=== PATIENT | male | born 1980 | race Caucasian/White ===

== ENCOUNTER 2020-08-18 08:57 | Emergency (ER) | payer OTHER, SELFPAY ==
[2020-08-18 09:06] VITALS: BP 134/82; PULSE 110; RESP 18; TEMP 37.9; O2SAT 96; BMI 39.1
--- NOTE | 2020-08-18 09:53 | ECG_ITS ---
Test Reason : SOB Blood Pressure : / mmHG Vent. Rate : 097 BPM Atrial Rate : 097 BPM P-R Int : 132 ms QRS Dur : 086 ms QT Int : 340 ms P-R-T Axes : 061 074 035 degrees QTc Int : 431 ms Normal sinus rhythm Nonspecific T wave abnormality Inferior leads Abnormal ECG When compared with ECG of 21-MAY-2020 07:47, T wave inversion more evident in Inferior leads Referred By: Daina Wall Electronically Signed By:MARKIE JAMES MD
--- NOTE | 2020-08-18 09:53 | XR_ITS ---
EXAMINATION: XR CHEST CLINICAL INFORMATION: Chest pain COMPARISON: Previous exam May 2020 TECHNIQUE: Frontal view of the chest was obtained. FINDINGS: The cardiac and mediastinal contours are stable. The lungs are clear. There is no pleural effusion or pneumothorax. There are degenerative changes of the spine. XR/XR chest 1V IMPRESSION: No evidence for acute disease in the chest.
--- NOTE | 2020-08-18 09:56 | PC.NURSE ---
PT C/O CHEST PAIN ON INSPIRATION. ASSESSED BY SANDRA STODDARD. PT BEING MOVED TO MAIN ED FOR FURTHER WORK UP. NO DIAPHORESIS, NO CYANOSIS, RESP UNLABORED.
--- NOTE | 2020-08-18 10:30 | ED_ITS ---
HPI - General Adult General Chief complaint: General Medical Stated complaint: CHILLS HEADACHE NAUSEA DIARRHEA Time Seen by Provider: 08/18/20 09:08 Source: patient Mode of arrival: ambulatory History of Present Illness HPI narrative: 40-year-old male with no significant past medical history presenting to the ED c/o chills, body aches/myalgias, nausea, sore throat, headache, and chest discomfort since last night. Also reports associated nonbloody vomiting and diarrhea. Denies cough, SOB, recent travel, sick contacts, suspicious food intake Onset (ago): hour(s) Related Data Allergies Allergy/AdvReac Type Severity Reaction Status Date / Time No Known Allergies Allergy Verified 08/18/20 09:09 Review of Systems Review of Systems: Constitutional: No Weight loss,+ Fever, + Chills ENT/Mouth: No Ear Pain, + Nasal Congestion, No Sinus Pain, No Hoarseness, + sore throat, No Rhinorrhea, No Swallowing Difficulty Cardiovascular: + Chest Pain, No SOB Respiratory: No Cough, No Sputum, No Wheezing Gastrointestinal:+ Nausea, + Vomiting, + Diarrhea, No Constipation, + Abdominal cramping Genitourinary: No Dysuria, No Flank Pain Musculoskeletal: No joint pain, +Myalgias, No Joint Swelling Skin: No Skin Lesions, No rash Yes all other systems are reviewed and are negative PMFSH Past Medical History Attestation statement: The following information was validated with the patient. Medical History (Updated 08/18/20 @ 13:30 by SANDRA Dolan) No known health problems Social History Social History Alcohol intake: never Smoking Status: Never smoker Use of substances other than those prescribed or required for medical reasons: No Advance Directives: No Advance Directives Information Provided: Yes Physical Exam Vital Signs: Vital Signs: Last Vital Signs Temp 99.4 F 08/18/20 12:16 Pulse 90 08/18/20 12:16 Resp 20 08/18/20 12:16 BP 130/68 08/18/20 11:09 Pulse Ox 95 08/18/20 10:32 Body Mass Index 39.1 Const: General: cooperative and healthy appearing O rientation/consciousness: patient oriented x3 Limitations: no limitations HENMT: Other: Mild posterior oropharyngeal erythema/swelling, no exudates. No evidence of SENIOR CLERK/edema Head: Yes normal to inspection Ears: hearing grossly normal bilaterally General nose exam: Normal external nose present Face and sinus: Yes normal facial exam Mouth: Normal oral and palatal mucosa present, no drooling and no muffled voice Throat: Yes uvula midline Eyes: General: appearance normal, both eyes and all related structures EOM: EOMs intact bilaterally Neck: Neck: Yes normal visual inspection, Yes no lymphadenopathy and Yes no meningeal signs Resp: Effort & Inspection: normal respiratory effort Auscultation: clear to auscultation bilaterally, no crackles, no rales and no rhonchi Cardio: Rate: regular rate Heart sounds: S1 normal heart sound present and S2 normal heart sound present GI: Inspection: Yes normal to inspection Palpation (GI): Soft to palpation, nontender, no guarding and not rigid Skin: Rashes: no rashes Wounds: no wounds Neuro: General: patient oriented x3 and no meningeal signs Gait exam (Neuro): Normal gait present Extrem: General: Yes normal to inspection Course Course Course Narrative: -CXR unremarkable -vital signs improved after symptomatic therapies -on re-evaluation patient reports symptomatic improvement, would like to be discharged, Chem 7 hemolyzed & UA pending -1327--potassium and magnesium slightly low > p.o. repletion ordered, labs otherwise unremarkable, troponin/BNP negative -UA negative Labs/imaging results discussed with patient including worrisome signs and symptoms and strict return precautions. Patient verbalized understanding and feels safe for discharge home to follow-up with PCP Medical Decision Making MDM Narrative Medical decision making narrative: 40-year-old male with no significant past medical history presenting to the ED c/o chills, body aches/myalgias, nausea, sore throat, headache, and chest discomfort since last night. On exam low-grade temp, tachycardic likely from fever, lungs CTA, nontoxic appearing, abdomen soft/nontender. Concern for viral syndrome/COVID-19 vs gastroenteritis/food poisoning. Lower concern for ACS/PE Low concern for severe sepsis Plan: EKG, labs, CXR, COVID-19, IVF, reassess Lab Data Result diagrams: 08/18/20 10:49 08/18/20 12:18 Labs: Lab Results 08/18/20 08/18/20 08/18/20 Range/Units 10:49 10:49 10:49 WBC 9.7 (4.8-10.8) X10*3/uL RBC 4.36 L (4.60-5.80) X10*6/uL Hgb 12.9 L (14.0-18.0) g/dl Hct 37.0 L (42-52) % MCV 84.9 (80-98) fL MCH 29.6 (27.0-33.0) pg MCHC 34.9 (31.0-36.0) g/dl RDW 12.5 (11.0-16.0) % Plt Count 329 (160-400) X10*3/uL MPV 9.4 (9.4-12.4) fL Immature Gran % (Auto) 0.1 (0.0-0.4) % Neut % (Auto) 58.0 (45-73) % Lymph % (Auto) 32.8 (20-40) % [place] % (Auto) 7.8 (2-11) % Eos % (Auto) 0.7 (0-4) % Baso % (Auto) 0.6 (0-2) % Lymph # (Auto) 3.2 (1.2-4.9) X10*3/uL [place] # (Auto) 0.8 (0.1-1.2) X10*3/uL Eos # (Auto) 0.1 (0.0-0.4) X10*3/uL Baso # (Auto) 0.1 (0.0-0.2) X10*3/uL Abs Immat Gran (auto) 0.01 (0.00-0.03) X10*3/uL Absolute Neuts (auto) 5.6 (2.0-8.3) X10*3/uL Absolute Nucleated RBC 0.000 (0.0-0.012) X10*3/uL Nucleated RBC % (auto) 0.0 (0.0-0.2) /100WBC Hold Blue Top SEE NOTE Sodium Cancelled Potassium Cancelled Chloride Cancelled Carbon Dioxide Cancelled Anion Gap Cancelled BUN Cancelled Creatinine Cancelled Estim Creat Clear Calc Cancelled Estimated GFR Cancelled Random Glucose Cancelled Calcium Cancelled Magnesium Cancelled Total Bilirubin Cancelled Direct Bilirubin Cancelled AST Cancelled ALT Cancelled Alkaline Phosphatase Cancelled Troponin I High Sens (<3.5-35.0) ng/L B-Natriuretic Peptide (<100) pg/mL Total Protein Cancelled Albumin Cancelled Lipase Cancelled Urine Color Urine Appearance Urine pH (5.0-8.0) Ur Specific [place] (1.005-1.025) Urine Protein (NEG-TRACE) MG/DL Urine Glucose (UA) (NEG) MG/DL Urine Ketones (NEG) MG/DL Urine Blood (NEG) Urine Nitrite (NEG) Ur Leukocyte Esterase (NEG) 08/18/20 08/18/20 08/18/20 Range/Units 10:49 12:18 13:18 WBC (4.8-10.8) X10*3/uL RBC (4.60-5.80) X10*6/uL Hgb (14.0-18.0) g/dl Hct (42-52) % MCV (80-98) fL MCH (27.0-33.0) pg MCHC (31.0-36.0) g/dl RDW (11.0-16.0) % Plt Count (160-400) X10*3/uL MPV (9.4-12.4) fL Immature Gran % (Auto) (0.0-0.4) % Neut % (Auto) (45-73) % Lymph % (Auto) (20-40) % [place] % (Auto) (2-11) % Eos % (Auto) (0-4) % Baso % (Auto) (0-2) % Lymph # (Auto) (1.2-4.9) X10*3/uL [place] # (Auto) (0.1-1.2) X10*3/uL Eos # (Auto) (0.0-0.4) X10*3/uL Baso # (Auto) (0.0-0.2) X10*3/uL Abs Immat Gran (auto) (0.00-0.03) X10*3/uL Absolute Neuts (auto) (2.0-8.3) X10*3/uL Absolute Nucleated RBC (0.0-0.012) X10*3/uL Nucleated RBC % (auto) (0.0-0.2) /100WBC Hold Blue Top Sodium 141 Potassium 3.2 L Chloride 108 Carbon Dioxide 23 Anion Gap 13 BUN 20 H Creatinine 0.77 Estim Creat Clear Calc 153.3 Estimated GFR > 60 Random Glucose 119 H Calcium 7.6 L Magnesium 1.5 L Total Bilirubin 0.3 Direct Bilirubin < 0.2 AST 21 ALT 31 Alkaline Phosphatase 86 Troponin I High Sens < 3.5 (<3.5-35.0) ng/L B-Natriuretic Peptide < 10 (<100) pg/mL Total Protein 7.1 Albumin 3.9 Lipase 25 Urine Color YELLOW Urine Appearance HAZY Urine pH 7.0 (5.0-8.0) Ur Specific [place] 1.020 (1.005-1.025) Urine Protein NEG (NEG-TRACE) MG/DL Urine Glucose (UA) NEG (NEG) MG/DL Urine Ketones 5 (NEG) MG/DL Urine Blood TRACE (NEG) Urine Nitrite NEG (NEG) Ur Leukocyte Esterase NEG (NEG) Discharge Plan Discharge Clinical Impression: Viral syndrome Patient Disposition: Home, Self-Care Instructions: Viral Syndrome (ED) Additional Instructions: Your labs showed slightly low potassium and magnesium, your given repletion in the ED Your x-ray was unremarkable Your lab work was otherwise unremarkable It is crucial that he stay hydrated at home Your tested for COVID-19 today in the ED, the results should be back in 1-3 days, in the meantime you to self isolate If your symptoms persist or worsen, your unable to eat or drink, fever unresolved medications return to the ED Based on your symptoms and history we have sent a COVID-19. Although your RESULT IS PENDING at this time. RESULTS should return within 72 hours. At this time you will be contacted with either NEGATIVE OR POSITIVE results. -Please wait until we contact you for your results. At this time you will be okay for discharge. Please plan for self quarantine for up to 14 days. Do not expose yourself to others. You may not go to work. If testing does come back negative you may return to activities as long as you are no longer having any symptoms for at least 3 days. Please continue to follow cold instructions and wash your hands frequently. You may take Tylenol as directed on the bottle for pain or fever. Patient seen in the emergency department on 04/07/2020 and should be excused from work until negative test results AND until 72 hours without any symptoms AND at least 10 days have passed since symptoms first appeared or since last exposure to COVID-19 positive patient CDC Guidelines for home isolation: - Stay away from others - WEAR A MASK if you are sick AND STAY HOME - Cover your mouth and nose with a tissue when you cough or sneeze. Dispose of tissues in a lined trash can and wash your hands immediately with soap and water for at least 20 seconds. If soap and water are not available, clean hands with alcohol-based hand field staff that contains at least 60% alcohol. - Clean your hands often with soap and water for at least 20 seconds - Avoid touching your eyes, nose and mouth with unwashed hands - Do not share dishes, drinking glasses, cups, eating utensils, towels, or b edding with other people in your home. After using these items, wash them thoroughly with soap and water or put in the firewall security engineer. - Clean high-touch surfaces in your isolation area ( sick room and bathroom) every day; let a caregiver clean and disinfect high-touch surfaces in other areas of the home. Clean the area or item with soap and water or another detergent if it is dirty. Then, use a household disinfectant. - Limit contact with pets and animals: If you must care for a pet, wash your h ands before and after interacting with them) Referrals: Dheeraj Torres MD [Primary Care Provider] - 3 days Stand Alone Forms: Work/School Release
[2020-08-18 10:32] VITALS: BP 133/74; PULSE 104; TEMP 37.2; O2SAT 95
[2020-08-18] MEDS: 0.9 % Sodium Chloride 1,000 ML 999 ML IVCONT (10:50)
[2020-08-18] MEDS: Acetaminophen 325 MG TABLET 650 MG PO (10:51)
[2020-08-18 10:56] LABS: MANUAL DIFF FLAG NO
[2020-08-18 11:01] LABS: Basophils Absolute Auto 0.1 X10*3/uL (0.0-0.2); Basophils Percent Auto 0.6 % (0-2); Eosinophils Absolute Auto 0.1 X10*3/uL (0.0-0.4); Eosinophils Percent Auto 0.7 % (0-4); Hemoglobin 12.9 g/dl (14.0-18.0); Imm Gran Abs Auto 0.01 X10*3/uL (0.00-0.03); Imm Gran Pct Auto 0.1 % (0.0-0.4); Lymphocytes Absolute Auto 3.2 X10*3/uL (1.2-4.9); Lymphocytes Percent Auto 32.8 % (20-40); Mean Corpuscular HGB Conc 34.9 g/dl (31.0-36.0); Mean Corpuscular Hemoglobin 29.6 pg (27.0-33.0); Mean Corpuscular Volume 84.9 fL (80-98); Mean Platelet Volume 9.4 fL (9.4-12.4); Monocytes Absolute Auto 0.8 X10*3/uL (0.1-1.2); Monocytes Percent Auto 7.8 % (2-11); Neutrophils Absolute Auto 5.6 X10*3/uL (2.0-8.3); Platelet Count 329 X10*3/uL (160-400); Red Blood Count 4.36 X10*6/uL (4.60-5.80); Red Cell Distribution Width 12.5 % (11.0-16.0); White Blood Count 9.7 X10*3/uL (4.8-10.8)
[2020-08-18 11:06] VITALS: BP 130/68; PULSE 97
[2020-08-18 11:08] VITALS: BP 132/66; PULSE 96
[2020-08-18 11:09] VITALS: BP 130/68; PULSE 95
[2020-08-18] MEDS: hydrOXYzine HCL 50 MG TABLET PO (11:18)
[2020-08-18 11:38] LABS: B Type Natriuretic Peptide < 10 pg/mL (<100); Troponin-I High Sensitivity < 3.5 ng/L (<3.5-35.0)
[2020-08-18 12:16] VITALS: PULSE 90; RESP 20; TEMP 37.4
--- NOTE | 2020-08-18 12:37 | PC.NURSE ---
laying on stretcher, call vann in place. watching tv
[2020-08-18 13:06] LABS: Alanine Aminotransferase 31 U/L (0-40); Albumin Level 3.9 g/dL (3.5-5.0); Alkaline Phosphatase 86 U/L (39-117); Aspartate Amino Transferase 21 U/L (5-37); Bilirubin Direct < 0.2 mg/dL (0.0-0.5); Bilirubin Total 0.3 mg/dL (0.0-1.0); Total Protein 7.1 g/dL (6.5-8.0)
[2020-08-18 13:17] LABS: Anion Gap 13 (12-20); Blood Urea Nitrogen 20 mg/dL (9-16); Calcium 7.6 mg/dL (8.4-10.2); Carbon Dioxide 23 mmol/L (22-29); Chloride 108 mmol/L (96-108); Creatinine Clr Calc Pharmacy 153.3; Estimated Glomerular Filt Rate > 60; Glucose Random 119 mg/dL (60-115); Lipase 25 U/L (8-78); Magnesium 1.5 mg/dL (1.6-2.6); Potassium 3.2 mmol/l (3.3-5.1); Sodium 141 mmol/L (135-145)
[2020-08-18 13:27] LABS: Glucose Urine UA NEG (NEG); Leukocyte Esterase Urine NEG (NEG); Nitrite Urine NEG (NEG); Urine Blood TRACE (NEG); Urine Ketones 5 MG/DL (NEG); Urine Protein NEG (NEG-TRACE)
[2020-08-18 13:30] LABS: Appearance Urine HAZY; Color Urine YELLOW
[2020-08-18 13:42] LABS: WBC Urine 0-2 /HPF (0-4)
== END 2020-08-18 14:02 | disposition home or self-care (01) ==
PROVIDERS: Physician Assistant; Emergency Provider Emergency Medicine; PCP Internal Medicine
DX: B34.9 Viral infection, unspecified (principal); M79.10 Myalgia, unspecified site; R05 Cough; Z20.828 Contact with and (suspected) exposure to other viral communicable diseases
CPT/HCPCS: 36415; 71045; 80048; 80076; 81001; 83690; 83735; 83880; 84484; 85025; 93005; 96360; 99284; U0003

== ENCOUNTER → 2020-09-18 13:03 | Outpatient (BNVA) | payer OTHER, SELFPAY | PROVIDERS: PCP Internal Medicine; Referring Provider Internal Medicine; Visit Provider Surgery | DX: Z01.818 Encounter for other preprocedural examination (principal); E66.01 Morbid (severe) obesity due to excess calories; Z68.41 Body mass index [BMI] 40.0-44.9, adult; R06.02 Shortness of breath | CPT/HCPCS: 99202 ==

== ENCOUNTER 2020-09-21 08:57 | Outpatient (REF) | payer OTHER, SELFPAY ==
[2020-09-22 15:28] LABS: H Pylori Breath Test DETECTED (NOT DETECTED)
== END 2020-09-21 08:58 | disposition home or self-care (01) ==
LOC: HO.LNP 08:57
PROVIDERS: PCP Internal Medicine; Visit Provider Surgery
DX: Z01.818 Encounter for other preprocedural examination (principal)
CPT/HCPCS: 83013; 99211

== ENCOUNTER 2020-10-11 08:12 | Outpatient (REF) | payer OTHER, SELFPAY ==
[2020-10-14 12:13] LABS: H Pylori Breath Test NOT DETECTED (NOT DETECTED)
== END 2020-10-11 08:13 | disposition home or self-care (01) ==
LOC: HO.LNP 08:12
PROVIDERS: PCP Internal Medicine; Visit Provider Surgery
DX: Z01.818 Encounter for other preprocedural examination (principal)
CPT/HCPCS: 83013; 99211

== ENCOUNTER → 2020-10-19 09:16 | Outpatient (REF) | payer OTHER, SELFPAY ==
--- NOTE | 2020-10-19 10:14 | ECG_ITS ---
Test Reason : SOB Blood Pressure : / mmHG Vent. Rate : 073 BPM Atrial Rate : 073 BPM P-R Int : 156 ms QRS Dur : 088 ms QT Int : 386 ms P-R-T Axes : 051 072 045 degrees QTc Int : 425 ms Normal sinus rhythm Normal ECG When compared with ECG of 18-AUG-2020 11:03, No significant change was found Referred By: Taina Miller Electronically Signed By:Jose Carter
== END ==
LOC: HO.CARD 09:16
PROVIDERS: PCP Internal Medicine; Visit Provider Surgery
DX: R06.02 Shortness of breath (principal); E66.01 Morbid (severe) obesity due to excess calories; Z68.41 Body mass index [BMI] 40.0-44.9, adult
CPT/HCPCS: 93005; 99212

== ENCOUNTER 2020-10-23 07:27 | Outpatient (REF) | payer OTHER, SELFPAY ==
--- NOTE | 2020-10-23 07:52 | XR_ITS ---
EXAMINATION: XR CHEST CLINICAL INFORMATION: Shortness of breath COMPARISON: Previous chest x-ray August 2020 TECHNIQUE: 2 views of the chest were obtained. FINDINGS: Cardiac and mediastinal contours are normal. The lungs are clear. There is no pleural effusion or pneumothorax. There are degenerative changes of the spine. XR/XR chest 2V IMPRESSION: No evidence for acute disease in the chest.
[2020-10-23 08:35] LABS: MANUAL DIFF FLAG NO
[2020-10-23 08:38] LABS: Basophils Absolute Auto 0.1 X10*3/uL (0.0-0.2); Basophils Percent Auto 0.6 % (0-2); Eosinophils Absolute Auto 0.2 X10*3/uL (0.0-0.4); Eosinophils Percent Auto 2.4 % (0-4); Hemoglobin 12.7 g/dl (14.0-18.0); Imm Gran Abs Auto 0.03 X10*3/uL (0.00-0.03); Imm Gran Pct Auto 0.4 % (0.0-0.4); Lymphocytes Absolute Auto 2.3 X10*3/uL (1.2-4.9); Lymphocytes Percent Auto 29.3 % (20-40); Mean Corpuscular HGB Conc 33.4 g/dl (31.0-36.0); Mean Corpuscular Hemoglobin 29.1 pg (27.0-33.0); Mean Corpuscular Volume 87.2 fL (80-98); Mean Platelet Volume 10.1 fL (9.4-12.4); Monocytes Absolute Auto 0.4 X10*3/uL (0.1-1.2); Monocytes Percent Auto 5.6 % (2-11); Neutrophils Absolute Auto 4.8 X10*3/uL (2.0-8.3); Neutrophils Percent Auto 61.7 % (45-73); Platelet Count 271 X10*3/uL (160-400); Red Blood Count 4.36 X10*6/uL (4.60-5.80); Red Cell Distribution Width 12.2 % (11.0-16.0); White Blood Count 7.8 X10*3/uL (4.8-10.8)
[2020-10-23 09:05] LABS: Alanine Aminotransferase 25 U/L (0-40); Albumin Level 4.3 g/dL (3.5-5.0); Alkaline Phosphatase 87 U/L (39-117); Anion Gap 10 (12-20); Aspartate Amino Transferase 16 U/L (5-37); Bilirubin Total 0.4 mg/dL (0.0-1.0); Blood Urea Nitrogen 14 mg/dL (9-16); Calcium 8.6 mg/dL (8.4-10.2); Carbon Dioxide 25 mmol/L (22-29); Chloride 108 mmol/L (96-108); Cholesterol 181 mg/dL; Estimated Glomerular Filt Rate > 60; Glucose Fasting 95 mg/dL (60-99); HDL Cholesterol 42 mg/dL; Iron 75 mcg/dL (45-160); LDL Cholesterol Calculated 107 mg/dl; Percent Iron Saturation 24 % (15-50); Potassium 4.2 mmol/l (3.3-5.1); Sodium 139 mmol/L (135-145); Total Iron Binding Capacity 310 mcg/dL (228-428); Total Protein 7.4 g/dL (6.5-8.0); Triglycerides 163 mg/dL; Unsaturated Iron Binding 235 ug/dL
[2020-10-23 09:17] LABS: Vitamin B12 374 pg/mL (200-900)
[2020-10-23 09:28] LABS: Thyroid Stimulating Hormone 0.46 uIU/mL (0.32-4.0)
[2020-10-24 17:01] LABS: Calcium (PTHI) 8.9 mg/dL (8.6-10.3); PTHI 58 pg/mL (14-64)
[2020-10-25 21:42] LABS: Zinc 71 mcg/dL (60-130)
[2020-10-27 07:47] LABS: Vitamin B1 8 nmol/L (8-30)
[2020-10-27 22:23] LABS: Vitamin A 51 mcg/dL (38-98)
== END 2020-10-23 07:28 | disposition home or self-care (01) ==
LOC: HO.LAB 07:27
PROVIDERS: PCP Internal Medicine; Visit Provider Surgery
DX: Z01.818 Encounter for other preprocedural examination (principal); R06.02 Shortness of breath
CPT/HCPCS: 36415; 71046; 80053; 80061; 82306; 82607; 83540; 83970; 84425; 84443; 84590; 84630; 85025

== ENCOUNTER → 2020-10-31 08:12 | Outpatient (BNVA) | payer OTHER, SELFPAY | PROVIDERS: PCP Internal Medicine; Visit Provider Dietitian, Registered ==

== ENCOUNTER → 2020-11-14 09:05 | Outpatient (BNVA) | payer OTHER, SELFPAY | PROVIDERS: PCP Internal Medicine; Visit Provider Surgery | DX: E66.01 Morbid (severe) obesity due to excess calories (principal); Z68.41 Body mass index [BMI] 40.0-44.9, adult | CPT/HCPCS: 99212 ==

== ENCOUNTER → 2020-12-07 11:02 | Outpatient (BNVA) | payer OTHER, SELFPAY | PROVIDERS: PCP Internal Medicine; Visit Provider Surgery | DX: E66.9 Obesity, unspecified (principal); Z68.39 Body mass index [BMI] 39.0-39.9, adult | CPT/HCPCS: 99212 ==

== ENCOUNTER → 2020-12-08 08:12 | Outpatient (BNVA) | payer OTHER, SELFPAY | PROVIDERS: PCP Internal Medicine; Visit Provider Dietitian, Registered ==

== ENCOUNTER → 2020-12-21 09:58 | Outpatient (BNVA) | payer OTHER, SELFPAY | PROVIDERS: PCP Internal Medicine; Visit Provider Surgery | DX: E66.9 Obesity, unspecified (principal); Z68.38 Body mass index [BMI] 38.0-38.9, adult | CPT/HCPCS: 99212 ==

== ENCOUNTER → 2020-12-28 14:23 | Outpatient (CLI) | payer OTHER, SELFPAY | PROVIDERS: PCP Internal Medicine; Visit Provider Physician Assistant | DX: Z13.89 Encounter for screening for other disorder (principal) ==

== ENCOUNTER → 2020-12-29 13:20 | Outpatient (BNVA) | payer OTHER, SELFPAY | PROVIDERS: PCP Internal Medicine; Visit Provider Surgery | DX: Z01.818 Encounter for other preprocedural examination (principal); E66.9 Obesity, unspecified; Z68.38 Body mass index [BMI] 38.0-38.9, adult; R06.02 Shortness of breath | CPT/HCPCS: 99212 ==

== ENCOUNTER 2021-01-03 05:33 | Inpatient (IN) | payer OTHER, SELFPAY ==
[2020-12-29 16:32] LABS: MANUAL DIFF FLAG NO
[2020-12-29 17:52] LABS: Basophils Absolute Auto 0.1 X10*3/uL (0.0-0.2); Eosinophils Absolute Auto 0.2 X10*3/uL (0.0-0.4); Eosinophils Percent Auto 2.2 % (0-4); Hematocrit 39.7 % (42-52); Hemoglobin 13.6 g/dl (14.0-18.0); Imm Gran Abs Auto 0.01 X10*3/uL (0.00-0.03); Imm Gran Pct Auto 0.1 % (0.0-0.4); Lymphocytes Absolute Auto 3.4 X10*3/uL (1.2-4.9); Lymphocytes Percent Auto 43.6 % (20-40); Mean Corpuscular HGB Conc 34.3 g/dl (31.0-36.0); Mean Corpuscular Hemoglobin 29.1 pg (27.0-33.0); Mean Platelet Volume 10.6 fL (9.4-12.4); Monocytes Absolute Auto 0.4 X10*3/uL (0.1-1.2); Monocytes Percent Auto 5.7 % (2-11); Neutrophils Absolute Auto 3.6 X10*3/uL (2.0-8.3); Neutrophils Percent Auto 47.4 % (45-73); Platelet Count 315 X10*3/uL (160-400); Red Blood Count 4.67 X10*6/uL (4.60-5.80); Red Cell Distribution Width 11.9 % (11.0-16.0); White Blood Count 7.7 X10*3/uL (4.8-10.8)
[2020-12-29 18:03] LABS: Glucose Urine UA NEG (NEG); INTERNATIONAL NORM RATIO 1.1 (0.9-1.1); Leukocyte Esterase Urine NEG (NEG); Nitrite Urine NEG (NEG); PH 5.5 (5.0-8.0); Prothrombin Time 12.6 SEC (10.8-13.0); Specific Gravity - Urine 1.025 (1.005-1.025); Urine Blood TRACE (NEG); Urine Ketones NEG (NEG); Urine Protein NEG (NEG-TRACE)
[2020-12-29 18:06] LABS: Partial Thromboplastin Time 39.2 SEC (24.1-38.0)
[2020-12-29 18:07] LABS: Appearance Urine CLEAR; Color Urine YELLOW
[2020-12-29 18:15] LABS: Bacteria Urine TRACE /LPF; RBC Urine 0 /HPF (0); WBC Urine 0 /HPF (0-4)
[2020-12-29 18:20] LABS: Albumin Level 4.8 g/dL (3.5-5.0); Anion Gap 14 (12-20); Blood Urea Nitrogen 22 mg/dL (9-16); Calcium 9.7 mg/dL (8.4-10.2); Carbon Dioxide 24 mmol/L (22-29); Chloride 103 mmol/L (96-108); Estimated Glomerular Filt Rate > 60; Glucose Random 81 mg/dL (60-115); Potassium 3.8 mmol/L (3.3-5.1); Sodium 137 mmol/L (135-145)
[2021-01-01 09:05] VITALS: BMI 38.2
--- NOTE | 2021-01-01 11:16 | ECG_ITS ---
Test Reason : SOB Blood Pressure : / mmHG Vent. Rate : 068 BPM Atrial Rate : 068 BPM P-R Int : 156 ms QRS Dur : 088 ms QT Int : 376 ms P-R-T Axes : 026 071 051 degrees QTc Int : 399 ms Normal sinus rhythm Normal ECG When compared with ECG of 19-OCT-2020 10:22, No significant change was found Referred By: Taina Miller Electronically Signed By:ROSA BELL
--- NOTE | 2021-01-02 10:31 | P.CONAN_ITS ---
Documented by User: Delores Kenia 01/02/21 10:34 HPI - Anesthesia Eval Consult details Narrative: 40yo M for Gastrectomy Sleeve PMFSH Active Problems Active Problems: All Active Problems (Updated 01/01/21 @ 09:06 by Missy Shetty) Morbid obesity due to excess calories (Acute) BMI 40.0-44.9, adult (Acute) Preoperative examination (Acute) Shortness of breath (Acute) Helicobacter pylori (H. pylori) infection (Acute) Body mass index (BMI) of 40.1 to 44.9 in adult (Acute) Vitamin D deficiency (Acute) BMI 39.0-39.9,adult (Acute) Obesity (Acute) BMI 38.0-38.9,adult (Acute) Past Medical History Medical History COVID-19 vaccine administered Depression Hypertriglyceridemia Obesity Obstructive sleep apnea treated with continuous positive airway pressure (CPAP) Family History Family History Mother Diabetes Father Prostate cancer Brother Diabetes Sister Asthma Sister Asthma Son No problems noted. Daughter Autism Surgical History Surgical History No pertinent past surgical history Social History Social History Are you a primary healthcare science specialist to a significant other at home: No Do you presently have visiting nurse or other home services: No Smoking Status: Former smoker Tobacco Type: Cigarette Smoking Quit Date: 2015 Use of substances other than those prescribed or required for medical reasons: No Substance Use Type: Former Substance User and Marijuana Substance Use Type Other:: marijuana use in past Have you been hit, kicked, punched, or otherwise hurt by someone within the past year? If so, by whom?: No Advance Directives Information Provided: No Recently lost weight without trying: No Meds Allergies Allergy/AdvReac Type Severity Reaction Status Date / Time No Known Allergies Allergy Verified 12/29/20 13:34 Home Medications Medication Instructions Recorded Confirmed Last Taken Type omega-3 fatty acids 1,000 mg 1,000 mg PO BID cap 09/18/20 01/01/21 Unknown History capsule CPAP #1 ea 12/07/20 12/29/20 Unknown History cyanocobalamin (vitamin B-12) 500 mcg PO DAILY 01/01/21 01/01/21 Unknown History [Vitamin B-12] Exam Exam Date and Time: January 02, 2021 1031 Height,Weight and Vital Signs: Height 5 ft 6.5 in Weight 109.134 kg Pertinent Lab Results Pertinent Lab Results: Laboratory Tests 12/29/20 12/29/20 12/29/20 16:31 16:31 16:31 WBC 7.7 RBC 4.67 Hgb 13.6 L Hct 39.7 L MCV 85.0 MCH 29.1 MCHC 34.3 RDW 11.9 Plt Count 315 MPV 10.6 Immature Gran % (Auto) 0.1 Neut % (Auto) 47.4 Lymph % (Auto) 43.[address] [place] % (Auto) 5.7 Eos % (Auto) 2.2 Baso % (Auto) 1.0 Lymph # (Auto) 3.4 [place] # (Auto) 0.4 Eos # (Auto) 0.2 Baso # (Auto) 0.1 Abs Immat Gran (auto) 0.01 Absolute Neuts (auto) 3.6 Absolute Nucleated RBC 0.000 Nucleated RBC % (auto) 0.0 PT 12.6 INR 1.1 APTT 39.2 H Sodium Potassium Chloride Carbon Dioxide Anion Gap BUN Creatinine Estim Creat Clear Calc Estimated GFR Random Glucose Calcium Albumin Urine Color YELLOW Urine Appearance CLEAR Urine pH 5.5 Ur Specific [place] 1.025 Urine Protein NEG Urine Glucose (UA) NEG Urine Ketones NEG Urine Blood TRACE Urine Nitrite NEG Ur Leukocyte Esterase NEG Urine RBC 0 Urine WBC 0 Ur Squamous Epith Cells NONE Urine Bacteria TRACE Blood Type Antibody Screen 12/29/20 12/29/20 16:31 16:31 WBC RBC Hgb Hct MCV MCH MCHC RDW Plt Count MPV Immature Gran % (Auto) Neut % (Auto) Lymph % (Auto) [place] % (Auto) Eos % (Auto) Baso % (Auto) Lymph # (Auto) [place] # (Auto) Eos # (Auto) Baso # (Auto) Abs Immat Gran (auto) Absolute Neuts (auto) Absolute Nucleated RBC Nucleated RBC % (auto) PT INR APTT Sodium 137 Potassium 3.8 Chloride 103 Carbon Dioxide 24 Anion Gap 14 BUN 22 H D Creatinine 0.78 Estim Creat Clear Calc TNP Estimated GFR > 60 Random Glucose 81 Calcium 9.7 D Albumin 4.8 Urine Color Urine Appearance Urine pH Ur Specific [place] Urine Protein Urine Glucose (UA) Urine Ketones Urine Blood Urine Nitrite Ur Leukocyte Esterase Urine RBC Urine WBC Ur Squamous Epith Cells Urine Bacteria Blood Type O Positive Antibody Screen NEGATIVE Narrative Narrative: EKG 12/2020 Normal sinus rhythm Normal ECG When compared with ECG of 19-OCT-2020 10:22, No significant change was found Assessment and Plan Assessment Anesthesia Assessment: Chart Reviewed Documented by User: Janis Nielsen 01/03/21 09:44 [facility] Past Medical History Medical History COVID-19 vaccine administered Depression Hypertriglyceridemia Obesity Obstructive sleep apnea treated with continuous positive airway pressure (CPAP) Family History Family History Mother Diabetes Father Prostate cancer Brother Diabetes Sister Asthma Sister Asthma Son No problems noted. Daughter Autism Family history of problems with anesthesia: No Surgical History Surgical History No pertinent past surgical history History of Problems with Anesthesia: No Social History Social History Are you a primary healthcare science specialist to a significant other at home: No Do you presently have visiting nurse or other home services: No Smoking Status: Former smoker Tobacco Type: Cigarette Smoking Quit Date: 2015 Use of substances other than those prescribed or required for medical reasons: No Substance Use Type: Former Substance User and Marijuana Substance Use Type Other:: marijuana use in past Have you been hit, kicked, punched, or otherwise hurt by someone within the past year? If so, by whom?: No Advance Directives Information Provided: No Recently lost weight without trying: No Meds Allergies Allergy/AdvReac Type Severity Reaction Status Date / Time No Known Allergies Allergy Verified 12/29/20 13:34 Home Medications Medication Instructions Recorded Confirmed Last Taken Type omega-3 fatty acids 1,000 mg 1,000 mg PO BID cap 09/18/20 01/01/21 Unknown History capsule CPAP #1 ea 12/07/20 12/29/20 Unknown History cyanocobalamin (vitamin B-12) 500 mcg PO DAILY 01/01/21 01/01/21 Unknown History [Vitamin B-12] Exam Height,Weight and Vital Signs: Vital Signs Temp Pulse Resp BP Pulse Ox 01/03/21 09:05 98.4 F 68 16 115/68 97 Pertinent Lab Results Pertinent Lab Results: Lab Results 12/29/20 12/29/20 12/29/20 Range/Units 16:31 16:31 16:31 WBC 7.7 (4.8-10.8) X10*3/uL RBC 4.67 (4.60-5.80) X10*6/uL Hgb 13.6 L (14.0-18.0) g/dl Hct 39.7 L (42-52) % MCV 85.0 (80-98) fL MCH 29.1 (27.0-33.0) pg MCHC 34.3 (31.0-36.0) g/dl RDW 11.9 (11.0-16.0) % Plt Count 315 (160-400) X10*3/uL MPV 10.6 (9.4-12.4) fL Immature Gran % (Auto) 0.1 (0.0-0.4) % Neut % (Auto) 47.4 (45-73) % Lymph % (Auto) 43.6 H (20-40) % [place] % (Auto) 5.7 (2-11) % Eos % (Auto) 2.2 (0-4) % Baso % (Auto) 1.0 (0-2) % Lymph # (Auto) 3.4 (1.2-4.9) X10*3/uL [place] # (Auto) 0.4 (0.1-1.2) X10*3/uL Eos # (Auto) 0.2 (0.0-0.4) X10*3/uL Baso # (Auto) 0.1 (0.0-0.2) X10*3/uL Abs Immat Gran (auto) 0.01 (0.00-0.03) X10*3/uL Absolute Neuts (auto) 3.6 (2.0-8.3) X10*3/uL Absolute Nucleated RBC 0.000 (0.0-0.012) X10*3/uL Nucleated RBC % (auto) 0.0 (0.0-0.2) /100WBC PT 12.6 (10.8-13.0) SEC INR 1.1 (0.9-1.1) APTT 39.2 H (24.1-38.0) SEC Sodium (135-145) mmol/L Potassium (3.3-5.1) mmol/L Chloride (96-108) mmol/L Carbon Dioxide (22-29) mmol/L Anion Gap (12-20) BUN (9-16) mg/dL Creatinine (0.5-1.4) mg/dL Estim Creat Clear Calc Estimated GFR Random Glucose (60-115) mg/dL Calcium (8.4-10.2) mg/dL Albumin (3.5-5.0) g/dL Urine Color YELLOW Urine Appearance CLEAR Urine pH 5.5 (5.0-8.0) Ur Specific [place] 1.025 (1.005-1.025) Urine Protein NEG (NEG-TRACE) MG/DL Urine Glucose (UA) NEG (NEG) MG/DL Urine Ketones NEG (NEG) MG/DL Urine Blood TRACE (NEG) Urine Nitrite NEG (NEG) Ur Leukocyte Esterase NEG (NEG) Urine RBC 0 (0) /HPF Urine WBC 0 (0-4) /HPF Ur Squamous Epith Cells NONE /LPF Urine Bacteria TRACE /LPF COVID-19 ([facility]) (Negative) COVID-19 Clin [facility] Blood Type Antibody Screen 12/29/20 12/29/20 01/03/21 Range/Units 16:31 16:31 09:05 WBC (4.8-10.8) X10*3/uL RBC (4.60-5.80) X10*6/uL Hgb (14.0-18.0) g/dl Hct (42-52) % MCV (80-98) fL MCH (27.0-33.0) pg MCHC (31.0-36.0) g/dl RDW (11.0-16.0) % Plt Count (160-400) X10*3/uL MPV (9.4-12.4) fL Immature Gran % (Auto) (0.0-0.4) % Neut % (Auto) (45-73) % Lymph % (Auto) (20-40) % [place] % (Auto) (2-11) % Eos % (Auto) (0-4) % Baso % (Auto) (0-2) % Lymph # (Auto) (1.2-4.9) X10*3/uL [place] # (Auto) (0.1-1.2) X10*3/uL Eos # (Auto) (0.0-0.4) X10*3/uL Baso # (Auto) (0.0-0.2) X10*3/uL Abs Immat Gran (auto) (0.00-0.03) X10*3/uL Absolute Neuts (auto) (2.0-8.3) X10*3/uL Absolute Nucleated RBC (0.0-0.012) X10*3/uL Nucleated RBC % (auto) (0.0-0.2) /100WBC PT (10.8-13.0) SEC INR (0.9-1.1) APTT (24.1-38.0) SEC Sodium 137 (135-145) mmol/L Potassium 3.8 (3.3-5.1) mmol/L Chloride 103 (96-108) mmol/L Carbon Dioxide 24 (22-29) mmol/L Anion Gap 14 (12-20) BUN 22 H D (9-16) mg/dL Creatinine 0.78 (0.5-1.4) mg/dL Estim Creat Clear Calc TNP Estimated GFR > 60 Random Glucose 81 (60-115) mg/dL Calcium 9.7 D (8.4-10.2) mg/dL Albumin 4.8 (3.5-5.0) g/dL Urine Color Urine Appearance Urine pH (5.0-8.0) Ur Specific [place] (1.005-1.025) Urine Protein (NEG-TRACE) MG/DL Urine Glucose (UA) (NEG) MG/DL Urine Ketones (NEG) MG/DL Urine Blood (NEG) Urine Nitrite (NEG) Ur Leukocyte Esterase (NEG) Urine RBC (0) /HPF Urine WBC (0-4) /HPF Ur Squamous Epith Cells /LPF Urine Bacteria /LPF COVID-19 (BARRY) Negative (Negative) COVID-19 Clin Com See Note Blood Type O Positive Antibody Screen NEGATIVE Airway Mallampati Class: III TM Dist: >3cm Neck ROM: Full Heart: RRR Lungs: CTAB Assessment and Plan Assessment Anesthesia Assessment: Anesthesia Plan Discussed and Chart Reviewed Final Anesthetic Review NPO: Yes ASA Class: III Final Preanesthetic Review: No Changes in Pt Med Stat, Meds/Allgs Chart Reviewed, Consent Obtained/Reviewed and Anes Risks/Benef Reviewed Patient Risk: Intermediate Procedure Risk: Intermediate Assessment/Block/Sedation in SS: Assess/Block/Sedation-SS Anesthetic Plan Anesthetic Plan: GA Disposition: Inp. Admit - Standard Bed
--- NOTE | 2021-01-02 13:30 | MHC.SHP ---
Pre-Procedural Eval Section B Chief Complaint: obesity, ekg Allergies: Allergies Allergy/AdvReac Type Severity Reaction Status Date / Time No Known Allergies Allergy Verified 12/29/20 13:34 Plan I have reviewed the history and physical and performed a pertinent physical examination on my patient. No changes have occurred unless specified.
[2021-01-03] VITALS (18 sets, daily range): BP systolic 115–181; BP diastolic 60–115; PULSE 68–100; RESP 16–22; TEMP 36.3–37.3; O2SAT 97–100
[2021-01-03] MEDS: Lactated Ringers 1,000 ML 100 ML IVCONT (09:27)
[2021-01-03 09:29] LABS: COVID-19 Test Negative (Negative)
--- NOTE | 2021-01-03 13:09 | P.BOP_ITS ---
Brief Operative Note Date of Service: 01/03/21 Pre-op diagnosis: Obesity, BMI 38.2, sleep apnea, hypertriglyceridemia Post-op diagnosis: other (Same and hiatal hernia) Procedure: Laparoscopic sleeve gastrectomy, hiatal hernia repair, Yasmany block, intraoperative endoscopy Implants: covidien haylee Surgeon: Taina Miller MD Anesthesia: GETA Laborer Concrete Plant: Heaven Marquez Estimated blood loss (mL): 5 Pathology: other (Partial gastrectomy) Condition: stable Disposition: PACU
--- NOTE | 2021-01-03 13:10 | P.OP_ITS ---
Operative Note Operative Note Date of Service: 01/03/21 Narrative: Patient was brought into the operating room and placed on the operating room table in the supine position. General anesthesia was induced. Normal DVT prophylaxis was instituted and the patient received 2 grams of cefotetan preoperatively. The abdomen was then prepped and draped in the normal sterile fashion. A safety time-out was performed. A mixture of 1% lidocaine with epinephrine and ??% Marcaine plain was used to a nesthetize the planned incision site in the left upper quadrant. A #11 scalpel was used to make a 5 mm left upper quadrant transverse incision through which a veress needle was placed. Three pops were heard going through the fascia. A saline drop test was used to confirm that the veress needle was intraabdominal. An optiview technique was then used to place a 5mm port in the left upper quadrant. A 5 mm 30 degree laproscope was then placed through this port and the abdominal cavity was surveyed and was normal. The patient was placed in reverse Trendelenburg positioning. A isai liver retractor was then placed in the subxyphoid position and it was used to hold up the left lobe of the liver to the abdominal wall. This was secured to the bed using the liver retractor broderick. A SUE block was then performed for pain control on the right side of the abdomen. A 5 mm port was placed in the right upper quadrant near the falciform ligament. A 12 mm port was then placed in the mid epigastrium. One additional 5 mm port was placed in the left upper quadrant just to the left of the placement of the first port. I then performed a SUE block on the left side of the abdomen. I then removed the epigastric fat pad; there was a small anterior hiatal hernia noted. I reapproximated the left and right crura with a total of 1 stitch of 2-0 ethibond and a laparoscopic knot pusher. There was no residual hiatal hernia. I then opened up the angle of His. We then gained entry into the lesser sac about 4-5 cm from the pylorus. I had anesthesia place a 34 Korean orogastric tube into the distal antrum to use as a sizing tool for gastric pouch size. I divided the short gastric vessels up to the angle of His. We then started the creation of the gastric pouch by firing a 60 mm purple load endostapler up the stomach about 4-5 cm from the pylorus. We completed the creation of the gastric pouch using a total of 5 firings of a 60 mm and 1 firing of a 45 mm purple load stapler. We had anesthesia remove the orogastric tube, then we clamped across the distal antrum using a fired 60 mm endostapler. We flattened the patient and then instilled normal saline surrounding the newly created staple line. I then performed an on-table endoscopy. I passed the gastroscopy into the posterior oropharynx and down the esophagus evaluating the esophageal mucosa which was normal. There was no evidence of hiatal hernia. I passed the gastroscope into the gastric pouch and insufflated the gastric pouch. There was healthy pink mucosa and no evidence of active bleeding. There was no evidence of leak on laparoscop y. I desufflated the gastric pouch and removed the endoscope. I removed the endostapler from the abdomen and suctioned the fluid from the left upper quadrant. I then removed the partial gastrectomy specimen through the epigastric 12 mm port site. I reapproximated the 12 mm port using a 0 maxon suture with a laparoscopic suture passer. I instilled local anesthetic into the fascial closure site and tied the suture down at a pressure of 8-10 mm of Hg. There was no residual fascial defect. We removed the liver retractor and the left upper quadrant 5 mm ports under direct visualization. There was no evidence of any active bleeding. I desufflated the abdomen through the last remaining port and removed the laparoscope and 5 mm port. We reapproximated all incisions with a 4-0 monocryl subcuticular stitch. We cleaned and dried the abdominal skin and applied dermabond skin glue. All count were correct at the end of the case. The patient was awake and in stable condition prior to extubation and transfer to the recovery room.
[2021-01-03] MEDS: HYDROmorphone HCl 0.5 MG/0.5 ML SYRINGE 0.25 MG IVPUSH ×6 (13:20→23:03)
[2021-01-03] MEDS: fentaNYL citrate/PF 100 MCG/2 ML VIAL 25 MCG IVPUSH ×4 (13:50→14:17)
[2021-01-03] MEDS: ondansetron HCL 4 MG/2 ML VIAL IVPUSH (16:21)
[2021-01-03] MEDS: Lactated Ringers 1,000 ML 125 ML IVCONT (16:25)
[2021-01-03] MEDS: Famotidine/PF 20 MG/2 ML VIAL IVPUSH (21:10)
[2021-01-03] MEDS: 0.9 % Sodium Chloride Flush 3 ML SYRINGE IVFLUSH (21:10)
[2021-01-03] MEDS: Melatonin 3 MG TABLET 10 MG PO (22:52)
[2021-01-03] MEDS: cefoTEtan disodium 2 GM in 0.9 % Sodium Chloride 50 ML IV (22:53)
[2021-01-03] MEDS: Metoclopramide HCl 10 MG/2 ML VIAL IVPUSH (23:08)
[2021-01-04] MEDS: ondansetron HCL 4 MG/2 ML VIAL IVPUSH ×2 (00:06→07:31)
[2021-01-04] MEDS: Lactated Ringers 1,000 ML 125 ML IVCONT (00:06)
[2021-01-04 03:24] VITALS: RESP 18
[2021-01-04] MEDS: HYDROmorphone HCl 0.5 MG/0.5 ML SYRINGE 0.25 MG IVPUSH (03:24)
[2021-01-04 03:52] VITALS: BP 133/73; PULSE 76; RESP 20; TEMP 36.2; O2SAT 99
[2021-01-04 04:28] LABS: MANUAL DIFF FLAG NO
[2021-01-04 04:31] LABS: Basophils Percent Auto 0.2 % (0-2); Hematocrit 37.5 % (42-52); Hemoglobin 12.6 g/dl (14.0-18.0); Imm Gran Abs Auto 0.02 X10*3/uL (0.00-0.03); Imm Gran Pct Auto 0.2 % (0.0-0.4); Lymphocytes Absolute Auto 1.3 X10*3/uL (1.2-4.9); Lymphocytes Percent Auto 13.5 % (20-40); Mean Corpuscular HGB Conc 33.6 g/dl (31.0-36.0); Mean Corpuscular Hemoglobin 29.1 pg (27.0-33.0); Mean Corpuscular Volume 86.6 fL (80-98); Mean Platelet Volume 9.9 fL (9.4-12.4); Monocytes Absolute Auto 0.8 X10*3/uL (0.1-1.2); Monocytes Percent Auto 7.9 % (2-11); Neutrophils Absolute Auto 7.6 X10*3/uL (2.0-8.3); Neutrophils Percent Auto 78.2 % (45-73); Platelet Count 270 X10*3/uL (160-400); Red Blood Count 4.33 X10*6/uL (4.60-5.80); Red Cell Distribution Width 11.9 % (11.0-16.0); White Blood Count 9.7 X10*3/uL (4.8-10.8)
[2021-01-04 05:20] LABS: Anion Gap 15 (12-20); Blood Urea Nitrogen 11 mg/dL (9-16); Calcium 8.8 mg/dL (8.4-10.2); Carbon Dioxide 22 mmol/L (22-29); Chloride 103 mmol/L (96-108); Creatinine Clr Calc Pharmacy 153.7; Estimated Glomerular Filt Rate > 60; Glucose Random 103 mg/dL (60-115); Potassium 4.1 mmol/L (3.3-5.1); Sodium 136 mmol/L (135-145)
[2021-01-04] MEDS: Famotidine/PF 20 MG/2 ML VIAL IVPUSH (07:31)
--- NOTE | 2021-01-04 07:40 | PM.PNGS ---
Subjective Subjective Date of Service: 01/04/21 <Heaven Marquez PA-C - Last Filed: 01/04/21 07:47> 01/04/21 <Taina Miller MD - Last Filed: 01/04/21 09:06> Interval history: 40 yo man who is POD #1 s/p laparoscopic sleeve gastrectomy and repair of hiatal hernia. He had a lot of pain yesterday and was very sleepy and nauseated from narcotics, he did not drink very much nor did he record intake on fluid sheets. States he was given ICS this am and has not tried it yet. Ambulating, voiding well. Toelrating minimal amounts of phase 2 diet, no further nausea this am and significantly decreased pain. He now feels ready to advance his diet. <Heaven Marquez PA-C - Last Filed: 01/04/21 07:47> Pod #1 s/p lap sleeve gastrectomy and hiatal hernia repair. Doing well. Tolerating stage 3 diet, ambulating in hallway. Pain well controlled. Denies nausea or vomiting. Vitals and labs reviewed and are within limit for post op day 1. On exam, patient is well appearing, abdomen is soft, nd, mild appropriate incisional tenderness. Incisions c/d/I with dermabond in place. Plan: d/c home today. <Taina Miller MD - Last Filed: 01/04/21 09:06> Physical Exam Vital Signs: Vital Signs: Last Vital Signs Temp 97.2 F 01/04/21 03:52 Pulse 76 01/04/21 03:52 Resp 20 01/04/21 03:52 BP 133/73 01/04/21 03:52 Pulse Ox 99 01/04/21 03:52 Body Mass Index 38.2 <Heaven Marquez PA-C - Last Filed: 01/04/21 07:47> Const: General: cooperative, healthy appearing, comfortable and no acute distress <Heaven Marquez PA-C - Last Filed: 01/04/21 07:47> Orientation/consciousness: patient oriented x3 <Heaven Marquez PA-C - Last Filed: 01/04/21 07:47> GI: Inspection: Yes normal to inspection, No abdominal wall ecchymosis, No Abdominal wall edema, No distended and Yes incision (all clean, dry and intact with surgical glue) <Heaven Marquez PA-C - Last Filed: 01/04/21 07:47> Palpation (GI): Soft to palpation, not firm, nontender, no guarding, not rigid, no hernias and no masses <Heaven Marquez PA-C - Last Filed: 01/04/21 07:47> Neuro: General: patient oriented x3 <Heaven Marquez PA-C - Last Filed: 01/04/21 07:47> Extrem: General: Yes no pedal edema and Yes no calf tenderness <ODILIA Ambrose Last Filed: 01/04/21 07:47> Progress Note: A&P Assessment and plan (1) History of repair of hiatal hernia: Status: Acute <ODILIA Ambrose Last Filed: 01/04/21 07:47> (2) S/P laparoscopic sleeve gastrectomy: Problem details: POD # 1 s/p LSG and hiatal hernia repair. Pt is doing very well this am, all labs within normal limits. Will be advanced to bariatric phase 3 diet this am and encouraged to record intake so that he can keep track and avoid dehydration or over drinking. Dr Miller to re evaluate patient later this am and prepare for his discharge today. <Heaven Marquez PA-C - Last Filed: 01/04/21 07:47> Status: Acute <ODILIA Ambrose Last Filed: 01/04/21 07:47> (3) Morbid obesity due to excess calories: Status: Acute <ODILIA Ambrose Last Filed: 01/04/21 07:47> Fall Risk Details Current Medications: Current Medications Generic Name Dose Route Start Last Admin Trade Name Freq PRN Reason Stop Dose Admin Famotidine 20 mg 01/03/21 21:00 01/04/21 07:31 Famotidine/Pf 20 Mg/2 Ml Vial IVPUSH 20 mg BID CASSANDRA Administration Hydromorphone HCl 0.25 mg 01/03/21 16:00 01/04/21 03:24 Hydromorphone Hcl 0.5 Mg/0.5 Ml Syringe IVPUSH 0.25 mg Q4H PRN Administration Pain, Moderate (Pain Scale 4-6 Lactated Ringer's 1,000 mls @ 125 mls/hr 01/03/21 16:00 01/04/21 07:36 Lr IVCONT Not Given .Q8H CASSANDRA Acetaminophen 1,000 mg in 100 mls @ 16.7 mls/hr 01/03/21 18:00 01/04/21 05:06 Ofirmev IV 16.7 mls/hr .Q6H CASSANDRA Administration Metoclopramide HCl 10 mg 01/03/21 16:00 01/03/21 23:08 Metoclopramide Hcl 10 Mg/2 Ml Vial IVPUSH 10 mg Q6H PRN Administration Nausea Ondansetron HCl 4 mg 01/03/21 16:00 01/04/21 07:31 Ondansetron Hcl 4 Mg/2 Ml Vial IVPUSH 4 mg Q8H CASSANDRA Administration Sodium Chloride 3 ml 01/03/21 16:00 01/04/21 07:27 0.9 % Sodium Chloride Flush 3 Ml Syringe IVFLUSH Not Given QSHIFT CASSANDRA <Heaven Marquez PA-C - Last Filed: 01/04/21 07:47> Time Spent With Patient Time: Total time spent is greater than 50% in coordination of care (as documented) at patient's floor/unit and/or counseling patient: <Heaven Marquez PA-C - Last Filed: 01/04/21 07:47> Time with patient: less than 15 minutes <Taina Miller MD - Last Filed: 01/04/21 09:06>
[2021-01-04 08:00] VITALS: BP 153/80; PULSE 77; RESP 18; TEMP 37.2; O2SAT 98
--- NOTE | 2021-01-04 09:43 | MHC.CM.PN ---
NURSE informatics manager note electronic medical record reviewed along with discharge instructions. 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 he has sleep apnea and has a cpap machine frm [facility]. discharge plan s/p bariatric surgery home no services confirmed pcp dr fara romero [facility] surgery patient to follow up per discharge instructions transp-family
--- NOTE | 2021-01-04 14:10 | HO.POSTANES ---
Post Anesthesia Evaluation Post Anesthesia Evaluation Vital Signs: Vital Signs Temp Pulse Resp BP Pulse Ox 01/04/21 08:00 98.9 F 77 18 153/80 H 98 01/04/21 03:52 97.2 F 76 20 133/73 99 01/04/21 03:24 18 Anesthesia: General Endotracheal-GETA Mental Status: Awake Pain Control: Satisfactory Nausea/Vomiting: None Hydration: Adequate Anesthesia-Related Issues: No Anes. Related Issues
--- NOTE | 2021-01-08 09:51 | P.DS_ITS ---
DS: Providers Provider Date of Service: 01/08/21 Date of admission: 01/03/21 05:33 Primary care physician: Dheeraj Torres MD DS: Diagnosis Discharge Diagnosis (1) History of repair of hiatal hernia: Status: Inactive (2) S/P laparoscopic sleeve gastrectomy: Status: Inactive (3) Morbid obesity due to excess calories: DS: Medications Discharge Medications Home Medications: Home Medications Medication Instructions Recorded Confirmed omega-3 fatty acids 1,000 mg 1,000 mg PO BID cap 09/18/20 01/01/21 capsule CPAP #1 ea 12/07/20 12/29/20 cyanocobalamin (vitamin B-12) 500 mcg PO DAILY 01/01/21 01/01/21 [Vitamin B-12] Previous Rx's Medication Instructions Recorded cholecalciferol (vitamin D3) 1,250 1,250 mcg PO QWEEK #4 cap 10/23/20 mcg (50,000 unit) capsule acetaminophen 500 mg tablet 1,000 mg PO Q6H PRN #30 tab 12/29/20 docusate sodium 100 mg capsule 100 mg PO BID #30 cap 12/29/20 famotidine 20 mg tablet 20 mg PO DAILY #30 tab 12/29/20 ondansetron HCl 4 mg tablet 4 mg PO Q6H PRN #30 tab 12/29/20 simethicone 80 mg chewable tablet 80 mg PO TID-QID PRN #30 tab 12/29/20 DS: Summary Time Spent with Patient Time attestation: Total time spent providing and/or coordinating discharge services: 15 minutes DATE OF SERVICE: january 03, 2021 ADMITTING DIAGNOSES: morbid obesity, hiatal hernia DISCHARGE DIAGNOSES: same, s/p laparoscopic sleeve gastrectomy and hiatal hernia repair PROCEDURE PERFORMED: laparoscopic sleeve gastrectomy and hiatal hernia repair DISCHARGE MEDICATIONS: 1. Simethicone 80mg q4h prn gas 2. Ondansetron 4mg po tid prn nausea 3. Famotidine 20mg po bid 4. Docusate sodium 100mg po bid DISCHARGE INSTRUCTIONS: The patient should continue on the stage III bariatric diet, which includes 3 protein shakes of at least 20- 30g of protein on a daily basis. The patient was encouraged to avoid drinking liquids with her protein shakes. She should wait 30-45 minutes in between her meals and drinking water. She should drink at least 40-60 ounces of water on a daily basis. She should ambulate while at home to avoid any blood clots in her lower extremities. She should call with any questions or concerns such as increase in abdominal pain, persistent nausea, vomiting, redness and drainage from her incisions, fever, chills, shortness of breast, or chest pain beyond what is normal for her. The patient should avoid all heavy lifting greater than 5 pounds for the next 4 weeks. The patient is already scheduled to follow up with me in 2 weeks' time, but should call the office with any questions prior to that follow up appointment. The patient should not advance her diet until she is seen in the office for the 2 week appointment. HOSPITAL COURSE: The patient was admitted after undergoing laparoscopic sleeve gastrectomy. She was started on stage II diet and was tolerating well without nausea or vomiting. Her pain was controlled on IV Dilaudid. All labs were within normal limits. On post-operative day #2 she was feeling better, nausea and epigastric pain improved and she was tolerating stage III bariatric diet well. She was discharged home. DISCHARGE DISPOSITION: Home. Discharge coordination time: Less than 30 minutes Physical Exam Vital Signs: Vital Signs: Last Vital Signs Temp 98.9 F 01/04/21 08:00 Pulse 77 01/04/21 08:00 Resp 18 01/04/21 08:00 BP 153/80 H 01/04/21 08:00 Pulse Ox 98 01/04/21 08:00 Body Mass Index 38.2 DS: Data Data Completed and Pending Completed studies during hospitalization [Text1]: Pending at discharge 01/03/21 12:44 Surgical [PTH] Routine Procedures Excision of Stomach, Percutaneous Endoscopic Approach, Vertical (01/03/21) Repair Diaphragm, Percutaneous Endoscopic Approach (01/03/21) Discharge Plan Discharge Anticipated Discharge Date/Time: 01/04/21 10:08 Patient Disposition: Home, Self-Care Referrals: Dheeraj Torres MD [Primary Care Provider] - 1 Week (Please call and schedule a follow up appointment with the nurse.) Discharge Medications: Continued cholecalciferol (vitamin D3) 1,250 mcg (50,000 unit) capsule 1,250 mcg PO QWEEK Qty: 4 RF: 1 cyanocobalamin (vitamin B-12) [Vitamin B-12] 500 mcg Tablet 500 mcg PO DAILY RF: 0 (DME) CPAP Machine/Device Device See Rx Instructions .ROUTE .MEDSUPPLY Qty: 1 RF: 0 acetaminophen [Tylenol Extra Strength] 500 mg tablet 1,000 mg PO Q6H PRN (Reason: pain) Qty: 30 RF: 1 famotidine [Pepcid AC] 20 mg tablet 20 mg PO DAILY Qty: 30 RF: 1 simethicone [Gas Relief (simethicone)] 80 mg tablet,chewable 80 mg PO TID-QID PRN (Reason: abdominal distention) Qty: 30 RF: 1 ondansetron HCl [Zofran] 4 mg tablet 4 mg PO Q6H PRN (Reason: nausea and vomiting) Qty: 30 RF: 1 docusate sodium [Colace] 100 mg capsule 100 mg PO BID Qty: 30 RF: 1 omega-3 fatty acids [Fish Oil Concentrate] 1,000 mg capsule 1,000 mg PO BID RF: 0 Discharge Orders: Discharge Order (Routine); Ordered 01/04/21 Ordered By: Taina Miller Diet: other Activity on Discharge: No heavy lifting Stand Alone Forms: Patient Portal Discharge page Activity Restrictions/Additional Instructions: No tub baths, sex or returning to work until discussed at first post op appointment. No exercise, alcohol, tobacco or illegal drug use. Continue to use incentive spirometer hourly while awake. Walk in home for 5- 10 minutes every 2 hours during the first week. Continue phase 3 diet until first post op appointment. Follow all instructions in the bariatric handbook and call with any questions.Discharge Instructions 1. Please call your doctor or come back to the emergency room should any new symptoms arise. 2. You will receive a courtesy call from [facility] 24-48 hours after discharge. 3. Activity: abstain from alcohol, practice limited stair climbing, no bending, no driving, no exercise, no illicit substances, no lifting, no sex, no tub bath, no work. 4. Diet: continue stage 3 protein shakes until your [address] Miller. 5. Dressing Change/Wound Care: Your incision is covered by surgical glue. If the area is tender, you may apply an ice pack for short intervals (no more than 20 minutes on, followed by at least 20 minutes off). Do not apply heat. Do not use creams, lotions, or topical antibiotics unless instructed to do so by your surgeon. These can cause infection or allergic reaction. 6. Call your doctor if: - Your temperature exceeds 101.5 F - You experience excessive pain or swelling - You have an unexpected reaction to medication - You have excessive bleeding - You experience continued vomiting/nausea - Your incision begins to separate - Your incision shows signs of infection such as increased redness, swelling, excessive pain, heat, or drainage (light blood or clear fluid is normal) 7. General instructions: No lifting greater than 5 lbs for the next 4 weeks[address] within 24 hours of taking narcotic pain medications. If you do not move your bowels in the next 2 days, please take milk of magnesia over the counter. Please follow the post op diet and do not advance your diet until you are seen in the office in about 2 weeks. Please walk around your home every hour or two to prevent blood clots from forming in your legs. You do not need to wake from sleeping to walk. Please sleep in a bed or couch to prevent kinking at the hips and knees. Please take your incentive spirometer (your lung security officer supervisor) home with you and use it for the next few days to prevent pneumonias. You may shower, no hot tubs, baths or swimming pools. Please call the office with any questions or concerns such as increasing abdominal pain, fever, chills, shortness of breath, chest pain, leg pain or swelling, or redness or drainage from your incisions. Please stay on stage 3 diet which includes sugar free clear liquids such as ice pops and jello and broth and crystal light. Avoid all carbonation. Please drink 3 protein shakes with at least 25-30 grams of protein daily or 3 of the Celebrate 4:1 shakes which can be purchased in our office. The Celebrate shakes have all of the bariatric vitamins you need if you consume these shakes. If you are drinking other protein shakes, you will need to purchase the Celebrate multivitamins and calcium that we provide in the office (they will provide all the vitamins you need). Please make sure you are consuming at least 40-60 ounces of water in addition to your 3 protein shakes daily. Do not hesitate to contact the office with any questions at . Care Plan Goals: weight loss Health Concerns: morbid obesity Plan of Treatment: see discharge instructions Discharge Date/Time: 01/04/21 10:08
== END 2021-01-04 10:08 | disposition home or self-care (01) | DRG 403 ==
LOC: HO.SSSA 13:11 → HO.S3 13:18
PROVIDERS: Physician Assistant; Admitting Provider Surgery; PCP Internal Medicine; Visit Provider Surgery
PROC: 0DB64Z3 Excision of Stomach, Percutaneous Endoscopic Approach, Vertical (ICD-10-PCS; CPT 43845; principal; 2021-01-03 11:00)
DX: E66.01 Morbid (severe) obesity due to excess calories (principal); E78.1 Pure hyperglyceridemia; K44.9 Diaphragmatic hernia without obstruction or gangrene; G47.30 Sleep apnea, unspecified; Z20.822 Contact with and (suspected) exposure to COVID-19; Z68.38 Body mass index [BMI] 38.0-38.9, adult; Z79.899 Other long term (current) drug therapy
CPT/HCPCS: 36415; 80048; 81001; 81003; 82040; 85025; 85610; 85730; 86850; 86900; 87635; 88307; 88342; 93005; C1776; J0131; J1100; J1170; J2250; J2405; J2765; J3010

== ENCOUNTER → 2021-01-18 10:34 | Outpatient (BNVA) | payer OTHER, SELFPAY | PROVIDERS: PCP Internal Medicine; Visit Provider Surgery | DX: E66.9 Obesity, unspecified (principal); Z68.35 Body mass index [BMI] 35.0-35.9, adult; Z98.84 Bariatric surgery status; Z98.890 Other specified postprocedural states; Z87.19 Personal history of other diseases of the digestive system | CPT/HCPCS: 99212 ==

== ENCOUNTER → 2021-02-15 09:01 | Outpatient (BNVA) | payer OTHER, SELFPAY | PROVIDERS: PCP Internal Medicine; Referring Provider Internal Medicine; Visit Provider Physician Assistant | DX: E66.01 Morbid (severe) obesity due to excess calories (principal); E78.1 Pure hyperglyceridemia; G47.33 Obstructive sleep apnea (adult) (pediatric); K91.2 Postsurgical malabsorption, not elsewhere classified; Z68.33 Body mass index [BMI] 33.0-33.9, adult; Z87.891 Personal history of nicotine dependence; Z87.19 Personal history of other diseases of the digestive system; Z99.89 Dependence on other enabling machines and devices; Z98.84 Bariatric surgery status | CPT/HCPCS: 99212 ==

== ENCOUNTER → 2021-03-08 08:34 | Outpatient (BNVA) | payer OTHER, SELFPAY | PROVIDERS: PCP Internal Medicine; Visit Provider Dietitian, Registered | DX: E66.9 Obesity, unspecified (principal); Z68.31 Body mass index [BMI] 31.0-31.9, adult | CPT/HCPCS: 97803 ==

== ENCOUNTER → 2021-07-09 08:13 | Outpatient (BNVA) | payer OTHER, SELFPAY | PROVIDERS: PCP Internal Medicine; Visit Provider Dietitian, Registered ==

== ENCOUNTER → 2021-09-24 10:00 | Outpatient (BNVA) | payer OTHER, SELFPAY | PROVIDERS: PCP Internal Medicine; Referring Provider Internal Medicine; Visit Provider Physician Assistant Surgical ==

== ENCOUNTER → 2021-09-25 11:28 | Outpatient (BNVA) | payer OTHER, SELFPAY | PROVIDERS: PCP Internal Medicine; Visit Provider Dietitian, Registered | DX: E66.3 Overweight (principal); Z68.27 Body mass index [BMI] 27.0-27.9, adult | CPT/HCPCS: 97803 ==

== ENCOUNTER → 2021-09-26 11:27 | Outpatient (BNVA) | payer OTHER, SELFPAY | PROVIDERS: PCP Internal Medicine; Referring Provider Internal Medicine; Visit Provider Physician Assistant Surgical ==

== ENCOUNTER 2021-09-27 15:57 | Outpatient (REF) | payer OTHER, SELFPAY ==
[2021-09-28 15:35] LABS: H Pylori Breath Test Positive (Negative)
== END 2021-09-27 15:58 | disposition home or self-care (01) ==
LOC: HO.LNP 15:57
PROVIDERS: Visit Provider Physician Assistant Surgical
DX: Z11.0 Encounter for screening for intestinal infectious diseases (principal)
CPT/HCPCS: 83013

== ENCOUNTER 2022-01-04 12:08 | Outpatient (REF) | payer OTHER, SELFPAY ==
[2022-01-04 12:59] LABS: MANUAL DIFF FLAG NO
[2022-01-04 13:20] LABS: Basophils Absolute Auto 0.1 X10*3/uL (0.0-0.2); Eosinophils Absolute Auto 0.1 X10*3/uL (0.0-0.4); Hematocrit 37.2 % (42.0-52.0); Hemoglobin 12.3 g/dl (14.0-18.0); Imm Gran Abs Auto 0.02 X10*3/uL (0.00-0.03); Imm Gran Pct Auto 0.4 % (0.0-0.4); Lymphocytes Percent Auto 37.8 % (20-40); Mean Corpuscular HGB Conc 33.1 g/dl (31.0-36.0); Mean Corpuscular Hemoglobin 29.1 pg (27.0-33.0); Mean Corpuscular Volume 88.2 fL (80.0-98.0); Mean Platelet Volume 10.2 fL (9.4-12.4); Monocytes Absolute Auto 0.3 X10*3/uL (0.1-1.2); Neutrophils Absolute Auto 2.8 x10*3/uL (2.0-8.3); Neutrophils Percent Auto 54.8 % (45-73); Platelet Count 253 X10*3/uL (160-400); Red Blood Count 4.22 X10*6/uL (4.60-5.80); Red Cell Distribution Width 12.1 % (11.0-16.0); White Blood Count 5.2 X10*3/uL (4.8-10.8)
[2022-01-04 13:44] LABS: Anion Gap 13 (12-20); Blood Urea Nitrogen 18 mg/dL (9-16); C Reactive Protein 0.03 mg/dL (< or = 0.50); Calcium 9.8 mg/dL (8.4-10.2); Carbon Dioxide 27 mmol/L (22-29); Chloride 105 mmol/L (96-108); Cholesterol 148 mg/dL; Estimated Glomerular Filt Rate > 60; Glucose Random 92 mg/dL (60-115); HDL Cholesterol 53 mg/dL; Iron 62 mcg/dL (45-160); LDL Cholesterol Calculated 86 mg/dl; Percent Iron Saturation 25 % (15-50); Potassium 4.5 mmol/L (3.3-5.1); Sodium 140 mmol/L (135-145); Total Iron Binding Capacity 251 mcg/dL (228-428); Triglycerides 49 mg/dL; Unsaturated Iron Binding 189 ug/dL
[2022-01-04 13:59] LABS: TSH reflex Free T4 0.51 uIU/mL (0.32-4.0); Vitamin D 25-OH Total 34.5 ng/mL (>30)
[2022-01-04 14:13] LABS: Ferritin 254 ng/mL (20-250)
[2022-01-04 14:16] LABS: Estimated Average Glucose 94 mg/dL; Hemoglobin A1c % 4.9 %
[2022-01-04 14:23] LABS: Folate 12.7 ng/mL (> or = 4.0); Vitamin B12 596 pg/mL (200-900)
[2022-01-06 11:40] LABS: H Pylori Breath Test Negative (Negative)
[2022-01-08 16:46] LABS: Zinc 61 mcg/dL (60-130)
[2022-01-11 10:06] LABS: Vitamin B1 11 nmol/L (8-30)
[2022-01-11 10:36] LABS: Vitamin A 48 mcg/dL (38-98)
== END 2022-01-04 12:09 | disposition home or self-care (01) ==
LOC: HO.LAB 12:08
PROVIDERS: PCP Internal Medicine; Visit Provider Physician Assistant Surgical
DX: Z01.818 Encounter for other preprocedural examination (principal); E66.3 Overweight; Z68.27 Body mass index [BMI] 27.0-27.9, adult; K21.9 Gastro-esophageal reflux disease without esophagitis; Z90.3 Acquired absence of stomach [part of]
CPT/HCPCS: 36415; 80048; 80061; 82306; 82607; 82728; 82746; 83013; 83036; 83540; 84425; 84443; 84590; 84630; 85025; 86140

== ENCOUNTER 2024-07-10 05:39 | Inpatient (IN) | payer OTHER, SELFPAY ==
--- NOTE | 2024-07-10 | ECG_ITS ---
Test Reason : CHECK QTC Blood Pressure : / mmHG Vent. Rate : 085 BPM Atrial Rate : 085 BPM P-R Int : 144 ms QRS Dur : 094 ms QT Int : 378 ms P-R-T Axes : 056 064 063 degrees QTc Int : 449 ms Normal sinus rhythm Normal ECG When compared with ECG of 01-JAN-2021 11:19, QT has lengthened Referred By: Tavo Rubin Electronically Signed By:JACQUELYN ALMONTE
--- NOTE | ~2024-07-10 | XR_ITS ---
EXAMINATION: XR CHEST CLINICAL INFORMATION: Shortness of breath, wheezing. COMPARISON: 10/23/2020 TECHNIQUE: 2 frontal views of the chest was obtained. FINDINGS: The lung volumes are low. There is no gross pneumothorax. Carotid mediastinal silhouette is difficult to evaluate due to low lung volumes. No gross focal consolidation or pleural effusion appreciated. Degenerative changes in the thoracic spine with dextroscoliosis. XR/XR chest 1V IMPRESSION: Low lung volumes. No gross focal consolidation to suggest pneumonia. This study was presented today July 12, 2024 for interpretation. Stat results provided at this time as requested by referring provider. Electronically signed by: Becky Alvarado MD 07/12/2024 12:59 PM EDT RP
[2024-07-10 05:46] VITALS: BP 135/84; PULSE 117; RESP 19; TEMP 36.9; O2SAT 94; BMI 30.8
[2024-07-10 06:19] LABS: MANUAL DIFF FLAG NO
[2024-07-10 06:22] LABS: Basophils Absolute Auto 0.1 X10*3/uL (0.0-0.2); Basophils Percent Auto 1.1 % (0-2); Eosinophils Absolute Auto 0.1 X10*3/uL (0.0-0.4); Eosinophils Percent Auto 1.2 % (0-4); Hematocrit 46.2 % (42.0-52.0); Hemoglobin 16.1 g/dl (14.0-18.0); Imm Gran Abs Auto 0.02 X10*3/uL (0.00-0.03); Imm Gran Pct Auto 0.3 % (0.0-0.4); Lymphocytes Absolute Auto 2.7 X10*3/uL (1.2-4.9); Lymphocytes Percent Auto 36.3 % (20-40); Mean Corpuscular HGB Conc 34.8 g/dl (31.0-36.0); Mean Corpuscular Hemoglobin 31.3 pg (27.0-33.0); Mean Corpuscular Volume 89.9 fL (80.0-98.0); Monocytes Absolute Auto 0.5 X10*3/uL (0.1-1.2); Monocytes Percent Auto 7.2 % (2-11); Neutrophils Percent Auto 53.9 % (45-73); Platelet Count 288 X10*3/uL (160-400); Red Blood Count 5.14 X10*6/uL (4.60-5.80); Red Cell Distribution Width 13.2 % (11.0-16.0); White Blood Count 7.3 X10*3/uL (4.8-10.8)
[2024-07-10 06:41] LABS: Amphetamine Screen Urine Not Detected (Not Detect); Barbiturates, Urine Not Detected (Not Detect); Benzodiazepines Screen Urine Not Detected (Not Detect); Buprenorphine Scr Not Detected (Not Detect); Cannabinoid Screen Urine Not Detected (Not Detect); Cocaine Screen Urine POSITIVE (Not Detect); Fentanyl, urine Not Detected (Not Detect); Methadone Screen, Urine Not Detected (Not Detect); Opiate Screen Urine Not Detected (Not Detect); Oxycodone Screen Urine Not Detected (Not Detect); Phencyclidine Screen Urine Not Detected (Not Detect)
[2024-07-10 06:47] LABS: Alanine Aminotransferase 40 U/L (0-40); Albumin Level 4.3 g/dL (3.5-5.0); Alkaline Phosphatase 119 U/L (39-117); Anion Gap 16 (12-20); Aspartate Amino Transferase 31 U/L (5-37); Bilirubin Total 0.4 mg/dL (0.0-1.0); Blood Urea Nitrogen 8 mg/dL (9-16); Calcium 9.3 mg/dL (8.4-10.2); Carbon Dioxide 22 mmol/L (22-29); Chloride 108 mmol/L (96-108); Creatinine Clr Calc Pharmacy 123.9; Estimated Glomerular Filt Rate > 60; Glucose Random 127 mg/dL (60-115); Potassium 3.7 mmol/L (3.3-5.1); Sodium 142 mmol/L (135-145); Total Protein 8.2 g/dL (6.5-8.0)
[2024-07-10 06:48] LABS: Ethanol 227 mg/dL
--- NOTE | 2024-07-10 07:00 | ED.PSYCH ---
HPI - Psych General Chief Complaint: Psychiatric Symptoms Stated Complaint: SI Time Seen by Provider: 07/10/24 06:32 Source: patient Mode of arrival: ambulatory Limitations: no limitations History of Present Illness HPI Narrative: Patient is a 44-year-old male who presents emergency department for evaluation. Patient reports a past medical history of anxiety, depression, and bipolar disorder. He reports over the past few weeks he has been having increasing depression and suicidal ideations with a plan to take a bunch of medication while in the shower. He reports he has not had any recent life changes or medication changes. He does admit to intranasal cocaine usage ?a lot lately?, and daily alcohol consumption usually at least a bottle of Tequila daily, denying any history of alcohol withdrawal; DT/seizures. He states ?I feel like I am slowly killing myself with alcohol and drugs?. He has experienced suicidal ideations in the past but has not previously acted on them by his account. He is also interested in receiving assistance with detox. Related Data Home Medications ?Medication ?Instructions ?Recorded ?Confirmed clonazepam 1 mg tablet 1 mg PO BID PRN Anxiety 07/10/24 07/10/24 duloxetine 60 mg capsule,delayed 60 mg PO DAILY 07/10/24 07/10/24 release lamotrigine 200 mg tablet 200 mg PO BID 07/10/24 07/10/24 olanzapine 20 mg tablet 20 mg PO BEDTIME 07/10/24 07/10/24 Allergies Allergy/AdvReac Type Severity Reaction Status Date / Time Seasonal Allergies Allergy Mild sinus Verified 07/10/24 05:47 Review of Systems Review of Systems: Yes all other systems are reviewed and are negative PMFSH Past Medical History Attestation statement: The following information was validated with the patient. Source: old records reviewed Medical History Intestinal malabsorption following gastrectomy BMI 33.0-33.9,adult Obesity (BMI 30-39.9) COVID-19 vaccine administered BMI 38.0-38.9,adult Obesity BMI 39.0-39.9,adult Vitamin D deficiency Body mass index (BMI) of 40.1 to 44.9 in adult Helicobacter pylori (H. pylori) infection Hypertriglyceridemia Obstructive sleep apnea treated with continuous positive airway pressure (CPAP) Shortness of breath Preoperative examination Morbid obesity due to excess calories Depression Surgical History History of repair of hiatal hernia S/P laparoscopic sleeve gastrectomy Family History Family History Mother Diabetes Father Prostate cancer Brother Diabetes Sister Asthma Sister Asthma Son No problems noted. Daughter Autism Social History Social History Household Members: Family Household Members Other:: MOTHER Housing: House Are you a primary healthcare representative to a significant other at home: No Do you presently have visiting nurse or other home services: No Alcohol intake: former Comment: pt sleeping Patient Tobacco Use Status: Never used Tobacco Use of substances other than those prescribed or required for medical reasons: Yes Substance Use Type: Crack/Cocaine Substance Use Frequency: Chronic Longstanding Last Used Substance: Just Prior to Admission Currently Displaying Signs/Symptoms of Drug Intoxication Withdrawal: No Any prior treatment program specific to substance use: Yes Have you been hit, kicked, punched, or otherwise hurt by someone within the past year? If so, by whom?: No Do you feel safe in your current relationship?: No Current Relationship Is there a partner from a previous relationship who is making you feel unsafe now?: No Are you made to feel afraid or neglected: No Advance Directives: No Advance Directives Information Provided: Yes Do you have thoughts of harming others: None Do you have a plan to hurt others: No Plan Recently lost weight without trying: Unsure Eating poorly because of decreased appetite: Yes Nutrition Risks: No Nutritional Risk Poor oral hygiene: No service: No Current occupational status: employed Physical Exam Vital Signs: Vital Signs: Last Vital Signs Temp 98.7 F 07/11/24 08:46 Pulse 84 07/11/24 08:46 Resp 20 07/11/24 08:46 BP 156/97 H 07/11/24 08:46 Pulse Ox 92 07/11/24 08:46 O2 Del Method Room Air 07/11/24 08:46 BMI result Body Mass Index 30.8 Course Reevaluation(s) Reevaluation #1: Concern for alcohol withdrawal, CIWA 13, lorazepam ordered, was evaluated by care team deemed inpatient bed search Reevaluation #2: discontinue physician observation status now,patient is admitted to [facility] voluntarily. Time: 18:22 Medications Administered Generic Name Dose Route Start Last Admin Trade Name Freq PRN Reason Stop Dose Admin Acetaminophen 650 mg 07/10/24 17:04 07/10/24 20:35 Acetaminophen 325 Mg Tablet PO 650 mg Q6H PRN Administration Headache/Pain Mild Scale (1-3) Clonazepam 1 mg 07/10/24 07:52 07/10/24 18:55 Clonazepam 1 Mg Tablet PO 1 mg BID PRN Administration Anxiety Duloxetine HCl 60 mg 07/10/24 09:00 07/11/24 08:49 Duloxetine Hcl 60 Mg Capsule. PO 60 mg DAILY CASSANDRA Administration Lorazepam 2 mg 07/10/24 11:56 07/10/24 12:04 Lorazepam 1 Mg Tablet PO 2 mg ONCE PRN Administration Alcohol withdrawal, agitation, anxiety Lorazepam 1 mg 07/10/24 21:15 07/11/24 08:49 Lorazepam 1 Mg Tablet PO 07/14/24 21:14 1 mg Q4H CASSANDRA Administration Taper Nicotine 21 mg 07/11/24 09:00 07/11/24 08:50 Nicotine 21 Mg Patch.Td24 TRANSDERMA 21 mg DAILY CASSANDRA Administration Olanzapine 20 mg 07/10/24 21:00 07/10/24 20:25 Olanzapine 10 Mg Tablet PO 20 mg BEDTIME CASSANDRA Administration Discontinued Medications Generic Name Dose Route Start Last Admin Trade Name Freq PRN Reason Stop Dose Admin Acetaminophen 975 mg 07/10/24 11:56 07/10/24 12:04 Acetaminophen 325 Mg Tablet PO 07/10/24 11:57 975 mg ONCE STA Administration Lamotrigine 200 mg 07/10/24 09:00 07/11/24 08:49 Lamotrigine 100 Mg Tablet PO 200 mg BID CASSANDRA Administration Medical Decision Making Medical Decision Making [facility] Narrative: Patient is a 44-year-old male with reported past medical history of depression, anxiety, bipolar disorder, JESUS, obesity, H pylori presenting emergency department for evaluation of suicidal ideations with a plan as per HPI. At this time he offers no physical complaints and his physical examination has benign. On arrival he was noted to be tachycardic 117, my assessment is auscultated at 90. Plan to obtain serum labs for medical clearance to care team for further evaluation safe disposition planning. Differential Diagnosis Differential Diagnoses: The differential diagnosis associated with the presentation includes (See narrative above and below for further detail) Admission/Observation Consideration of admission/observation: Escalation of care including admission/observation considered Patient is being observed in the Emergency Department for depression and anxiety. Observation time was started at 07:12 on 07/10/2024.?The patient is currently stable and non-toxic appearing. Observation is being initiated in the Emergency Department to allow time to help differentiate if the patient's depression and anxiety is due to Substance Induced Mood Disorder and Anxiety versus Major Depressive Disorder, Bipolar Page, Bipolar Depression, and Schizophrenia. The patient will receive frequent psychiatric assessments from the provider as well as from nursing staff. The patient will also be monitored for the need of PRN agitation medications such as Haldol, Ativan, and Benadryl. Consult Healthcare Provider Management of the patient was discussed with: Behavioral Health Provider Lab Data MDM Lab Attestation statement: I reviewed the patient's lab results. CBC is without leukocytosis anemia or thrombocytopenia. No electrolyte derangement. No PABLO. LFTs overall unremarkable, mildly elevated alk-phos 119. Toxicology is positive for cocaine. Alcohol level 227. 07/10/24 06:14 07/11/24 07:25 Labs: Lab Results 07/10/24 07/10/24 Range/Units 06:13 06:14 WBC 7.3 (4.8-10.8) X10*3/uL RBC 5.14 D (4.60-5.80) X10*6/uL Hgb 16.1 D (14.0-18.0) g/dl Hct 46.2 D (42.0-52.0) % MCV 89.9 (80.0-98.0) fL MCH 31.3 (27.0-33.0) pg MCHC 34.8 (31.0-36.0) g/dl RDW 13.2 (11.0-16.0) % Plt Count 288 (160-400) X10*3/uL MPV 9.0 L (9.4-12.4) fL Immature Gran % (Auto) 0.3 (0.0-0.4) % Neut % (Auto) 53.9 (45-73) % Lymph % (Auto) 36.3 (20-40) % [place] % (Auto) 7.2 (2-11) % Eos % (Auto) 1.2 (0-4) % Baso % (Auto) 1.1 (0-2) % Lymph # (Auto) 2.7 (1.2-4.9) X10*3/uL [place] # (Auto) 0.5 (0.1-1.2) X10*3/uL Eos # (Auto) 0.1 (0.0-0.4) X10*3/uL Baso # (Auto) 0.1 (0.0-0.2) X10*3/uL Abs Immat Gran (auto) 0.02 (0.00-0.03) X10*3/uL Absolute Neuts (auto) 4.0 (2.0-8.3) x10*3/uL Absolute Nucleated RBC 0.000 (0.0-0.012) X10*3/uL Nucleated RBC % (auto) 0.0 (0.0-0.2) /100WBC Sodium 142 (135-145) mmol/L Potassium 3.7 (3.3-5.1) mmol/L Chloride 108 (96-108) mmol/L Carbon Dioxide 22 (22-29) mmol/L Anion Gap 16 (12-20) BUN 8 L (9-16) mg/dL Creatinine 0.95 (0.5-1.4) mg/dL Estim Creat Clear Calc 123.9 Estimated GFR > 60 Random Glucose 127 H (60-115) mg/dL Calcium 9.3 (8.4-10.2) mg/dL Total Bilirubin 0.4 (0.0-1.0) mg/dL AST 31 (5-37) U/L ALT 40 (0-40) U/L Alkaline Phosphatase 119 H (39-117) U/L Total Protein 8.2 H (6.5-8.0) g/dL Albumin 4.3 (3.5-5.0) g/dL Urine Opiates Screen Not Detected (Not Detect) Ur Buprenorphine Scrn Not Detected (Not Detect) ng/mL Ur Oxycodone Screen Not Detected (Not Detect) ng/mL Urine Methadone Screen Not Detected (Not Detect) ng/mL Urine Fentanyl Screen Not Detected (Not Detect) Ur Barbiturates Screen Not Detected (Not Detect) Ur Phencyclidine Scrn Not Detected (Not Detect) Ur Amphetamines Screen Not Detected (Not Detect) U Benzodiazepines Scrn Not Detected (Not Detect) Urine Cocaine Screen POSITIVE H (Not Detect) U Marijuana (THC) Screen Not Detected (Not Detect) Ethyl Alcohol 227 mg/dL External Record Review External record reviewed: Outpatient record Social Determinants Patient?s care significantly limited by Social Determinants of Health including: Alcoholism and drug addiction in family Discharge Plan Discharge Clinical Impression: Suicidal ideation, Polysubstance use disorder Patient Disposition: Still a Patient Interventions: Admission Worksheet (ED) Last Done: 07/10/24 18:25 Discharge Date/Time: 07/10/24 18:26
--- NOTE | 2024-07-10 07:05 | PC.NURSE ---
Assumed care of patient at 0645. At this time the patient is lying quietly in their bed. No signs of distress observed. Breathing is even and unlabored.
--- NOTE | 2024-07-10 07:54 | PHA.MEDREC ---
Pharmacy Consult ? Medication Reconciliation Pharmacy has completed the medication reconciliation. Reviewed med rec done by nursing; matches claim history
[2024-07-10] MEDS: lamoTRIgine 100 MG TABLET 200 MG PO ×2 (08:36→20:26)
[2024-07-10] MEDS: DULoxetine HCl 60 MG CAPSULE.DR PO (08:36)
--- NOTE | 2024-07-10 10:42 | MHC.CARE ---
Patient evaluated by the CARE Team, disposition inpatient psychiatric treatment. ED provider, Dr. Khan updated with plan.
[2024-07-10] MEDS: LORazepam 1 MG TABLET 2 MG PO (12:04)
[2024-07-10] MEDS: Acetaminophen 325 MG TABLET 975 MG PO (12:04)
[2024-07-10 18:34] VITALS: BP 140/91; PULSE 101; RESP 16; TEMP 36.7; O2SAT 96
[2024-07-10 18:36] VITALS: BMI 41.7
[2024-07-10] MEDS: clonazePAM 1 MG TABLET PO (18:55)
--- NOTE | 2024-07-10 18:56 | PC.ADMIT ---
Pt is a 44 year old male admitted to M5 from the [facility] at 1806 with diagnosis of SI with a plan. He is here on a CV, skin/safety check done and unremarkable. He carries a dx of Bipolar disorder, anxiety, and alcohol use disorder. He admits to drinking 1 bottle of tequila and some beer daily, smokes 3-4 cigarettes per day and uses cocaine 3 times a week. His affect is anxious, mood described as depressed and down . He currently rates depression 10/10 and anxiety 7/10. He has no previous SA but has had vague SI for quite some time. He currently denies SI/HI/AVH. Barney was cooperative with admission process and oriented to the unit. Addictions medicine consult placed as he is interested in recovery program. He was medicated with Klonipin 1 mg for anxiety 7/10 and scored 6 on CIWA. In addition to above he has morbid obesity, JESUS, and high triglycerides, RT consult placed for overnight CPAP and placed on q15 min safety checks.
[2024-07-10] MEDS: OLANZapine 10 MG TABLET 20 MG PO (20:25)
[2024-07-10] MEDS: LORazepam 1 MG TABLET PO (20:26)
[2024-07-10] MEDS: Acetaminophen 325 MG TABLET 650 MG PO (20:35)
[2024-07-11 00:20] VITALS: BP 131/85; PULSE 88; RESP 16; TEMP 36.6; O2SAT 97
[2024-07-11] MEDS: LORazepam 1 MG TABLET PO ×5 (02:35→21:22)
[2024-07-11 07:38] LABS: Estimated Average Glucose 91 mg/dL; Hemoglobin A1C 110.4133 umol/L; Hemoglobin A1c % 4.8 % (<6.0); Total Hemoglobin (HGBA1C) 3753.0445 umol/L
[2024-07-11 07:52] LABS: Alanine Aminotransferase 35 U/L (0-40); Albumin Level 3.9 g/dL (3.5-5.0); Alkaline Phosphatase 99 U/L (39-117); Anion Gap 13 (12-20); Aspartate Amino Transferase 23 U/L (5-37); Bilirubin Total 0.8 mg/dL (0.0-1.0); Blood Urea Nitrogen 12 mg/dL (9-16); Calcium 9.5 mg/dL (8.4-10.2); Carbon Dioxide 25 mmol/L (22-29); Chloride 107 mmol/L (96-108); Cholesterol 186 mg/dL (<200); Creatinine Clr Calc Pharmacy 135.2; Estimated Glomerular Filt Rate > 60; Glucose Fasting 101 mg/dL (60-99); HDL Cholesterol 35 mg/dL (>40); LDL Cholesterol Calculated 113 mg/dL (<100); Potassium 3.9 mmol/L (3.3-5.1); Sodium 141 mmol/L (135-145); Total Protein 7.3 g/dL (6.5-8.0); Triglycerides 190 mg/dL (<150)
[2024-07-11 08:46] VITALS: BP 156/97; PULSE 84; RESP 20; TEMP 37.1; O2SAT 92
[2024-07-11] MEDS: lamoTRIgine 100 MG TABLET 200 MG PO (08:49)
[2024-07-11] MEDS: DULoxetine HCl 60 MG CAPSULE.DR PO (08:49)
[2024-07-11] MEDS: Nicotine 21 MG PATCH.TD24 TRANSDERMA (08:50)
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
[2024-07-11 12:12] VITALS: BP 150/76; PULSE 96; RESP 21; O2SAT 96
[2024-07-11 16:18] VITALS: BP 131/73; PULSE 101; RESP 20; O2SAT 97
[2024-07-11] MEDS: Flu Vacc TS2024-25(6mos up)/PF 0.5 ML SYRINGE IM (17:45)
[2024-07-11 19:55] VITALS: BP 141/89; PULSE 104; RESP 18; TEMP 37.1; O2SAT 97
[2024-07-11] MEDS: hydrOXYzine HCL 25 MG TABLET PO (21:21)
[2024-07-11] MEDS: lamoTRIgine 25 MG TABLET PO (21:22)
[2024-07-11] MEDS: traZODone HCL 50 MG TABLET PO (21:22)
[2024-07-11] MEDS: OLANZapine 10 MG TABLET 20 MG PO (21:22)
[2024-07-12 08:00] VITALS: BP 129/82; PULSE 92; RESP 20; TEMP 36.4; O2SAT 92
[2024-07-12] MEDS: Nicotine 21 MG PATCH.TD24 TRANSDERMA (08:36)
[2024-07-12] MEDS: DULoxetine HCl 60 MG CAPSULE.DR PO (08:37)
[2024-07-12] MEDS: lamoTRIgine 25 MG TABLET PO ×2 (08:37→21:25)
[2024-07-12] MEDS: Acetaminophen 325 MG TABLET 650 MG PO (08:42)
[2024-07-12] MEDS: LORazepam 1 MG TABLET PO (08:43)
--- NOTE | 2024-07-12 09:36 | HO.PSYCHPN ---
Subjective Subjective Date of Service: 07/12/24 Reason For Visit: Suicidal ideation Subjective Notes: Conditional Voluntary Interim History: Pt presents as somnolent. He is wheezing when awake, and severe apneic episodes when sleeping. Unclear what may be causing somnolence as he is not on significant amount of medications causing sedation. He is on ativan for alcohol withdrawal. BP stable. will check ammonia, hold olanzapine at bedtime for now. ATIVAN PRN based on CIWA. Hospitalist consult ordered for wheezing, may need chest xr Review of Systems Review of Systems Yes all other systems are reviewed and are negative Mental Status Exam Mental Status Exam Narrative: General appearance: Obese. Disheveled. Drowsy. Difficult to awaken Fair hygiene unshaved.? Eye contact: decreased. Musculoskeletal: Normal muscle strength/tone, Normal gait and station, No abnormal involuntary movements like tremors, EPS or dyskinesia. Manner/behavior: Sedated Speech:? minimal. low tone. Slurred. Mood: depressed Affect: blunted? Thought process/associations: Linear with no flight of ideas or loose associations.?? Thought content:?No delusions or paranoia.?? Hallucinations: No auditory, visual or other hallucinations Suicidality/self-destructive behavior: SI? ? Homicidally/violence: none.? Reliability: fair.? ? Judgment: fair.? ? Insight: fair Cognition: Sedated. Difficult to assess. Attention, concentration poor? Impulse control and emotional regulation: fair Intelligence estimate: average.? Diagnostics Vital Signs (24Hr): Vital Signs - 24 hr 07/11/24 12:12 07/11/24 16:18 07/11/24 19:55 Temperature 98.8 F Pulse Rate 96 101 H 104 H Respiratory Rate 21 H 20 18 Blood Pressure 150/76 H 131/73 141/89 H Pulse Oximetry 96 97 97 Oxygen Delivery Method Room Air Room Air Room Air 07/12/24 08:00 Temperature 97.6 F Pulse Rate 92 Respiratory Rate 20 Blood Pressure 129/82 Pulse Oximetry 92 Oxygen Delivery Method Room Air BMI result Body Mass Index 41.7 Labs 07/10/24 06:14 07/11/24 07:25 Labs: Laboratory Results - last 48 hr 07/11/24 07:25 Sodium 141 Potassium 3.9 Chloride 107 Carbon Dioxide 25 Anion Gap 13 BUN 12 Creatinine 0.84 Estim Creat Clear Calc 135.2 Estimated GFR > 60 Fasting Glucose 101 H Estimat Average Glucose 91 Hemoglobin A1c % 4.8 Calcium 9.5 Total Bilirubin 0.8 AST 23 ALT 35 Alkaline Phosphatase 99 Total Protein 7.3 Albumin 3.9 Triglycerides 190 H Cholesterol 186 LDL Cholesterol, Calc 113 H HDL Cholesterol 35 L Medications Medications Current Medications Acetaminophen (Acetaminophen 325 Mg Tablet) 650 mg PO Q6H PRN PRN Reason: Headache/Pain Mild Scale (1-3) Last Admin: 07/12/24 08:42 Dose: 650 mg Al Hydroxide/Mg Hydroxide (Magnesium Hydrox/Alum Hydrox 30 Ml Oral.Susp) 30 ml PO Q6H PRN PRN Reason: Heartburn/Nausea Clonazepam (Clonazepam 1 Mg Tablet) 1 mg PO BID PRN PRN Reason: Anxiety Last Admin: 07/10/24 18:55 Dose: 1 mg Duloxetine HCl (Duloxetine Hcl 60 Mg Capsule.Dr) 60 mg PO DAILY [facility] Last Admin: 07/12/24 08:37 Dose: 60 mg Hydroxyzine HCl (Hydroxyzine Hcl 25 Mg Tablet) 25 mg PO Q6H PRN PRN Reason: Anxiety Last Admin: 07/11/24 21:21 Dose: 25 mg Lamotrigine (Lamotrigine 25 Mg Tablet) 25 mg PO BID [facility] Last Admin: 07/12/24 08:37 Dose: 25 mg Lorazepam (Lorazepam 1 Mg Tablet) 2 mg PO ONCE PRN PRN Reason: Alcohol withdrawal, agitation, anxiety Last Admin: 07/10/24 12:04 Dose: 2 mg Lorazepam (Lorazepam 1 Mg Tablet) 1 mg PO Q6H [facility]ANDRA; Taper Stop: 07/14/24 21:14 Last Admin: 07/12/24 08:43 Dose: 1 mg Lorazepam (Lorazepam 1 Mg Tablet) 1 mg PO Q4H PRN PRN Reason: Alcohol Withdrawal Last Admin: 07/11/24 21:22 Dose: 1 mg Magnesium Hydroxide (Milk Of Magnesia 30 Ml Oral.Susp) 30 ml PO DAILY PRN PRN Reason: Constipation Nicotine (Nicotine 21 Mg Patch.Td24) 21 mg TRANSDERMA DAILY [facility] Last Admin: 07/12/24 08:36 Dose: 21 mg Nicotine Polacrilex (Nicotine Polacrilex 2 Mg Gum) 2 mg BUCCAL Q2H PRN PRN Reason: Nicotine Cravings Olanzapine (Olanzapine 10 Mg Tablet) 20 mg PO BEDTIME [facility] Last Admin: 07/11/24 21:22 Dose: 20 mg Trazodone HCl (Trazodone Hcl 50 Mg Tablet) 50 mg PO BEDTIME MRX1 PRN PRN Reason: Insomnia Last Admin: 07/11/24 21:22 Dose: 50 mg Allergies Allergies Allergy/AdvReac Type Severity Reaction Status Date / Time Seasonal Allergies Allergy Mild sinus Verified 07/10/24 05:47 Assessment & Plan Assessment & Plan (1) Depression: Status: Acute Code(s): F32.9 - Major depressive disorder, single episode, unspecified (2) Polysubstance use disorder: Status: Acute Code(s): F19.90 - Other psychoactive substance use, unspecified, uncomplicated (3) Suicidal ideation: Status: Acute Code(s): R45.851 - Suicidal ideations (4) Obstructive sleep apnea treated with continuous positive airway pressure (CPAP): Status: Acute Code(s): G47.33 - Obstructive sleep apnea (adult) (pediatric); Z99.89 - Dependence on other enabling machines and devices Plan 44 yo male with history of depression, alcohol and cocaine use disorder and ?bipolar disorder presents with increased depression and SI in the setting of ongoing substance use and not taking medications. He has JESUS and appears sedated while on CIWA. PLAN 07/12 ativan prn ciwa score, hold olanzapine for excessive sedation of unclear nature. ordered ammonia levels, although LFTs wnl. hospitalist consult re: wheezing Reason for continued inpatient stay Substantial Risk for: inability to function Time Spent With Patient Time: Total time managing care of this patient today ____ minutes.
[2024-07-12] MEDS: Albuterol Sulfate 90 MCG 8 GM INHALER 1 PUFF INHALE (10:47)
--- NOTE | 2024-07-12 11:53 | PM.EVENT ---
Event Note Date of Service: 07/12/24 Event Note: Patient is a 44-year-old male with a PMH significant for JESUS, hx of sleeve gastrectomy, hx of hiatal hernia repair, anxiety and depression who was admitted to [facility] for increased depression with SI. Hospitalist consult for shortness a breath and wheezing. Staff on the unit have noticed that patient has been seemingly overly somnolent. Patient is on Ativan protocol for alcohol withdrawal, but is receiving only 1 mg q6h. Staff report patient has been sleeping most of the day, and appears drowsy when awake. Patient carries a diagnosis of JESUS but has not been using CPAP for the past year as his machine has been broken. Has been noted to have moments of apnea during daytime naps. Has been on CPAP at night. Patient is a rather poor historian but complains of nasal congestion, sore throat, shortness of breath, difficulty breathing, and productive cough for an unknown period of time, the patient states that has been over a year. When asked to clarify if symptoms have been worsening, states they have past few months. Reports was previously was prescribed a 1 time rescue inhaler from PCP a few years ago, but does not carry a known diagnosis of either asthma or COPD. Jass has had similar symptoms in the past, though not this severe. Patient an active smoker of a reported 4 cigarettes daily. Denies chest pain/pressure, palpitations. No fever or chills. SOB/wheezing Unclear onset, duration Patient reports cough, but none witnessed by staff while on the unit Also reports rhinorrhea and sore throat x1 month Afebrile, not hypoxic, no leukocytosis on 07/10/2024 Will get CXR Will check flu/RSV/COVID Will check VBG Duonebs scheduled q4hr x1 day Albuterol inhaler prn for wheezing Afrin b.i.d. p.r.n. x3 days for nasal congestion JESUS CPAP at nighttime If possible, CPAP during significant daytime napping Will continue to follow for now pending results. Please reach out if any acute issue arises. Time Spent With Patient Time: Total time managing care of this patient today ____ minutes.
[2024-07-12 12:48] VITALS: BP 145/90; PULSE 95; RESP 20; O2SAT 95
[2024-07-12 13:23] LABS: Influenza A PCR NEGATIVE (Negative); Influenza B PCR NEGATIVE (Negative); Resp Syncy Virus RNA Qual PCR NEGATIVE (Negative); SARS COV2 PCR INHOUSE NEGATIVE (Negative)
--- NOTE | 2024-07-12 13:27 | PC.NURSE ---
Pt seen by hospitalist SANDRA Torres and chest xray ordered, venous VG sent, and came back negative and pt xray report showed low lung volumes. He is ordered for albuterol and some RT breathing treatments. Now that he is less sedate his breathing seems more comfortable. CIWA score at noon 6 and no ativan needed.
[2024-07-12 13:28] LABS: Venous Blood Gas Refer to POC result
[2024-07-12 13:28] LABS: VBG Base Excess 2.4 mmol/L; VBG HCO3 26 mmol/L (22-26); VBG pCO2 39 mmHg; VBG pH 7.43 (7.32-7.43); VBG pO2 135 mmHg
[2024-07-12 13:32] LABS: Ammonia 38 umol/L (13-55)
[2024-07-12] MEDS: Oxymetazoline HCl 0.05 % Nasal 15 ML SPRAY 2 SPRAY NOSTRIL-B ×2 (15:19→21:33)
[2024-07-12 15:29] VITALS: BP 123/71; PULSE 106; RESP 21; O2SAT 97
[2024-07-12 16:42] VITALS: BMI 17.1
--- NOTE | 2024-07-12 18:09 | PC.NURSE ---
Pt more awake and less somnolent as afternoon went on. His last dose of ativan 1 mg was this morning at 8:30 am. He is eating meals mostly in his room, and occasionally coming to nurse station to ask for needs. He states he feels better, headache is resolved, and CIWA score 5 at 1600. Will continue to monitor.
[2024-07-12 20:00] VITALS: BP 132/80; PULSE 109; RESP 16; TEMP 36.7; O2SAT 96
[2024-07-12] MEDS: traZODone HCL 50 MG TABLET PO (21:25)
[2024-07-13 00:16] VITALS: RESP 16
[2024-07-13] MEDS: traZODone HCL 50 MG TABLET PO ×2 (00:49→23:02)
[2024-07-13 08:00] VITALS: BP 123/74; PULSE 76; RESP 20; TEMP 36.4; O2SAT 97
[2024-07-13] MEDS: lamoTRIgine 25 MG TABLET PO ×2 (08:55→23:02)
[2024-07-13] MEDS: DULoxetine HCl 60 MG CAPSULE.DR PO (08:55)
[2024-07-13] MEDS: Nicotine 21 MG PATCH.TD24 TRANSDERMA (08:56)
--- NOTE | 2024-07-13 09:12 | HO.PSYCHPN ---
Subjective Subjective Date of Service: 07/13/24 Reason For Visit: Suicidal ideation Subjective Notes: Conditional Voluntary Interim History: Pt only slept about 3.5hrs. However, he was very somnolent and in bed most of the bed yesterday. Pt had some wheezing while awake, seen by PA, chest XR, blood gases ordered, all unremarkable. He is prescribed albuterol. He is much more alert today. He reports wheezing better, which is also noted by this bond writer. No SI/HI. he reports depressed mood- can increase cymbalta to 90mg po daily. he also reports wanting naltrexon for alcohol cravings. Mental Status Exam Mental Status Exam Narrative: General appearance: Obese. Disheveled. Fair hygiene unshaved.? Behavior: cooperative Musculoskeletal: Normal muscle strength/tone, Normal gait and station, No abnormal involuntary movements like tremors, EPS or dyskinesia. Speech:?more clear, less somnolent, spontaneous Mood: depressed Affect: blunted? Thought process/associations: Linear with no flight of ideas or loose associations.?? Thought content:?No delusions or paranoia.?? Hallucinations: No auditory, visual or other hallucinations Suicidality/self-destructive behavior: SI? ? Homicidally/violence: none.? Reliability: fair.? ? Judgment: fair.? ? Insight: fair ? Diagnostics Vital Signs (24Hr): Vital Signs - 24 hr 07/12/24 12:48 07/12/24 15:29 07/12/24 20:00 Temperature 98.0 F Pulse Rate 95 106 H 109 H Respiratory Rate 20 21 H 16 Blood Pressure 145/90 H 123/71 132/80 Pulse Oximetry 95 97 96 Oxygen Delivery Method Room Air Room Air Room Air 07/13/24 00:16 07/13/24 08:00 Temperature 97.6 F Pulse Rate 76 Respiratory Rate 16 20 Blood Pressure 123/74 Pulse Oximetry 97 Oxygen Delivery Method Room Air BMI result Body Mass Index 17.1 Labs 07/10/24 06:14 07/11/24 07:25 Labs: Laboratory Results - last 48 hr 07/12/24 07/12/24 07/12/24 13:17 13:25 Unknown VBG pH 7.43 VBG pCO2 39 VBG pO2 135 VBG HCO3 26 VBG O2 Saturation 100.0 VBG Base Excess 2.4 Ammonia 38 Influenza Type A (PCR) NEGATIVE Influenza Type B (PCR) NEGATIVE RSV RNA Qual (PCR) NEGATIVE SARS-CoV-2 RNA (RT-PCR) NEGATIVE Imaging Radiology Impressions: ITS Impressions Chest X-Ray 07/12/24 12:10 IMPRESSION: Low lung volumes. No gross focal consolidation to suggest pneumonia. This study was presented today July 12, 2024 for interpretation. Stat results provided at this time as requested by referring provider. Electronically signed by: Becky Alvarado MD 07/12/2024 12:59 PM EDT Medications Medications Current Medications Acetaminophen (Acetaminophen 325 Mg Tablet) 650 mg PO Q6H PRN PRN Reason: Headache/Pain Mild Scale (1-3) Last Admin: 07/12/24 08:42 Dose: 650 mg Al Hydroxide/Mg Hydroxide (Magnesium Hydrox/Alum Hydrox 30 Ml Oral.Susp) 30 ml PO Q6H PRN PRN Reason: Heartburn/Nausea Albuterol Sulfate (Albuterol Sulfate 90 Mcg 8 Gm Inhaler) 2 puff INHALE RQ4H PRN PRN Reason: Shortness of Breath/Wheezing Duloxetine HCl (Duloxetine Hcl 60 Mg Capsule.Dr) 60 mg PO DAILY [facility] Last Admin: 07/13/24 08:55 Dose: 60 mg Lamotrigine (Lamotrigine 25 Mg Tablet) 25 mg PO BID [facility] Last Admin: 07/13/24 08:55 Dose: 25 mg Lorazepam (Lorazepam 1 Mg Tablet) 1 mg PO Q4H PRN PRN Reason: ciwa 8-12 Magnesium Hydroxide (Milk Of Magnesia 30 Ml Oral.Susp) 30 ml PO DAILY PRN PRN Reason: Constipation Nicotine (Nicotine 21 Mg Patch.Td24) 21 mg TRANSDERMA DAILY [facility] Last Admin: 07/13/24 08:56 Dose: 21 mg Nicotine Polacrilex (Nicotine Polacrilex 2 Mg Gum) 2 mg BUCCAL Q2H PRN PRN Reason: Nicotine Cravings Oxymetazoline HCl (Oxymetazoline Hcl 0.05 % Nasal 15 Ml [place]) 2 spray NOSTRIL-B BID PRN PRN Reason: Nasal Congestion Stop: 07/15/24 11:48 Last Admin: 07/12/24 21:33 Dose: 2 spray Trazodone HCl (Trazodone Hcl 50 Mg Tablet) 50 mg PO BEDTIME MRX1 PRN PRN Reason: Insomnia Last Admin: 07/13/24 00:49 Dose: 50 mg Allergies Allergies Allergy/AdvReac Type Severity Reaction Status Date / Time Seasonal Allergies Allergy Mild sinus Verified 07/10/24 05:47 Assessment & Plan Assessment & Plan (1) MDD (major depressive disorder), recurrent episode, moderate: Status: Acute Code(s): F33.1 - Major depressive disorder, recurrent, moderate (2) Obstructive sleep apnea treated with continuous positive airway pressure (CPAP): Status: Acute Code(s): G47.33 - Obstructive sleep apnea (adult) (pediatric); Z99.89 - Dependence on other enabling machines and devices (3) Alcohol use disorder, moderate, dependence: Status: Acute Code(s): F10.20 - Alcohol dependence, uncomplicated Plan 44 yo male with history of depression, alcohol and cocaine use disorder and ?bipolar disorder presents with increased depression and SI in the setting of ongoing substance use and not taking medications. He has JESUS and appears sedated while on CIWA. PLAN 07/12 ativan prn ciwa score, hold olanzapine for excessive sedation of unclear nature. ordered ammonia levels, although LFTs wnl. hospitalist consult re: wheezing 07/13 less sedated, more awake. will add naltrexon for alcohol cravings. increase cymbalta to 90mg po daily. Reason for continued inpatient stay Substantial Risk for: inability to function Time Spent With Patient Time: Total time managing care of this patient today ____ minutes.
[2024-07-13 12:00] VITALS: BP 132/72; PULSE 88; RESP 16; TEMP 36.6; O2SAT 98
--- NOTE | 2024-07-13 13:52 | MHC.RECOVRN ---
AUDIT-C?Brief Intervention Pt had positive screen for unhealthy alcohol use on admission, subsequently met with t/w to discuss alcohol use and recovery supports/options. Pt voices concern regarding alcohol use and is aware that drinking at unhealthy levels is known to increase risk of alcohol related health problems. Pt reports ovr the past few months increasing what was social drinking to drinking mixed drinks daily along with using cocaine. Pt expresses how alcohol use has impacted health, including negative impact on his mental health. Discussed risk reduction strategies including drinking below the recommended limit. Provided pt with written resources including information on inpatient and outpatient treatment, [facility], harm reduction, and recovery coaching. Pt plans to make an appointment with [facility]. Pt provided with t/w contact information if questions or concerns arise. Denies other questions or concerns at this time.?
[2024-07-13] MEDS: Acetaminophen 325 MG TABLET 650 MG PO (16:32)
[2024-07-13] MEDS: Gabapentin 100 MG CAPSULE PO ×2 (18:43→23:13)
[2024-07-13 20:00] VITALS: BP 131/70; PULSE 92; RESP 16; TEMP 37.1; O2SAT 98
[2024-07-14 00:07] VITALS: PULSE 75; RESP 19; O2SAT 96
[2024-07-14] MEDS: lamoTRIgine 25 MG TABLET PO ×2 (08:53→20:53)
[2024-07-14] MEDS: DULoxetine HCl 60 MG CAPSULE.DR PO (08:53)
[2024-07-14] MEDS: Nicotine 21 MG PATCH.TD24 TRANSDERMA (08:54)
--- NOTE | 2024-07-14 09:28 | P.PNPSI_ITS ---
Subjective Subjective Date of Service: 07/14/24 Reason For Visit: Suicidal ideation Subjective Notes: Conditional Voluntary Interim History: Pt had some difficulty sleeping. He reports he was feeling anxious. He denies VH/AH, but RN reports pt had reported visual hallucination. He reports he was feeling very depressed. He reports passive SI. He is mostly in his room, encouraged to attend assigned groups and get out of bed. Diagnostics Vital Signs (24Hr): Vital Signs - 24 hr 07/13/24 12:00 07/13/24 20:00 07/14/24 00:07 Temperature 98 F 98.8 F Pulse Rate 88 92 Respiratory Rate 16 16 19 Blood Pressure 132/72 131/70 Pulse Oximetry 98 98 Oxygen Delivery Method Room Air Room Air BMI result Body Mass Index 17.1 Labs 07/10/24 06:14 07/11/24 07:25 Labs: Laboratory Results - last 48 hr 07/12/24 07/12/24 07/12/24 13:17 13:25 Unknown VBG pH 7.43 VBG pCO2 39 VBG pO2 135 VBG HCO3 26 VBG O2 Saturation 100.0 VBG Base Excess 2.4 Ammonia 38 Influenza Type A (PCR) NEGATIVE Influenza Type B (PCR) NEGATIVE RSV RNA Qual (PCR) NEGATIVE SARS-CoV-2 RNA (RT-PCR) NEGATIVE Imaging Radiology Impressions: ITS Impressions Chest X-Ray 07/12/24 12:10 IMPRESSION: Low lung volumes. No gross focal consolidation to suggest pneumonia. This study was presented today July 12, 2024 for interpretation. Stat results provided at this time as requested by referring provider. Electronically signed by: Becky Alvarado MD 07/12/2024 12:59 PM EDT Medications Medications Current Medications Acetaminophen (Acetaminophen 325 Mg Tablet) 650 mg PO Q6H PRN PRN Reason: Headache/Pain Mild Scale (1-3) Last Admin: 07/13/24 16:32 Dose: 650 mg Al Hydroxide/Mg Hydroxide (Magnesium Hydrox/Alum Hydrox 30 Ml Oral.Susp) 30 ml PO Q6H PRN PRN Reason: Heartburn/Nausea Albuterol Sulfate (Albuterol Sulfate 90 Mcg 8 Gm Inhaler) 2 puff INHALE RQ4H PRN PRN Reason: Shortness of Breath/Wheezing Duloxetine HCl (Duloxetine Hcl 30 Mg Capsule.Dr) 90 mg PO DAILY [facility] Lamotrigine (Lamotrigine 25 Mg Tablet) 25 mg PO BID [facility] Last Admin: 07/14/24 08:53 Dose: 25 mg Magnesium Hydroxide (Milk Of Magnesia 30 Ml Oral.Susp) 30 ml PO DAILY PRN PRN Reason: Constipation Naltrexone HCl (Naltrexone Hcl 50 Mg Tablet) 50 mg PO DAILY [facility] Nicotine (Nicotine 21 Mg Patch.Td24) 21 mg TRANSDERMA DAILY [facility] Last Admin: 07/14/24 08:54 Dose: 21 mg Nicotine Polacrilex (Nicotine Polacrilex 2 Mg Gum) 2 mg BUCCAL Q2H PRN PRN Reason: Nicotine Cravings Oxymetazoline HCl (Oxymetazoline Hcl 0.05 % Nasal 15 Ml [place]) 2 spray NOSTRIL- B BID PRN PRN Reason: Nasal Congestion Stop: 07/15/24 11:48 Last Admin: 07/12/24 21:33 Dose: 2 spray Trazodone HCl (Trazodone Hcl 50 Mg Tablet) 50 mg PO BEDTIME MRX1 PRN PRN Reason: Insomnia Last Admin: 07/13/24 23:02 Dose: 50 mg Allergies Allergies Allergy/AdvReac Type Severity Reaction Status Date / Time Seasonal Allergies Allergy Mild sinus Verified 07/10/24 05:47 Assessment & Plan Assessment & Plan (1) MDD (major depressive disorder), recurrent episode, moderate: Status: Acute Code(s): F33.1 - Major depressive disorder, recurrent, moderate (2) Obstructive sleep apnea treated with continuous positive airway pressure (CPAP): Status: Acute Code(s): G47.33 - Obstructive sleep apnea (adult) (pediatric); Z99.89 - Dependence on other enabling machines and devices (3) Alcohol use disorder, moderate, dependence: Status: Acute Code(s): F10.20 - Alcohol dependence, uncomplicated Plan 44 yo male with history of depression, alcohol and cocaine use disorder and ?bipolar disorder presents with increased depression and SI in the setting of ongoing substance use and not taking medications. He has JESUS and appears sedated while on CIWA. PLAN 07/12 ativan prn ciwa score, hold olanzapine for excessive sedation of unclear nature. ordered ammonia levels, although LFTs wnl. hospitalist consult re: wheezing 07/13 less sedated, more awake. will add naltrexon for alcohol cravings. increase cymbalta to 90mg po daily. 10/2 restart olanzapine in divided doses 10mg po BID, although may consider different antipsychotic due to weight gain and pt already struggling with JESUS Reason for continued inpatient stay Substantial Risk for: inability to function Time Spent With Patient Time: Total time managing care of this patient today ____ minutes.
[2024-07-14 09:46] VITALS: BP 102/55; PULSE 84; RESP 16; TEMP 36.4; O2SAT 96
[2024-07-14] MEDS: Naltrexone HCl 50 MG TABLET PO (11:04)
[2024-07-14 20:00] VITALS: BP 153/93; PULSE 114; RESP 16; TEMP 36.6; O2SAT 95
[2024-07-14] MEDS: traZODone HCL 50 MG TABLET PO ×2 (20:53→21:49)
[2024-07-14] MEDS: hydrOXYzine HCL 50 MG TABLET PO (21:21)
[2024-07-14] MEDS: Oxymetazoline HCl 0.05 % Nasal 15 ML SPRAY 2 SPRAY NOSTRIL-B (22:51)
[2024-07-15 07:00] VITALS: BMI 42.2
[2024-07-15 08:00] VITALS: BP 127/81; PULSE 88; RESP 18; TEMP 36.5; O2SAT 96
[2024-07-15] MEDS: DULoxetine HCl 30 MG CAPSULE.DR 90 MG PO (08:16)
[2024-07-15] MEDS: Naltrexone HCl 50 MG TABLET PO (08:17)
[2024-07-15] MEDS: lamoTRIgine 25 MG TABLET PO ×2 (08:17→20:49)
[2024-07-15] MEDS: Nicotine 21 MG PATCH.TD24 TRANSDERMA (08:18)
[2024-07-15] MEDS: OLANZapine 10 MG TABLET PO ×2 (09:28→20:50)
--- NOTE | 2024-07-15 11:01 | P.PNPSI_ITS ---
Subjective Subjective Date of Service: 07/15/24 Reason For Visit: Suicidal ideation Subjective Notes: Conditional Voluntary Interim History: Pt slept most of the night. He reports being anxious. He is mostly in bed, encouraged to get out of bed. This telegraphic typewriter repairer called his OP provider to obtain collateral information. Pt reports he had started caplyta, with aim to stop olanzapine. We don't have it on our formulary but if someone can bring it in we can continue or ordered it. He reports passive SI. He reports less cravings to use alcohol. Medication Compliance: Yes Diagnostics Vital Signs (24Hr): Vital Signs - 24 hr 07/14/24 20:00 07/15/24 08:00 Temperature 97.8 F 97.7 F Pulse Rate 114 H 88 Respiratory Rate 16 18 Blood Pressure 153/93 H 127/81 Pulse Oximetry 95 96 Oxygen Delivery Method Room Air Room Air BMI result Body Mass Index 17.1 Labs 07/10/24 06:14 07/11/24 07:25 Imaging Radiology Impressions: ITS Impressions Chest X-Ray 07/12/24 12:10 IMPRESSION: Low lung volumes. No gross focal consolidation to suggest pneumonia. This study was presented today July 12, 2024 for interpretation. Stat results provided at this time as requested by referring provider. Electronically signed by: Becky Alvarado MD 07/12/2024 12:59 PM EDT Medications Medications Current Medications Acetaminophen (Acetaminophen 325 Mg Tablet) 650 mg PO Q6H PRN PRN Reason: Headache/Pain Mild Scale (1-3) Last Admin: 07/13/24 16:32 Dose: 650 mg Al Hydroxide/Mg Hydroxide (Magnesium Hydrox/Alum Hydrox 30 Ml Oral.Susp) 30 ml PO Q6H PRN PRN Reason: Heartburn/Nausea Albuterol Sulfate (Albuterol Sulfate 90 Mcg 8 Gm Inhaler) 2 puff INHALE RQ4H PRN PRN Reason: Shortness of Breath/Wheezing Duloxetine HCl (Duloxetine Hcl 30 Mg Capsule.Dr) 90 mg PO DAILY [facility] Last Admin: 07/15/24 08:16 Dose: 90 mg Hydroxyzine HCl (Hydroxyzine Hcl 50 Mg Tablet) 50 mg PO Q6H PRN PRN Reason: anxiety/restlessness Last Admin: 07/14/24 21:21 Dose: 50 mg Lamotrigine (Lamotrigine 25 Mg Tablet) 25 mg PO BID [facility] Last Admin: 07/15/24 08:17 Dose: 25 mg Magnesium Hydroxide (Milk Of Magnesia 30 Ml Oral.Susp) 30 ml PO DAILY PRN PRN Reason: Constipation Naltrexone HCl (Naltrexone Hcl 50 Mg Tablet) 50 mg PO DAILY [facility] Last Admin: 07/15/24 08:17 Dose: 50 mg Nicotine (Nicotine 21 Mg Patch.Td24) 21 mg TRANSDERMA DAILY [facility] Last Admin: 07/15/24 08:18 Dose: 21 mg Nicotine Polacrilex (Nicotine Polacrilex 2 Mg Gum) 2 mg BUCCAL Q2H PRN PRN Reason: Nicotine Cravings Olanzapine (Olanzapine 10 Mg Tablet) 10 mg PO BID [facility] Last Admin: 07/15/24 09:28 Dose: 10 mg Oxymetazoline HCl (Oxymetazoline Hcl 0.05 % Nasal 15 Ml [place]) 2 spray NOSTRIL- B BID PRN PRN Reason: Nasal Congestion Stop: 07/15/24 11:48 Last Admin: 07/14/24 22:51 Dose: 2 spray Trazodone HCl (Trazodone Hcl 50 Mg Tablet) 50 mg PO BEDTIME MRX1 PRN PRN Reason: Insomnia Last Admin: 07/14/24 21:49 Dose: 50 mg Allergies Allergies Allergy/AdvReac Type Severity Reaction Status Date / Time Seasonal Allergies Allergy Mild sinus Verified 07/10/24 05:47 Assessment & Plan Assessment & Plan (1) MDD (major depressive disorder), recurrent episode, moderate: Status: Acute Code(s): F33.1 - Major depressive disorder, recurrent, moderate (2) Obstructive sleep apnea treated with continuous positive airway pressure (CPAP): Status: Acute Code(s): G47.33 - Obstructive sleep apnea (adult) (pediatric); Z99.89 - Dependence on other enabling machines and devices (3) Alcohol use disorder, moderate, dependence: Status: Acute Code(s): F10.20 - Alcohol dependence, uncomplicated Plan 44 yo male with history of depression, alcohol and cocaine use disorder and ?bipolar disorder presents with increased depression and SI in the setting of ongoing substance use and not taking medications. He has JESUS and appears sedated while on CIWA. PLAN 07/12 ativan prn ciwa score, hold olanzapine for excessive sedation of unclear nature. ordered ammonia levels, although LFTs wnl. hospitalist consult re: wheezing 07/13 less sedated, more awake. will add naltrexon for alcohol cravings. increase cymbalta to 90mg po daily. 07/14 restart olanzapine in divided doses 10mg po BID, although may consider different antipsychotic due to weight gain and pt already struggling with JESUS 07/15 continue tx, may switch olanzapine to caplyta (not on our formulary) Reason for continued inpatient stay Substantial Risk for: inability to function Time Spent With Patient Time: Total time managing care of this patient today ____ minutes.
[2024-07-15 20:00] VITALS: BP 158/84; PULSE 77; RESP 16; TEMP 36.7; O2SAT 96
[2024-07-15] MEDS: hydrOXYzine HCL 50 MG TABLET PO (20:49)
[2024-07-15] MEDS: traZODone HCL 50 MG TABLET PO (23:17)
[2024-07-15 23:45] VITALS: PULSE 84; RESP 22; O2SAT 94
[2024-07-16 08:00] VITALS: BP 129/71; PULSE 78; RESP 16; TEMP 36.5; O2SAT 97
[2024-07-16] MEDS: DULoxetine HCl 30 MG CAPSULE.DR 90 MG PO (09:19)
[2024-07-16] MEDS: Naltrexone HCl 50 MG TABLET PO (09:19)
[2024-07-16] MEDS: OLANZapine 10 MG TABLET PO ×2 (09:19→21:33)
[2024-07-16] MEDS: lamoTRIgine 25 MG TABLET PO ×2 (09:19→21:33)
[2024-07-16] MEDS: Nicotine 21 MG PATCH.TD24 TRANSDERMA (09:21)
[2024-07-16] MEDS: hydrOXYzine HCL 50 MG TABLET PO ×2 (09:23→23:00)
--- NOTE | 2024-07-16 14:57 | HO.PSYCHPN ---
Subjective Subjective Date of Service: 07/16/24 Reason For Visit: Suicidal ideation Subjective Notes: Conditional Voluntary Interim History: Pt reports sleeping fairly well with CPAP. He reports he had sleep study this year but he did not follow up with residency director to get CPAP. He reports depressed mood, passive SI, but no plan or intent. some anxious mood. again encouraged to get out of bed and go to groups. Diagnostics Vital Signs (24Hr): Vital Signs - 24 hr 07/15/24 20:00 07/15/24 23:45 07/16/24 08:00 Temperature 98.0 F 97.7 F Pulse Rate 77 78 Respiratory Rate 16 22 H 16 Blood Pressure 158/84 H 129/71 Pulse Oximetry 96 97 Oxygen Delivery Method Room Air Room Air BMI result Body Mass Index 42.2 Labs 07/10/24 06:14 07/11/24 07:25 Imaging Radiology Impressions: ITS Impressions Chest X-Ray 07/12/24 12:10 IMPRESSION: Low lung volumes. No gross focal consolidation to suggest pneumonia. This study was presented today July 12, 2024 for interpretation. Stat results provided at this time as requested by referring provider. Electronically signed by: Becky Alvarado MD 07/12/2024 12:59 PM EDT RP Medications Medications Current Medications Acetaminophen (Acetaminophen 325 Mg Tablet) 650 mg PO Q6H PRN PRN Reason: Headache/Pain Mild Scale (1-3) Last Admin: 07/13/24 16:32 Dose: 650 mg Al Hydroxide/Mg Hydroxide (Magnesium Hydrox/Alum Hydrox 30 Ml Oral.Susp) 30 ml PO Q6H PRN PRN Reason: Heartburn/Nausea Albuterol Sulfate (Albuterol Sulfate 90 Mcg 8 Gm Inhaler) 2 puff INHALE RQ4H PRN PRN Reason: Shortness of Breath/Wheezing Duloxetine HCl (Duloxetine Hcl 30 Mg Capsule.Dr) 90 mg PO DAILY [facility] Last Admin: 07/16/24 09:19 Dose: 90 mg Hydroxyzine HCl (Hydroxyzine Hcl 50 Mg Tablet) 50 mg PO Q6H PRN PRN Reason: anxiety/restlessness Last Admin: 07/16/24 09:23 Dose: 50 mg Lamotrigine (Lamotrigine 25 Mg Tablet) 25 mg PO BID [facility]CLUD[facility] Last Admin: 07/16/24 09:19 Dose: 25 mg Magnesium Hydroxide (Milk Of Magnesia 30 Ml Oral.Susp) 30 ml PO DAILY PRN PRN Reason: Constipation Naltrexone HCl (Naltrexone Hcl 50 Mg Tablet) 50 mg PO DAILY [facility] Last Admin: 07/16/24 09:19 Dose: 50 mg Nicotine (Nicotine 21 Mg Patch.Td24) 21 mg TRANSDERMA DAILY [facility] Last Admin: 07/16/24 09:21 Dose: 21 mg Nicotine Polacrilex (Nicotine Polacrilex 2 Mg Gum) 2 mg BUCCAL Q2H PRN PRN Reason: Nicotine Cravings Olanzapine (Olanzapine 10 Mg Tablet) 10 mg PO BID COUNT [facility]CLUD[facility] Last Admin: 07/16/24 09:19 Dose: 10 mg Trazodone HCl (Trazodone Hcl 50 Mg Tablet) 50 mg PO BEDTIME MRX1 PRN PRN Reason: Insomnia Last Admin: 07/15/24 23:17 Dose: 50 mg Allergies Allergies Allergy/AdvReac Type Severity Reaction Status Date / Time Seasonal Allergies Allergy Mild sinus Verified 07/10/24 05:47 Assessment & Plan Assessment & Plan (1) MDD (major depressive disorder), recurrent episode, moderate: Status: Acute Code(s): F33.1 - Major depressive disorder, recurrent, moderate (2) Obstructive sleep apnea treated with continuous positive airway pressure (CPAP): Status: Acute Code(s): G47.33 - Obstructive sleep apnea (adult) (pediatric); Z99.89 - Dependence on other enabling machines and devices (3) Alcohol use disorder, moderate, dependence: Status: Acute Code(s): F10.20 - Alcohol dependence, uncomplicated Plan 44 yo male with history of depression, alcohol and cocaine use disorder and ?bipolar disorder presents with increased depression and SI in the setting of ongoing substance use and not taking medications. He has JESUS and appears sedated while on CIWA. PLAN 07/12 ativan prn ciwa score, hold olanzapine for excessive sedation of unclear nature. ordered ammonia levels, although LFTs wnl. hospitalist consult re: wheezing 07/13 less sedated, more awake. will add naltrexon for alcohol cravings. increase cymbalta to 90mg po daily. 07/14 restart olanzapine in divided doses 10mg po BID, although may consider different antipsychotic due to weight gain and pt already struggling with JESUS 07/15 continue tx, may switch olanzapine to caplyta (not on our formulary) 07/16 continue tx. pt states he could try vraylar instead. Reason for continued inpatient stay Substantial Risk for: inability to function Time Spent With Patient Time: Total time managing care of this patient today ____ minutes.
[2024-07-16 20:00] VITALS: BP 136/71; PULSE 76; RESP 16; TEMP 36.7; O2SAT 97
[2024-07-16] MEDS: traZODone HCL 50 MG TABLET PO (23:00)
[2024-07-17 00:42] VITALS: PULSE 84; RESP 23; O2SAT 98
[2024-07-17 08:00] VITALS: BP 129/80; PULSE 74; TEMP 37; O2SAT 98
[2024-07-17] MEDS: Nicotine 21 MG PATCH.TD24 TRANSDERMA (08:49)
[2024-07-17] MEDS: lamoTRIgine 25 MG TABLET PO ×2 (08:50→22:09)
[2024-07-17] MEDS: Naltrexone HCl 50 MG TABLET PO (08:50)
[2024-07-17] MEDS: DULoxetine HCl 30 MG CAPSULE.DR 90 MG PO (08:50)
[2024-07-17] MEDS: OLANZapine 10 MG TABLET PO ×2 (08:50→22:09)
--- NOTE | 2024-07-17 08:56 | HO.PSYCHPN ---
Subjective Subjective Date of Service: 07/17/24 Reason For Visit: Suicidal ideation Interim History: With patient; discussed with team pt says not much difference in mood, still depressed; however pushing self to be out of his room, in the milue. SI remains but only passive. Discussed meds and says Zyprexa has helped in past but that he did best on combination of Zyprexa and Caplyta (which is not on formulary); he agrees to add Vraylar. Mental Status Exam Mental Status Exam Narrative: General appearance: Obese. Disheveled. Fair hygiene unshaved.? Behavior: cooperative Musculoskeletal: Normal muscle strength/tone, Normal gait and station, No abnormal involuntary movements like tremors, EPS or dyskinesia. Speech:?more clear, less somnolent, spontaneous Mood: depressed Affect: blunted? Thought process/associations: Linear with no flight of ideas or loose associations.?? Thought content:?No delusions or paranoia.?? Hallucinations: No auditory, visual or other hallucinations Suicidality/self-destructive behavior: passive SI? (no plan/intention) Homicidally/violence: none.? Reliability: fair.? ? Judgment: fair.? ? Insight: fair ? Diagnostics Vital Signs (24Hr): Vital Signs - 24 hr 07/16/24 20:00 07/17/24 00:42 Temperature 98.1 F Pulse Rate 76 Respiratory Rate 16 23 H Blood Pressure 136/71 Pulse Oximetry 97 Oxygen Delivery Method Room Air BMI result Body Mass Index 42.2 Labs 07/10/24 06:14 07/11/24 07:25 Imaging Radiology Impressions: ITS Impressions Chest X-Ray 07/12/24 12:10 IMPRESSION: Low lung volumes. No gross focal consolidation to suggest pneumonia. This study was presented today July 12, 2024 for interpretation. Stat results provided at this time as requested by referring provider. Electronically signed by: Becky Alvarado MD 07/12/2024 12:59 PM EDT Medications Medications Current Medications Acetaminophen (Acetaminophen 325 Mg Tablet) 650 mg PO Q6H PRN PRN Reason: Headache/Pain Mild Scale (1-3) Last Admin: 07/13/24 16:32 Dose: 650 mg Al Hydroxide/Mg Hydroxide (Magnesium Hydrox/Alum Hydrox 30 Ml Oral.Susp) 30 ml PO Q6H PRN PRN Reason: Heartburn/Nausea Albuterol Sulfate (Albuterol Sulfate 90 Mcg 8 Gm Inhaler) 2 puff INHALE RQ4H PRN PRN Reason: Shortness of Breath/Wheezing Duloxetine HCl (Duloxetine Hcl 30 Mg Capsule.Dr) 90 mg PO DAILY [facility] Last Admin: 07/17/24 08:50 Dose: 90 mg Hydroxyzine HCl (Hydroxyzine Hcl 50 Mg Tablet) 50 mg PO Q6H PRN PRN Reason: anxiety/restlessness Last Admin: 07/16/24 23:00 Dose: 50 mg Lamotrigine (Lamotrigine 25 Mg Tablet) 25 mg PO BID [facility] Last Admin: 07/17/24 08:50 Dose: 25 mg Magnesium Hydroxide (Milk Of Magnesia 30 Ml Oral.Susp) 30 ml PO DAILY PRN PRN Reason: Constipation Naltrexone HCl (Naltrexone Hcl 50 Mg Tablet) 50 mg PO DAILY [facility] Last Admin: 07/17/24 08:50 Dose: 50 mg Nicotine (Nicotine 21 Mg Patch.Td24) 21 mg TRANSDERMA DAILY [facility] Last Admin: 07/17/24 08:49 Dose: 21 mg Nicotine Polacrilex (Nicotine Polacrilex 2 Mg Gum) 2 mg BUCCAL Q2H PRN PRN Reason: Nicotine Cravings Olanzapine (Olanzapine 10 Mg Tablet) 10 mg PO BID [facility] Last Admin: 07/17/24 08:50 Dose: 10 mg Trazodone HCl (Trazodone Hcl 50 Mg Tablet) 50 mg PO BEDTIME MRX1 PRN PRN Reason: Insomnia Last Admin: 07/16/24 23:00 Dose: 50 mg Allergies Allergies Allergy/AdvReac Type Severity Reaction Status Date / Time Seasonal Allergies Allergy Mild sinus Verified 07/10/24 05:47 Assessment & Plan Assessment & Plan (1) MDD (major depressive disorder), recurrent episode, moderate: Status: Acute Code(s): F33.1 - Major depressive disorder, recurrent, moderate (2) Obstructive sleep apnea treated with continuous positive airway pressure (CPAP): Status: Acute Code(s): G47.33 - Obstructive sleep apnea (adult) (pediatric); Z99.89 - Dependence on other enabling machines and devices (3) Alcohol use disorder, moderate, dependence: Status: Acute Code(s): F10.20 - Alcohol dependence, uncomplicated Plan 44 yo male with history of depression, alcohol and cocaine use disorder and ?bipolar disorder presents with increased depression and SI in the setting of ongoing substance use and not taking medications. He has JESUS and appears sedated while on CIWA. PLAN 07/12 ativan prn ciwa score, hold olanzapine for excessive sedation of unclear nature. ordered ammonia levels, although LFTs wnl. hospitalist consult re: wheezing 07/13 less sedated, more awake. will add naltrexon for alcohol cravings. increase cymbalta to 90mg po daily. 07/14 restart olanzapine in divided doses 10mg po BID, although may consider different antipsychotic due to weight gain and pt already struggling with JESUS 07/15 continue tx, may switch olanzapine to caplyta (not on our formulary) 07/16 pt says not much difference in mood, still depressed; however pushing self to be out of his room, in the milue. SI remains but only passive. Discussed meds and says Zyprexa has helped in past but that he did best on combination of Zyprexa and Caplyta (which is not on formulary); he agrees to add Vraylar. Plan: switched Zyprexa 20mg to bedtime to avoid daytime sedation started Vraylar 1.5mg -perhaps my be able to lower Zyprexa back to 10mg qhs when combined with Vraylar Patient educated on: diagnosis, medication risk/benefits and therapeutic strategies Informed Consent: understands Reason for continued inpatient stay Substantial Risk for: rapid decompensation Time Spent With Patient Time: Total time managing care of this patient today ____ minutes.
[2024-07-17] MEDS: Cariprazine HCl 1.5 MG CAPSULE PO (11:33)
[2024-07-17 20:00] VITALS: BP 169/91; PULSE 96; RESP 16; TEMP 36.9; O2SAT 96
[2024-07-17 22:31] VITALS: BP 129/64
[2024-07-17] MEDS: traZODone HCL 50 MG TABLET PO (22:55)
[2024-07-18 00:05] VITALS: PULSE 93; RESP 19; O2SAT 96
[2024-07-18 08:00] VITALS: BP 134/71; PULSE 83; RESP 16; TEMP 36.4; O2SAT 97
[2024-07-18] MEDS: Nicotine 21 MG PATCH.TD24 TRANSDERMA (09:28)
[2024-07-18] MEDS: Naltrexone HCl 50 MG TABLET PO (09:29)
[2024-07-18] MEDS: DULoxetine HCl 30 MG CAPSULE.DR 90 MG PO (09:29)
[2024-07-18] MEDS: Cariprazine HCl 1.5 MG CAPSULE PO (09:29)
[2024-07-18] MEDS: lamoTRIgine 25 MG TABLET PO ×2 (09:30→22:40)
--- NOTE | 2024-07-18 10:06 | P.PNPSI_ITS ---
Subjective Subjective Date of Service: 07/18/24 Reason For Visit: Suicidal ideation Interim History: Met with patient; discussed with team She reports that he is pretty much the same as yesterday with things getting overall little better; would like Vraylar increased as discussed. Patient asked about labs and automotive service writer reviewed; discussed elevated TAG which he says is much better than it was before Mental Status Exam Mental Status Exam Narrative: General appearance: Obese. Unkempt hygiene: scruffy? Behavior: cooperative Musculoskeletal: No abnormal involuntary movements like tremors, EPS or dyskinesia. Speech:?more clear, less somnolent, spontaneous Mood: depressed Affect: blunted? Thought process/associations: Linear with no flight of ideas or loose associations.?? Thought content:?No delusions or paranoia.?? Hallucinations: No auditory, visual or other hallucinations Suicidality/self-destructive behavior: passive SI? (no plan/intention) Homicidally/violence: none.? Reliability: fair.? ? Judgment: fair.? ? Insight: fair ? Diagnostics Vital Signs (24Hr): Vital Signs - 24 hr 07/17/24 20:00 07/17/24 22:31 07/18/24 00:05 Temperature 98.5 F Pulse Rate 96 Respiratory Rate 16 19 Blood Pressure 169/91 H 129/64 Pulse Oximetry 96 Oxygen Delivery Method Room Air 07/18/24 08:00 Temperature 97.6 F Pulse Rate 83 Respiratory Rate 16 Blood Pressure 134/71 Pulse Oximetry 97 Oxygen Delivery Method Room Air BMI result Body Mass Index 42.2 Labs 07/10/24 06:14 07/11/24 07:25 Imaging Radiology Impressions: ITS Impressions Chest X-Ray 07/12/24 12:10 IMPRESSION: Low lung volumes. No gross focal consolidation to suggest pneumonia. This study was presented today July 12, 2024 for interpretation. Stat results provided at this time as requested by referring provider. Electronically signed by: Becky Alvarado MD 07/12/2024 12:59 PM EDT Medications Medications Current Medications Acetaminophen (Acetaminophen 325 Mg Tablet) 650 mg PO Q6H PRN PRN Reason: Headache/Pain Mild Scale (1-3) Last Admin: 07/13/24 16:32 Dose: 650 mg Al Hydroxide/Mg Hydroxide (Magnesium Hydrox/Alum Hydrox 30 Ml Oral.Susp) 30 ml PO Q6H PRN PRN Reason: Heartburn/Nausea Albuterol Sulfate (Albuterol Sulfate 90 Mcg 8 Gm Inhaler) 2 puff INHALE RQ4H PRN PRN Reason: Shortness of Breath/Wheezing Cariprazine (Cariprazine Hcl 1.5 Mg Capsule) 1.5 mg PO DAILY [facility] Last Admin: 07/18/24 09:29 Dose: 1.5 mg Duloxetine HCl (Duloxetine Hcl 30 Mg Capsule.Dr) 90 mg PO DAILY [facility] Last Admin: 07/18/24 09:29 Dose: 90 mg Hydroxyzine HCl (Hydroxyzine Hcl 50 Mg Tablet) 50 mg PO Q6H PRN PRN Reason: anxiety/restlessness Last Admin: 07/16/24 23:00 Dose: 50 mg Lamotrigine (Lamotrigine 25 Mg Tablet) 25 mg PO BID [facility] Last Admin: 07/18/24 09:30 Dose: 25 mg Magnesium Hydroxide (Milk Of Magnesia 30 Ml Oral.Susp) 30 ml PO DAILY PRN PRN Reason: Constipation Naltrexone HCl (Naltrexone Hcl 50 Mg Tablet) 50 mg PO DAILY [facility] Last Admin: 07/18/24 09:29 Dose: 50 mg Nicotine (Nicotine 21 Mg Patch.Td24) 21 mg TRANSDERMA DAILY [facility] Last Admin: 07/18/24 09:28 Dose: 21 mg Nicotine Polacrilex (Nicotine Polacrilex 2 Mg Gum) 2 mg BUCCAL Q2H PRN PRN Reason: Nicotine Cravings Olanzapine (Olanzapine 10 Mg Tablet) 20 mg PO BEDTIME [facility] Trazodone HCl (Trazodone Hcl 50 Mg Tablet) 50 mg PO BEDTIME MRX1 PRN PRN Reason: Insomnia Last Admin: 07/17/24 22:55 Dose: 50 mg Allergies Allergies Allergy/AdvReac Type Severity Reaction Status Date / Time Seasonal Allergies Allergy Mild sinus Verified 07/10/24 05:47 Assessment & Plan Assessment & Plan (1) MDD (major depressive disorder), recurrent episode, moderate: Status: Acute Code(s): F33.1 - Major depressive disorder, recurrent, moderate (2) Obstructive sleep apnea treated with continuous positive airway pressure (CPAP): Status: Acute Code(s): G47.33 - Obstructive sleep apnea (adult) (pediatric); Z99.89 - Dependence on other enabling machines and devices (3) Alcohol use disorder, moderate, dependence: Status: Acute Code(s): F10.20 - Alcohol dependence, uncomplicated Plan 44 yo male with history of depression, alcohol and cocaine use disorder and ?bipolar disorder presents with increased depression and SI in the setting of ongoing substance use and not taking medications. He has JESUS and appears sedated while on CIWA. PLAN 07/12 ativan prn ciwa score, hold olanzapine for excessive sedation of unclear nature. ordered ammonia levels, although LFTs wnl. hospitalist consult re: wheezing 07/13 less sedated, more awake. will add naltrexon for alcohol cravings. increase cymbalta to 90mg po daily. 07/14 restart olanzapine in divided doses 10mg po BID, although may consider different antipsychotic due to weight gain and pt already struggling with JESUS 07/15 continue tx, may switch olanzapine to caplyta (not on our formulary) 07/17 pt says not much difference in mood, still depressed; however pushing self to be out of his room, in the milue. SI remains but only passive. Discussed meds and says Zyprexa has helped in past but that he did best on combination of Zyprexa and Caplyta (which is not on formulary); he agrees to add Vraylar. 07/18 tolerating Vraylar and asks for to be increased which was discussed yesterday; automotive service writer agrees; discussed Zyprexa dose and he would like to remain on current dose of 20 Plan: switched Zyprexa 20mg to bedtime to avoid daytime sedation Increase to Vraylar 3 mg -perhaps my be able to lower Zyprexa back to 10mg qhs when combined with Vraylar Patient educated on: diagnosis and medication risk/benefits Informed Consent: understands Reason for continued inpatient stay Substantial Risk for: rapid decompensation Time Spent With Patient Time: Total time managing care of this patient today ____ minutes.
[2024-07-18 20:00] VITALS: BP 154/78; PULSE 100; TEMP 36.9; O2SAT 97
[2024-07-18] MEDS: OLANZapine 10 MG TABLET 20 MG PO (22:40)
[2024-07-18] MEDS: traZODone HCL 50 MG TABLET PO (22:41)
[2024-07-19 00:06] VITALS: PULSE 90; RESP 16; O2SAT 98
[2024-07-19] MEDS: traZODone HCL 50 MG TABLET PO ×2 (00:19→22:58)
[2024-07-19 07:58] VITALS: BP 130/80; PULSE 75; RESP 16; TEMP 36.6; O2SAT 96
[2024-07-19] MEDS: DULoxetine HCl 30 MG CAPSULE.DR 90 MG PO (08:39)
[2024-07-19] MEDS: Nicotine 21 MG PATCH.TD24 TRANSDERMA (08:40)
[2024-07-19] MEDS: Cariprazine HCl 3 MG CAPSULE PO (08:40)
[2024-07-19] MEDS: lamoTRIgine 25 MG TABLET PO (08:40)
[2024-07-19] MEDS: Naltrexone HCl 50 MG TABLET PO (08:40)
--- NOTE | 2024-07-19 10:25 | P.PNPSI_ITS ---
Subjective Subjective Date of Service: 07/19/24 Reason For Visit: Suicidal ideation Subjective Notes: Conditional Voluntary Interim History: Pt slept most of the night with CPAP. He presents as much more alert, visible on the unit and awake. He reports some improvement in depression. He reports less SI. No plan or intent. he denies VH/AH. He reports some anxiety in the evening- given one time dose of gabapentin. Also trial of clonidine prn. may scheduled gabapentin if helpful. Review of Systems Review of Systems Yes all other systems are reviewed and are negative Mental Status Exam Mental Status Exam Narrative: General appearance: Obese. Unkempt hygiene: scruffy? Behavior: cooperative Musculoskeletal: No abnormal involuntary movements like tremors, EPS or dyskinesia. Speech:?more clear, less somnolent, spontaneous Mood: depressed Affect: blunted? Thought process/associations: Linear with no flight of ideas or loose associations.?? Thought content:?No delusions or paranoia.?? Hallucinations: No auditory, visual or other hallucinations Suicidality/self-destructive behavior: passive SI? (no plan/intention) Homicidally/violence: none.? Reliability: fair.? ? Judgment: fair.? ? Insight: fair ? Diagnostics Vital Signs (24Hr): Vital Signs - 24 hr 07/18/24 20:00 07/19/24 00:06 07/19/24 07:58 Temperature 98.4 F 98 F Pulse Rate 100 75 Respiratory Rate 16 16 Blood Pressure 154/78 H 130/80 Pulse Oximetry 97 96 Oxygen Delivery Method Room Air BMI result Body Mass Index 42.2 Labs 07/10/24 06:14 07/11/24 07:25 Imaging Radiology Impressions: ITS Impressions Chest X-Ray 07/12/24 12:10 IMPRESSION: Low lung volumes. No gross focal consolidation to suggest pneumonia. This study was presented today July 12, 2024 for interpretation. Stat results provided at this time as requested by referring provider. Electronically signed by: Becky Alvarado MD 07/12/2024 12:59 PM EDT Medications Medications Current Medications Acetaminophen (Acetaminophen 325 Mg Tablet) 650 mg PO Q6H PRN PRN Reason: Headache/Pain Mild Scale (1-3) Last Admin: 07/13/24 16:32 Dose: 650 mg Al Hydroxide/Mg Hydroxide (Magnesium Hydrox/Alum Hydrox 30 Ml Oral.Susp) 30 ml PO Q6H PRN PRN Reason: Heartburn/Nausea Albuterol Sulfate (Albuterol Sulfate 90 Mcg 8 Gm Inhaler) 2 puff INHALE RQ4H PRN PRN Reason: Shortness of Breath/Wheezing Cariprazine (Cariprazine Hcl 3 Mg Capsule) 3 mg PO DAILY [facility] Last Admin: 07/19/24 08:40 Dose: 3 mg Duloxetine HCl (Duloxetine Hcl 30 Mg Capsule.Dr) 90 mg PO DAILY [facility] Last Admin: 07/19/24 08:39 Dose: 90 mg Hydroxyzine HCl (Hydroxyzine Hcl 50 Mg Tablet) 50 mg PO Q6H PRN PRN Reason: anxiety/restlessness Last Admin: 07/16/24 23:00 Dose: 50 mg Lamotrigine (Lamotrigine 25 Mg Tablet) 25 mg PO BID [facility] Last Admin: 07/19/24 08:40 Dose: 25 mg Magnesium Hydroxide (Milk Of Magnesia 30 Ml Oral.Susp) 30 ml PO DAILY PRN PRN Reason: Constipation Naltrexone HCl (Naltrexone Hcl 50 Mg Tablet) 50 mg PO DAILY [facility] Last Admin: 07/19/24 08:40 Dose: 50 mg Nicotine (Nicotine 21 Mg Patch.Td24) 21 mg TRANSDERMA DAILY [facility] Last Admin: 07/19/24 08:40 Dose: 21 mg Nicotine Polacrilex (Nicotine Polacrilex 2 Mg Gum) 2 mg BUCCAL Q2H PRN PRN Reason: Nicotine Cravings Olanzapine (Olanzapine 10 Mg Tablet) 20 mg PO BEDTIME [facility] Last Admin: 07/18/24 22:40 Dose: 20 mg Trazodone HCl (Trazodone Hcl 50 Mg Tablet) 50 mg PO BEDTIME MRX1 PRN PRN Reason: Insomnia Last Admin: 07/19/24 00:19 Dose: 50 mg Allergies Allergies Allergy/AdvReac Type Severity Reaction Status Date / Time Seasonal Allergies Allergy Mild sinus Verified 07/10/24 05:47 Assessment & Plan Assessment & Plan (1) MDD (major depressive disorder), recurrent episode, moderate: Status: Acute Code(s): F33.1 - Major depressive disorder, recurrent, moderate (2) Obstructive sleep apnea treated with continuous positive airway pressure (CPAP): Status: Acute Code(s): G47.33 - Obstructive sleep apnea (adult) (pediatric); Z99.89 - Dependence on other enabling machines and devices (3) Alcohol use disorder, moderate, dependence: Status: Acute Code(s): F10.20 - Alcohol dependence, uncomplicated Plan 44 yo male with history of depression, alcohol and cocaine use disorder and ?bipolar disorder presents with increased depression and SI in the setting of ongoing substance use and not taking medications. He has JESUS and appears sedated while on CIWA. PLAN 07/12 ativan prn ciwa score, hold olanzapine for excessive sedation of unclear nature. ordered ammonia levels, although LFTs wnl. hospitalist consult re: wheezing 07/13 less sedated, more awake. will add naltrexon for alcohol cravings. increase cymbalta to 90mg po daily. 07/14 restart olanzapine in divided doses 10mg po BID, although may consider different antipsychotic due to weight gain and pt already struggling with JESUS 07/15 continue tx, may switch olanzapine to caplyta (not on our formulary) 07/17 pt says not much difference in mood, still depressed; however pushing self to be out of his room, in the milue. SI remains but only passive. Discussed meds and says Zyprexa has helped in past but that he did best on combination of Zyprexa and Caplyta (which is not on formulary); he agrees to add Vraylar. 07/18 tolerating Vraylar and asks for to be increased which was discussed yesterday; technical writer agrees; discussed Zyprexa dose and he would like to remain on current dose of 20 07/19 continue tx. Reason for continued inpatient stay Substantial Risk for: inability to function Time Spent With Patient Time: Total time managing care of this patient today ____ minutes.
[2024-07-19] MEDS: hydrOXYzine HCL 50 MG TABLET PO (14:48)
[2024-07-19] MEDS: Gabapentin 100 MG CAPSULE 200 MG PO (17:05)
[2024-07-19 20:00] VITALS: BP 164/97; PULSE 86; TEMP 36.7; O2SAT 96
[2024-07-19] MEDS: lamoTRIgine 25 MG TABLET 50 MG PO (22:57)
[2024-07-19] MEDS: OLANZapine 10 MG TABLET 20 MG PO (22:58)
--- NOTE | 2024-07-19 23:49 | PC.RT ---
Addendum entered by Georges Vines 07/20/24 05:41: Pt taken off sleep study @ 1488 Original Note: Started sleep study @ 0254 pt on RA sitter in room
--- NOTE | 2024-07-20 07:32 | HO.PSYCHPN ---
Subjective Subjective Date of Service: 07/20/24 Reason For Visit: Suicidal ideation Subjective Notes: Conditional Voluntary Interim History: Pt slept most of the night with CPAP. He presents as much more alert, visible on the unit and awake. He reports some improvement in depression. He reports less SI. No plan or intent. he denies VH/AH. He reports he tried gabapentin for anxiety but did not think it helped. He had asked for ativan, but we discussed that as he continues working on recovery from alcohol, to avoid benzos. He does report naltrexon helping with cravings. Review of Systems Review of Systems Yes all other systems are reviewed and are negative Mental Status Exam Mental Status Exam Narrative: General appearance: Obese. Unkempt hygiene: scruffy? Behavior: cooperative Musculoskeletal: No abnormal involuntary movements like tremors, EPS or dyskinesia. Speech:?more clear, less somnolent, spontaneous Mood: depressed Affect: blunted? Thought process/associations: Linear with no flight of ideas or loose associations.?? Thought content:?No delusions or paranoia.?? Hallucinations: No auditory, visual or other hallucinations Suicidality/self-destructive behavior: passive SI? (no plan/intention) Homicidally/violence: none.? Reliability: fair.? ? Judgment: fair.? ? Insight: fair ? Diagnostics Vital Signs (24Hr): Vital Signs - 24 hr 07/19/24 07:58 07/19/24 20:00 Temperature 98 F 98.0 F Pulse Rate 75 86 Respiratory Rate 16 Blood Pressure 130/80 164/97 H Pulse Oximetry 96 96 Oxygen Delivery Method Room Air Room Air BMI result Body Mass Index 42.2 Labs 07/10/24 06:14 07/11/24 07:25 Imaging Radiology Impressions: ITS Impressions Chest X-Ray 07/12/24 12:10 IMPRESSION: Low lung volumes. No gross focal consolidation to suggest pneumonia. This study was presented today July 12, 2024 for interpretation. Stat results provided at this time as requested by referring provider. Electronically signed by: Becky Alvarado MD 07/12/2024 12:59 PM EDT Medications Medications Current Medications Acetaminophen (Acetaminophen 325 Mg Tablet) 650 mg PO Q6H PRN PRN Reason: Headache/Pain Mild Scale (1-3) Last Admin: 07/13/24 16:32 Dose: 650 mg Al Hydroxide/Mg Hydroxide (Magnesium Hydrox/Alum Hydrox 30 Ml Oral.Susp) 30 ml PO Q6H PRN PRN Reason: Heartburn/Nausea Albuterol Sulfate (Albuterol Sulfate 90 Mcg 8 Gm Inhaler) 2 puff INHALE RQ4H PRN PRN Reason: Shortness of Breath/Wheezing Cariprazine (Cariprazine Hcl 3 Mg Capsule) 3 mg PO DAILY REPLACED BY [facility] Last Admin: 07/19/24 08:40 Dose: 3 mg Clonidine HCl (Clonidine Hcl 0.1 Mg Tablet) 0.1 mg PO BID PRN; Protocol PRN Reason: moderate, anxiety Duloxetine HCl (Duloxetine Hcl 30 Mg Capsule.Dr) 90 mg PO DAILY REPLACED BY [facility] Last Admin: 07/19/24 08:39 Dose: 90 mg Hydroxyzine HCl (Hydroxyzine Hcl 50 Mg Tablet) 50 mg PO Q6H PRN PRN Reason: anxiety/restlessness Last Admin: 07/19/24 14:48 Dose: 50 mg Lamotrigine (Lamotrigine 25 Mg Tablet) 50 mg PO BID REPLACED BY [facility] Last Admin: 07/19/24 22:57 Dose: 50 mg Magnesium Hydroxide (Milk Of Magnesia 30 Ml Oral.Susp) 30 ml PO DAILY PRN PRN Reason: Constipation Naltrexone HCl (Naltrexone Hcl 50 Mg Tablet) 50 mg PO DAILY REPLACED BY [facility] Last Admin: 07/19/24 08:40 Dose: 50 mg Nicotine (Nicotine 21 Mg Patch.Td24) 21 mg TRANSDERMA DAILY REPLACED BY [facility] Last Admin: 07/19/24 08:40 Dose: 21 mg Nicotine Polacrilex (Nicotine Polacrilex 2 Mg Gum) 2 mg BUCCAL Q2H PRN PRN Reason: Nicotine Cravings Olanzapine (Olanzapine 10 Mg Tablet) 20 mg PO BEDTIME REPLACED BY [facility] Last Admin: 07/19/24 22:58 Dose: 20 mg Trazodone HCl (Trazodone Hcl 50 Mg Tablet) 50 mg PO BEDTIME MRX1 PRN PRN Reason: Insomnia Last Admin: 07/19/24 22:58 Dose: 50 mg Allergies Allergies Allergy/AdvReac Type Severity Reaction Status Date / Time Seasonal Allergies Allergy Mild sinus Verified 07/10/24 05:47 Assessment & Plan Assessment & Plan (1) MDD (major depressive disorder), recurrent episode, moderate: Status: Acute Code(s): F33.1 - Major depressive disorder, recurrent, moderate (2) Obstructive sleep apnea treated with continuous positive airway pressure (CPAP): Status: Acute Code(s): G47.33 - Obstructive sleep apnea (adult) (pediatric); Z99.89 - Dependence on other enabling machines and devices (3) Alcohol use disorder, moderate, dependence: Status: Acute Code(s): F10.20 - Alcohol dependence, uncomplicated Plan 44 yo male with history of depression, alcohol and cocaine use disorder and ?bipolar disorder presents with increased depression and SI in the setting of ongoing substance use and not taking medications. He has JESUS and appears sedated while on CIWA. PLAN 07/12 ativan prn ciwa score, hold olanzapine for excessive sedation of unclear nature. ordered ammonia levels, although LFTs wnl. hospitalist consult re: wheezing 07/13 less sedated, more awake. will add naltrexon for alcohol cravings. increase cymbalta to 90mg po daily. 07/14 restart olanzapine in divided doses 10mg po BID, although may consider different antipsychotic due to weight gain and pt already struggling with JESUS 07/15 continue tx, may switch olanzapine to caplyta (not on our formulary) 07/17 pt says not much difference in mood, still depressed; however pushing self to be out of his room, in the milue. SI remains but only passive. Discussed meds and says Zyprexa has helped in past but that he did best on combination of Zyprexa and Caplyta (which is not on formulary); he agrees to add Vraylar. 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 07/20 continue tx. Reason for continued inpatient stay Substantial Risk for: inability to function Time Spent With Patient Time: Total time managing care of this patient today ____ minutes.
[2024-07-20 08:32] VITALS: BP 116/70; PULSE 83; RESP 16; TEMP 36.4; O2SAT 97
[2024-07-20] MEDS: Cariprazine HCl 3 MG CAPSULE PO (08:53)
[2024-07-20] MEDS: DULoxetine HCl 30 MG CAPSULE.DR 90 MG PO (08:53)
[2024-07-20] MEDS: lamoTRIgine 25 MG TABLET 50 MG PO ×2 (08:53→20:19)
[2024-07-20] MEDS: Naltrexone HCl 50 MG TABLET PO (08:53)
[2024-07-20] MEDS: Nicotine 21 MG PATCH.TD24 TRANSDERMA (09:04)
[2024-07-20 15:38] VITALS: BP 132/84
[2024-07-20] MEDS: cloNIDine HCL 0.1 MG TABLET PO (15:38)
[2024-07-20 20:00] VITALS: BP 128/76; PULSE 114; RESP 16; TEMP 36.8; O2SAT 96
[2024-07-20] MEDS: OLANZapine 10 MG TABLET 20 MG PO (20:19)
[2024-07-20] MEDS: traZODone HCL 50 MG TABLET PO (23:03)
[2024-07-21 08:00] VITALS: BP 112/67; PULSE 79; TEMP 36.9; O2SAT 97
[2024-07-21] MEDS: Nicotine 21 MG PATCH.TD24 TRANSDERMA (08:42)
[2024-07-21 08:43] VITALS: BP 112/67
[2024-07-21] MEDS: DULoxetine HCl 30 MG CAPSULE.DR 90 MG PO (08:43)
[2024-07-21] MEDS: lamoTRIgine 25 MG TABLET 50 MG PO (08:43)
[2024-07-21] MEDS: Naltrexone HCl 50 MG TABLET PO (08:43)
[2024-07-21] MEDS: Cariprazine HCl 3 MG CAPSULE PO (08:43)
[2024-07-21] MEDS: cloNIDine HCL 0.1 MG TABLET PO (08:43)
--- NOTE | 2024-07-21 09:21 | PM.PSYDC ---
DS: Providers Provider Date of Service: 07/21/24 Date of admission: 07/10/24 17:08 Date of discharge: 07/21/24 Primary care physician: Dheeraj Torres III, MD Consults: 07/10/24 18:59 Addiction Medicine Routine Consulting Provider: Addiction Covering Reason for consultation: NEW ADMISSION 07/12/24 10:19 Consult to Hospitalist Routine Comment: Consulting Provider: Hospitalist Reason For Exam: wheezing DS: Diagnosis Discharge Diagnosis (1) MDD (major depressive disorder), recurrent episode, moderate: Status: Acute (2) Obstructive sleep apnea treated with continuous positive airway pressure (CPAP): Status: Acute (3) Alcohol use disorder, moderate, dependence: Status: Acute DS: Medications Discharge Medications Home Medications: Home Medications ?Medication ?Instructions ?Recorded ?Confirmed clonazepam 1 mg tablet 1 mg PO BID PRN Anxiety 07/10/24 07/10/24 duloxetine 60 mg capsule,delayed 60 mg PO DAILY 07/10/24 07/10/24 release lamotrigine 200 mg tablet 200 mg PO BID 07/10/24 07/10/24 olanzapine 20 mg tablet 20 mg PO BEDTIME 07/10/24 07/10/24 Mental Status Exam Mental Status Exam Narrative: General appearance: Obese. improved hygiene, in NAD Behavior: cooperative Musculoskeletal: No abnormal involuntary movements like tremors, EPS or dyskinesia. Speech:?more clear, less somnolent, spontaneous Mood: better Affect: brighter? Thought process/associations: Linear with no flight of ideas or loose associations.?? Thought content:?No delusions or paranoia.?? Hallucinations: No auditory, visual or other hallucinations Suicidality/self-destructive behavior: none Homicidally/violence: none.? Reliability: fair.? ? Judgment: poor? ? Insight: poor Memory/cog: alert, oriented x 4. grossly intact to conversational testing.? Data Imaging Diagnostic Imaging Impressions Chest X-Ray 07/12/24 12:10 IMPRESSION: Low lung volumes. No gross focal consolidation to suggest pneumonia. This study was presented today July 12, 2024 for interpretation. Stat results provided at this time as requested by referring provider. Electronically signed by: Becky Alvarado MD 07/12/2024 12:59 PM EDT DS: Summary Hospital Course Hospital Course: 44 yo male with a self reported diagnosis of depression, alcohol use and cocaine use disorders and bipolar disorder who self presented to [facility] due to worsening depression and SI with plan to OD on medications. Patient is on CIWA. He was seen in his room. He was sleepy, arousable, but quickly falls asleep and is noted to be snoring loudly. He was unable to engage in a full evaluation. Information obtained mostly from review of the CARE team evaluation and further information to be gathered when patient is finished with his detox and is able to participate more fully. 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 He reports he has not been taking his medications. He drinks a bottle of tequila daily. He is also using cocaine intranasal. Depression symptoms included, depressed mood, helplessness, hopelessness, guilt, decreased interest and anhedonia, crying, insomnia and suicidal ideation with plan to OD. Denied AVH. Since admission, patient was started on CIWA scale (his BAL was 227 in the ED.) He received Ativan earlier this morning. Past Psychiatric History: Treatment through [facility]. Says he was at respite in the past. HOSPITAL COURSE On the unit, pt was admitted on a CV and placed on 15 minutes checks for safety. The first 3-4 days of admission, pt presented very somnolent, difficult to keep awake. Sedating medications were held. He completed alcohol withdrawal without any complications. He was noted to have severe sleep apnea. Pt had reported sleep study at [facility] but he reported he had not followed up with provider to get CPAP. He had sleep study here on the unit, PT SHOW SYMPTOMS OF JESUS. He also needs O2 at night. In terms of medication, he reported he was in the process of being switched from olanzapine to caplyta. We do no have this medication on our formulary, but we discussed then switch to vraylar. We discussed concern in terms of metabolic side effects with lobsterman use of olanzapine, especially given severe JESUS. He was also started on naltrexon to decrease alcohol cravings, which he reported was effective. He was continued on lamictal, which he had reported not taking consistently, so therefore was restarted at lower dose and titrated. His affect gradually presented as brighter, he was more visible on the unit and social with peers. He did not present with overt psychotic symptoms but there was concern about underlying symptoms. He denied VH/AH. He reported intermittent SI. No HI. He agreed to step down to [facility] to continue treatment. There were no incidences of disruptive behaviors nor need for restraints. Time spent discussing smoking cessation with patient: 3 to 10 minutes Status at Discharge Cognitive/behavioral status at discharge: Pt with brighter affect. No SI/HI. Sleeping better with CPAP. No overt delusional content noted or reported. some poverty of thought noted, which raised some concern in terms of pt having some underlying psychosis, although he denied VH/AH. He is in agreement to continue PHP. Functional status at discharge: independent ambulation Overall status at discharge: patient is progressing back to baseline Time Spent with Patient Time attestation: Total time managing care of this patient today _35___ minutes. Time spent: Greater than 30 minutes Discharge Plan Discharge Anticipated Discharge Date/Time: 07/21/24 09:41 Patient Disposition: Home, Self-Care Discharge Diagnosis: MDD, with psychosis alcohol use disorder Referrals: Vera- Malissa Guerrero (Therapist) [Other] - 07/24/24 12:00 pm Vera- Florencia Meléndez (Medication Provider) [Other] - 07/28/24 12:30 pm (Appointment is via telehealth ) [facility] PHP-Intake [Other] - 08/17/24 11:00 am (You are first on the cancellation list, Nydia from [facility] will call you if/when a sooner intake appointment is available! ) Dheeraj Torres III, MD [Primary Care Provider] - 1 Week Discharge Medications: New clonidine HCl 0.1 mg Tablet 0.1 mg PO BID PRN (Reason: moderate, anxiety) Qty: 60 0RF Protocol: Hold for SBP< HOLD for SBP < : 90 nicotine 21 mg/24 hr Patch 24 Hour 21 mg transdermal DAILY Qty: 30 0RF albuterol sulfate [Ventolin HFA] 90 mcg/actuation Hfa Aerosol Inhaler 2 puff inhalation RQ4H PRN (Reason: Shortness Of Breath/Wheezing) Qty: 8.5 0RF Vraylar 3 mg Capsule 3 mg PO DAILY Qty: 30 0RF duloxetine 30 mg Capsule,Delayed Release(Dr/Ec) 90 mg PO DAILY Qty: 90 0RF lamotrigine 100 mg tablet 100 mg PO BID Qty: 60 0RF trazodone 50 mg Tablet 50 mg PO BEDTIME PRN (Reason: Insomnia) Qty: 30 0RF naltrexone 50 mg Tablet 50 mg PO DAILY Qty: 30 0RF olanzapine 10 mg Tablet 10 mg PO BEDTIME Qty: 30 0RF Discontinued lamotrigine 200 mg tablet 200 mg PO BID clonazepam 1 mg tablet 1 mg PO BID PRN (Reason: Anxiety) olanzapine 20 mg tablet 20 mg PO BEDTIME duloxetine 60 mg capsule,delayed release(DR/EC) 60 mg PO DAILY Discharge Orders: Discharge Order (Routine); Ordered 07/21/24 Ordered By: Nida Coyne Diet: Regular diet Activity on Discharge: As tolerated Stand Alone Forms: Patient Portal Discharge page Print Language: Montenegrin Care Plan Goals: 1. Maintain mood 2. No SI/HI 3. continue alcohol use treatment, started on naltrexon Health Concerns: Follow up with PCP Plan of Treatment: 1. Take medications as prescribed 2. Go to nearest ED or call 911 in event of emergency Assessment: Pt with brighter, less somnolent and sedated affect. No SI/HI. Sleep improved with CPAP. No overt delusions or psychosis.
== END 2024-07-21 11:40 | disposition home or self-care (01) | DRG 751 ==
LOC: HO.ED 07:14 → HO.PM5 17:18
PROVIDERS: Social Worker; Student in an Organized Health Care Education/Training Program; Admitting Provider Psychiatry & Neurology Psychiatry; Emergency Provider Emergency Medicine Emergency Medical Services; PCP Internal Medicine; Visit Provider Clinical Nurse Specialist Psychiatric/Mental Health, Adult
DX: F33.3 Major depressive disorder, recurrent, severe with psychotic symptoms (principal); R45.851 Suicidal ideations; Z91.148 Patient's other noncompliance with medication regimen for other reason; Z91.199 Patient's noncompliance with other medical treatment and regimen due to unspecified reason; Z20.822 Contact with and (suspected) exposure to COVID-19; F17.210 Nicotine dependence, cigarettes, uncomplicated; F10.239 Alcohol dependence with withdrawal, unspecified; Y90.7 Blood alcohol level of 200-239 mg/100 ml; Z71.6 Tobacco abuse counseling; Z23 Encounter for immunization; Z79.899 Other long term (current) drug therapy
CPT/HCPCS: 0241U; 36415; 71045; 80053; 80061; 80307; 82140; 82803; 83036; 85025; 90656; 93005; 94660; 95806; 99285; S9485

== ENCOUNTER → 2024-07-10 17:08 | Outpatient (BNV) | payer OTHER, SELFPAY | PROVIDERS: Admitting Provider Psychiatry & Neurology Psychiatry; Emergency Provider Emergency Medicine Emergency Medical Services; PCP Internal Medicine; Visit Provider Psychiatry & Neurology Psychiatry | DX: F33.1 Major depressive disorder, recurrent, moderate (principal); G47.33 Obstructive sleep apnea (adult) (pediatric); F10.20 Alcohol dependence, uncomplicated; Z99.89 Dependence on other enabling machines and devices | CPT/HCPCS: 90792; 99231; 99232; 99239 ==

== ENCOUNTER 2024-08-24 00:34 | Inpatient (IN) | payer OTHER, SELFPAY ==
--- NOTE | ~2024-08-24 | CT_ITS ---
EXAMINATION: CT SOFT TISSUE NECK WITH CONTRAST CLINICAL INFORMATION: Shortness of breath COMPARISON: None available. TECHNIQUE: Following the intravenous administration of 85 mL of Omnipaque 350 intravenous contrast without reported immediate complications, helical imaging was performed in the axial plane with generation of coronal and sagittal reformatted images. This CT examination was performed using dose optimization techniques as appropriate, variously including the following: *Automated exposure control *Adjustment of mA and/or kV according to patient size (this includes techniques or standardized protocols for targeted exams where dose is matched to indication/reason for exam; i.e. extremities or head) *Use of iterative reconstruction technique DLP: 1338 mGy-cm FINDINGS: Limited by patient's motion artifact. Prominent posterior nasopharynx and soft tissue fullness of the palatine tonsils resulting in narrowed airway of the oropharynx and to a lesser extent nasopharynx. Skull base is intact. Oral cavity demonstrate no gross masses or fluid collections. Sublingual and submaxillary compartments demonstrate no masses or fluid collections. Hypopharynx and larynx demonstrated no gross masses or fluid collections. [employer] Technology Instructor spaces, parapharyngeal spaces and carotid spaces demonstrate no masses or fluid collections. Salivary glands demonstrate normal enhancement pattern without calcifications. Bilateral prominent, 1.3 cm cervical lymph nodes mostly in the carotid compartment. The thyroid gland is not enlarged. The vessels are patent. The intraconal and extraconal compartments of the orbits demonstrated no masses or fluid collections. The eyes are intact. Multilevel cervical spondylosis more conspicuous at the C1-C2 and C6-7 levels. Tympanic cavities and mastoid air cells are aerated. Mucosal thickening without air-fluid levels in the maxillary sinuses. Pulmonary mosaic pattern, upper lobes. CT/CT soft tissue neck w IV con IMPRESSION: Acute inflammatory versus infectious process involving the palatine tonsils and adenoids posterior nasopharynx resulting in upper airway obstruction. Reactive cervical lymph nodes levels 2A and 2B. Electronically signed by: Dennis Olivera MD 08/26/2024 07:38 AM EST
--- NOTE | ~2024-08-24 | XR_ITS ---
EXAMINATION: XR CHEST CLINICAL INFORMATION: Dyspnea COMPARISON: Chest x-ray on 07/12/2024 TECHNIQUE: Frontal view of the chest was obtained. FINDINGS: HEART & VASCULARITY: There are normal cardiac size and pulmonary vascularity. LUNGS: Lungs are hypoinflated. No focal airspace disease could be seen. No pneumothorax is seen. BONES: Bony skeleton is intact. XR/XR chest 1V IMPRESSION: Unchanged, no radiographic signs of acute cardiopulmonary process. Electronically signed by: Sakina Millan MD 08/26/2024 07:30 AM [facility]
--- NOTE | ~2024-08-24 | CT_ITS ---
EXAMINATION: CT CHEST WITH CONTRAST CLINICAL INFORMATION: Shortness of breath. COMPARISON: None available. TECHNIQUE: Multidetector volumetric CT imaging of the chest was obtained after the administration of 85 mL of Omnipaque 350 intravenous contrast without reported immediate adverse reactions. Axial MIP volume rendering provided. Sagittal and coronal reformatted images were obtained. This CT examination was performed using dose optimization techniques as appropriate, variously including the following: *Automated exposure control *Adjustment of mA and/or kV according to patient size (this includes techniques or standardized protocols for targeted exams where dose is matched to indication/reason for exam; i.e. extremities or head) *Use of iterative reconstruction technique DLP: 1338 mGy-cm FINDINGS: Limited examination due to patient's motion artifact and lack of adequate IV contrast enhancement of the mediastinal structures. Pulmonary groundglass, perihilar and peripheral into the lower lung lobes. No consolidation, pleural effusion or pneumothorax. No bronchiectasis. No honeycombing. Respiratory airways patent. No gross lymphadenopathy, mediastinum or perihilar. No pericardial effusion. No thoracic aortic aneurysm or dissection. Sutures at the left lateral margin of the stomach with reduced volume. Multilevel thoracic spondylosis without acute fracture or listhesis. Sternum is intact. Scapula is intact bilaterally. Clavicles are not fully depicted. Inadequate evaluation of the ribs due to patient's motion artifact. CT/CT chest w IV con IMPRESSION: Consider pulmonary edema versus pneumonitis Fleischner guidelines were followed. Electronically signed by: Dennis Olivera MD 08/26/2024 07:48 AM [facility]
[2024-08-24 00:45] VITALS: BP 136/92; PULSE 109; RESP 18; TEMP 37.1; O2SAT 97; BMI 30.8
--- NOTE | 2024-08-24 01:01 | PC.NURSE ---
pipe installer made aware of pt, pt currently seated behind triage desk in back [facility] pending room.
--- NOTE | 2024-08-24 01:09 | ED_ITS ---
HPI - Psych General Chief Complaint: Psychiatric Symptoms Stated Complaint: SI, Crisis Time Seen by Provider: 08/24/24 01:07 Source: patient and old records reviewed Mode of arrival: ambulatory Limitations: no limitations History of Present Illness ED Provider: ADAMARIS MARIA Narrative: 44 yo male with PMH of JESUS, depression, alcohol use disorder, bariatric surgery patient s/p sleeve here with c/o SI with plan and depression. He reports cocaine and THC abuse. Denies any precipiting factors asking for Ativan on arrival MD complaint: suicidal ideation and feels depressed Onset (ago): day(s) Duration: getting worse History of same: Yes Relieving factors: none Exacerbating factors: none Context: recent drug abuse Associated psychiatric symptoms: depression and suicidal ideation Associated symptoms: denies other symptoms Treatments prior to arrival: none If self harm: admits thoughts of self harm Related Data Previous Rx's ?Medication ?Instructions ?Recorded albuterol sulfate 90 mcg/actuation 2 puff inhalation RQ4H PRN 07/21/24 aerosol inhaler (Ventolin HFA) Shortness Of Breath/Wheezing #8.5 grams cariprazine 3 mg capsule (Vraylar) 3 mg PO DAILY #30 caps 07/21/24 clonidine HCl 0.1 mg tablet 0.1 mg PO BID PRN moderate, 07/21/24 anxiety #60 tabs duloxetine 30 mg capsule,delayed 90 mg (3 x 30 mg) PO DAILY #90 caps 07/21/24 release lamotrigine 100 mg tablet 100 mg PO BID #60 tabs 07/21/24 naltrexone 50 mg tablet 50 mg PO DAILY #30 tabs 07/21/24 nicotine 21 mg/24 hr daily 21 mg transdermal DAILY #30 ea 07/21/24 transdermal patch olanzapine 10 mg tablet 10 mg PO BEDTIME #30 tabs 07/21/24 trazodone 50 mg tablet 50 mg PO BEDTIME PRN Insomnia #30 07/21/24 tabs Allergies Allergy/AdvReac Type Severity Reaction Status Date / Time Seasonal Allergies Allergy Mild sinus Verified 08/24/24 00:48 Review of Systems 2 Review of Systems: Constitutional : No Fever, No Chills ENT/Mouth : No Ear Pain, No Nasal Congestion, No sore throat Eyes: No Eye Pain, No Swelling, No Redness Cardiovascular : No Chest Pain, No SOB Respiratory : No Cough, No Sputum, No Dyspnea Gastrointestinal : No Nausea, No Vomiting, No Diarrhea, No Hematochezia, No Melena Genitourinary : No Dysuria, No Urinary Frequency, No Hematuria Musculoskeletal : No Myalgias Skin : No Skin Lesions, No rash Neuro : No Weakness, No Numbness, No Paresthesias, No Dizziness, No Headache Psych : positive Anxiety, positive Depression, positive SI no HI All other systems reviewed and are negative PMFSH Past Medical History Attestation statement: The following information was validated with the patient. Source: old records reviewed Medical History Intestinal malabsorption following gastrectomy BMI 33.0-33.9,adult Obesity (BMI 30-39.9) COVID-19 vaccine administered BMI 38.0-38.9,adult Obesity BMI 39.0-39.9,adult Vitamin D deficiency Body mass index (BMI) of 40.1 to 44.9 in adult Helicobacter pylori (H. pylori) infection Hypertriglyceridemia Obstructive sleep apnea treated with continuous positive airway pressure (CPAP) Shortness of breath Preoperative examination Morbid obesity due to excess calories Surgical History History of repair of hiatal hernia S/P laparoscopic sleeve gastrectomy Family History Family History Mother Diabetes Father Prostate cancer Brother Diabetes Sister Asthma Sister Asthma Son No problems noted. Daughter Autism Social History Social History Household Members: Family Household Members Other:: MOTHER Housing: House Are you a primary healthcare market consultant to a significant other at home: No Do you presently have visiting nurse or other home services: No Alcohol intake: former Comment: pt sleeping Patient Tobacco Use Status: Current everyday Tobacco user Tobacco use type: Cigarette Cigarettes Per Day: 4 e-Cigarette/Vaping Use: Never Used Second Hand Smoke Exposure: Yes Substance Use Type: Crack/Cocaine Do you have a plan to hurt others: No Plan service: No Current occupational status: employed Sexual orientation: Straight/Heterosexual Physical Exam 2 Vital Signs: Vital Signs: Last Vital Signs Temp 98.4 F 08/24/24 01:36 Pulse 108 H 08/24/24 01:36 Resp 16 08/24/24 01:36 BP 131/75 08/24/24 01:36 Pulse Ox 95 08/24/24 01:36 O2 Del Method Room Air 08/24/24 01:36 BMI result Body Mass Index 30.8 Appearance: Alert. Oriented X3. No acute distress. Eyes: Pupils equal, round and reactive to light. ENT: Pharynx normal. Neck: Normal inspection. Neck supple. CVS: Normal heart rate and rhythm. Pulses normal. Respiratory: No respiratory distress. Breath sounds normal. Abdomen: Soft and nontender. Skin: Skin warm and dry. Normal skin color. Normal skin turgor. Extremities: No lower extremity edema. No calf ttp Neuro: Oriented X 3. No motor deficit. No sensory deficit. Cn2-12 intact Medical Decision Making Medical Decision Making [facility] Narrative: 44 yo male with PMH of JESUS, depression, alcohol use disorder, bariatric surgery patient s/p sleeve here with c/o Si and drug use at this time he has no medical complaints will dose with ativan obtain labs and refer to CARE team Differential Diagnosis Differential Diagnoses: The differential diagnosis associated with the presentation includes drug use, SI Admission/Observation Consideration of admission/observation: Escalation of care including admission/observation considered physician observation started at 0111am Consult Healthcare Provider Management of the patient was discussed with: Behavioral Health Provider Lab Data [facility] Lab Attestation statement: I reviewed the patient's lab results. 08/24/24 01:15 08/24/24 01:15 Labs: Lab Results 08/24/24 08/24/24 Range/Units 00:48 01:15 WBC 8.7 (4.8-10.8) X10*3/uL RBC 4.58 L (4.60-5.80) X10*6/uL Hgb 14.3 (14.0-18.0) g/dl Hct 41.4 L (42.0-52.0) % MCV 90.4 (80.0-98.0) fL MCH 31.2 (27.0-33.0) pg MCHC 34.5 (31.0-36.0) g/dl RDW 13.1 (11.0-16.0) % Plt Count 314 (160-400) X10*3/uL MPV 8.8 L (9.4-12.4) fL Immature Gran % (Auto) 0.5 H (0.0-0.4) % Neut % (Auto) 71.9 (45-73) % Lymph % (Auto) 20.2 (20-40) % [place] % (Auto) 5.8 (2-11) % Eos % (Auto) 0.7 (0-4) % Baso % (Auto) 0.9 (0-2) % Lymph # (Auto) 1.8 (1.2-4.9) X10*3/uL [place] # (Auto) 0.5 (0.1-1.2) X10*3/uL Eos # (Auto) 0.1 (0.0-0.4) X10*3/uL Baso # (Auto) 0.1 (0.0-0.2) X10*3/uL Abs Immat Gran (auto) 0.04 H (0.00-0.03) X10*3/uL Absolute Neuts (auto) 6.2 (2.0-8.3) x10*3/uL Absolute Nucleated RBC 0.000 (0.0-0.012) X10*3/uL Nucleated RBC % (auto) 0.0 (0.0-0.2) /100WBC Sodium 140 (135-145) mmol/L Potassium 3.5 (3.3-5.1) mmol/L Chloride 107 (96-108) mmol/L Carbon Dioxide 19 L (22-29) mmol/L Anion Gap 18 (12-20) BUN 8 L (9-16) mg/dL Creatinine 0.71 (0.5-1.4) mg/dL Estim Creat Clear Calc 188.9 Estimated GFR > 60 Random Glucose 114 (60-115) mg/dL Calcium 9.0 (8.4-10.2) mg/dL Total Bilirubin 0.3 (0.0-1.0) mg/dL AST 47 H (5-37) U/L ALT 70 H (0-40) U/L Alkaline Phosphatase 110 (39-117) U/L Total Protein 8.0 (6.5-8.0) g/dL Albumin 4.0 (3.5-5.0) g/dL Ethyl Alcohol 201 mg/dL COVID-19 ([facility]) Negative (Negative) COVID-19 Clin Com See Note External Record Review External record reviewed: Inpatient record and Outpatient record Discharge Plan Discharge Clinical Impression: Suicidal ideation, Alcohol use disorder, moderate, dependence Patient Disposition: Still a Patient Prescriptions: No Action clonidine HCl 0.1 mg Tablet 0.1 mg PO BID PRN (Reason: moderate, anxiety) Qty: 60 0RF Protocol: Hold for SBP< HOLD for SBP < : 90 nicotine 21 mg/24 hr Patch 24 Hour 21 mg transdermal DAILY Qty: 30 0RF albuterol sulfate [Ventolin HFA] 90 mcg/actuation Hfa Aerosol Inhaler 2 puff inhalation RQ4H PRN (Reason: Shortness Of Breath/Wheezing) Qty: 8.5 0RF Vraylar 3 mg Capsule 3 mg PO DAILY Qty: 30 0RF duloxetine 30 mg Capsule,Delayed Release(Dr/Ec) 90 mg PO DAILY Qty: 90 0RF lamotrigine 100 mg tablet 100 mg PO BID Qty: 60 0RF trazodone 50 mg Tablet 50 mg PO BEDTIME PRN (Reason: Insomnia) Qty: 30 0RF naltrexone 50 mg Tablet 50 mg PO DAILY Qty: 30 0RF olanzapine 10 mg Tablet 10 mg PO BEDTIME Qty: 30 0RF Print Language: [place] Islander
[2024-08-24 01:25] LABS: COVID-19 Test Negative (Negative); IDNOW Serial# 6674DD1D
[2024-08-24 01:30] LABS: MANUAL DIFF FLAG NO
[2024-08-24 01:31] LABS: Basophils Absolute Auto 0.1 X10*3/uL (0.0-0.2); Basophils Percent Auto 0.9 % (0-2); Eosinophils Absolute Auto 0.1 X10*3/uL (0.0-0.4); Eosinophils Percent Auto 0.7 % (0-4); Hematocrit 41.4 % (42.0-52.0); Hemoglobin 14.3 g/dl (14.0-18.0); Imm Gran Abs Auto 0.04 X10*3/uL (0.00-0.03); Imm Gran Pct Auto 0.5 % (0.0-0.4); Lymphocytes Absolute Auto 1.8 X10*3/uL (1.2-4.9); Lymphocytes Percent Auto 20.2 % (20-40); Mean Corpuscular HGB Conc 34.5 g/dl (31.0-36.0); Mean Corpuscular Hemoglobin 31.2 pg (27.0-33.0); Mean Corpuscular Volume 90.4 fL (80.0-98.0); Mean Platelet Volume 8.8 fL (9.4-12.4); Monocytes Absolute Auto 0.5 X10*3/uL (0.1-1.2); Monocytes Percent Auto 5.8 % (2-11); Neutrophils Absolute Auto 6.2 x10*3/uL (2.0-8.3); Neutrophils Percent Auto 71.9 % (45-73); Platelet Count 314 X10*3/uL (160-400); Red Blood Count 4.58 X10*6/uL (4.60-5.80); Red Cell Distribution Width 13.1 % (11.0-16.0); White Blood Count 8.7 X10*3/uL (4.8-10.8)
[2024-08-24 01:36] VITALS: BP 131/75; PULSE 108; RESP 16; TEMP 36.9; O2SAT 95
[2024-08-24 01:41] LABS: Alanine Aminotransferase 70 U/L (0-40); Alkaline Phosphatase 110 U/L (39-117); Anion Gap 18 (12-20); Aspartate Amino Transferase 47 U/L (5-37); Bilirubin Total 0.3 mg/dL (0.0-1.0); Blood Urea Nitrogen 8 mg/dL (9-16); Carbon Dioxide 19 mmol/L (22-29); Chloride 107 mmol/L (96-108); Creatinine Clr Calc Pharmacy 188.9; Estimated Glomerular Filt Rate > 60; Ethanol 201 mg/dL; Glucose Random 114 mg/dL (60-115); Potassium 3.5 mmol/L (3.3-5.1); Sodium 140 mmol/L (135-145)
[2024-08-24] MEDS: LORazepam 1 MG TABLET 2 MG PO ×2 (01:44→17:00)
[2024-08-24] MEDS: Acetaminophen 325 MG TABLET 650 MG PO ×3 (02:36→20:19)
--- NOTE | 2024-08-24 05:49 | PC.NURSE ---
Patient given genie dixie with saltine crackers, tolerated well. Patient tolerated well.
[2024-08-24 06:19] VITALS: BP 129/63; PULSE 92; RESP 14; TEMP 36.6; O2SAT 95
--- NOTE | 2024-08-24 08:50 | PC.NURSE ---
Dietary called again to check on status of breakfast tray.
[2024-08-24 09:07] VITALS: BP 144/89; PULSE 70; RESP 16; TEMP 36.4; O2SAT 96
--- NOTE | 2024-08-24 09:23 | PC.NURSE ---
Pt eating breakfast tray.
--- NOTE | 2024-08-24 09:50 | MHC.CARE ---
Pt meets the criteria for IPLOC at this time and will be placed on a Section 12a. Provider in agreement.
[2024-08-24 12:27] LABS: Appearance Urine Clear; Color Urine Dark Yellow; Glucose Urine UA Negative (Negative); Leukocyte Esterase Urine Negative (Negative); Nitrite Urine Negative (Negative); Specific Gravity - Urine 1.025 (1.005-1.025); Urine Blood Negative (Negative); Urine Ketones Negative (Negative); Urine Protein Negative (Neg-Trace)
[2024-08-24 12:36] LABS: Amphetamine Screen Urine Not Detected (Not Detect); Barbiturates, Urine Not Detected (Not Detect); Benzodiazepines Screen Urine Not Detected (Not Detect); Buprenorphine Scr Not Detected (Not Detect); Cannabinoid Screen Urine Not Detected (Not Detect); Cocaine Screen Urine POSITIVE (Not Detect); Fentanyl, urine Not Detected (Not Detect); Methadone Screen, Urine Not Detected (Not Detect); Opiate Screen Urine Not Detected (Not Detect); Oxycodone Screen Urine Not Detected (Not Detect); Phencyclidine Screen Urine Not Detected (Not Detect)
--- NOTE | 2024-08-24 15:15 | MHC.EDTECH ---
Alta from [facility] called to speak with RN-- [phone]
--- NOTE | 2024-08-24 15:44 | PC.NURSE ---
Assumed care of patient at 1530, patient appears to be in no apparent distress, offers this RN no complaints at this time. Continue plan of care for inpatient bedsearch at this time
[2024-08-24 16:00] VITALS: BP 140/92; PULSE 86; RESP 18; TEMP 36.6; O2SAT 99
--- NOTE | 2024-08-24 19:32 | PC.NURSE ---
patient appears to remain at rest respirations are even and unlabored patient appears in no distress.
[2024-08-24] MEDS: OLANZapine 10 MG TABLET 20 MG PO (19:55)
[2024-08-24] MEDS: lamoTRIgine 100 MG TABLET PO (19:56)
[2024-08-24 20:26] VITALS: BP 127/85; PULSE 85; RESP 18; TEMP 36.4; O2SAT 95
[2024-08-24] MEDS: Zolpidem Tartrate 5 MG TABLET 10 MG PO (22:11)
--- NOTE | 2024-08-25 | ECG_ITS ---
Test Reason : QTC EVAL Blood Pressure : / mmHG Vent. Rate : 074 BPM Atrial Rate : 074 BPM P-R Int : 146 ms QRS Dur : 086 ms QT Int : 398 ms P-R-T Axes : 017 060 049 degrees QTc Int : 441 ms Normal sinus rhythm Normal ECG When compared with ECG of 10-JUL-2024 17:14, No significant change was found Referred By: Lydia Jewell Electronically Signed By:Jose Carter
--- NOTE | 2024-08-25 01:29 | PC.NURSE ---
patient appears to be sleepwalking pweriodically has gotten up looking for phone and sandals, consulted provider to proceed whether adding medications would be of a benefit.
[2024-08-25] MEDS: clonazePAM 1 MG TABLET PO (01:34)
[2024-08-25 02:03] VITALS: BP 129/85; PULSE 89; RESP 30; TEMP 37; O2SAT 95
--- NOTE | 2024-08-25 02:45 | PC.NURSE ---
d/t changed, rapid snoring respiratons provider requestd to come assess client. asked client regarding cpap machine which is not present. patient respiratoins ppears to be about 30/min. spoke to charge wherein a universale cpap machine will be pursued. (late entry) client walked w staff and security over to main ED
--- NOTE | 2024-08-25 03:57 | PC.NURSE ---
despite our herculean efforts at attempting to obtain respiratory for a cpap machine client declined to keep it on saying it was uncomfortable. after 2 hours of efforts to obtain equipemtn and ensure a good fit, client declined. recommended to not administer ambien to client in the future, adding to adv reactions.
[2024-08-25] MEDS: Naltrexone HCl 50 MG TABLET PO (08:33)
[2024-08-25] MEDS: Nicotine 21 MG PATCH.TD24 TRANSDERMA (08:34)
[2024-08-25] MEDS: lamoTRIgine 100 MG TABLET PO (08:34)
[2024-08-25] MEDS: DULoxetine HCl 60 MG CAPSULE.DR PO (08:34)
[2024-08-25 08:46] VITALS: BP 98/53; PULSE 88; RESP 24; TEMP 36.8; O2SAT 95
[2024-08-25] MEDS: Albuterol Sulfate 90 MCG 8 GM INHALER 2 PUFF INHALE (09:06)
--- NOTE | 2024-08-25 09:09 | PC.NURSE ---
RN assumed care of pt at 0800, pt breathing heavily w snoring respiration, tech was aware of pt yesterday and noted change in breathing. similar breathing noted in chart from over night, hx JESUS. O2 ranging form 88%-97% on RA, provider notified and at bedside to assess pt. air way patent, improvement in respiration when conversing and instruction to move tongue forward in mouth. pt reports similar breathing during prior visit w improvement w inhaler. pt swabbed for strep, medicated per DEC.
[2024-08-25 09:28] LABS: IDNOW Serial# 08D9AD1C; Strep A Nucleic Acid Negative (Negative)
--- NOTE | 2024-08-25 13:06 | PHA.MEDREC ---
Addendum entered by Colby Peacock RPh 08/25/24 13:11: Reviewed by [facility] Original Note: Pharmacy Consult ? Medication Reconciliation Pharmacy has reviewed the medication reconciliation done by nursing. claims match med rec. Per nurse, patient is on Lamotrigine 100 mg bid. patient states he was increase to lamotrigine 200 mg bid, however he didn't start new dose.
[2024-08-25 14:30] VITALS: BP 146/89; PULSE 110; RESP 20; TEMP 36.7; O2SAT 95
[2024-08-25 14:52] VITALS: BMI 40.2
--- NOTE | 2024-08-25 16:44 | PC.ADMIT ---
44 y/o male admitted to M5 from [facility] at 1415 on a CV for increased depression and vague SI without a plan. Pt reported worsening mental health due to substance use. Pt reported daily ETOH use that consisted of three 24 oz [employer]ine[employer] beers and some tequila when I hang out with my friends . BAL in ED was 201. Pt also reported he smoked Cocaine a few times a week . Pt denied hx of withdrawal seizures and denied current withdrawal symptoms. Pt is a daily 0.5 pack per day cigarette smoker and has prn NRT ordered. Pt lives with his mother and brother, and identified his housing arrangement as a source of stress for him. Pt has a history of depression, and has psychiatry and therapy services. Pt has a medical history that includes JESUS with CPAP use at , and bariatric surgery with sleeve approximately 3 years ago. Pt known to CARE team with admission on M5 in June 2024. Pt received Ambien in the ED last night, and began exhibiting bizarre symptoms that included sleep walking, AVH, and heavy snoring respirations that continued throughout the day today. Pt reported he took Ambien once or twice in the past and didn't feel right then too . Pt blamed symptoms on Ambien and ED added medication as an adverse reaction to his allergy list. Pt was cooperative with safety skin check and reported desire to receive treatment for his SI. Pt denied active urge to harm self, and stated he could seek out staff if feeling unsafe. Pt denied AVH today. Thoughts clear, organized, and future focused. However, pt was only able to participate in part of his admission due to repeatedly nodding off. Pt has loud snoring respirations with oxygen saturations in the 94-95% range. Pt blamed presentation on poor sleep last night. Pt placed on 15 minute checks with 1:1 observation at for CPAP.
[2024-08-25 19:57] VITALS: BP 130/74; PULSE 72; RESP 16; TEMP 36.4; O2SAT 93
[2024-08-25] MEDS: OLANZapine 10 MG TABLET 20 MG PO (21:12)
[2024-08-25 21:30] VITALS: PULSE 96; RESP 16; O2SAT 90
[2024-08-25] MEDS: hydrOXYzine HCL 25 MG TABLET PO (23:53)
[2024-08-25] MEDS: traZODone HCL 50 MG TABLET PO (23:53)
[2024-08-26 00:14] VITALS: PULSE 112; RESP 16; O2SAT 94
[2024-08-26] MEDS: clonazePAM 1 MG TABLET PO (00:38)
[2024-08-26] MEDS: OLANZapine 5 MG TABLET PO (00:38)
--- NOTE | 2024-08-26 01:15 | PM.EVENT ---
Event Note Date of Service: 08/26/24 Event Note: Rapid response was called as patient complaining of difficulty breathing. Upon arrival, patient satting 96% on room air and vitals stable. No crackles or wheezing appreciated. Patient with upper airway sounds which went away upon distraction. Ordered CBC, CMP, VBG and chest x-ray. Rapid response was called a 2nd time due to similar presentation. Patient continues to have his tongue back and make upper airway sounds. Upper airway sounds go away when patient asked to close his mouth or bring his tongue forward. Patient reluctant to close his mouth or bring his tongue forward and continues to make upper airway sounds. States he is extremely anxious. Patient's O2 sat dropping when he tries to hold his breath or keep his tongue back but not sustaining and immediately improves upon distraction. No tongue swelling seen. Examination done with tongue depressor, no asymmetric swelling seen which would obstruct the airway. As per ER nurse, patient was making similar sounds and was behaving in a similar way the night of 08/24, all of which goes away with distraction, therefore etiology of upper airway sounds deemed to be behavioral in the ER. Vitals stable and patient is maintaining normal oxygen saturation on room air. Priti p.r.n.. Obtaining CT neck soft tissue with IV contrast. Ordered 2mg ativan for anxiety Time Spent With Patient Time: Total time managing care of this patient today ____ minutes.
[2024-08-26 01:26] LABS: MANUAL DIFF FLAG NO
[2024-08-26 01:31] LABS: VBG Base Excess 2.7 mmol/L; VBG HCO3 23 mmol/L (22-26); VBG pCO2 27 mmHg; VBG pH 7.54 (7.32-7.43); VBG pO2 73 mmHg
[2024-08-26 01:34] VITALS: PULSE 128; RESP 26; O2SAT 94
[2024-08-26 01:34] LABS: Venous Blood Gas Refer to POC result
[2024-08-26] MEDS: LORazepam 1 MG TABLET 2 MG PO ×2 (01:34→08:42)
[2024-08-26] MEDS: Albuterol/Iprat 2.5/0.5MG 3 ML AMPUL.NEB INHALE (01:34)
[2024-08-26 01:35] LABS: Basophils Absolute Auto 0.1 X10*3/uL (0.0-0.2); Basophils Percent Auto 0.9 % (0-2); Eosinophils Absolute Auto 0.2 X10*3/uL (0.0-0.4); Eosinophils Percent Auto 2.2 % (0-4); Hematocrit 46.3 % (42.0-52.0); Hemoglobin 15.8 g/dl (14.0-18.0); Imm Gran Abs Auto 0.03 X10*3/uL (0.00-0.03); Imm Gran Pct Auto 0.3 % (0.0-0.4); Lymphocytes Absolute Auto 2.5 X10*3/uL (1.2-4.9); Lymphocytes Percent Auto 27.6 % (20-40); Mean Corpuscular HGB Conc 34.1 g/dl (31.0-36.0); Mean Corpuscular Hemoglobin 30.8 pg (27.0-33.0); Mean Corpuscular Volume 90.3 fL (80.0-98.0); Monocytes Absolute Auto 0.7 X10*3/uL (0.1-1.2); Monocytes Percent Auto 7.7 % (2-11); Neutrophils Absolute Auto 5.6 x10*3/uL (2.0-8.3); Neutrophils Percent Auto 61.3 % (45-73); Platelet Count 323 X10*3/uL (160-400); Red Blood Count 5.13 X10*6/uL (4.60-5.80); White Blood Count 9.1 X10*3/uL (4.8-10.8)
[2024-08-26 01:44] LABS: Alanine Aminotransferase 69 U/L (0-40); Albumin Level 4.2 g/dL (3.5-5.0); Alkaline Phosphatase 113 U/L (39-117); Anion Gap 16 (12-20); Aspartate Amino Transferase 50 U/L (5-37); Bilirubin Total 0.5 mg/dL (0.0-1.0); Blood Urea Nitrogen 12 mg/dL (9-16); Calcium 10.1 mg/dL (8.4-10.2); Carbon Dioxide 21 mmol/L (22-29); Chloride 103 mmol/L (96-108); Creatinine Clr Calc Pharmacy 135.3; Estimated Glomerular Filt Rate > 60; Glucose Random 144 mg/dL (60-115); Potassium 3.7 mmol/L (3.3-5.1); Sodium 136 mmol/L (135-145); Total Protein 8.7 g/dL (6.5-8.0)
[2024-08-26 04:46] LABS: Glucose, Whole Blood 129 mg/dL (60-115)
[2024-08-26] MEDS: LORazepam 2 MG/ML VIAL IVPUSH (05:25)
[2024-08-26] MEDS: iohexoL 350 MG/ML 100 ML INFUS..BTL 85 ML IV (05:29)
--- NOTE | 2024-08-26 05:53 | PC.NURSE ---
APPROXIMATELY 1.5 HOURS AFTER RECEIVING HIS SCHEDULED NIGHT TIME MEDS, PT CAME OUT TO THE NURSES STATION EXHIBITING A SNORING LIKE SOUND. THE PATIENT WAS ATTEMPTED TO SPEAK BUT HIS TONGUE CONTINUED TO RETRACT BACKWARDS MAKING IT HARD TO SPEAK. THE PATIENT REPORTED HE COULD NOT CONTROL THIS MOVEMENT. HE WAS GIVEN MULTIPLE PRN MEDICATIONS FOR ANXIETY. RN CLINICAL RESOURCE PROVIDER WAS CONTACTED FOR BREATHING TREATMENT ORDERS. PTS O2 SATS DROPPED FROM 95% TO 83%. RAPID RESPONSE WAS CALLED. NEBULIZER TREATMENT WAS ADMINISTERED BY RESPIRATORY THERAPY. PT WAS GIVEN 2 MG PO ATIVAN PER HOSPITALIST MD FLYNN. RESPIRATORY ATTEMPTED TO PUT PTS CPAP ON HIS MULTIPLE TIMES BUT PT WAS TOO RESTLESS. PT WAS WANDERING AND CONTINUED TO SPEAK IN A MUMBLED DIFFICULT TO UNDERSTAND FASHION. PTS O2 SATS BEGAN DROPPING AGAIN. A SECOND RAPID RESPONSE WAS CALLED. PT WAS BROUGHT TO THE ED FOR ORDERED BLOOD WORK, CT SCANS, AND AN XRAY. PT WAS INCONTINENT OF STOOL X2 AND DIFFICULT TO REDIRECT. PT CONTINUED TO MAKE THIS LOUD PITCHED CONSTRICTED NOISE AND APPEAR RESTLESS. PT WAS PLACED ON A 1:1 DUE TO IV ACCESS REQUESTED TO REMAIN IN PLACE PER NURSING SUP, CLEMENCIA COLEY. PTS VITALS SIGNS ARE CONTINUING TO BE MONITORED.
[2024-08-26] MEDS: Naltrexone HCl 50 MG TABLET PO (08:43)
[2024-08-26] MEDS: DULoxetine HCl 60 MG CAPSULE.DR PO (08:43)
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
[2024-08-26] MEDS: diphenhydrAMINE HCL 50 MG/ML VIAL IVPUSH (09:29)
--- NOTE | 2024-08-26 09:42 | P.DS_ITS ---
DS: Providers Provider Date of Service: 08/26/24 Date of admission: 08/25/24 13:19 Date of discharge: 08/26/24 Primary care physician: Unknown Physician Attending physician on admission: Hieu Damian Consults: 08/25/24 16:37 Addiction Medicine Routine Consulting Provider: Addiction Covering Reason for consultation: ETOH Attending physician on discharge: Hieu Damian DS: Medications Discharge Medications Home Medications: Home Medications ?Medication ?Instructions ?Recorded ?Confirmed clonazepam 1 mg tablet 1 mg PO BID PRN Anxiety 08/24/24 08/24/24 duloxetine 30 mg capsule,delayed 60 mg PO DAILY 08/24/24 08/24/24 release lumateperone 42 mg capsule 42 mg PO DAILY 08/24/24 08/24/24 (Caplyta) olanzapine 10 mg tablet 20 mg PO BEDTIME 08/24/24 08/24/24 zolpidem 10 mg tablet 10 mg PO BEDTIME PRN Insomnia 08/24/24 08/24/24 Previous Rx's ?Medication ?Instructions ?Recorded lamotrigine 100 mg tablet 100 mg PO BID #60 tabs 07/21/24 naltrexone 50 mg tablet 50 mg PO DAILY #30 tabs 07/21/24 nicotine 21 mg/24 hr daily 21 mg transdermal DAILY #30 ea 07/21/24 transdermal patch trazodone 50 mg tablet 50 mg PO BEDTIME PRN Insomnia #30 07/21/24 tabs acetaminophen 325 mg tablet 650 mg (2 x 325 mg) PO Q6H PRN 08/26/24 Pain, Mild (Pain Scale 1-3) #0 tabs dexamethasone sodium phosphate 4 4 mg IVPUSH TID #0 mL 08/26/24 mg/mL injection solution folic acid 1 mg tablet 1 mg PO DAILY #0 tabs 08/26/24 hydroxyzine HCl 25 mg tablet 25 mg PO Q6H PRN Anxiety #0 tabs 08/26/24 ipratropium 0.5 mg-albuterol 3 mg 3 ml inhalation Q4H PRN Shortness 08/26/24 (2.5 mg base)/3 mL nebulization Of Breath/Wheezing #0 mL soln lorazepam 1 mg tablet 1 mg PO Q2H PRN CIWA 6-10 #0 tabs 08/26/24 lorazepam 1 mg tablet 2 mg (2 x 1 mg) PO Q2H PRN CIWA 11 08/26/24 and above #0 tabs nicotine 21 mg/24 hr daily 21 mg transdermal DAILY PRN 08/26/24 transdermal patch nicotine cravings #0 ea olanzapine 5 mg tablet 5 mg PO TID PRN agitation #0 tabs 08/26/24 thiamine mononitrate (vit B1) 100 100 mg PO DAILY #0 tabs 08/26/24 mg tablet trazodone 50 mg tablet 50 mg PO BEDTIME MRX1 PRN Insomnia 08/26/24 #0 tabs Mental Status Exam Mental Status Exam Narrative: Pt is alert and oriented; labored breathing and appears and Respiratory distress; dressed in casual attire, unkept, scruffy; affect anxious; no eye contact; Speech: Not speaking due to labored breathing. is normal rate, volume and prosody and not pressured; no psychomotor agitation/retardation present; Thought content on depression and SI on admission. Data Data Completed and Pending Completed studies during hospitalization [Text1]: 08/24/24 08/24/24 08/24/24 00:48 01:15 12:19 WBC 8.7 RBC 4.58 L Hgb 14.3 Hct 41.4 L MCV 90.4 MCH 31.2 MCHC 34.5 RDW 13.1 Plt Count 314 MPV 8.8 L Immature Gran % (Auto) 0.5 H Neut % (Auto) 71.9 Lymph % (Auto) 20.2 [place] % (Auto) 5.8 Eos % (Auto) 0.7 Baso % (Auto) 0.9 Lymph # (Auto) 1.8 [place] # (Auto) 0.5 Eos # (Auto) 0.1 Baso # (Auto) 0.1 Abs Immat Gran (auto) 0.04 H Absolute Neuts (auto) 6.2 Absolute Nucleated RBC 0.000 Nucleated RBC % (auto) 0.0 VBG pH VBG pCO2 VBG pO2 VBG HCO3 VBG O2 Saturation VBG Base Excess Sodium 140 Potassium 3.5 Chloride 107 Carbon Dioxide 19 L Anion Gap 18 BUN 8 L Creatinine 0.71 Estim Creat Clear Calc 188.9 Estimated GFR > 60 POC Glucose Random Glucose 114 Calcium 9.0 Total Bilirubin 0.3 AST 47 H ALT 70 H Alkaline Phosphatase 110 Total Protein 8.0 Albumin 4.0 Urine Color Dark Yellow Urine Appearance Clear Urine pH 6.0 Ur Specific [place] 1.025 Urine Protein Negative Urine Glucose (UA) Negative Urine Ketones Negative Urine Blood Negative Urine Nitrite Negative Ur Leukocyte Esterase Negative Urine Opiates Screen Not Detected Ur Buprenorphine Scrn Not Detected Ur Oxycodone Screen Not Detected Urine Methadone Screen Not Detected Urine Fentanyl Screen Not Detected Ur Barbiturates Screen Not Detected Ur Phencyclidine Scrn Not Detected Ur Amphetamines Screen Not Detected U Benzodiazepines Scrn Not Detected Urine Cocaine Screen POSITIVE H U Marijuana (THC) Screen Not Detected Ethyl Alcohol 201 COVID-19 (BARRY) Negative COVID-19 Clin Com See Note S. pyogenes GrpA RAS 08/25/24 08/26/24 08/26/24 09:04 01:23 01:25 WBC 9.1 RBC 5.13 Hgb 15.8 Hct 46.3 MCV 90.3 MCH 30.8 MCHC 34.1 RDW 13.0 Plt Count 323 MPV 9.0 L Immature Gran % (Auto) 0.3 Neut % (Auto) 61.3 Lymph % (Auto) 27.6 [place] % (Auto) 7.7 Eos % (Auto) 2.2 Baso % (Auto) 0.9 Lymph # (Auto) 2.5 [place] # (Auto) 0.7 Eos # (Auto) 0.2 Baso # (Auto) 0.1 Abs Immat Gran (auto) 0.03 Absolute Neuts (auto) 5.6 Absolute Nucleated RBC 0.000 Nucleated RBC % (auto) 0.0 VBG pH 7.54 H VBG pCO2 27 VBG pO2 73 VBG HCO3 23 VBG O2 Saturation 96.0 VBG Base Excess 2.7 Sodium 136 Potassium 3.7 Chloride 103 Carbon Dioxide 21 L Anion Gap 16 BUN 12 Creatinine 0.85 Estim Creat Clear Calc 135.3 Estimated GFR > 60 POC Glucose Random Glucose 144 H Calcium 10.1 D Total Bilirubin 0.5 AST 50 H ALT 69 H Alkaline Phosphatase 113 Total Protein 8.7 H Albumin 4.2 Urine Color Urine Appearance Urine pH Ur Specific [place] Urine Protein Urine Glucose (UA) Urine Ketones Urine Blood Urine Nitrite Ur Leukocyte Esterase Urine Opiates Screen Ur Buprenorphine Scrn Ur Oxycodone Screen Urine Methadone Screen Urine Fentanyl Screen Ur Barbiturates Screen Ur Phencyclidine Scrn Ur Amphetamines Screen U Benzodiazepines Scrn Urine Cocaine Screen U Marijuana (THC) Screen Ethyl Alcohol COVID-19 (BARRY) COVID-19 Clin Com S. pyogenes GrpA RAS Negative 08/26/24 04:42 WBC RBC Hgb Hct MCV MCH MCHC RDW Plt Count MPV Immature Gran % (Auto) Neut % (Auto) Lymph % (Auto) [place] % (Auto) Eos % (Auto) Baso % (Auto) Lymph # (Auto) [place] # (Auto) Eos # (Auto) Baso # (Auto) Abs Immat Gran (auto) Absolute Neuts (auto) Absolute Nucleated RBC Nucleated RBC % (auto) VBG pH VBG pCO2 VBG pO2 VBG HCO3 VBG O2 Saturation VBG Base Excess Sodium Potassium Chloride Carbon Dioxide Anion Gap BUN Creatinine Estim Creat Clear Calc Estimated GFR POC Glucose 129 H Random Glucose Calcium Total Bilirubin AST ALT Alkaline Phosphatase Total Protein Albumin Urine Color Urine Appearance Urine pH Ur Specific [place] Urine Protein Urine Glucose (UA) Urine Ketones Urine Blood Urine Nitrite Ur Leukocyte Esterase Urine Opiates Screen Ur Buprenorphine Scrn Ur Oxycodone Screen Urine Methadone Screen Urine Fentanyl Screen Ur Barbiturates Screen Ur Phencyclidine Scrn Ur Amphetamines Screen U Benzodiazepines Scrn Urine Cocaine Screen U Marijuana (THC) Screen Ethyl Alcohol COVID-19 (BARRY) COVID-19 Clin Com S. pyogenes GrpA RAS Imaging Diagnostic Imaging Impressions Chest X-Ray 08/26/24 01:25 IMPRESSION: Unchanged, no radiographic signs of acute cardiopulmonary process. Electronically signed by: Sakina Millan MD 08/26/2024 07:30 AM EST RP Chest CT 08/26/24 05:00 IMPRESSION: Consider pulmonary edema versus pneumonitis Fleischner guidelines were followed. Electronically signed by: Dennis Olivera MD 08/26/2024 07:48 AM EST RP Soft Tissue Neck CT 08/26/24 05:00 IMPRESSION: Acute inflammatory versus infectious process involving the palatine tonsils and adenoids posterior nasopharynx resulting in upper airway obstruction. Reactive cervical lymph nodes levels 2A and 2B. Electronically signed by: Dennis Olivera MD 08/26/2024 07:38 AM EST RP DS: Summary Hospital Course Hospital Course: Patient is a 44-year-old male with history of MDD, alcohol and cocaine use disorder, JESUS, bariatric surgery with sleeve, who presents with increased depression and SI in the face of relapse. On admission patient reported to nurse that he has been drinking daily about 8 drinks a day and smoking cocaine a few times a week. Patient not at off during intake with nurse. Patient was started on CIWA. Over the 1st night rapid response was called twice for patient desaturating and making odd snoring sounds. Hospitalist evaluated and felt it was more likely behavioral ( , patient was making similar sounds and was behaving in a similar way the night of 08/24, all of which goes away with distraction, therefore etio logy of upper airway sounds deemed to be behavioral in the ER. Vitals stable and patient is maintaining normal oxygen saturation on room air. Priti p.r.n.. Obtaining CT neck soft tissue with IV contrast. Ordered 2mg ativan for anxiety). Today lead technical writer called by nurse to see patient as he seemed to be and labored breathing. Production Control Supervisor examined patient who was unable to talk due to hyperventilation and his tongue appeared to be pulled back; lead technical writer obtained vitals and gave patient Benadryl 50 mg out of concern for possible dystonic reaction as patient is on Zyprexa though no change was observed. Patient's O2 sat was in the 80s, rapid response called and oxygen administered. O2 sats continued to fall into the 70s and code blue was called and patient was intubated on the psych unit and then transferred to ICU. Status at Discharge Functional status at discharge: bed bound Overall status at discharge: patient is not back to baseline Time Spent with Patient Time attestation: Total time managing care of this patient today __50__ minutes. Time spent: Greater than 30 minutes Specific discharge activities: Assessment; discussed with psychiatric team; discussed with medical team; assisting in rapid response; charting Discharge Plan Discharge Anticipated Discharge Date/Time: 08/26/24 09:41 Patient Disposition: Xfer Other Discharge Diagnosis: mdd Referrals: Physician,Unknown J [Primary Care Provider] - 1 Week Discharge Medications: New acetaminophen 325 mg Tablet 650 mg PO Q6H PRN (Reason: Pain, Mild (Pain Scale 1-3)) Qty: 0 0RF ipratropium-albuterol 0.5 mg-3 mg(2.5 mg base)/3 mL Solution For Nebulization 3 ml inhalation Q4H PRN (Reason: Shortness Of Breath/Wheezing) Qty: 0 0RF trazodone 50 mg Tablet 50 mg PO BEDTIME MRX1 PRN (Reason: Insomnia) Qty: 0 0RF olanzapine 5 mg Tablet 5 mg PO TID PRN (Reason: agitation) Qty: 0 0RF nicotine 21 mg/24 hr Patch 24 Hour 21 mg transdermal DAILY PRN (Reason: nicotine cravings) Qty: 0 0RF folic acid 1 mg Tablet 1 mg PO DAILY Qty: 0 0RF hydroxyzine HCl 25 mg Tablet 25 mg PO Q6H PRN (Reason: Anxiety) Qty: 0 0RF dexamethasone sodium phosphate 4 mg/mL Solution 4 mg IVPUSH TID Qty: 0 0RF lorazepam 1 mg Tablet 1 mg PO Q2H PRN (Reason: CIWA 6-10) Qty: 0 0RF lorazepam 1 mg Tablet 2 mg PO Q2H PRN (Reason: CIWA 11 and above) Qty: 0 0RF thiamine mononitrate (vit B1) 100 mg Tablet 100 mg PO DAILY Qty: 0 0RF Continued lamotrigine 100 mg tablet 100 mg PO BID Qty: 60 0RF trazodone 50 mg Tablet 50 mg PO BEDTIME PRN (Reason: Insomnia) Qty: 30 0RF naltrexone 50 mg Tablet 50 mg PO DAILY Qty: 30 0RF clonazepam 1 mg tablet 1 mg PO BID PRN (Reason: Anxiety) zolpidem 10 mg tablet 10 mg PO BEDTIME PRN (Reason: Insomnia) Caplyta 42 mg capsule 42 mg PO DAILY olanzapine 10 mg tablet 20 mg PO BEDTIME duloxetine 30 mg capsule,delayed release(DR/EC) 60 mg PO DAILY Discharge Orders: Discharge Order (Routine); Ordered 08/26/24 Ordered By: Hieu Damian Diet: Advance to usual diet Activity on Discharge: As tolerated Stand Alone Forms: Patient Portal Discharge page Print Language: Mohawk Care Plan Goals: transferred to medical floor Health Concerns: transferred to medical floor Plan of Treatment: transferred to medical floor Assessment: transferred to medical floor Discharge Date/Time: 08/26/24 10:11
--- NOTE | 2024-08-26 10:32 | PC.NURSE ---
0845 Barney had been pacing in the hallway with 1:1. He has audible inhalation that sounds like a snore even while awake. His tongue is up toward the roof of his mouth at all times. His speech is garbled and disorganized. He is trying to open random doors and is gesturing toward the air to nothing specific. This nurse encouraged him to sit up in bed, he reclined accidentally and immediately obstructed and stopped breathing. breathing resumed when he sat upright. His color is pale and ashy. A recliner was brought in but he was too disorganized and panicky to stay in it more than a minute or two. CIWA assessed to be 14, most notably for sweating, disorientation, restlessness and pacing. 0915Dr Nati in room, vitals obtained 84% 193/96. FOUNDATION ENGINEER called. Upon arrival, nonrebreather mask on at 15L. He was becoming more sedated, due likely to 2mg ativan given for the ciwa. He was slumped forward, scant to no condensation on the mask, O2 sats dropping 0930 83%, 0935 74%, 0940 68%. He became minimally responsive even to sternal rub. Code Blue called at 0940. Team arrived quickly. Barney was reclined, 0943 Nasal trumpet placed, jaw thrust done and sats improved with ventilation with ambu bag. Barney was intubated at 1001. Transferred to ICU.
--- NOTE | 2024-08-26 10:57 | PC.NURSE ---
Pt's mother Iris was called to let her know of pt's transfer to ICU.
[2024-08-27 02:14] LABS: Cholesterol 203 mg/dL (<200); HDL Cholesterol 43 mg/dL (>40); LDL Cholesterol Calculated 119 mg/dL (<100); Triglycerides 209 mg/dL (<150)
[2024-08-27 02:34] LABS: TSH reflex Free T4 0.99 uIU/mL (0.32-4.0)
[2024-08-27 07:29] LABS: Estimated Average Glucose 100 mg/dL; Hemoglobin A1C 123.3375 umol/L; Hemoglobin A1c % 5.1 % (<6.0); Total Hemoglobin (HGBA1C) 3849.9633 umol/L
== END 2024-08-26 10:11 | disposition short-term general hospital (02) | DRG 751 ==
LOC: HO.ED 08-25 05:05 → HO.PM5 08-25 13:30
PROVIDERS: Student in an Organized Health Care Education/Training Program; Admitting Provider Psychiatry & Neurology Psychiatry; Emergency Provider Emergency Medicine; Visit Provider Internal Medicine Pulmonary Disease
DX: F33.1 Major depressive disorder, recurrent, moderate (principal); R45.851 Suicidal ideations; G47.33 Obstructive sleep apnea (adult) (pediatric); R06.03 Acute respiratory distress; Y90.7 Blood alcohol level of 200-239 mg/100 ml; Z20.822 Contact with and (suspected) exposure to COVID-19; Z98.84 Bariatric surgery status; Z79.899 Other long term (current) drug therapy
CPT/HCPCS: 36415; 70491; 71045; 71260; 80053; 80061; 80307; 81003; 82803; 82947; 83036; 84443; 85025; 87635; 87651; 93005; 94640; 94660; 99285; J1200; J2060; Q9967; S9485

== ENCOUNTER → 2024-08-25 10:02 | Outpatient (BNV) | payer OTHER, MEDICAID, SELFPAY | PROVIDERS: Admitting Provider Psychiatry & Neurology Psychiatry; Emergency Provider Emergency Medicine; Visit Provider Internal Medicine Cardiovascular Disease | DX: Z13.6 Encounter for screening for cardiovascular disorders (principal) | CPT/HCPCS: 93010 ==

== ENCOUNTER 2024-08-25 13:19 | Outpatient (BNV) | payer OTHER, SELFPAY | END 2024-08-26 05:00 | PROVIDERS: Admitting Provider Psychiatry & Neurology Psychiatry; Emergency Provider Emergency Medicine; Visit Provider Radiology Diagnostic Radiology | DX: R06.02 Shortness of breath (principal) | CPT/HCPCS: 70491; 71260 ==

== ENCOUNTER → 2024-08-25 13:19 | Outpatient (BNV) | payer OTHER, SELFPAY | PROVIDERS: Admitting Provider Psychiatry & Neurology Psychiatry; Emergency Provider Emergency Medicine; Visit Provider Psychiatry & Neurology Psychiatry | DX: F33.1 Major depressive disorder, recurrent, moderate (principal); F10.20 Alcohol dependence, uncomplicated; J35.1 Hypertrophy of tonsils; G47.33 Obstructive sleep apnea (adult) (pediatric); Z99.89 Dependence on other enabling machines and devices | CPT/HCPCS: 90792; 99499 ==

== ENCOUNTER 2024-08-26 10:42 | Inpatient (IN) | payer OTHER, SELFPAY ==
[2024-08-26] VITALS (28 sets, daily range): BP systolic 85–190; BP diastolic 45–90; PULSE 92–134; RESP 18–24; TEMP 34.9–36.9; O2SAT 81–96; BMI 40.2
--- NOTE | ~2024-08-26 | XR_ITS ---
EXAMINATION: XR CHEST CLINICAL INFORMATION: Status post intubation COMPARISON: Same day earlier TECHNIQUE: Frontal view of the chest was obtained. FINDINGS: Patient is intubated with the patient positioned endotracheal tube, just in the sergio Nasogastric tube is in the stomach below the diaphragm. There is low lung volume bilaterally with crowding of the vasculature and atelectasis at the left lung base XR/XR chest 1V IMPRESSION: Deeply positioned endotracheal tube, need to be repositioned. Left lower lobe atelectasis Electronically signed by: Tariq Cardozo MD 08/26/2024 01:46 PM EST
[2024-08-26] MEDS: propofoL 1,000 MG/100 ML VIAL 20.97 MG IVCONT (09:59)
--- NOTE | 2024-08-26 10:58 | PC.RT ---
Rt's respond to rapid response M5. Pt found sitting up at bedside exhibiting respirator distress with noted pulling and obstructed breathing. Spo2 85%, pt placed on 15 lpm PNRB. Pt attemp to remove, nurse at bedside with pt holding mask up. Pt noted to cont to desaturate into the high 60's at which time a code was called, rt began to assist pts respiration. A nasal trumpet was placed in the L nare without resistance and pt spo2 99% via ambu bag. Physician attempt to int, pt was medicated, provue scope and 7.5 ett. View was very anterior with provue blade and the pt was int in the esophagus. No color change along with no chest rise and the ett was removed and pt manually ventilated. The Glidescope was brought in offering a total view and the physician intubated with a 7.5 ett. Color change noted, chest rise as well as ett condensation. Pt ett secured and transported to ICU without issue.
[2024-08-26 11:06] LABS: ABG Base Excess -0.3 mmol/L; ABG HCO3 25 mmol/L (22-26); ABG pCO2 43 mmHg (32-45); ABG pH 7.37 (7.35-7.45); ABG pO2 76 mmHg (83-108)
[2024-08-26] MEDS: Famotidine/PF 20 MG/2 ML VIAL IVPUSH ×2 (11:46→21:26)
[2024-08-26] MEDS: methylPREDNISolone Sod Succ 40 MG/ML VIAL IVPUSH (11:47)
[2024-08-26] MEDS: Heparin Sodium,Porcine 5,000 UNIT/ML VIAL 5000 UNIT SUBCUT ×2 (11:47→18:05)
[2024-08-26] MEDS: Chlorhexidine Gluc Oral Rinse 15 ML MOUTHWASH BUCCAL ×2 (11:48→18:05)
[2024-08-26] MEDS: Ampicillin Sodium/Sulbactam Na 3 GM in 0.9 % Sodium Chloride 100 ML IV ×3 (11:50→21:26)
[2024-08-26 12:34] LABS: Basophils Percent Auto 0.2 % (0-2); Hematocrit 41.8 % (42.0-52.0); Hemoglobin 14.4 g/dl (14.0-18.0); Imm Gran Abs Auto 0.05 X10*3/uL (0.00-0.03); Imm Gran Pct Auto 0.4 % (0.0-0.4); Lymphocytes Absolute Auto 0.7 X10*3/uL (1.2-4.9); Lymphocytes Percent Auto 5.2 % (20-40); MANUAL DIFF FLAG SCAN; Mean Corpuscular HGB Conc 34.4 g/dl (31.0-36.0); Mean Corpuscular Hemoglobin 31.2 pg (27.0-33.0); Mean Corpuscular Volume 90.7 fL (80.0-98.0); Mean Platelet Volume 9.2 fL (9.4-12.4); Monocytes Absolute Auto 0.4 X10*3/uL (0.1-1.2); Monocytes Percent Auto 2.7 % (2-11); Neutrophils Absolute Auto 12.4 x10*3/uL (2.0-8.3); Neutrophils Percent Auto 91.5 % (45-73); Platelet Count 298 X10*3/uL (160-400); Red Blood Count 4.61 X10*6/uL (4.60-5.80); Red Cell Distribution Width 12.8 % (11.0-16.0); SCAN SMEAR FLAG 1; White Blood Count 13.6 X10*3/uL (4.8-10.8)
[2024-08-26 12:47] LABS: Anion Gap 11 (12-20); Blood Urea Nitrogen 13 mg/dL (9-16); Calcium 8.9 mg/dL (8.4-10.2); Carbon Dioxide 26 mmol/L (22-29); Chloride 102 mmol/L (96-108); Creatinine Clr Calc Pharmacy 118.5; Estimated Glomerular Filt Rate > 60; Glucose Random 119 mg/dL (60-115); Potassium 4.8 mmol/L (3.3-5.1); Sodium 134 mmol/L (135-145)
--- NOTE | 2024-08-26 13:01 | PM.CCHP ---
History of Present Illness Date of Service: 08/26/24 Chief Complaint: Upper airway obstruction 44-year-old gentleman with underlying JESUS, anxiety, depression admitted to 5 for worsening depression, alcohol withdrawal, and suicidal ideations with admission complicated by development of progressive upper airway obstruction D2 palatal tonsillar swelling resulting in hypoxia necessitating intubation for airway protection and transferred to intensive care unit. Laboratory studies with no evidence of infectious process. Started on empiric antibiotics and systemic glucocorticoids. Review of Systems Review of Systems: Yes unobtainable due to endotracheal tube and Unobtainable due to mental condition [facility] Past Medical History Medical History Intestinal malabsorption following gastrectomy BMI 33.0-33.9,adult Obesity (BMI 30-39.9) COVID-19 vaccine administered BMI 38.0-38.9,adult Obesity BMI 39.0-39.9,adult Vitamin D deficiency Body mass index (BMI) of 40.1 to 44.9 in adult Helicobacter pylori (H. pylori) infection Hypertriglyceridemia Obstructive sleep apnea treated with continuous positive airway pressure (CPAP) Shortness of breath Preoperative examination Morbid obesity due to excess calories Family History Family History Mother Diabetes Father Prostate cancer Brother Diabetes Sister Asthma Sister Asthma Son No problems noted. Daughter Autism Surgical History Surgical History History of repair of hiatal hernia S/P laparoscopic sleeve gastrectomy Social History Social History Household Members: Family Household Members Other:: MOTHER Housing: House Are you a primary healthcare representative to a significant other at home: No Do you presently have visiting nurse or other home services: No Alcohol intake: current Alcohol intake frequency: does not drink Alcohol type: hard liquor Comment: pt sleeping Patient Tobacco Use Status: Current everyday Tobacco user Tobacco use type: Cigarette Cigarette Packs Per Day: 0.5 Cigarettes Per Day: 10.0 e-Cigarette/Vaping Use: Never Used Second Hand Smoke Exposure: Yes Substance Use Type: Crack/Cocaine and Marijuana Advance Directives: No Advance Directives Information Provided: Yes service: No Current occupational status: employed Sexual orientation: Straight/Heterosexual Meds Allergies Allergy/AdvReac Type Severity Reaction Status Date / Time Seasonal Allergies Allergy Mild sinus Verified 08/24/24 00:48 Active Medications: Current Medications Chlorhexidine Gluconate (Chlorhexidine Gluc Oral Rinse 15 Ml Mouthwash) 15 ml BUCCAL Q8H [facility] Last Admin: 08/26/24 11:48 Dose: 15 ml Famotidine (Famotidine/Pf 20 Mg/2 Ml Vial) 20 mg IVPUSH BID [facility] Last Admin: 08/26/24 11:46 Dose: 20 mg Heparin Sodium (Porcine) (Heparin Sodium,Porcine 5,000 Unit/Ml Vial) 5,000 unit SUBCUT Q8H [facility] Last Admin: 08/26/24 11:47 Dose: 5,000 unit Propofol (Diprivan) 1,000 mg in 100 mls @ 0 mls/hr IVCONT .Q0M [facility]; Protocol Last Titration: 08/26/24 12:51 Dose: 40 mcg/kg/min, 27.96 mls/hr Ampicillin Sodium/Sulbactam (Sodium 3 gm/ Sodium Chloride) 100 mls @ 200 mls/hr IV Q6H [facility] Last Infusion: 08/26/24 12:38 Dose: Infused Methylprednisolone Sodium Succinate (Methylprednisolone Sod Succ 40 Mg/Ml Vial) 40 mg IVPUSH Q24H [facility] Last Admin: 08/26/24 11:47 Dose: 40 mg Home Medications ?Medication ?Instructions ?Recorded ?Confirmed ?Last Taken ?Type clonazepam 1 mg tablet 1 mg PO BID PRN Anxiety 08/24/24 08/26/24 Unknown History duloxetine 30 mg capsule,delayed 60 mg PO DAILY 08/24/24 08/26/24 Unknown History release lumateperone 42 mg capsule 42 mg PO DAILY 08/24/24 08/26/24 Unknown History (Caplyta) olanzapine 10 mg tablet 20 mg PO BEDTIME 08/24/24 08/26/24 Unknown History zolpidem 10 mg tablet 10 mg PO BEDTIME PRN Insomnia 08/24/24 08/26/24 Unknown History Physical Exam Vital Signs: Vital Signs: Last Vital Signs Temp 98.5 F 08/26/24 12:00 Pulse 115 H 08/26/24 12:00 Resp 18 08/26/24 12:00 BP 95/61 08/26/24 12:00 Pulse Ox 96 08/26/24 12:00 O2 Del Method Mechanical Ventil ation 08/26/24 12:00 FiO2 30 08/26/24 12:00 BMI result Body Mass Index 40.2 Const: General: no acute distress and other (Sedated on the vent) Nutritional Appearance: obese Eyes: Sclerae: sclerae normal EOM: EOMs intact bilaterally Neck: Neck: Yes no lymphadenopathy, Yes trachea midline and Yes supple Resp: Effort & Inspection: normal respiratory effort and no respiratory distress Auscultation: clear to auscultation bilaterally Cardio: Rate: tachycardic Rhythm: regular rhythm Heart sounds: no gallops, no murmurs and no rubs GI: Palpation (GI): Soft to palpation and Other GI palpation findings present ( Nontender) Auscultation: normal bowel sounds Extrem: General: Yes no pedal edema, No clubbing and No cyanosis Results Labs 08/26/24 12:21 08/26/24 12:21 Labs: Laboratory Results - last 24 hr 08/26/24 08/26/24 10:55 12:21 O2 Saturation 94.0 ABG pH at Pt Temp 7.37 ABG pCO2 at Pt Temp 43 ABG pO2 at Pt Temp 76 L ABG HCO3 25 ABG Base Excess (Actual) -0.3 Anion Gap 11 L Estim Creat Clear Calc 118.5 Estimated GFR > 60 Random Glucose 119 H Calcium 8.9 D Assessment and Plan (1) Swelling of tonsil: Status: Acute (2) Respiratory failure requiring intubation: Status: Acute Plan Assessment: 44-year-old gentleman initially admitted to psychiatry service secondary to worsening depression, alcohol withdrawal, and suicidal ideation with hospital course complicated by upper airway obstruction from tonsillar swollen resulting in hypoxia requiring intubation for airway protection Plan: Neuro: No acute issues. Cardiac: No acute issues. Pulmonary: Intubated for airway protection, continue to titrate off as tolerated. Upper airway obstruction with tonsillar swelling. Laboratory studies inconsistent with an infectious process, likely inflammatory or allergic. CT neck/soft tissue reviewed. Continue empiric antibiotics and systemic glucocorticoids. Renal: No acute issues. Endo: No acute issues. GI: No acute issues. ID: No acute issues Heme/Onc: No acute issues. Psych: No acute issues. Miscellaneous: No acute issues. Prophylaxis: Heparin, famotidine Diet: NPO Critical care time spent: 60 minutes
[2024-08-26] MEDS: propofoL 1,000 MG/100 ML VIAL 27.96 MG IVCONT ×2 (13:22→20:09)
--- NOTE | 2024-08-26 13:31 | PC.NURSE ---
0915 CHIEF SERVICE OBSERVER called for M5. Patient experiencing?respiratory?issues. Initially O2 sat 84 on RA.? 02 sats?continued to? drop to 68%. Code gregory called approximately at 0940. Pt intubated/sedated. Transferred?to ICU.?
[2024-08-26 13:35] LABS: SLIDE REVIEW VERIFIED
[2024-08-26 13:36] LABS: Influenza A PCR NEGATIVE (Negative); Influenza B PCR NEGATIVE (Negative); Resp Syncy Virus RNA Qual PCR NEGATIVE (Negative); SARS COV2 PCR INHOUSE NEGATIVE (Negative)
--- NOTE | 2024-08-26 15:32 | W.ED.CONS.HO ---
Consult Details Consult Details: Acute respiratory failure requiring intubation. Procedures Intubation Intubation Type:: Endotracheal Tube Insertion Intubation Date:: 08/26/24 Time out performed: No sedative: Etomidate Mg Given: 20 paralytic: Rocuronium Mg Given: 150 Laryngoscope: fiber optic video scope Assist Device Used: fiber optic device ET Tube Size: 7.5 ET Tube Uncuffed: No Tube Secured Depth (cm): 24 Tube Secured Location: lips Tube Placement Confirmation: visualized tube passing through cords, equal breath sounds bilaterally, no breath sounds over epigastrium and confirmation by capnometry Patient Tolerated Procedure: well Intubation Complications: difficult intubation and hypoxia Additional Comments: First intubation attempt went into the esophagus, on 2nd intubation look airway was minimally visualized secondary to significant edema but tube was able to be passed with good capnography and ventilation.
[2024-08-26] MEDS: propofoL 1,000 MG/100 ML VIAL 34.95 MG IVCONT ×2 (17:15→22:38)
[2024-08-26] MEDS: fentaNYL citrate/NS 1,000 MCG/100 ML PLAST..BAG 5 MCG IVCONT (21:25)
[2024-08-26] MEDS: Norepinephrine Bitartrate/D5W 8 MG/250 ML PLAST..BAG 10.92 MG IVCONT (22:03)
--- NOTE | 2024-08-26 22:12 | PM.EVENT ---
Documented by User: Moises Rosado NP 08/26/24 22:13 Event Note Date of Service: 08/26/24 Event Note: Hypotension due to sedation, no evidence of severe sepsis Time Spent With Patient Time: Total time managing care of this patient today ____ minutes. Documented by User: Darell Mancilla MD 08/27/24 10:26 Event Note Date of Service: 08/27/24
[2024-08-26] MEDS: Midazolam HCl/PF 2 MG/2 ML VIAL 4 MG IVPUSH (23:58)
[2024-08-27] VITALS (40 sets, daily range): BP systolic 88–159; BP diastolic 44–97; PULSE 63–155; RESP 11–30; TEMP 35–37.3; O2SAT 90–96; BMI 40.2
[2024-08-27] MEDS: fentaNYL citrate/NS 1,000 MCG/100 ML PLAST..BAG 17.5 MCG IVCONT (00:51)
[2024-08-27] MEDS: propofoL 1,000 MG/100 ML VIAL 34.95 MG IVCONT ×6 (00:51→18:16)
[2024-08-27] MEDS: Heparin Sodium,Porcine 5,000 UNIT/ML VIAL 5000 UNIT SUBCUT ×3 (01:53→18:13)
[2024-08-27] MEDS: Chlorhexidine Gluc Oral Rinse 15 ML MOUTHWASH BUCCAL ×3 (01:53→18:12)
[2024-08-27] MEDS: Midazolam HCl/PF 2 MG/2 ML VIAL 4 MG IVPUSH ×3 (02:01→09:45)
[2024-08-27] MEDS: Ampicillin Sodium/Sulbactam Na 3 GM in 0.9 % Sodium Chloride 100 ML IV ×4 (03:20→22:35)
[2024-08-27] MEDS: dexmedeTOMIDidine HCL/NS 400 MCG/100 ML INFUS..BTL 29.13 MCG IVCONT (03:33)
[2024-08-27 05:08] LABS: MANUAL DIFF FLAG NO
[2024-08-27 05:09] LABS: VBG Base Excess -1.1 mmol/L; VBG HCO3 22 mmol/L (22-26); VBG pCO2 33 mmHg; VBG pH 7.43 (7.32-7.43); VBG pO2 70 mmHg
[2024-08-27 05:10] LABS: Basophils Percent Auto 0.1 % (0-2); Eosinophils Percent Auto 0.1 % (0-4); Hematocrit 41.5 % (42.0-52.0); Hemoglobin 14.4 g/dl (14.0-18.0); Imm Gran Abs Auto 0.09 X10*3/uL (0.00-0.03); Imm Gran Pct Auto 0.6 % (0.0-0.4); Lymphocytes Absolute Auto 1.9 X10*3/uL (1.2-4.9); Lymphocytes Percent Auto 12.5 % (20-40); Mean Corpuscular HGB Conc 34.7 g/dl (31.0-36.0); Mean Corpuscular Hemoglobin 31.4 pg (27.0-33.0); Mean Corpuscular Volume 90.6 fL (80.0-98.0); Mean Platelet Volume 9.1 fL (9.4-12.4); Monocytes Absolute Auto 0.9 X10*3/uL (0.1-1.2); Neutrophils Absolute Auto 12.1 x10*3/uL (2.0-8.3); Neutrophils Percent Auto 80.7 % (45-73); Platelet Count 355 X10*3/uL (160-400); Red Blood Count 4.58 X10*6/uL (4.60-5.80); Red Cell Distribution Width 13.1 % (11.0-16.0); White Blood Count 14.9 X10*3/uL (4.8-10.8)
[2024-08-27 05:17] LABS: Venous Blood Gas Refer to POC result
[2024-08-27 05:26] LABS: Alanine Aminotransferase 64 U/L (0-40); Albumin Level 3.9 g/dL (3.5-5.0); Alkaline Phosphatase 86 U/L (39-117); Anion Gap 14 (12-20); Aspartate Amino Transferase 47 U/L (5-37); Bilirubin Total 0.5 mg/dL (0.0-1.0); Blood Urea Nitrogen 18 mg/dL (9-16); Calcium 9.7 mg/dL (8.4-10.2); Carbon Dioxide 21 mmol/L (22-29); Chloride 105 mmol/L (96-108); Creatinine Clr Calc Pharmacy 113.8; Estimated Glomerular Filt Rate > 60; Glucose Random 128 mg/dL (60-115); Phosphorus 2.3 mg/dL (2.7-4.5); Potassium 3.4 mmol/L (3.3-5.1); Sodium 137 mmol/L (135-145)
[2024-08-27] MEDS: fentaNYL citrate/NS 1,000 MCG/100 ML PLAST..BAG 20 MCG IVCONT ×4 (05:36→20:16)
[2024-08-27] MEDS: propofoL 1,000 MG/100 ML VIAL 27.96 MG IVCONT ×2 (05:38→21:36)
[2024-08-27] MEDS: Famotidine/PF 20 MG/2 ML VIAL IVPUSH ×2 (07:45→20:15)
[2024-08-27] MEDS: Potassium Phosphate/NS 15 MMOL/250 ML PLAST..BAG 62.5 MMOL IV (07:52)
[2024-08-27] MEDS: 0.9 % Sodium Chloride Flush 3 ML SYRINGE IVFLUSH ×3 (08:15→23:25)
--- NOTE | 2024-08-27 10:26 | P.PNCC_ITS ---
Subjective Subjective Date of Service: 08/27/24 Interval History: 44-year-old gentleman with underlying JESUS, anxiety, depression admitted to [facility] for worsening depression, alcohol withdrawal, and suicidal ideations with admission complicated by development of progressive upper airway obstruction D2 palatal tonsillar swelling resulting in hypoxia necessitating intubation for airway protection and transferred to intensive care unit. Laboratory studies with no evidence of infectious process. Started on empiric antibiotics and systemic glucocorticoids. No events overnight. No cuff leak on testing this a.m. Critical Care Time (minutes): 45 Physical Exam 2 Vital Signs: Vital Signs: Last Vital Signs Temp 98.0 F 08/27/24 08:00 Pulse 72 08/27/24 10:00 Resp 20 08/27/24 09:00 BP 124/73 08/27/24 10:00 Pulse Ox 94 08/27/24 10:00 O2 Del Method Mechanical Ventil ation 08/27/24 10:00 FiO2 25 08/27/24 10:00 BMI result Body Mass Index 40.2 Const: General: no acute distress and other (Sedated on the vent) N utritional Appearance: obese Eyes: Sclerae: sclerae normal EOM: EOMs intact bilaterally Neck: Neck: Yes no lymphadenopathy, Yes trachea midline and Yes supple Resp: Auscultation: clear to auscultation bilaterally Cardio: Rate: regular rate Rhythm: regular rhythm Heart sounds: no gallops, no murmurs and no rubs GI: Palpation (GI): Soft to palpation and Other GI palpation findings present ( Nontender) Auscultation: normal bowel sounds Extrem: General: Yes no pedal edema, No clubbing and No cyanosis Objective Data Labs 08/27/24 05:03 08/27/24 05:03 Labs: Laboratory Results - last 24 hr 08/26/24 08/26/24 08/26/24 10:55 12:21 12:45 WBC 13.6 H RBC 4.61 Hgb 14.4 Hct 41.8 L MCV 90.7 MCH 31.2 MCHC 34.4 RDW 12.8 Plt Count 298 MPV 9.2 L Immature Gran % (Auto) 0.4 Neut % (Auto) 91.5 H Lymph % (Auto) 5.2 L [place] % (Auto) 2.7 Eos % (Auto) 0.0 Baso % (Auto) 0.2 Lymph # (Auto) 0.7 L [place] # (Auto) 0.4 Eos # (Auto) 0.0 Baso # (Auto) 0.0 Abs Immat Gran (auto) 0.05 H Absolute Neuts (auto) 12.4 H Absolute Nucleated RBC 0.000 Nucleated RBC % (auto) 0.0 Smear Tech's Comments VERIFIED O2 Saturation 94.0 ABG pH at Pt Temp 7.37 ABG pCO2 at Pt Temp 43 ABG pO2 at Pt Temp 76 L ABG HCO3 25 ABG Base Excess (Actual) -0.3 VBG pH VBG pCO2 VBG pO2 VBG HCO3 VBG O2 Saturation VBG Base Excess Sodium 134 L Potassium 4.8 D Chloride 102 Carbon Dioxide 26 Anion Gap 11 L BUN 13 Creatinine 0.97 Estim Creat Clear Calc 118.5 Estimated GFR > 60 Random Glucose 119 H Calcium 8.9 D Phosphorus Magnesium Total Bilirubin AST ALT Alkaline Phosphatase Total Protein Albumin Influenza Type A (PCR) NEGATIVE Influenza Type B (PCR) NEGATIVE RSV RNA Qual (PCR) NEGATIVE SARS-CoV-2 RNA (RT-PCR) NEGATIVE 08/27/24 08/27/24 04:58 05:03 WBC 14.9 H RBC 4.58 L Hgb 14.4 Hct 41.5 L MCV 90.6 MCH 31.4 MCHC 34.7 RDW 13.1 Plt Count 355 MPV 9.1 L Immature Gran % (Auto) 0.6 H Neut % (Auto) 80.7 H Lymph % (Auto) 12.5 L [place] % (Auto) 6.0 Eos % (Auto) 0.1 Baso % (Auto) 0.1 Lymph # (Auto) 1.9 [place] # (Auto) 0.9 Eos # (Auto) 0.0 Baso # (Auto) 0.0 Abs Immat Gran (auto) 0.09 H Absolute Neuts (auto) 12.1 H Absolute Nucleated RBC 0.000 Nucleated RBC % (auto) 0.0 Smear Tech's Comments O2 Saturation ABG pH at Pt Temp ABG pCO2 at Pt Temp ABG pO2 at Pt Temp ABG HCO3 ABG Base Excess (Actual) VBG pH 7.43 VBG pCO2 33 VBG pO2 70 VBG HCO3 22 VBG O2 Saturation 94.0 VBG Base Excess -1.1 Sodium 137 Potassium 3.4 D Chloride 105 Carbon Dioxide 21 L Anion Gap 14 BUN 18 H Creatinine 1.01 Estim Creat Clear Calc 113.8 Estimated GFR > 60 Random Glucose 128 H Calcium 9.7 D Phosphorus 2.3 L Magnesium 2.0 Total Bilirubin 0.5 AST 47 H ALT 64 H Alkaline Phosphatase 86 Total Protein 8.0 Albumin 3.9 Influenza Type A (PCR) Influenza Type B (PCR) RSV RNA Qual (PCR) SARS-CoV-2 RNA (RT-PCR) Progress Note: A&P Assessment and plan (1) Respiratory failure requiring intubation: Status: Acute (2) Swelling of tonsil: Status: Acute (3) Alcohol use disorder, moderate, dependence: Status: Acute Plan Assessment: 44-year-old gentleman initially admitted to psychiatry service secondary to worsening depression, alcohol withdrawal, and suicidal ideation with hospital course complicated by upper airway obstruction from tonsillar swollen resulting in hypoxia requiring intubation for airway protection Plan: Neuro: No acute issues. Cardiac: No acute issues. Pulmonary: Intubated for airway protection, continue to titrate off as tolerated. Upper airway obstruction with tonsillar swelling. Laboratory studies inconsistent with an infectious process, likely inflammatory or allergic. CT neck/soft tissue reviewed. Continue empiric antibiotics and systemic glucocorticoids. No cuff leak on testing this morning. Renal: No acute issues. Endo: No acute issues. GI: No acute issues. ID: No acute issues Heme/Onc: No acute issues. Psych: No acute issues. Miscellaneous: No acute issues. Prophylaxis: Heparin, famotidine Diet: Tube feeds Critical care time spent: 45 minutes Quality Stroke Does the patient have a stroke diagnosis?: No VTE Prior VTE?: No VTE Risk Level:: Medical - moderate - high VTE Device Contraindication: Treatment Not Indicated VTE Drug Contraindication: N/A - Med Ordered
[2024-08-27] MEDS: methylPREDNISolone Sod Succ 40 MG/ML VIAL IVPUSH (10:39)
[2024-08-27] MEDS: Cisatracurium Besylate 20 MG/10 ML VIAL IVPUSH (10:39)
[2024-08-27] MEDS: Cisatracurium Besylate 100 MG in 0.9 % Sodium Chloride 40 ML 6.99 MG IVCONT ×2 (10:39→19:04)
--- NOTE | 2024-08-27 11:17 | MHC.CLN ---
NUTRITION PATIENT IS INTUBATED AND SEDATED. PER MEDICAL ROUNDS, START TUBE FEEDING TODAY. RECOMMEND MAX GOAL PROMOTE AT 30 ML PER HOUR, FLUSH 300 ML Q 6 HOURS. PROVIDES 720 KCALS, 1643 KCALS WITH SEDATION (24.4 KCALS/KG IBW); 45 G PROTEIN (.67 G/KG IBW); 1804 ML TOTAL FREE WATER FROM FORMULA AND FLUSH (26.8 ML/KG IBW). FOLLOW FOR TUBE FEED TOLERANCE AND LYTES. SEE CLINICAL NUTRITION ASSESSMENT 08/27/24.
--- NOTE | 2024-08-27 12:51 | ECG_ITS ---
Test Reason : HR 150s Blood Pressure : / mmHG Vent. Rate : 137 BPM Atrial Rate : 137 BPM P-R Int : 128 ms QRS Dur : 084 ms QT Int : 304 ms P-R-T Axes : 051 062 062 degrees QTc Int : 459 ms Sinus tachycardia Nonspecific ST abnormality Abnormal ECG When compared with ECG of 25-AUG-2024 10:02, Vent. rate has increased BY 63 BPM Referred By: Darell Mancilla Electronically Signed By:Jose Carter
--- NOTE | 2024-08-27 13:54 | MHC.CM.PN ---
Pt remains on ventilatory support in ICU: Plans are to reassess for decreased swelling and extubation ability. Pt from [facility] and will be screened by [facility] once medically stable for ? continuation of INPT MH needs. CM to follow
[2024-08-27] MEDS: Midazolam HCl/NS 50 MG/50 ML PLAST..BAG IVCONT (16:03)
[2024-08-27] MEDS: Norepinephrine Bitartrate/D5W 8 MG/250 ML PLAST..BAG 4.37 MG IVCONT (21:01)
[2024-08-28] VITALS (43 sets, daily range): BP systolic 78–178; BP diastolic 38–107; PULSE 50–135; RESP 16–21; TEMP 34.5–37.8; O2SAT 92–98; BMI 39.7
[2024-08-28] MEDS: propofoL 1,000 MG/100 ML VIAL 27.96 MG IVCONT ×4 (01:16→20:21)
[2024-08-28] MEDS: fentaNYL citrate/NS 1,000 MCG/100 ML PLAST..BAG 15 MCG IVCONT ×2 (01:17→07:46)
[2024-08-28] MEDS: Heparin Sodium,Porcine 5,000 UNIT/ML VIAL 5000 UNIT SUBCUT ×3 (02:13→17:55)
[2024-08-28] MEDS: Chlorhexidine Gluc Oral Rinse 15 ML MOUTHWASH BUCCAL ×3 (02:13→17:55)
[2024-08-28] MEDS: Cisatracurium Besylate 100 MG in 0.9 % Sodium Chloride 40 ML 6.99 MG IVCONT ×3 (02:40→23:51)
[2024-08-28] MEDS: Ampicillin Sodium/Sulbactam Na 3 GM in 0.9 % Sodium Chloride 100 ML IV ×4 (04:21→22:13)
[2024-08-28 05:05] LABS: VBG Base Excess 0.1 mmol/L; VBG HCO3 23 mmol/L (22-26); VBG pCO2 35 mmHg; VBG pH 7.43 (7.32-7.43); VBG pO2 87 mmHg
[2024-08-28 05:47] LABS: MANUAL DIFF FLAG NO
[2024-08-28 05:55] LABS: Basophils Absolute Auto 0.1 X10*3/uL (0.0-0.2); Basophils Percent Auto 0.4 % (0-2); Eosinophils Percent Auto 0.1 % (0-4); Hematocrit 39.8 % (42.0-52.0); Hemoglobin 13.2 g/dl (14.0-18.0); Imm Gran Abs Auto 0.07 X10*3/uL (0.00-0.03); Imm Gran Pct Auto 0.6 % (0.0-0.4); Lymphocytes Absolute Auto 2.6 X10*3/uL (1.2-4.9); Lymphocytes Percent Auto 21.6 % (20-40); Mean Corpuscular HGB Conc 33.2 g/dl (31.0-36.0); Mean Corpuscular Hemoglobin 30.7 pg (27.0-33.0); Mean Corpuscular Volume 92.6 fL (80.0-98.0); Mean Platelet Volume 9.2 fL (9.4-12.4); Monocytes Absolute Auto 0.9 X10*3/uL (0.1-1.2); Monocytes Percent Auto 7.5 % (2-11); Neutrophils Absolute Auto 8.4 x10*3/uL (2.0-8.3); Neutrophils Percent Auto 69.8 % (45-73); Platelet Count 320 X10*3/uL (160-400); Red Cell Distribution Width 13.4 % (11.0-16.0); White Blood Count 12.1 X10*3/uL (4.8-10.8)
[2024-08-28] MEDS: Midazolam HCl/NS 50 MG/50 ML PLAST..BAG IVCONT (06:02)
[2024-08-28 06:11] LABS: Albumin Level 3.6 g/dL (3.5-5.0); Anion Gap 16 (12-20); Blood Urea Nitrogen 19 mg/dL (9-16); Calcium 8.5 mg/dL (8.4-10.2); Carbon Dioxide 21 mmol/L (22-29); Chloride 109 mmol/L (96-108); Creatinine Clr Calc Pharmacy 131.2; Estimated Glomerular Filt Rate > 60; Glucose Random 93 mg/dL (60-115); Magnesium 2.2 mg/dL (1.6-2.6); Phosphorus 3.5 mg/dL (2.7-4.5); Potassium 3.3 mmol/L (3.3-5.1); Sodium 143 mmol/L (135-145)
[2024-08-28 06:19] LABS: Venous Blood Gas Refer to POC result
[2024-08-28] MEDS: Famotidine/PF 20 MG/2 ML VIAL IVPUSH ×2 (07:46→20:23)
[2024-08-28] MEDS: Potassium Chloride/H20 10 MEQ/100 ML PIGGYBACK 100 MEQ IV ×4 (07:46→11:06)
[2024-08-28] MEDS: propofoL 1,000 MG/100 ML VIAL 34.95 MG IVCONT ×3 (07:47→14:00)
[2024-08-28] MEDS: 0.9 % Sodium Chloride Flush 3 ML SYRINGE IVFLUSH ×2 (07:48→16:14)
--- NOTE | 2024-08-28 09:35 | P.PNCC_ITS ---
Subjective Subjective Date of Service: 08/28/24 Interval History: 44-year-old gentleman with underlying JESUS, anxiety, depression admitted to [facility] for worsening depression, alcohol withdrawal, and suicidal ideations with admission complicated by development of progressive upper airway obstruction D2 palatal tonsillar swelling resulting in hypoxia necessitating intubation for airway protection and transferred to intensive care unit. Laboratory studies with no evidence of infectious process. Started on empiric antibiotics and systemic glucocorticoids. No events overnight. Still no cuff leak on testing this a.m. Critical Care Time (minutes): 45 Physical Exam 2 Vital Signs: Vital Signs: Last Vital Signs Temp 99.3 F 08/28/24 09:00 Pulse 99 08/28/24 09:00 Resp 16 08/28/24 09:00 BP 130/68 08/28/24 09:00 Pulse Ox 92 08/28/24 09:00 O2 Del Method Mechanical Ventil ation 08/28/24 09:00 FiO2 25 08/28/24 09:00 BMI result Body Mass Index 39.7 Const: General: no acute distress and other (Sedated on the vent) Eyes: Sclerae: sclerae normal EOM: EOMs intact bilaterally Neck: Neck: Yes no lymphadenopathy, Yes trachea midline and Yes supple Resp: Effort & Inspection: normal respiratory effort and no respiratory distress Auscultation: clear to auscultation bilaterally Cardio: Rate: regular rate Rhythm: regular rhythm Heart sounds: no gallops, no murmurs and no rubs GI: Palpation (GI): Soft to palpation and Other GI palpation findings present ( Nontender) Auscultation: normal bowel sounds Extrem: General: Yes no pedal edema, No clubbing and No cyanosis Objective Data Labs 08/28/24 04:55 08/28/24 04:55 Labs: Laboratory Results - last 24 hr 08/28/24 08/28/24 04:54 04:55 WBC 12.1 H RBC 4.30 L Hgb 13.2 L Hct 39.8 L MCV 92.6 MCH 30.7 MCHC 33.2 RDW 13.4 Plt Count 320 MPV 9.2 L Immature Gran % (Auto) 0.6 H Neut % (Auto) 69.8 Lymph % (Auto) 21.6 [place] % (Auto) 7.5 Eos % (Auto) 0.1 Baso % (Auto) 0.4 Lymph # (Auto) 2.6 [place] # (Auto) 0.9 Eos # (Auto) 0.0 Baso # (Auto) 0.1 Abs Immat Gran (auto) 0.07 H Absolute Neuts (auto) 8.4 H Absolute Nucleated RBC 0.000 Nucleated RBC % (auto) 0.0 VBG pH 7.43 VBG pCO2 35 VBG pO2 87 VBG HCO3 23 VBG O2 Saturation 97.0 VBG Base Excess 0.1 Sodium 143 Potassium 3.3 Chloride 109 H Carbon Dioxide 21 L Anion Gap 16 BUN 19 H Creatinine 0.87 Estim Creat Clear Calc 131.2 Estimated GFR > 60 Random Glucose 93 Calcium 8.5 D Phosphorus 3.5 Magnesium 2.2 Albumin 3.6 Progress Note: A&P Assessment and plan (1) BMI 40.0-44.9, adult: Status: Acute (2) Swelling of tonsil: Status: Acute (3) Respiratory failure requiring intubation: Status: Acute (4) Obstructive sleep apnea treated with continuous positive airway pressure (CPAP): Status: Acute Plan Assessment: 44-year-old gentleman initially admitted to psychiatry service secondary to worsening depression, alcohol withdrawal, and suicidal ideation with hospital course complicated by upper airway obstruction from tonsillar swollen resulting in hypoxia requiring intubation for airway protection Plan: Neuro: No acute issues. Cardiac: No acute issues. Pulmonary: Intubated for airway protection, continue to titrate off as tolerated. Upper airway obstruction with tonsillar swelling. Laboratory studies inconsistent with an infectious process, likely inflammatory or allergic. CT neck/soft tissue reviewed. Continue empiric antibiotics and systemic glucocorticoids. Still with no cuff leak on testing this morning. Renal: No acute issues. Endo: No acute issues. GI: No acute issues. ID: No acute issues Heme/Onc: No acute issues. Psych: No acute issues. Miscellaneous: No acute issues. Prophylaxis: Heparin, famotidine Diet: Tube feeds Critical care time spent: 45 minutes Quality Stroke Does the patient have a stroke diagnosis?: No VTE Prior VTE?: No VTE Risk Level:: Medical - moderate - high VTE Device Contraindication: Treatment Not Indicated VTE Drug Contraindication: N/A - Med Ordered
[2024-08-28] MEDS: methylPREDNISolone Sod Succ 40 MG/ML VIAL IVPUSH ×2 (10:06→18:18)
[2024-08-28 11:54] LABS: Glucose, Whole Blood 95 mg/dL (60-115)
[2024-08-28] MEDS: fentaNYL citrate/NS 1,000 MCG/100 ML PLAST..BAG 17.5 MCG IVCONT ×2 (13:18→18:04)
[2024-08-28 17:55] LABS: Glucose, Whole Blood 129 mg/dL (60-115)
[2024-08-28 20:30] LABS: Anion Gap 13 (12-20); Blood Urea Nitrogen 17 mg/dL (9-16); Calcium 8.5 mg/dL (8.4-10.2); Carbon Dioxide 20 mmol/L (22-29); Chloride 110 mmol/L (96-108); Creatinine Clr Calc Pharmacy 146.3; Estimated Glomerular Filt Rate > 60; Glucose Random 133 mg/dL (60-115); Magnesium 2.3 mg/dL (1.6-2.6); Phosphorus 3.6 mg/dL (2.7-4.5); Potassium 4.1 mmol/L (3.3-5.1); Sodium 139 mmol/L (135-145)
[2024-08-28 23:24] LABS: Glucose, Whole Blood 120 mg/dL (60-115)
[2024-08-29] VITALS (36 sets, daily range): BP systolic 87–166; BP diastolic 38–92; PULSE 55–124; RESP 15–29; TEMP 34.8–37.9; O2SAT 92–98; BMI 39.5
[2024-08-29] MEDS: propofoL 1,000 MG/100 ML VIAL 27.96 MG IVCONT ×3 (00:06→06:35)
[2024-08-29] MEDS: fentaNYL citrate/NS 1,000 MCG/100 ML PLAST..BAG 17.5 MCG IVCONT ×2 (00:08→05:55)
[2024-08-29] MEDS: 0.9 % Sodium Chloride Flush 3 ML SYRINGE IVFLUSH ×4 (00:59→20:29)
[2024-08-29] MEDS: Heparin Sodium,Porcine 5,000 UNIT/ML VIAL 5000 UNIT SUBCUT ×3 (02:44→18:23)
[2024-08-29] MEDS: methylPREDNISolone Sod Succ 40 MG/ML VIAL IVPUSH ×3 (02:44→18:23)
[2024-08-29] MEDS: Chlorhexidine Gluc Oral Rinse 15 ML MOUTHWASH BUCCAL ×2 (02:44→10:17)
[2024-08-29] MEDS: Ampicillin Sodium/Sulbactam Na 3 GM in 0.9 % Sodium Chloride 100 ML IV ×4 (04:40→22:15)
[2024-08-29 04:50] LABS: VBG Base Excess -1.1 mmol/L; VBG HCO3 21 mmol/L (22-26); VBG pCO2 30 mmHg; VBG pH 7.45 (7.32-7.43); VBG pO2 86 mmHg
[2024-08-29 04:55] LABS: Venous Blood Gas Refer to POC result
[2024-08-29 05:24] LABS: MANUAL DIFF FLAG NO
[2024-08-29 05:27] LABS: Basophils Percent Auto 0.2 % (0-2); Hematocrit 41.9 % (42.0-52.0); Hemoglobin 14.3 g/dl (14.0-18.0); Imm Gran Abs Auto 0.06 X10*3/uL (0.00-0.03); Imm Gran Pct Auto 0.5 % (0.0-0.4); Lymphocytes Absolute Auto 1.3 X10*3/uL (1.2-4.9); Lymphocytes Percent Auto 10.5 % (20-40); Mean Corpuscular HGB Conc 34.1 g/dl (31.0-36.0); Mean Corpuscular Hemoglobin 30.7 pg (27.0-33.0); Mean Corpuscular Volume 89.9 fL (80.0-98.0); Mean Platelet Volume 9.2 fL (9.4-12.4); Monocytes Absolute Auto 0.5 X10*3/uL (0.1-1.2); Monocytes Percent Auto 4.1 % (2-11); Neutrophils Absolute Auto 10.2 x10*3/uL (2.0-8.3); Neutrophils Percent Auto 84.7 % (45-73); Platelet Count 304 X10*3/uL (160-400); Red Blood Count 4.66 X10*6/uL (4.60-5.80)
[2024-08-29 05:42] LABS: Albumin Level 3.9 g/dL (3.5-5.0); Anion Gap 13 (12-20); Blood Urea Nitrogen 13 mg/dL (9-16); Calcium 9.1 mg/dL (8.4-10.2); Carbon Dioxide 21 mmol/L (22-29); Chloride 109 mmol/L (96-108); Creatinine Clr Calc Pharmacy 158.5; Estimated Glomerular Filt Rate > 60; Glucose Random 105 mg/dL (60-115); Magnesium 2.2 mg/dL (1.6-2.6); Phosphorus 3.3 mg/dL (2.7-4.5); Potassium 3.9 mmol/L (3.3-5.1); Sodium 139 mmol/L (135-145)
[2024-08-29] MEDS: Midazolam HCl/NS 50 MG/50 ML PLAST..BAG IVCONT (05:57)
[2024-08-29] MEDS: Cisatracurium Besylate 100 MG in 0.9 % Sodium Chloride 40 ML 6.99 MG IVCONT (06:36)
[2024-08-29] MEDS: Famotidine/PF 20 MG/2 ML VIAL IVPUSH ×2 (08:30→20:31)
--- NOTE | 2024-08-29 09:18 | PM.CCPN ---
Subjective Subjective Date of Service: 08/29/24 Interval History: 44-year-old gentleman with underlying JESUS, anxiety, depression admitted to [facility] for worsening depression, alcohol withdrawal, and suicidal ideations with admission complicated by development of progressive upper airway obstruction D2 palatal tonsillar swelling resulting in hypoxia necessitating intubation for airway protection and transferred to intensive care unit. Laboratory studies with no evidence of infectious process. Started on empiric antibiotics and systemic glucocorticoids. No events overnight. Cuff leak test, if no improvement, will repeat CT neck. Critical Care Time (minutes): 45 Physical Exam Vital Signs: Vital Signs: Last Vital Signs Temp 99.9 F 08/29/24 08:21 Pulse 74 08/29/24 08:21 Resp 18 08/29/24 08:21 BP 102/52 L 08/29/24 08:21 Pulse Ox 95 08/29/24 08:21 O2 Del Method Mechanical Ventil ation 08/29/24 08:21 FiO2 30 08/29/24 08:21 BMI result Body Mass Index 39.5 Const: General: no acute distress and other (Sedated on the vent) Eyes: Sclerae: sclerae normal EOM: EOMs intact bilaterally Neck: Neck: Yes no lymphadenopathy, Yes trachea midline and Yes supple Resp: Auscultation: clear to auscultation bilaterally Cardio: Rate: regular rate Rhythm: regular rhythm Heart sounds: no gallops, no murmurs and no rubs GI: Palpation (GI): Soft to palpation and Other GI palpation findings present ( Nontender) Auscultation: normal bowel sounds Extrem: General: Yes no pedal edema, No clubbing and No cyanosis Objective Data Labs 08/29/24 04:36 08/29/24 04:36 Labs: Laboratory Results - last 24 hr 08/28/24 08/28/24 08/28/24 11:51 17:51 19:13 WBC RBC Hgb Hct MCV MCH MCHC RDW Plt Count MPV Immature Gran % (Auto) Neut % (Auto) Lymph % (Auto) [place] % (Auto) Eos % (Auto) Baso % (Auto) Lymph # (Auto) [place] # (Auto) Eos # (Auto) Baso # (Auto) Abs Immat Gran (auto) Absolute Neuts (auto) Absolute Nucleated RBC Nucleated RBC % (auto) VBG pH VBG pCO2 VBG pO2 VBG HCO3 VBG O2 Saturation VBG Base Excess Sodium 139 Potassium 4.1 D Chloride 110 H Carbon Dioxide 20 L Anion Gap 13 BUN 17 H Creatinine 0.78 Estim Creat Clear Calc 146.3 Estimated GFR > 60 POC Glucose 95 129 H Random Glucose 133 H Calcium 8.5 Phosphorus 3.6 Magnesium 2.3 Albumin 08/28/24 08/29/24 08/29/24 23:19 04:36 04:39 WBC 12.0 H RBC 4.66 Hgb 14.3 Hct 41.9 L MCV 89.9 MCH 30.7 MCHC 34.1 RDW 13.0 Plt Count 304 MPV 9.2 L Immature Gran % (Auto) 0.5 H Neut % (Auto) 84.7 H Lymph % (Auto) 10.[address] [place] % (Auto) 4.1 Eos % (Auto) 0.0 Baso % (Auto) 0.2 Lymph # (Auto) 1.3 [place] # (Auto) 0.5 Eos # (Auto) 0.0 Baso # (Auto) 0.0 Abs Immat Gran (auto) 0.06 H Absolute Neuts (auto) 10.2 H Absolute Nucleated RBC 0.000 Nucleated RBC % (auto) 0.0 VBG pH 7.45 H VBG pCO2 30 VBG pO2 86 VBG HCO3 21 L VBG O2 Saturation 97.0 VBG Base Excess -1.1 Sodium 139 Potassium 3.9 Chloride 109 H Carbon Dioxide 21 L Anion Gap 13 BUN 13 Creatinine 0.72 Estim Creat Clear Calc 158.5 Estimated GFR > 60 POC Glucose 120 H Random Glucose 105 Calcium 9.1 D Phosphorus 3.3 Magnesium 2.2 Albumin 3.9 Microbiology Microbiology Results: Microbiology 08/27/24 14:41 Blood - Venous Blood Culture - Preliminary No growth after 24 hours. 08/27/24 10:15 Blood - Venous Blood Culture - Preliminary No growth after 24 hours. Progress Note: A&P Assessment and plan (1) Respiratory failure requiring intubation: Status: Acute (2) Swelling of tonsil: Status: Acute (3) BMI 40.0-44.9, adult: Status: Acute Plan Assessment: 44-year-old gentleman initially admitted to psychiatry service secondary to worsening depression, alcohol withdrawal, and suicidal ideation with hospital course complicated by upper airway obstruction from tonsillar swollen resulting in hypoxia requiring intubation for airway protection Plan: Neuro: No acute issues. Cardiac: No acute issues. Pulmonary: Intubated for airway protection, continue to titrate off as tolerated. Upper airway obstruction with tonsillar swelling. Laboratory studies inconsistent with an infectious process, likely inflammatory or allergic. CT neck/soft tissue reviewed. Continue empiric antibiotics and systemic glucocorticoids. If no cuff leak on testing today, will repeat CT neck. Renal: No acute issues. Endo: No acute issues. GI: No acute issues. ID: No acute issues Heme/Onc: No acute issues. Psych: No acute issues. Miscellaneous: No acute issues. Prophylaxis: Heparin, famotidine Diet: Tube feeds Critical care time spent: 45 minutes Quality Stroke Does the patient have a stroke diagnosis?: No VTE Prior VTE?: No VTE Risk Level:: Medical - moderate - high VTE Device Contraindication: Treatment Not Indicated VTE Drug Contraindication: N/A - Med Ordered
[2024-08-29] MEDS: Norepinephrine Bitartrate/D5W 8 MG/250 ML PLAST..BAG 10.92 MG IVCONT (09:41)
[2024-08-29 11:30] LABS: Glucose, Whole Blood 102 mg/dL (60-115)
[2024-08-29 18:05] LABS: Glucose, Whole Blood 111 mg/dL (60-115)
[2024-08-29] MEDS: traZODone HCL 50 MG TABLET PO (21:01)
[2024-08-30] VITALS (15 sets, daily range): BP systolic 99–140; BP diastolic 49–92; PULSE 59–81; RESP 15–27; TEMP 36.3–37.1; O2SAT 91–95; BMI 39.2
[2024-08-30] MEDS: Morphine Sulfate 2 MG/ML CARTRIDGE 1 MG IVPUSH (00:01)
[2024-08-30] MEDS: Heparin Sodium,Porcine 5,000 UNIT/ML VIAL 5000 UNIT SUBCUT ×3 (03:02→18:26)
[2024-08-30] MEDS: methylPREDNISolone Sod Succ 40 MG/ML VIAL IVPUSH (03:02)
[2024-08-30] MEDS: Ampicillin Sodium/Sulbactam Na 3 GM in 0.9 % Sodium Chloride 100 ML IV (04:20)
[2024-08-30 05:10] LABS: VBG HCO3 21 mmol/L (22-26); VBG pCO2 27 mmHg; VBG pO2 75 mmHg
[2024-08-30 05:19] LABS: Venous Blood Gas Refer to POC result
[2024-08-30 05:48] LABS: MANUAL DIFF FLAG NO
[2024-08-30 05:51] LABS: Basophils Percent Auto 0.1 % (0-2); Hematocrit 42.2 % (42.0-52.0); Imm Gran Abs Auto 0.07 X10*3/uL (0.00-0.03); Imm Gran Pct Auto 0.5 % (0.0-0.4); Lymphocytes Absolute Auto 1.3 X10*3/uL (1.2-4.9); Lymphocytes Percent Auto 10.2 % (20-40); Mean Corpuscular HGB Conc 33.2 g/dl (31.0-36.0); Mean Corpuscular Hemoglobin 30.6 pg (27.0-33.0); Mean Corpuscular Volume 92.3 fL (80.0-98.0); Mean Platelet Volume 9.6 fL (9.4-12.4); Monocytes Absolute Auto 0.8 X10*3/uL (0.1-1.2); Monocytes Percent Auto 6.3 % (2-11); Neutrophils Absolute Auto 10.7 x10*3/uL (2.0-8.3); Neutrophils Percent Auto 82.9 % (45-73); Platelet Count 281 X10*3/uL (160-400); Red Blood Count 4.57 X10*6/uL (4.60-5.80); Red Cell Distribution Width 13.1 % (11.0-16.0); White Blood Count 12.9 X10*3/uL (4.8-10.8)
[2024-08-30 06:06] LABS: Albumin Level 3.7 g/dL (3.5-5.0); Anion Gap 15 (12-20); Blood Urea Nitrogen 20 mg/dL (9-16); Calcium 9.3 mg/dL (8.4-10.2); Carbon Dioxide 20 mmol/L (22-29); Chloride 108 mmol/L (96-108); Creatinine Clr Calc Pharmacy 138.2; Estimated Glomerular Filt Rate > 60; Glucose Random 103 mg/dL (60-115); Magnesium 2.3 mg/dL (1.6-2.6); Phosphorus 3.5 mg/dL (2.7-4.5); Sodium 139 mmol/L (135-145)
[2024-08-30] MEDS: 0.9 % Sodium Chloride Flush 3 ML SYRINGE IVFLUSH ×3 (07:36→20:57)
[2024-08-30] MEDS: Famotidine/PF 20 MG/2 ML VIAL IVPUSH (07:36)
--- NOTE | 2024-08-30 08:07 | PM.CCPN ---
Subjective Subjective Date of Service: 08/30/24 Critical Care Time (minutes): 35 Comment: extubated, doing well Labs stable Physical Exam Vital Signs: Vital Signs: Last Vital Signs Temp 98.8 F 08/30/24 08:00 Pulse 81 08/30/24 08:00 Resp 27 H 08/30/24 08:00 BP 102/51 L 08/30/24 08:00 Pulse Ox 93 08/30/24 08:00 O2 Del Method Nasal Cannula 08/30/24 08:00 O2 Flow Rate 2 08/30/24 08:00 FiO2 28 08/29/24 14:56 BMI result Body Mass Index 39.2 General: Not in acute distress, ill appearing and tired appearing Nutritional Appearance: well nourished and overweight Eyes: appearance normal, both eyes and all related structures; Alignment and Position: alignment normal and position normal Neck: No lymphadenopathy, no thyromegaly Resp: bilateral air entry equal, occasional added sounds present Cardio: Regular rate, regular rhythm; Heart sounds: S1 normal heart sound present and S2 normal heart sound present GI: soft, nontender, no guarding, no hepatosplenomegaly : bladder normal to inspection, bladder normal to palpation, no renal angle tenderness Skin: no rashes or lesions noted and elasticity normal Neuro: Sedated, no focal deficits Objective Data Labs 08/30/24 05:02 08/30/24 05:02 Labs: Laboratory Results - last 24 hr 08/29/24 08/29/24 08/30/24 11:23 17:55 04:58 WBC RBC Hgb Hct MCV MCH MCHC RDW Plt Count MPV Immature Gran % (Auto) Neut % (Auto) Lymph % (Auto) [place] % (Auto) Eos % (Auto) Baso % (Auto) Lymph # (Auto) [place] # (Auto) Eos # (Auto) Baso # (Auto) Abs Immat Gran (auto) Absolute Neuts (auto) Absolute Nucleated RBC Nucleated RBC % (auto) VBG pH 7.50 H VBG pCO2 27 VBG pO2 75 VBG HCO3 21 L VBG O2 Saturation 96.0 VBG Base Excess 0.0 Sodium Potassium Chloride Carbon Dioxide Anion Gap BUN Creatinine Estim Creat Clear Calc Estimated GFR POC Glucose 102 111 Random Glucose Calcium Phosphorus Magnesium Albumin 08/30/24 05:02 WBC 12.9 H RBC 4.57 L Hgb 14.0 Hct 42.2 MCV 92.3 MCH 30.6 MCHC 33.2 RDW 13.1 Plt Count 281 MPV 9.6 Immature Gran % (Auto) 0.5 H Neut % (Auto) 82.9 H Lymph % (Auto) 10.2 L [place] % (Auto) 6.3 Eos % (Auto) 0.0 Baso % (Auto) 0.1 Lymph # (Auto) 1.3 [place] # (Auto) 0.8 Eos # (Auto) 0.0 Baso # (Auto) 0.0 Abs Immat Gran (auto) 0.07 H Absolute Neuts (auto) 10.7 H Absolute Nucleated RBC 0.000 Nucleated RBC % (auto) 0.0 VBG pH VBG pCO2 VBG pO2 VBG HCO3 VBG O2 Saturation VBG Base Excess Sodium 139 Potassium 4.0 Chloride 108 Carbon Dioxide 20 L Anion Gap 15 BUN 20 H Creatinine 0.82 Estim Creat Clear Calc 138.2 Estimated GFR > 60 POC Glucose Random Glucose 103 Calcium 9.3 Phosphorus 3.5 Magnesium 2.3 Albumin 3.7 Microbiology Microbiology Results: Microbiology 08/27/24 14:41 Blood - Venous Blood Culture - Preliminary No growth after 48 hours. 08/27/24 10:15 Blood - Venous Blood Culture - Preliminary No growth after 48 hours. Progress Note: A&P Assessment and plan (1) MDD (major depressive disorder), recurrent episode, moderate: Status: Acute (2) Suicidal ideation: Status: Acute (3) Alcohol use disorder, moderate, dependence: Status: Acute (4) Swelling of tonsil: Status: Acute (5) Respiratory failure requiring intubation: Status: Acute (6) Obstructive sleep apnea treated with continuous positive airway pressure (CPAP): Status: Acute Plan Acute respiratory failure: Secondary to airway obstruction from enlarged tonsils. Apparently patient had enlarged tonsils for some time now, had seen a ENT surgeon last year and was upon for conservative management due to prolonged healing from tonsillectomy at this age. Unclear trigger for further tonsillar enlargement, improved with steroids. We will consult ENT again 2nd opinion will change solumedol to PO prednisone taper will change amp-sulbactum to PO Augmentin. will transfer to floor Quality Stroke Does the patient have a stroke diagnosis?: No VTE Prior VTE?: No VTE Risk Level:: Medical - moderate - high VTE Device Contraindication: Treatment Not Indicated VTE Drug Contraindication: N/A - Med Ordered
[2024-08-30 08:50] LABS: Complement C3 167 mg/dL (82-185)
--- NOTE | 2024-08-30 09:54 | MHC.CM.PN ---
Pt will be transferred to the medical floor for continued care. Met w/pt to discuss d/c plan - he states he lives w/family and they can assist w/transportation. Pt is inquiring on his need to return to : pt will need to be screened by psych once he is transferred. Pt states he in the process of finding a PCP. Reminded pt to call [facility] member services for assistance. CM to follow
[2024-08-30] MEDS: predniSONE 20 MG TABLET 40 MG PO (11:16)
[2024-08-30] MEDS: Amoxicillin/Potassium Clav 875 MG TABLET PO ×2 (11:18→20:57)
--- NOTE | 2024-08-30 17:31 | PM.EVENT ---
Event Note Date of Service: 08/30/24 Event Note: I personally saw and examined the patient, he is doing well. No swelling in the throat, no trouble breathing or eating. No SI/HI. Request care team consult Time Spent With Patient Time: Total time managing care of this patient today ____ minutes.
[2024-08-30] MEDS: traZODone HCL 50 MG TABLET PO (20:57)
[2024-08-30] MEDS: clonazePAM 1 MG TABLET PO (21:08)
[2024-08-31 00:08] VITALS: PULSE 89; RESP 26; O2SAT 93
[2024-08-31] MEDS: Dicyclomine HCl 10 MG CAPSULE PO ×2 (02:38→07:23)
[2024-08-31] MEDS: Heparin Sodium,Porcine 5,000 UNIT/ML VIAL 5000 UNIT SUBCUT ×2 (02:39→11:03)
[2024-08-31 04:49] VITALS: BP 124/82; PULSE 79; RESP 18; TEMP 36.8; O2SAT 93
[2024-08-31] MEDS: Magnesium Hydrox/Alum Hydrox 30 ML ORAL.SUSP PO (05:09)
[2024-08-31] MEDS: Omeprazole 20 MG CAPSULE.DR PO (06:19)
[2024-08-31 07:43] VITALS: BP 118/66; PULSE 82; RESP 18; TEMP 36.7; O2SAT 94
[2024-08-31] MEDS: predniSONE 20 MG TABLET 40 MG PO (08:27)
[2024-08-31] MEDS: 0.9 % Sodium Chloride Flush 3 ML SYRINGE IVFLUSH (08:27)
[2024-08-31] MEDS: Simethicone 80 MG TAB.CHEW PO (08:27)
[2024-08-31] MEDS: Amoxicillin/Potassium Clav 875 MG TABLET PO (08:27)
--- NOTE | 2024-08-31 10:55 | P.DS_ITS ---
DS: Providers Provider Date of Service: 08/31/24 Date of admission: 08/26/24 10:42 Date of discharge: 09/30/24 Primary care physician: Dheeraj Torres III, MD Consults: 08/31/24 07:59 Consult to Care Team Routine Comment: Reason for consultation: Ready for discharge DS: Diagnosis Discharge Diagnosis (1) MDD (major depressive disorder), recurrent episode, moderate: Status: Acute (2) Suicidal ideation: Status: Acute (3) Alcohol use disorder, moderate, dependence: Status: Acute (4) Swelling of tonsil: Status: Acute (5) Respiratory failure requiring intubation: Status: Acute (6) Obstructive sleep apnea treated with continuous positive airway pressure (CPAP): Status: Acute DS: Summary Hospital Course Hospital Course: A 44-year-old gentleman was initially admitted to the psychiatry service for worsening depression, alcohol withdrawal, and suicidal ideation. While on the psychiatric unit, he experienced episodes of respiratory difficulty accompanied by unusual snoring sounds, decreased oxygen saturation, and rapid response activations on two occasions. These events were initially attributed to behavioral causes, as a similar episode in the emergency department resolved without intervention when the patient was distracted. However, the patient experienced a third rapid response on the psychiatric unit, presenting with significant breathing difficulty, hyperventilation, tongue retraction, inability to speak, and oxygen saturation dropping into the 70s. He was administered Benadryl and Ativan for a suspected dystonic reaction to Zyprexa, but these measures were ineffective. A code blue was subsequently called, and the patient was intubated. During intubation, tonsillar swelling was identified as the cause of his airway obstruction and hypoxia. He was treated empirically with antibiotics and steroids, which led to a good recovery and successful extubation. The patient has since remained symptom-free and was transferred to the medical floor, where he continues to do well. He is expected to be discharged to complete his course of steroids and antibiotics. Regarding his psychiatric condition, the CARE team has assessed him and determined he is safe for discharge. He denies any current thoughts of self-harm and has been provided with outpatient resources for follow-up care. Time Attestation Discharge Coordination Time (in mins): 35 Quality: Safe Use of Opioids Does Pt have an Active Cancer Diagnosis on the Problem List?: No Quality: Stroke Does the patient have a stroke diagnosis?: No Physical Exam Vital Signs: Vital Signs: Last Vital Signs Temp 98.1 F 08/31/24 07:43 Pulse 82 08/31/24 07:43 Resp 18 08/31/24 07:43 BP 118/66 08/31/24 07:43 Pulse Ox 94 08/31/24 07:43 O2 Del Method CPAP 08/31/24 07:43 O2 Flow Rate 2 08/30/24 11:00 FiO2 28 08/29/24 14:56 BMI result Body Mass Index 39.2 General: AO X 3, no acute distress HEENT:normal oropharynx exam Resp: CTA bilateral CVS: S1,S2,RRR GI: +BS, NT, no distention Skin: No rash Neuro: motor grossly intact Psych: appropriate affect, no SI/ no HI DS: Data Data Completed and Pending Completed studies during hospitalization [Text1]: Procedures Detoxification Services for Substance Abuse Treatment (07/10/24) Excision of Stomach, Percutaneous Endoscopic Approach, Vertical (01/03/21) Repair Diaphragm, Percutaneous Endoscopic Approach (01/03/21) Labs on day of discharge: Preliminary micro results at discharge 08/27/24 14:41 Blood Culture - Preliminary Blood - Venous No growth after 48 hours. 08/27/24 10:15 Blood Culture - Preliminary Blood - Venous No growth after 48 hours. Discharge Plan Discharge Anticipated Discharge Date/Time: 08/31/24 10:54 Patient Disposition: Home, Self-Care Discharge Diagnosis: Upper airway obstruction, tonsilar edema Referrals: Dheeraj Torres III, MD [Primary Care Provider] - 1 Week Discharge Medications: New amoxicillin-pot clavulanate 875-125 mg Tablet 1 tab PO Q12H Qty: 7 0RF prednisone 10 mg tablet 30 mg PO DAILY 3 Days Qty: 9 0RF Continued lamotrigine 100 mg tablet 100 mg PO BID Qty: 60 0RF trazodone 50 mg Tablet 50 mg PO BEDTIME PRN (Reason: Insomnia) Qty: 30 0RF naltrexone 50 mg Tablet 50 mg PO DAILY Qty: 30 0RF clonazepam 1 mg tablet 1 mg PO BID PRN (Reason: Anxiety) zolpidem 10 mg tablet 10 mg PO BEDTIME PRN (Reason: Insomnia) Caplyta 42 mg capsule 42 mg PO DAILY olanzapine 10 mg tablet 20 mg PO BEDTIME duloxetine 30 mg capsule,delayed release(DR/EC) 60 mg PO DAILY acetaminophen 325 mg Tablet 650 mg PO Q6H PRN (Reason: Pain, Mild (Pain Scale 1-3)) Qty: 0 0RF ipratropium-albuterol 0.5 mg-3 mg(2.5 mg base)/3 mL Solution For Nebulization 3 ml inhalation Q4H PRN (Reason: Shortness Of Breath/Wheezing) Qty: 0 0RF trazodone 50 mg Tablet 50 mg PO BEDTIME MRX1 PRN (Reason: Insomnia) Qty: 0 0RF olanzapine 5 mg Tablet 5 mg PO TID PRN (Reason: agitation) Qty: 0 0RF nicotine 21 mg/24 hr Patch 24 Hour 21 mg transdermal DAILY PRN (Reason: nicotine cravings) Qty: 0 0RF folic acid 1 mg Tablet 1 mg PO DAILY Qty: 0 0RF hydroxyzine HCl 25 mg Tablet 25 mg PO Q6H PRN (Reason: Anxiety) Qty: 0 0RF dexamethasone sodium phosphate 4 mg/mL Solution 4 mg IVPUSH TID Qty: 0 0RF lorazepam 1 mg Tablet 1 mg PO Q2H PRN (Reason: CIWA 6-10) Qty: 0 0RF lorazepam 1 mg Tablet 2 mg PO Q2H PRN (Reason: CIWA 11 and above) Qty: 0 0RF thiamine mononitrate (vit B1) 100 mg Tablet 100 mg PO DAILY Qty: 0 0RF No Action amoxicillin-pot clavulanate 875-125 mg tablet 1 tab PO BID 8 Days Qty: 16 0RF prednisone 20 mg tablet 40 mg PO DAILY 4 Days Qty: 8 0RF acetaminophen 500 mg capsule 1,000 mg PO TID PRN (Reason: pain) Qty: 14 0RF Discharge Orders: Discharge Order (Routine); Ordered 08/31/24 Ordered By: Rehan Jennings Diet: Advance to usual diet Activity on Discharge: As tolerated Stand Alone Forms: Patient Portal Discharge page Print Language: Vietnamese Care Plan Goals: recovery throat swelling and depression with SI Health Concerns: throat swelling depression with suicidal thought Plan of Treatment: Take Augmentin and Prednisone as directed continue taking all your medications if you notice any swelling in your throat or having any sings of difficulty breathing, call 911 immediately Follow up with your Doctor in a week, call for appointment Call crisis if you have any thought of hurting yourself Assessment: see above Discharge Date/Time: 08/31/24 13:35
--- NOTE | 2024-08-31 11:34 | MHC.CM.PN ---
DP: PT HAS BEEN MEDICALLY CLEARED AND CLEARED BY CARE TERM FOR DC HOME, NO SERVICES. PT HAS OWN RIDE HOME.
[2024-09-02 18:07] LABS: Complement Total CH50 >60 U/mL (31-60)
[2024-09-07 17:43] LABS: C1Q Complement Component 6.7 mg/dL (5.0-8.6)
== END 2024-08-31 13:35 | disposition home or self-care (01) | DRG 115 ==
LOC: HO.ICU 08-30 10:12 → HO.S3 08-30 11:06
PROVIDERS: Internal Medicine Pulmonary Disease; Registered Nurse Community Health; Admitting Provider Hospitalist; PCP Internal Medicine; Visit Provider Internal Medicine
DX: J35.1 Hypertrophy of tonsils (principal); F33.1 Major depressive disorder, recurrent, moderate; J98.8 Other specified respiratory disorders; G47.33 Obstructive sleep apnea (adult) (pediatric); F10.20 Alcohol dependence, uncomplicated; Z20.822 Contact with and (suspected) exposure to COVID-19; Z79.899 Other long term (current) drug therapy
CPT/HCPCS: 0241U; 36415; 36600; 71045; 80048; 80053; 82040; 82803; 82947; 83735; 84100; 85025; 86160; 86162; 87040; 93005; 94002; 94003; 94660; 94799; C1758; J0295; J1644; J2250; J2251; J2270; J2704; J2919; J3010; J3480; S9485

== ENCOUNTER 2024-08-26 10:42 | Outpatient (BNV) | payer OTHER, SELFPAY | END 2024-08-27 12:51 | PROVIDERS: Admitting Provider Hospitalist; Visit Provider Internal Medicine Cardiovascular Disease | DX: R00.0 Tachycardia, unspecified (principal) | CPT/HCPCS: 93010 ==

== ENCOUNTER → 2024-08-26 10:42 | Outpatient (BNV) | payer OTHER, SELFPAY | PROVIDERS: Admitting Provider Hospitalist; Visit Provider Registered Nurse Community Health | DX: J96.90 Respiratory failure, unspecified, unspecified whether with hypoxia or hypercapnia (principal); J35.1 Hypertrophy of tonsils; F33.1 Major depressive disorder, recurrent, moderate; R45.851 Suicidal ideations | CPT/HCPCS: 99291; 99499 ==

== ENCOUNTER → 2024-08-26 10:42 | Outpatient (BNV) | payer OTHER, SELFPAY | PROVIDERS: Admitting Provider Hospitalist; Visit Provider Internal Medicine Pulmonary Disease | DX: J96.90 Respiratory failure, unspecified, unspecified whether with hypoxia or hypercapnia (principal); J35.1 Hypertrophy of tonsils; R45.851 Suicidal ideations; F10.20 Alcohol dependence, uncomplicated | CPT/HCPCS: 99291 ==

== ENCOUNTER → 2024-08-26 10:42 | Outpatient (BNV) | payer OTHER, SELFPAY | PROVIDERS: Admitting Provider Hospitalist; PCP Internal Medicine; Visit Provider Internal Medicine | DX: J96.90 Respiratory failure, unspecified, unspecified whether with hypoxia or hypercapnia (principal); J35.1 Hypertrophy of tonsils; F33.1 Major depressive disorder, recurrent, moderate; R45.851 Suicidal ideations; F10.20 Alcohol dependence, uncomplicated; G47.33 Obstructive sleep apnea (adult) (pediatric); Z99.89 Dependence on other enabling machines and devices | CPT/HCPCS: 99239; 99499 ==

== ENCOUNTER 2024-09-05 02:11 | Emergency (ER) | payer OTHER, SELFPAY ==
--- NOTE | 2024-09-05 | ECG_ITS ---
Test Reason : TACARDYA Blood Pressure : / mmHG Vent. Rate : 118 BPM Atrial Rate : 118 BPM P-R Int : 138 ms QRS Dur : 090 ms QT Int : 318 ms P-R-T Axes : 045 052 009 degrees QTc Int : 445 ms Sinus tachycardia Possible Left atrial enlargement T wave abnormality, consider inferior ischemia Abnormal ECG When compared with ECG of 27-AUG-2024 12:53, T wave inversion now evident in Inferior leads Referred By: Generic ED Physician Electronically Signed By:MEHDI VARELA MD
--- NOTE | ~2024-09-05 | CT_ITS ---
EXAMINATION: CT SOFT TISSUE NECK WITH CONTRAST CLINICAL INFORMATION: Right-sided pain and difficulty swallowing. COMPARISON: CT chest 08/26/2024. CT soft tissue neck 08/26/2024. TECHNIQUE: Following the intravenous administration of 80 mL of Omnipaque 350 intravenous contrast, helical imaging was performed in the axial plane with generation of coronal and sagittal reformatted images. This CT examination was performed using dose optimization techniques as appropriate, variously including the following: *Automated exposure control *Adjustment of mA and/or kV according to patient size (this includes techniques or standardized protocols for targeted exams where dose is matched to indication/reason for exam; i.e. extremities or head) *Use of iterative reconstruction technique DLP: 986 mGy-cm FINDINGS: Bilateral diffuse prominence of the palatine tonsils is present in a symmetric configuration. No peritonsillar fluid collections or inflammatory changes noted. No focal lesions of the tonsils noted to suggest the presence of phlegmon or abscess. No retropharyngeal or prevertebral fluid collections or inflammatory changes noted. Minimal amount of occlusive eccentric calcific plaque is present in the left carotid bulb. No carotid space inflammatory changes noted. Normal intraluminal opacification within the internal jugular veins. No cervical lymphadenopathy. Within the incidentally visualized intracranial structures no focal parenchymal lesions of brain noted. The visualized ventricles and sulci are normal in size and configuration. Normal appearance of the orbits and globes. No significant opacification of the visualized paranasal sinuses, mastoid air cells and middle ear cavities. No arthropathic changes of the temporomandibular joints. Normal appearance of the parotid, some lingual and submandibular glands. No subglottic lesions. Normal appearance of the thyroid. No lymphadenopathy noted in the incidentally visualized superior mediastinum. Lung apices are clear. Normal appearance of the incidentally visualized transverse aorta. Chronic appearing sclerosis and thickening of the anterior arch of C1 is present. Chronic-appearing irregularity of the anterior margin of the base of C2 is present. Findings project anteriorly by approximately 4 mm and results in mild mass effect upon the posterior pharyngeal wall. CT/CT soft tissue neck w IV con IMPRESSION: *Bilateral prominence of the palatine tonsils suspicious for pharyngitis. No evidence of tonsillar or peritonsillar phlegmon/abscess. No retropharyngeal fluid collections. No peritonsillar inflammatory changes. Electronically signed by: Trenton Max MD 09/05/2024 04:51 AM GEOFF BRIAN
[2024-09-05 02:18] VITALS: BP 143/86; PULSE 132; RESP 20; TEMP 36.7; O2SAT 94; BMI 42.0
[2024-09-05 02:42] LABS: IDNOW Serial# 6674DD1D; Strep A Nucleic Acid Negative (Negative)
--- NOTE | 2024-09-05 02:48 | MHC.EDTECH ---
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
[2024-09-05 02:49] LABS: MANUAL DIFF FLAG NO
--- NOTE | 2024-09-05 02:49 | PC.NURSE ---
pt brought into ED room 11 after triage, reporting right sided neck/throat sweling, difficulty to swallow, says it feels like it did last time he was here prior to intubation. pt speaking clear full sentences, answering all questions appropriately. O2 94-96% on room air. #20g iv line placed in RFA, labs collected and sent to lab. ekg done, pt on supervisor sewing room. waiting to be seen by ED provider. Pt within view of nurses station.
[2024-09-05 02:52] LABS: Basophils Absolute Auto 0.1 X10*3/uL (0.0-0.2); Basophils Percent Auto 0.5 % (0-2); Eosinophils Absolute Auto 0.1 X10*3/uL (0.0-0.4); Hematocrit 43.9 % (42.0-52.0); Hemoglobin 14.8 g/dl (14.0-18.0); Imm Gran Abs Auto 0.18 X10*3/uL (0.00-0.03); Imm Gran Pct Auto 1.5 % (0.0-0.4); Lymphocytes Absolute Auto 2.8 X10*3/uL (1.2-4.9); Lymphocytes Percent Auto 23.5 % (20-40); Mean Corpuscular HGB Conc 33.7 g/dl (31.0-36.0); Mean Corpuscular Hemoglobin 30.6 pg (27.0-33.0); Mean Corpuscular Volume 90.9 fL (80.0-98.0); Mean Platelet Volume 8.9 fL (9.4-12.4); Monocytes Absolute Auto 0.8 X10*3/uL (0.1-1.2); Neutrophils Absolute Auto 7.9 x10*3/uL (2.0-8.3); Neutrophils Percent Auto 66.5 % (45-73); Platelet Count 316 X10*3/uL (160-400); Red Blood Count 4.83 X10*6/uL (4.60-5.80); Red Cell Distribution Width 13.2 % (11.0-16.0); White Blood Count 11.9 X10*3/uL (4.8-10.8)
[2024-09-05 03:06] LABS: Alanine Aminotransferase 65 U/L (0-40); Albumin Level 3.8 g/dL (3.5-5.0); Alkaline Phosphatase 83 U/L (39-117); Anion Gap 14 (12-20); Aspartate Amino Transferase 35 U/L (5-37); Bilirubin Total 0.2 mg/dL (0.0-1.0); Blood Urea Nitrogen 8 mg/dL (9-16); Calcium 8.9 mg/dL (8.4-10.2); Carbon Dioxide 26 mmol/L (22-29); Chloride 109 mmol/L (96-108); Creatinine Clr Calc Pharmacy 138.9; Estimated Glomerular Filt Rate > 60; Glucose Random 100 mg/dL (60-115); Sodium 145 mmol/L (135-145); Total Protein 7.2 g/dL (6.5-8.0)
[2024-09-05 03:11] LABS: Influenza A PCR NEGATIVE (Negative); Influenza B PCR NEGATIVE (Negative); Resp Syncy Virus RNA Qual PCR NEGATIVE (Negative); SARS COV2 PCR INHOUSE NEGATIVE (Negative)
--- NOTE | 2024-09-05 03:43 | ED_ITS ---
HPI - General Adult General Chief complaint: General Medical Stated complaint: sore throat Time Seen by Provider: 09/05/24 03:43 History of Present Illness ED Provider: Bria MARIA narrative: The patient is a 44-year-old male with a history of depression, alcohol use disorder, and obesity. He also has a history of sleep apnea. He has had a gastric sleeve gastrectomy. The patient was recently in the hospital. He had presented to the hospital on August 24 complaining of depression. He was kept in the hospital for psychiatric placement. While waiting in the hospital he seemed to develop difficulty breathing that was initially thought to be related to his sleep apnea. He was admitted to the psychiatric unit on August 26 but while on the unit he became profoundly short of breath and required intubation. A CT scan of the soft tissues of the neck showed swelling of the palatine tonsils and adenoids and the posterior nasopharynx resulting in upper airway obstruction. The patient was admitted to the intensive care unit and put on steroids and antibiotics. He was discharged on August 31 to finished a course of prednisone and Augmentin. The patient says he finished the antibiotics 2 days ago. Since stopping the antibiotics he has developed pain on the right side of his neck that he says feels like the beginning of the same problem that he had before his breathing got very bad. He has pain in the right side of his neck. He says that he has difficulty swallowing. He does not feel short of breath. He has not had a fever. Related Data Home Medications ?Medication ?Instructions ?Recorded ?Confirmed clonazepam 1 mg tablet 1 mg PO BID PRN Anxiety 08/24/24 08/26/24 duloxetine 30 mg capsule,delayed 60 mg PO DAILY 08/24/24 08/26/24 release lumateperone 42 mg capsule 42 mg PO DAILY 08/24/24 08/26/24 (Caplyta) olanzapine 10 mg tablet 20 mg PO BEDTIME 08/24/24 08/26/24 zolpidem 10 mg tablet 10 mg PO BEDTIME PRN Insomnia 08/24/24 08/26/24 Previous Rx's ?Medication ?Instructions ?Recorded lamotrigine 100 mg tablet 100 mg PO BID #60 tabs 07/21/24 naltrexone 50 mg tablet 50 mg PO DAILY #30 tabs 07/21/24 trazodone 50 mg tablet 50 mg PO BEDTIME PRN Insomnia #30 07/21/24 tabs acetaminophen 325 mg tablet 650 mg (2 x 325 mg) PO Q6H PRN 08/26/24 Pain, Mild (Pain Scale 1-3) #0 tabs dexamethasone sodium phosphate 4 4 mg IVPUSH TID #0 mL 08/26/24 mg/mL injection solution folic acid 1 mg tablet 1 mg PO DAILY #0 tabs 08/26/24 hydroxyzine HCl 25 mg tablet 25 mg PO Q6H PRN Anxiety #0 tabs 08/26/24 ipratropium 0.5 mg-albuterol 3 mg 3 ml inhalation Q4H PRN Shortness 08/26/24 (2.5 mg base)/3 mL nebulization Of Breath/Wheezing #0 mL soln lorazepam 1 mg tablet 1 mg PO Q2H PRN CIWA 6-10 #0 tabs 08/26/24 lorazepam 1 mg tablet 2 mg (2 x 1 mg) PO Q2H PRN CIWA 11 08/26/24 and above #0 tabs nicotine 21 mg/24 hr daily 21 mg transdermal DAILY PRN 08/26/24 transdermal patch nicotine cravings #0 ea olanzapine 5 mg tablet 5 mg PO TID PRN agitation #0 tabs 08/26/24 thiamine mononitrate (vit B1) 100 100 mg PO DAILY #0 tabs 08/26/24 mg tablet trazodone 50 mg tablet 50 mg PO BEDTIME MRX1 PRN Insomnia 08/26/24 #0 tabs amoxicillin 875 mg-potassium 1 tab PO Q12H #7 tabs 08/31/24 clavulanate 125 mg tablet prednisone 10 mg tablet 30 mg (3 x 10 mg) PO DAILY 3 days 08/31/24 #9 tabs acetaminophen 500 mg capsule 1,000 mg (2 x 500 mg) PO TID PRN 09/05/24 pain #14 caps amoxicillin 875 mg-potassium 1 tab PO BID 8 days #16 tabs 09/05/24 clavulanate 125 mg tablet prednisone 20 mg tablet 40 mg (2 x 20 mg) PO DAILY 4 days 09/05/24 #8 tabs Allergies Allergy/AdvReac Type Severity Reaction Status Date / Time Seasonal Allergies Allergy Mild sinus Verified 09/05/24 02:20 ambien AdvReac Agitated Uncoded 08/27/24 09:00 Review of Systems 2 Review of Systems: Yes all other systems are reviewed and are negative [facility] Past Medical History Medical History (Updated 09/05/24 @ 06:35 by Errol Fraser MD) Intestinal malabsorption following gastrectomy BMI 33.0-33.9,adult Obesity (BMI 30-39.9) COVID-19 vaccine administered BMI 38.0-38.9,adult Obesity BMI 39.0-39.9,adult Vitamin D deficiency Body mass index (BMI) of 40.1 to 44.9 in adult Helicobacter pylori (H. pylori) infection Hypertriglyceridemia Obstructive sleep apnea treated with continuous positive airway pressure (CPAP) Shortness of breath Preoperative examination Morbid obesity due to excess calories Surgical History (Updated 09/03/24 @ 00:02 by Louis Hawthorne) History of repair of hiatal hernia S/P laparoscopic sleeve gastrectomy Family History Family History Mother Diabetes Father Prostate cancer Brother Diabetes Sister Asthma Sister Asthma Son No problems noted. Daughter Autism Social History Social History Household Members: Family Household Members Other:: MOTHER Housing: House Are you a primary day care home mother to a significant other at home: No Do you presently have visiting nurse or other home services: No Alcohol intake: current Alcohol intake frequency: does not drink Alcohol type: hard liquor Comment: 1:1 sitter Patient Tobacco Use Status: Tobacco use Unknown Tobacco use type: Cigarette Cigarette Packs Per Day: 0.5 Cigarettes Per Day: 10.0 Smoked in Last 30 Days: Yes e-Cigarette/Vaping Use: Never Used Second Hand Smoke Exposure: Yes Use of substances other than those prescribed or required for medical reasons: No Substance Use Type: Crack/Cocaine and Marijuana Advance Directives: No Do you have a plan to hurt others: No Plan service: No Current occupational status: employed Sexual orientation: Straight/Heterosexual Physical Exam ED Vital Signs: Vital Signs - 24 hr 09/05/24 02:18 09/05/24 03:47 09/05/24 06:20 Temperature 98.0 F 98.5 F 98.2 F Pulse Rate 132 H 115 H 98 Respiratory Rate 20 14 16 Blood Pressure 143/86 H 119/71 99/54 L Pulse Oximetry 94 100 94 Oxygen Delivery Method Room Air Room Air Room Air 09/05/24 06:53 Temperature 98.2 F Pulse Rate 98 Respiratory Rate 16 Blood Pressure 99/54 L Pulse Oximetry 94 Oxygen Delivery Method Room Air BMI result Body Mass Index 42.0 Const Other: The patient is a somewhat chronically ill looking 44-year-old. His BMI is 42. He does not seem in any respiratory distress and he does not seem to be in obvious pain. He says that he has trouble swallowing but he seems to be handling his secretions without difficulty. His voice does not seem to be an obvious hot potato voice. HENMT Other: Face is symmetrical. The posterior pharynx reveals bilateral large tonsils and a slightly edematous uvula. There is some scattered whitish exudate across the posterior pharynx. No soft palate swelling or deformity. No asymmetry. No trismus. Eyes General: appearance normal, both eyes and all related structures Eyelids: Yes eyelids normal Conjunctivae: conjunctivae normal Pupils: Equal, round and reactive pupils present EOM: EOMs intact bilaterally Neck Other: I do not appreciate any discrete lymphadenopathy. Resp Effort & Inspection: normal respiratory effort Auscultation: clear to auscultation bilaterally Cardio Rate: regular rate Rhythm: regular rhythm Heart sounds: S1 normal heart sound present and S2 normal heart sound present Neuro Cranial nerves: Yes Equal, round and reactive pupils present Medications Administered Discontinued Medications Generic Name Dose Route Start Last Admin Trade Name Edinson PRN Reason Stop Dose Admin Amoxicillin/Clavulanate Potassium 875 mg 09/05/24 06:34 09/05/24 06:51 Amoxicillin/Potassium Clav 875 Mg Tablet PO 09/05/24 06:35 875 mg ONCE ONE Administration Dexamethasone Sodium Phosphate 10 mg 09/05/24 03:51 09/05/24 04:17 Dexamethasone Sod Phosphate 10 Mg/Ml Vial IVPUSH 09/05/24 03:52 10 mg ONCE ONE Administration Lactated Ringer's 1,000 mls @ 999 mls/hr 09/05/24 04:00 09/05/24 05:41 Lr IV 09/05/24 05:00 Infused .Q1H1M CASSANDRA Infusion Ketorolac Tromethamine 10 mg 09/05/24 03:51 09/05/24 04:17 Ketorolac Tromethamine 15 Mg/Ml Vial IVPUSH 09/05/24 03:52 10 mg ONCE ONE Administration Medical Decision Making Medical Decision Making MDM Narrative: The patient is a 44-year-old male who presents with sore throat. He recently was in the hospital for psychiatric reasons. During that hospitalization he developed difficulty breathing that was thought to be related to his sleep apnea. Ultimately he was intubated and put on antibiotics and steroids because of respiratory difficulty secondary to upper airway obstruction. He was discharged on Augmentin and prednisone. He finished the Augmentin a couple of days ago. Now he feels that he is having pain on the right side of his neck that he worries is a recurrence of the same process he had before. The patient has labs were fairly unremarkable. A CT scan of the soft tissues of the neck today shows some signs of pharyngitis but no signs of acute airway obstruction. The patient was given a dose of IV dexamethasone and ketorolac with improvement in his symptoms. He will be discharged with a prescription for Augmentin and prednisone. He should follow up with his PCP for consideration of re-evaluation by ENT. Lab Data 09/05/24 02:44 09/05/24 02:44 Labs: Lab Results 09/05/24 09/05/24 09/05/24 Range/Units 02:28 02:44 04:24 WBC 11.9 H (4.8-10.8) X10*3/uL RBC 4.83 (4.60-5.80) X10*6/uL Hgb 14.8 (14.0-18.0) g/dl Hct 43.9 (42.0-52.0) % MCV 90.9 (80.0-98.0) fL MCH 30.6 (27.0-33.0) pg MCHC 33.7 (31.0-36.0) g/dl RDW 13.2 (11.0-16.0) % Plt Count 316 (160-400) X10*3/uL MPV 8.9 L (9.4-12.4) fL Immature Gran % (Auto) 1.5 H (0.0-0.4) % Neut % (Auto) 66.5 (45-73) % Lymph % (Auto) 23.5 (20-40) % [place] % (Auto) 7.0 (2-11) % Eos % (Auto) 1.0 (0-4) % Baso % (Auto) 0.5 (0-2) % Lymph # (Auto) 2.8 (1.2-4.9) X10*3/uL [place] # (Auto) 0.8 (0.1-1.2) X10*3/uL Eos # (Auto) 0.1 (0.0-0.4) X10*3/uL Baso # (Auto) 0.1 (0.0-0.2) X10*3/uL Abs Immat Gran (auto) 0.18 H (0.00-0.03) X10*3/uL Absolute Neuts (auto) 7.9 (2.0-8.3) x10*3/uL Absolute Nucleated RBC 0.000 (0.0-0.012) X10*3/uL Nucleated RBC % (auto) 0.0 (0.0-0.2) /100WBC Sodium 145 (135-145) mmol/L Potassium 4.0 (3.3-5.1) mmol/L Chloride 109 H (96-108) mmol/L Carbon Dioxide 26 (22-29) mmol/L Anion Gap 14 (12-20) BUN 8 L (9-16) mg/dL Creatinine 0.82 (0.5-1.4) mg/dL Estim Creat Clear Calc 138.9 Estimated GFR > 60 Random Glucose 100 (60-115) mg/dL Calcium 8.9 (8.4-10.2) mg/dL Total Bilirubin 0.2 (0.0-1.0) mg/dL AST 35 (5-37) U/L ALT 65 H (0-40) U/L Alkaline Phosphatase 83 (39-117) U/L C-Reactive Protein 1.02 H (< or = 0.50) mg/dL Total Protein 7.2 (6.5-8.0) g/dL Albumin 3.8 (3.5-5.0) g/dL Urine Color Yellow Urine Appearance Clear Urine pH 5.5 (5.0-9.0) Ur Specific [place] 1.020 (1.005-1.025) Urine Protein Negative (Neg-Trace) mg/dL Urine Glucose (UA) Negative (Negative) mg/dL Urine Ketones Negative (Negative) mg/dL Urine Blood Negative (Negative) Urine Nitrite Negative (Negative) Ur Leukocyte Esterase Trace H (Negative) Urine RBC 0-2 (0-2) /HPF Urine WBC 0-5 (0-5) /HPF Ur Squamous Epith Cells 0-2 (0-2) /HPF Urine Bacteria None Seen (None Seen) Hyaline Casts 0-2 (0-2) /LPF Ethyl Alcohol 189 mg/dL Influenza Type A (PCR) NEGATIVE (Negative) Influenza Type B (PCR) NEGATIVE (Negative) RSV RNA Qual (PCR) NEGATIVE (Negative) SARS-CoV-2 RNA (RT-PCR) NEGATIVE (Negative) S. pyogenes GrpA RAS Negative (Negative) Discharge Plan Discharge Clinical Impression: Pharyngitis Patient Disposition: Home, Self-Care Additional Instructions: You have been started on another course of antibiotics and prednisone to help with your sore throat. Please take your next dose of the antibiotic this evening. After that take 2 times a day, approximately every 12 hours. Take 40 mg of prednisone this afternoon on Friday. After that take this medication once a day until done. I have sent a prescription for acetaminophen (Tylenol) which you may use up to 3 times a day as needed for pain. Please follow up soon with your regular doctor. Continue your regular medications. Return to the emergency room if you feel significantly worse. Prescriptions: New amoxicillin-pot clavulanate 875-125 mg tablet 1 tab PO BID 8 Days Qty: 16 0RF prednisone 20 mg tablet 40 mg PO DAILY 4 Days Qty: 8 0RF acetaminophen 500 mg capsule 1,000 mg PO TID PRN (Reason: pain) Qty: 14 0RF No Action amoxicillin-pot clavulanate 875-125 mg Tablet 1 tab PO Q12H Qty: 7 0RF prednisone 10 mg tablet 30 mg PO DAILY 3 Days Qty: 9 0RF lamotrigine 100 mg tablet 100 mg PO BID Qty: 60 0RF trazodone 50 mg Tablet 50 mg PO BEDTIME PRN (Reason: Insomnia) Qty: 30 0RF naltrexone 50 mg Tablet 50 mg PO DAILY Qty: 30 0RF clonazepam 1 mg tablet 1 mg PO BID PRN (Reason: Anxiety) zolpidem 10 mg tablet 10 mg PO BEDTIME PRN (Reason: Insomnia) Caplyta 42 mg capsule 42 mg PO DAILY olanzapine 10 mg tablet 20 mg PO BEDTIME duloxetine 30 mg capsule,delayed release(DR/EC) 60 mg PO DAILY acetaminophen 325 mg Tablet 650 mg PO Q6H PRN (Reason: Pain, Mild (Pain Scale 1-3)) Qty: 0 0RF ipratropium-albuterol 0.5 mg-3 mg(2.5 mg base)/3 mL Solution For Nebulization 3 ml inhalation Q4H PRN (Reason: Shortness Of Breath/Wheezing) Qty: 0 0RF trazodone 50 mg Tablet 50 mg PO BEDTIME MRX1 PRN (Reason: Insomnia) Qty: 0 0RF olanzapine 5 mg Tablet 5 mg PO TID PRN (Reason: agitation) Qty: 0 0RF nicotine 21 mg/24 hr Patch 24 Hour 21 mg transdermal DAILY PRN (Reason: nicotine cravings) Qty: 0 0RF folic acid 1 mg Tablet 1 mg PO DAILY Qty: 0 0RF hydroxyzine HCl 25 mg Tablet 25 mg PO Q6H PRN (Reason: Anxiety) Qty: 0 0RF dexamethasone sodium phosphate 4 mg/mL Solution 4 mg IVPUSH TID Qty: 0 0RF lorazepam 1 mg Tablet 1 mg PO Q2H PRN (Reason: CIWA 6-10) Qty: 0 0RF lorazepam 1 mg Tablet 2 mg PO Q2H PRN (Reason: CIWA 11 and above) Qty: 0 0RF thiamine mononitrate (vit B1) 100 mg Tablet 100 mg PO DAILY Qty: 0 0RF Referrals: Lindsey Urbina MD [Primary Care Provider] - (pharyngitis) Interventions: ED Discharge Assessment Last Done: 09/05/24 06:53 Discharge Date/Time: 09/05/24 06:54 Print Language: Hong Konger
[2024-09-05 03:47] VITALS: BP 119/71; PULSE 115; RESP 14; TEMP 36.9; O2SAT 100
[2024-09-05 04:10] LABS: C Reactive Protein 1.02 mg/dL (< or = 0.50); Ethanol 189 mg/dL
[2024-09-05] MEDS: Ketorolac Tromethamine 15 MG/ML VIAL 10 MG IVPUSH (04:17)
[2024-09-05] MEDS: dexAMETHasone sod phosphate 10 MG/ML VIAL IVPUSH (04:17)
[2024-09-05] MEDS: Lactated Ringers 1,000 ML 999 ML IV (04:21)
[2024-09-05 04:32] LABS: Appearance Urine Clear; Color Urine Yellow; Glucose Urine UA Negative (Negative); Leukocyte Esterase Urine Trace (Negative); Nitrite Urine Negative (Negative); PH 5.5 (5.0-9.0); UMIC TRIGGER UACC YES; Urine Blood Negative (Negative); Urine Ketones Negative (Negative); Urine Protein Negative (Neg-Trace)
[2024-09-05 04:34] LABS: Bacteria Urine None Seen (None Seen); Hyaline Casts Urine 0-2 /LPF (0-2); RBC Urine 0-2 /HPF (0-2); Squamous Epithelial Cell Urine 0-2 /HPF (0-2); WBC Urine 0-5 /HPF (0-5)
--- NOTE | 2024-09-05 05:58 | PC.NURSE ---
pt now stating he wants to see the care team for discharge planning. says he is homeless and is interested in housing/respite. denies SI/HI but says i am crisis. MD Fraser aware and to bedside for assessment
[2024-09-05 06:20] VITALS: BP 99/54; PULSE 98; RESP 16; TEMP 36.8; O2SAT 94
[2024-09-05] MEDS: Amoxicillin/Potassium Clav 875 MG TABLET PO (06:51)
[2024-09-05 06:53] VITALS: BP 99/54; PULSE 98; RESP 16; TEMP 36.8; O2SAT 94
--- NOTE | 2024-09-05 06:53 | PC.NURSE ---
upon MD assessment pt no longer saying he wants to see crisis and says he will follow up with [facility] outpatient as he has the resources to. denying SI/HI. MD Fraser putting in discharge.
== END 2024-09-05 06:54 | disposition home or self-care (01) ==
PROVIDERS: Emergency Provider Emergency Medicine; PCP Internal Medicine
DX: J02.9 Acute pharyngitis, unspecified (principal); R22.1 Localized swelling, mass and lump, neck; R00.0 Tachycardia, unspecified; F33.1 Major depressive disorder, recurrent, moderate; Z98.84 Bariatric surgery status; Z79.899 Other long term (current) drug therapy; Z03.818 Encounter for observation for suspected exposure to other biological agents ruled out
CPT/HCPCS: 0241U; 70491; 80053; 80307; 81001; 85025; 86140; 87651; 93005; 96365; 96375; 99284; 99285; J1100; J1885; J7120

== ENCOUNTER → 2024-09-05 02:33 | Outpatient (BNV) | payer OTHER, SELFPAY | PROVIDERS: Emergency Provider Emergency Medicine; PCP Internal Medicine; Visit Provider Internal Medicine Cardiovascular Disease | DX: R00.0 Tachycardia, unspecified (principal) | CPT/HCPCS: 93010 ==

== ENCOUNTER 2025-03-07 20:37 | Emergency (ER) | payer MEDICARE, SELFPAY ==
[2025-03-07 20:40] VITALS: BP 143/92; PULSE 123; RESP 20; TEMP 36.8; O2SAT 95; BMI 41.2
--- NOTE | 2025-03-07 20:44 | ECG_ITS ---
Test Reason : TACHY Blood Pressure : */* mmHG Vent. Rate : 121 BPM Atrial Rate : 121 BPM P-R Int : 148 ms QRS Dur : 90 ms QT Int : 316 ms P-R-T Axes : 48 48 29 degrees QTcB Int : 448 ms Sinus tachycardia Otherwise normal ECG When compared with ECG of 05-Sep-2024 02:33, No significant change was found Referred By: Generic ED Physician Electronically Signed By: Jose Carter
[2025-03-07 20:57] LABS: MANUAL DIFF FLAG NO
[2025-03-07 20:58] LABS: Basophils Absolute Auto 0.1 X10*3/uL (0.0-0.2); Basophils Percent Auto 1.2 % (0-2); Eosinophils Absolute Auto 0.1 X10*3/uL (0.0-0.4); Hematocrit 42.7 % (42.0-52.0); Hemoglobin 15.1 g/dl (14.0-18.0); Imm Gran Abs Auto 0.02 X10*3/uL (0.00-0.03); Imm Gran Pct Auto 0.3 % (0.0-0.4); Lymphocytes Absolute Auto 2.8 X10*3/uL (1.2-4.9); Lymphocytes Percent Auto 36.3 % (20-40); Mean Corpuscular HGB Conc 35.4 g/dl (31.0-36.0); Mean Corpuscular Hemoglobin 31.3 pg (27.0-33.0); Mean Corpuscular Volume 88.4 fL (80.0-98.0); Mean Platelet Volume 8.4 fL (9.4-12.4); Monocytes Absolute Auto 0.5 X10*3/uL (0.1-1.2); Monocytes Percent Auto 6.4 % (2-11); Neutrophils Absolute Auto 4.3 x10*3/uL (2.0-8.3); Neutrophils Percent Auto 54.8 % (45-73); Platelet Count 266 X10*3/uL (160-400); Red Blood Count 4.83 X10*6/uL (4.60-5.80); Red Cell Distribution Width 12.5 % (11.0-16.0); White Blood Count 7.8 X10*3/uL (4.8-10.8)
[2025-03-07 21:13] LABS: Alanine Aminotransferase 49 U/L (0-40); Albumin Level 4.7 g/dL (3.5-5.0); Alkaline Phosphatase 113 U/L (39-117); Anion Gap 19 (12-20); Aspartate Amino Transferase 52 U/L (5-37); Bilirubin Total 0.5 mg/dL (0.0-1.0); Blood Urea Nitrogen 12 mg/dL (9-16); Calcium 9.1 mg/dL (8.4-10.2); Carbon Dioxide 21 mmol/L (22-29); Chloride 106 mmol/L (96-108); Creatinine Clr Calc Pharmacy 130.8; Estimated Glomerular Filt Rate > 60; Ethanol 283 mg/dL; Glucose Random 97 mg/dL (60-115); Potassium 3.6 mmol/L (3.3-5.1); Sodium 142 mmol/L (135-145); Total Protein 8.2 g/dL (6.5-8.0)
[2025-03-07 21:20] LABS: Troponin-I High Sensitivity 3.3 ng/L (<3.5-35.0)
--- NOTE | 2025-03-07 21:35 | ED_ITS ---
HPI - Psych General Chief Complaint: Psychiatric Symptoms Stated Complaint: suicidal Time Seen by Provider: 03/07/25 21:10 Source: patient Mode of arrival: ambulatory Limitations: no limitations History of Present Illness ED Provider: HPI Narrative: Patient alcoholic with history of cocaine use and history of depression, JESUS, gastric sleeve surgery been here multiple times at last admission was in psych 09/01 for alcohol dependence has similar feeling without any plan is time and like to detox and stop drinking patient has been drinking for last few days and not taking his medication for last few days does live with his mother does not have any job last drink and cocaine use was just prior to arrival no history of DTs Related Data Home Medications ?Medication ?Instructions ?Recorded ?Confirmed clonazepam 1 mg tablet 1 mg PO BID PRN Anxiety 08/24/24 08/26/24 duloxetine 30 mg capsule,delayed 60 mg PO DAILY 08/24/24 08/26/24 release lumateperone 42 mg capsule 42 mg PO DAILY 08/24/24 08/26/24 (Caplyta) olanzapine 10 mg tablet 20 mg PO BEDTIME 08/24/24 08/26/24 zolpidem 10 mg tablet 10 mg PO BEDTIME PRN Insomnia 08/24/24 08/26/24 Previous Rx's ?Medication ?Instructions ?Recorded lamotrigine 100 mg tablet 100 mg PO BID #60 tabs 07/21/24 naltrexone 50 mg tablet 50 mg PO DAILY #30 tabs 07/21/24 trazodone 50 mg tablet 50 mg PO BEDTIME PRN Insomnia #30 07/21/24 tabs acetaminophen 325 mg tablet 650 mg (2 x 325 mg) PO Q6H PRN 08/26/24 Pain, Mild (Pain Scale 1-3) #0 tabs dexamethasone sodium phosphate 4 4 mg IVPUSH TID #0 mL 08/26/24 mg/mL injection solution folic acid 1 mg tablet 1 mg PO DAILY #0 tabs 08/26/24 hydroxyzine HCl 25 mg tablet 25 mg PO Q6H PRN Anxiety #0 tabs 08/26/24 ipratropium 0.5 mg-albuterol 3 mg 3 ml inhalation Q4H PRN Shortness 08/26/24 (2.5 mg base)/3 mL nebulization Of Breath/Wheezing #0 mL soln lorazepam 1 mg tablet 1 mg PO Q2H PRN CIWA 6-10 #0 tabs 08/26/24 lorazepam 1 mg tablet 2 mg (2 x 1 mg) PO Q2H PRN CIWA 11 08/26/24 and above #0 tabs nicotine 21 mg/24 hr daily 21 mg transdermal DAILY PRN 08/26/24 transdermal patch nicotine cravings #0 ea olanzapine 5 mg tablet 5 mg PO TID PRN agitation #0 tabs 08/26/24 thiamine mononitrate (vit B1) 100 100 mg PO DAILY #0 tabs 08/26/24 mg tablet trazodone 50 mg tablet 50 mg PO BEDTIME MRX1 PRN Insomnia 08/26/24 #0 tabs amoxicillin 875 mg-potassium 1 tab PO Q12H #7 tabs 08/31/24 clavulanate 125 mg tablet prednisone 10 mg tablet 30 mg (3 x 10 mg) PO DAILY 3 days 08/31/24 #9 tabs acetaminophen 500 mg capsule 1,000 mg (2 x 500 mg) PO TID PRN 09/05/24 pain #14 caps amoxicillin 875 mg-potassium 1 tab PO BID 8 days #16 tabs 09/05/24 clavulanate 125 mg tablet prednisone 20 mg tablet 40 mg (2 x 20 mg) PO DAILY 4 days 09/05/24 #8 tabs Allergies Allergy/AdvReac Type Severity Reaction Status Date / Time Seasonal Allergies Allergy Mild sinus Verified 03/07/25 20:43 Review of Systems 2 Review of Systems: Yes all other systems are reviewed and are negative PMFSH Past Medical History Medical History Alcohol use disorder, moderate, dependence MDD (major depressive disorder), recurrent episode, moderate Intestinal malabsorption following gastrectomy BMI 33.0-33.9,adult Obesity (BMI 30-39.9) COVID-19 vaccine administered BMI 38.0-38.9,adult Obesity BMI 39.0-39.9,adult Vitamin D deficiency Body mass index (BMI) of 40.1 to 44.9 in adult Helicobacter pylori (H. pylori) infection Hypertriglyceridemia Obstructive sleep apnea treated with continuous positive airway pressure (CPAP) Shortness of breath Preoperative examination Morbid obesity due to excess calories Surgical History History of repair of hiatal hernia S/P laparoscopic sleeve gastrectomy Family History Family History Mother Diabetes Father Prostate cancer Brother Diabetes Sister Asthma Sister Asthma Son No problems noted. Daughter Autism Social History Social History Household Members: Family Household Members Other:: MOTHER Housing: House Are you a primary care coordination manager to a significant other at home: No Do you presently have visiting nurse or other home services: No Alcohol intake: current Alcohol intake frequency: 3 or more drinks per day Alcohol type: hard liquor Comment: 1:1 sitter Patient Tobacco Use Status: Tobacco use Unknown Tobacco use type: Cigarette Cigarette Packs Per Day: 0.5 Cigarettes Per Day: 10.0 Smoked in Last 30 Days: Yes e-Cigarette/Vaping Use: Never Used Second Hand Smoke Exposure: Yes Use of substances other than those prescribed or required for medical reasons: Yes Substance Use Type: Crack/Cocaine Advance Directives: No Advance Directives Information Provided: Yes Do you have a plan to hurt others: No Plan service: No Current occupational status: employed Sexual orientation: Straight/Heterosexual Physical Exam 2 Vital Signs: Vital Signs: Last Vital Signs Temp 99.0 F 03/08/25 06:00 Pulse 95 03/08/25 06:00 Resp 16 03/08/25 06:00 BP 119/63 03/08/25 06:00 Pulse Ox 93 03/08/25 06:00 O2 Del Method Room Air 03/08/25 06:00 BMI result Body Mass Index 41.2 Appearance: Alert. Oriented X3. No acute distress. Eyes: No pallor or icterus ENT: Pharynx normal. Oral Mucosa moist Neck: Normal inspection. Neck supple. CVS: Normal heart rate and rhythm. Pulses normal. Respiratory: No respiratory distress. Equal air entry bilateral, no wheezing/rales/rhonchi Abdomen: Soft and nontender. Bowel sounds are present, no mass palpable, no CVA tenderness Skin: Skin warm and dry. Normal skin color. Normal skin turgor. Extremities: No lower extremity edema. No calf tenderness psych: Feel depressed without any SI plan at this time no hallucination no HI Neuro: Oriented X 3. No motor deficit. No sensory deficit.No cerebellar signs , cranial nerves II-XII intact Course Reevaluation(s) Reevaluation #1: 03/08/2025 DR. Hernandez's progress note: AAO x3, no SI, no HI, no hallucination, patient now is seeking detox, care team input is appreciated will arrange to transfer to detox. Time: 08:49 Medications Administered Generic Name Dose Route Start Last Admin Trade Name Freq PRN Reason Stop Dose Admin Lorazepam 2 mg 03/07/25 21:36 03/07/25 21:48 Lorazepam 1 Mg Tablet PO 2 mg RQ4H WHILE AWAKE PRN Administration Alcohol Withdrawal Medical Decision Making Medical Decision Making [facility] Narrative: Patient has significant depression with alcohol and cocaine dependence with suicidal feeling will get care team involved patient is requesting detox Lab Data [facility] Lab Attestation statement: I reviewed the patient's lab results. 03/07/25 20:52 03/07/25 20:52 Labs: Lab Results 03/07/25 03/08/25 Range/Units 20:52 02:57 WBC 7.8 (4.8-10.8) X10*3/uL RBC 4.83 (4.60-5.80) X10*6/uL Hgb 15.1 (14.0-18.0) g/dl Hct 42.7 (42.0-52.0) % MCV 88.4 (80.0-98.0) fL MCH 31.3 (27.0-33.0) pg MCHC 35.4 (31.0-36.0) g/dl RDW 12.5 (11.0-16.0) % Plt Count 266 (160-400) X10*3/uL MPV 8.4 L (9.4-12.4) fL Immature Gran % (Auto) 0.3 (0.0-0.4) % Neut % (Auto) 54.8 (45-73) % Lymph % (Auto) 36.3 (20-40) % Dukes % (Auto) 6.4 (2-11) % Eos % (Auto) 1.0 (0-4) % Baso % (Auto) 1.2 (0-2) % Lymph # (Auto) 2.8 (1.2-4.9) X10*3/uL Dukes # (Auto) 0.5 (0.1-1.2) X10*3/uL Eos # (Auto) 0.1 (0.0-0.4) X10*3/uL Baso # (Auto) 0.1 (0.0-0.2) X10*3/uL Abs Immat Gran (auto) 0.02 (0.00-0.03) X10*3/uL Absolute Neuts (auto) 4.3 (2.0-8.3) x10*3/uL Absolute Nucleated RBC 0.000 (0.0-0.012) X10*3/uL Nucleated RBC % (auto) 0.0 (0.0-0.2) /100WBC Sodium 142 (135-145) mmol/L Potassium 3.6 (3.3-5.1) mmol/L Chloride 106 (96-108) mmol/L Carbon Dioxide 21 L (22-29) mmol/L Anion Gap 19 (12-20) BUN 12 (9-16) mg/dL Creatinine 0.89 (0.5-1.4) mg/dL Estim Creat Clear Calc 130.8 Estimated GFR > 60 Random Glucose 97 (60-115) mg/dL Calcium 9.1 (8.4-10.2) mg/dL Total Bilirubin 0.5 (0.0-1.0) mg/dL AST 52 H (5-37) U/L ALT 49 H (0-40) U/L Alkaline Phosphatase 113 (39-117) U/L Troponin I High Sens 3.3 (<3.5-35.0) ng/L Total Protein 8.2 H (6.5-8.0) g/dL Albumin 4.7 (3.5-5.0) g/dL Urine Opiates Screen Not Detected (Not Detect) Ur Buprenorphine Scrn Not Detected (Not Detect) ng/mL Ur Oxycodone Screen Not Detected (Not Detect) ng/mL Urine Methadone Screen Not Detected (Not Detect) ng/mL Urine Fentanyl Screen Not Detected (Not Detect) Ur Barbiturates Screen Not Detected (Not Detect) Ur Phencyclidine Scrn Not Detected (Not Detect) Ur Amphetamines Screen Not Detected (Not Detect) U Benzodiazepines Scrn Not Detected (Not Detect) Urine Cocaine Screen POSITIVE H (Not Detect) U Marijuana (THC) Screen POSITIVE H (Not Detect) Ethyl Alcohol 283 mg/dL Discharge Plan Discharge Clinical Impression: Depression with suicidal ideation, Polysubstance abuse Patient Disposition: Xfer SNF Transfer Details: Detox Instructions: Suicide Prevention (ED) Prescriptions: No Action amoxicillin-pot clavulanate 875-125 mg Tablet 1 tab PO Q12H Qty: 7 0RF prednisone 10 mg tablet 30 mg PO DAILY 3 Days Qty: 9 0RF lamotrigine 100 mg tablet 100 mg PO BID Qty: 60 0RF trazodone 50 mg Tablet 50 mg PO BEDTIME PRN (Reason: Insomnia) Qty: 30 0RF naltrexone 50 mg Tablet 50 mg PO DAILY Qty: 30 0RF clonazepam 1 mg tablet 1 mg PO BID PRN (Reason: Anxiety) zolpidem 10 mg tablet 10 mg PO BEDTIME PRN (Reason: Insomnia) Caplyta 42 mg capsule 42 mg PO DAILY olanzapine 10 mg tablet 20 mg PO BEDTIME duloxetine 30 mg capsule,delayed release(DR/EC) 60 mg PO DAILY acetaminophen 325 mg Tablet 650 mg PO Q6H PRN (Reason: Pain, Mild (Pain Scale 1-3)) Qty: 0 0RF ipratropium-albuterol 0.5 mg-3 mg(2.5 mg base)/3 mL Solution For Nebulization 3 ml inhalation Q4H PRN (Reason: Shortness Of Breath/Wheezing) Qty: 0 0RF trazodone 50 mg Tablet 50 mg PO BEDTIME MRX1 PRN (Reason: Insomnia) Qty: 0 0RF olanzapine 5 mg Tablet 5 mg PO TID PRN (Reason: agitation) Qty: 0 0RF nicotine 21 mg/24 hr Patch 24 Hour 21 mg transdermal DAILY PRN (Reason: nicotine cravings) Qty: 0 0RF folic acid 1 mg Tablet 1 mg PO DAILY Qty: 0 0RF hydroxyzine HCl 25 mg Tablet 25 mg PO Q6H PRN (Reason: Anxiety) Qty: 0 0RF dexamethasone sodium phosphate 4 mg/mL Solution 4 mg IVPUSH TID Qty: 0 0RF lorazepam 1 mg Tablet 1 mg PO Q2H PRN (Reason: CIWA 6-10) Qty: 0 0RF lorazepam 1 mg Tablet 2 mg PO Q2H PRN (Reason: CIWA 11 and above) Qty: 0 0RF thiamine mononitrate (vit B1) 100 mg Tablet 100 mg PO DAILY Qty: 0 0RF amoxicillin-pot clavulanate 875-125 mg tablet 1 tab PO BID 8 Days Qty: 16 0RF prednisone 20 mg tablet 40 mg PO DAILY 4 Days Qty: 8 0RF acetaminophen 500 mg capsule 1,000 mg PO TID PRN (Reason: pain) Qty: 14 0RF Interventions: [place]-Suicide Risk Severity Scale Last Done: 03/07/25 21:34 Print Language: [place]ill[place]
--- NOTE | 2025-03-07 21:37 | PC.NURSE ---
Provider into assess pt, pt resting at this time, watching TV.
[2025-03-07] MEDS: LORazepam 1 MG TABLET 2 MG PO (21:48)
--- NOTE | 2025-03-07 21:49 | PC.NURSE ---
medicated per dec. Pt given a sandwich and drink
--- OUTSIDE RECORDS SUMMARY | 2025-03-07 21:50 | XMS_ITS | Encounter Summary ---
Author Organization [facility] Address [address] [place] [address] [address] [place] [address] Care Team Providers Care Measurement Department Chief Clerk Name Role Phone Unavailable Primary Care Provider Unavailabl e Encounter Details Date Type Department Care Team (Latest Contact Info) Description 02/09/2021 Abstract [facility] CONVERSIONS Dental, Provider, DDS Social History Tobacco Use Types Packs/Day Years Used Date Smoking Tobacco: Never Assessed Sex and Gender Information Value Date Recorded Sex Assigned at Male 08/12/2022 10:15 AM EDT Legal Sex Male 10:15 AM EDT Gender Identity Male 08/12/2022 10:15 AM EDT Sexual Orientation Straight 08/12/2022 10 :15 AM EDT documented as of this encounter Plan of Treatment Upcoming Encounters Date Type Department Care Team (Late st Contact Info) Description 03/22/2025 2:00 PM EDT Office Visit [facility] [address] [place] [address] [address] [place] [address] documented as of this encounter Visit Diagnoses Not on filedocumented in this encounter
--- NOTE | 2025-03-08 01:30 | PC.NURSE ---
pt sleeping at this time, no sign of distress
[2025-03-08 03:18] LABS: Amphetamine Screen Urine Not Detected (Not Detect); Barbiturates, Urine Not Detected (Not Detect); Benzodiazepines Screen Urine Not Detected (Not Detect); Buprenorphine Scr Not Detected (Not Detect); Cannabinoid Screen Urine POSITIVE (Not Detect); Cocaine Screen Urine POSITIVE (Not Detect); Fentanyl, urine Not Detected (Not Detect); Methadone Screen, Urine Not Detected (Not Detect); Opiate Screen Urine Not Detected (Not Detect); Oxycodone Screen Urine Not Detected (Not Detect); Phencyclidine Screen Urine Not Detected (Not Detect)
[2025-03-08 06:00] VITALS: BP 119/63; PULSE 95; RESP 16; TEMP 37.2; O2SAT 93
--- NOTE | 2025-03-08 08:38 | PC.NURSE ---
calm and cooperative, ambulatory with steady gait. skin pwd. Has just been seen by CARE team.
--- NOTE | 2025-03-08 08:40 | MHC.CARE ---
Pt does not meet the criteria for IPLOC and will be sent in a lyft to [facility] detox for substance use [place]. Provider in agreement.
[2025-03-08 09:59] VITALS: BP 119/63; PULSE 95; RESP 16; TEMP 37.2; O2SAT 93
== END 2025-03-08 10:00 | disposition skilled nursing facility (03) ==
PROVIDERS: Emergency Provider Internal Medicine; PCP Internal Medicine
DX: F32.A Depression, unspecified (principal); R45.851 Suicidal ideations; F19.10 Other psychoactive substance abuse, uncomplicated; F10.20 Alcohol dependence, uncomplicated; Y90.8 Blood alcohol level of 240 mg/100 ml or more; F14.20 Cocaine dependence, uncomplicated; F17.210 Nicotine dependence, cigarettes, uncomplicated; Z91.148 Patient's other noncompliance with medication regimen for other reason
CPT/HCPCS: 36415; 80053; 80307; 84484; 85025; 93005; 99285; S9485

== ENCOUNTER → 2025-03-07 20:44 | Outpatient (BNV) | payer MEDICARE, SELFPAY | PROVIDERS: Emergency Provider Internal Medicine; PCP Internal Medicine; Visit Provider Internal Medicine Cardiovascular Disease | DX: R00.0 Tachycardia, unspecified (principal) | CPT/HCPCS: 93010 ==

== ENCOUNTER 2025-08-18 00:11 | Emergency (ER) | payer MEDICARE, SELFPAY ==
[2025-08-18 00:12] VITALS: BP 163/95; PULSE 115; RESP 20; TEMP 36.5; O2SAT 94; BMI 39.2
--- OUTSIDE RECORDS SUMMARY | 2025-08-18 00:58 | XMS_ITS | Clinical Summary ---
Author Organization [facility] Address [address] [place] [id number] Phone Care Team Providers Care Marketing Support Assistant Name Role Phone Dheeraj Torres MD Primary Care Provider + Immunizations Immunization Administration Dates Next Due COVID-19 (Pre-08/04) Moderna Vaccine, mRNA, PF 0 11/02/2020,10/05/2020 Influenza, Unspecified Formulation 11/30/2019 Social History Tobacco Use Types Packs/Day Years Used Date Smoking Tobacco: Never Assessed Education Answer Date Recorded Are you interested in more education? Not on isaias e 02/07/2023 Are you concerned about learning? Not on file 02/07/2023 No 02/07/2023 No 02/07/2023 Digital Access Answer Date Recorded No 03/08/2023 No 03/08/2023 No 03/08/2023 Reliable internet access at home? Not on file 03/08/2023 Device with a working camera? Not on file Sex and Gender Information Value Date Recorded Sex Assigned at Not on file Legal Sex Male 1:49 PM EST Gender Identity Not on file Sexual Orientation Not on file Plan of Treatment Health Maintenance Due Date Last Done Comments LIPID PANEL 1980 DEPRESSION SCREENING 1992 SMOKING Hx and SMOKELESS TOBACCO SCREENING 1993 HEPATITIS C SCREENING 1998 HIV ONE-TIME SCREENING (18-6 5 YEARS) 1998 INFLUENZA VACCINE (#1) 2025 11/30/2019 COVID-19 VACCINE (3 - 2024-2 6 season) 2025 11/02/2020, 10/05/2020 COLOGUARD 2025 COLONOSCOPY 2025 COLORECTAL CANCER SCREENING 2025 FIT TEST 2025 FOBT 2025 SIGMOIDOSCOPY 2025 VIRTUAL COLONOSCOPY 2025 Adult Td,Tdap Booster 02/15/2026 02/16/2016 HEPATITIS A VACCINES Aged Out No long er eligible based on patient's age to complete this topic HIB VACCINES Aged Out No longer eligi ble based on patient's age to complete this topic MENINGOCOCCAL VACCINES (ACWY) Aged Out No longer eligible based on patient's age to complete this topic MENINGOCOCCAL VACCINES (B) Aged Out N o longer eligible based on patient's age to complete this topic PNEUMOCOCCAL VACCINES (0-49 years) Aged Out No longer eligible b ased on patient's age to complete this topic Medical Devices Not on file Insurance [address] [place] [id number] [facility] NON NSPG PCP [employer] COMM[employer]CIAL [employer] NON NSPG PCP [employer] COMMERCIAL [employer] NON NSPG PCP [employer]ARITY COMMERCIAL [facility] NON NSPG PCP [employer]AR[employer] COMMERCIAL [facility] NON NSPG PCP [employer] COMMERCIAL [employer] NON NSPG PCP [employer] COMMERCIAL [address] [place] NON NSPG PCP [employer] COMM[employer]CIAL [employer] NON NSP[place] [address] Care Teams Marketing Support Assistant Relationship Specialty Start Date End Date Dheeraj Torres MD [address] [place] [id number] PCP - General Internal Medicine 11/30/19 Additional Source Comments The information contained in this document represents components of the legal health record. It is not the complete legal health record.[facility]
--- OUTSIDE RECORDS SUMMARY | 2025-08-18 00:58 | XMS_ITS | Clinical Summary ---
Author Organization [facility] Address [address] [place] [address] Phone Care Team Providers Care Depot Agent Name Role Phone Dheeraj Torres MD Primary Care Provider [phone] Allergies No known active allergies Medications No known medications Active Problems No known active problems Encounters Date Type Department Care Team Description 08/02/2025 12:07 AM EDT - 08/02/2025 7:09 AM EDT Emergency [facility] Emergency [address] [place] [address] Sarmad Becerril MD Alcoholic intoxication with complication ([facility] V24) (Primary Dx); Cocaine abuse ([facility] V24, [facility] V28) Discharge Disposition: Home or Self Care from Last 3 Months Immunizations Immunization Administration Dates Next Due Pfizer SARS-CoV-2 COVID-19, mRNA, LNP-S, preservative free 08/15/2021 Tdap Tetanus diptheria acell ular pertussis (Boostrix; Adacel) 7yo and older 02/16/2016 Surgical History Surgery Date Site/Laterality Comments OTHER SURGICAL HISTORY PROCEDURE: DENIES PREVIOUS SURGERY Medical History Medical History Date Comments High triglycerides DX:High trigl ycerides JESUS (obstructive sleep apnea) 03/17/2018 DX :JESUS (obstructive sleep apnea) Allergic rhinitis 03/17/2018 DX:Allergic rh initis GERD (gastroesophageal reflux disease) 03/17/2018 DX:GERD (gastroesophageal reflux disease) Family History Medical History Relation Name Comments Diabetes Brother maternal half b rother Prostate cancer Father Melanoma Maternal Grandfather passed in 50s Hyperlipidemia Maternal Grandmother passe d in 70s Diabetes Mother HTN, hyperchole sterolemia Relation Name Status Comments Brother Alive Father Alive Maternal Grandfather Maternal Grandmother Mother Alive Social History Tobacco Use Types Packs/Day Years Used Date Smoking Tobacco: Former Smokeless Tobacco: Never Alcohol Use Standard Drinks/Week Comments Yes 0 (1 standard drink = 0.6 oz pur e alcohol) Sex and Gender Information Value Date Recorded Sex Assigned at Male 11/18/2024 11:20 AM EST Legal Sex Male 6:18 PM EST Gender Identity Male 11/18/2024 11:20 AM EST Sexual Orientation Straight 11/18/2024 11 :20 AM EST Obstetrics History Last Filed Vital Signs Vital Sign Reading Time Taken Comments Blood Pressure 111/80 08/02/2025 6:53 AM EDT Pulse 98 08/02/2025 6:53 AM EDT Temperature 36.8 C (98.2 F) 08/02/2025 3:05 AM EDT Respiratory Rate 18 08/02/2025 6:53 AM EDT Oxygen Saturation 96% 08/02/2025 6:53 AM EDT Inhaled Oxygen Concentration - - Weight 111 kg (245 lb) 08/02/2025 12:30 AM EDT Height 170.2 cm (5' 7 ) 08/02/2025 12:30 AM EDT Body Mass Index 38.37 08/02/2025 12:30 AM EDT Plan of Treatment Health Maintenance Due Date Last Done Comments Colorectal Cancer Screening: Colonoscopy 1980 Hepatitis A Vaccines (1 of 2 - Risk 2-dose series) 1999 Hepatitis B Vaccines (1 of 3 - 19+ 3-dose series) 1999 HPV Vaccines (1 - 3-dose SCD M series) 2007 Medicare Annual Wellness Visit 09/14/2022 Social Influencers of Health Screening 09/14/2022 Depression Screening 10/13/2024 COVID-19 Vaccine (4 - 2024-2 6 season) 2025 08/15/2021, 11/02/2020, 10/05/2020 Influenza Vaccine (#1) 2025 4, 11/30/2019 DTaP,Tdap,and Td Vaccines (2 - Td or Tdap) 02/15/2026 02/16/2016 Cholesterol Screening (Lipid Panel) 03/12/2028 03/12/2023 RSV Immunization Adult Patients (1 - 1-dose 75+ series) 2055 HIV Screening Completed 03/12/2023 Hepatitis C Screening Completed 03/12/2023 HIB Vaccines Aged Out No longer eligi ble based on patient's age to complete this topic IPV Vaccines Aged Out No longer eligi ble based on patient's age to complete this topic MMR Vaccines Aged Out No longer eligi ble based on patient's age to complete this topic Meningococcal ACWY Vaccine Aged Out N o longer eligible based on patient's age to complete this topic Meningococcal B Vaccine Aged Out No l onger eligible based on patient's age to complete this topic Pneumococcal Vaccine: Pediatrics (0 to 5 Years) and At-Risk Patients (6 to 49 Years) Aged Out No longer eligible b ased on patient's age to complete this topic RSV Immunization Patients Under 20 months Aged Out No longer eligible b ased on patient's age to complete this topic Varicella Vaccines Aged Out No longer eligible based on patient's age to complete this topic Procedures Procedure Name Priority Date/Time Associated Diagnosis Comments HEPATITIS C SCREENING Routine 03/12/2023 HIV SCREENING Routine 03/12/2023 LIPID PANEL Routine 03/12/2023 from Last 3 Months or Most Recently Relevant to Health Maintenance Results * HIV Screening (03/12/2023) Pathologist [facility] HIV Screening Abstracted Historical Provider HEALTH MAINTENANCE Final Result * Hepatitis C Screening (03/12/2023) [facility] Hepatitis C Screening Abstracted Historical Provider HEALTH MAINTENANCE Final Result * (ABNORMAL) Lipid panel (03/12/2023) [facility] LDL/HDL Ratio 4 Triglycerides 70 0 - 150 mg/dL Cholesterol 170 0 - 200 mg/dL HDL 48 >=40 mg/dL LDL Cholesterol 108(A) 0 - 100 mg/dL Blood Venous blood specimen / Unknown us Historical Provider LAB BLOOD ORDERABLES [place] l Result from Last 3 Months or Most Recently Relevant to Health Maintenance Insurance MEDICARE Care Teams Depot Agent Relationship Specialty Start Date End Date Dheeraj Torres MD [address] [place] [id number] PCP - General Internal Medicine 11/17/24
--- OUTSIDE RECORDS SUMMARY | 2025-08-18 00:58 | XMS_ITS | Encounter Summary ---
Author Organization [email or web address] Address [address] [facility] [address] [place] [address] Care Team Providers Care Automation Tech Name Role Phone Unavailable Primary Care Provider Unavailabl e Encounter Details Date Type Department Care Team (Latest Contact Info) Description 05/09/2022 Abstract HHC CONVERSIONS Dental, Provider, DDS Social History Tobacco Use Types Packs/Day Years Used Date Smoking Tobacco: Never Assessed Sex and Gender Information Value Date Recorded Sex Assigned at Male 08/12/2022 10:15 AM EDT Legal Sex Male 10:15 AM EDT Gender Identity Male 08/12/2022 10:15 AM EDT Sexual Orientation Straight 08/12/2022 10 :15 AM EDT documented as of this encounter Plan of Treatment Not on file documented as of this encounter Visit Diagnoses Not on filedocumented in this encounter
--- OUTSIDE RECORDS SUMMARY | 2025-08-18 00:58 | XMS_ITS | Clinical Summary ---
Author Organization [facility] Address [address] [place] [address] Care Team Providers Care Frame Straightener Name Role Phone Dheeraj Torres MD Primary Care Provider [phone] Allergies Active Allergy Reactions Severity Noted Date Comments Seasonal Allergies 03/12/2023 Medications Medication Sig Dispensed Refills Start Date End Date Status cetirizine (ZYRTEC) 10 MG tablet Take 1 Tab by mouth daily for 360 days. 30 Tab 5 03/19/2018 Active aripiprazole (ABILIFY) 15 MG tabletIndications:De pression, unspecified depression type Take 1 Tablet by mouth daily. 0 02/17/2023 Active clonazepam (KLONOPIN) 1 MG tabletIndications:De pression, unspecified depression type as needed. 0 02/28/2023 Active duloxetine (CYMBALTA) 60 MG capsuleIndications:D epression, unspecified depression type Take 1 Capsule by mouth daily. 0 02/12/2023 Active lamotrigine (LAMICTAL) 100 MG tablet PLEASE SEE ATTACHED FOR DETAILED DIRECTIONS 0 05/08/2023 Active oxybutynin (DITROPAN-XL) 10 MG 24 hr tablet TAKE 1 TABLET BY MOUTH EVERYDAY AT BEDTIME 0 05/27/2023 Active Zolpidem Tartrate 10 MG Tab TAKE 1 TABLET BY MOUTH EVERYDAY AT BEDTIME 0 05/08/2023 Active tadalafil (Cialis) 10 MG tablet Take 1 tablet 1/2 hour before intercourse 8 Tablet 3 06/04/2023 Active nicotine (NICODERM CQ) 21 MG/24HR PLACE 1 PATCH ONTO THE SKIN DAILY 28 Patch 0 09/22/2023 Active Active Problems Problem Noted Date Obesity 08/24/2020 JESUS (obstructive sleep apnea) RDI 102 Allergic rhinitis 03/17/2018 GERD (gastroesophageal reflux disease) 0 03/17/2018 High triglycerides Immunizations Name Administration Dates Next Due COVID-19 (Moderna) 11/02/2020,10/05/2020 COVID-19 (Pfizer) 08/15/2021 Tdap 02/16/2016 Family History Medical History Relation Name Comments Diabetes Brother maternal half b rother [place] Prostate Father Melanoma Maternal Grandfather passed in 50s Hypercholesterolemia Maternal Grandmother passed in 70s Diabetes Mother HTN, hyperchole sterolemia Relation Name Status Comments Brother Alive Father Alive Maternal Grandfather Maternal Grandmother Mother Alive Social History Tobacco Use Types Packs/Day Years Used Date Smoking Tobacco: Former Smokeless Tobacco: Never Tobacco Cessation:Counseling Given: Not Answered Comments:<1/2 pack per day, for 10 years, quit at age 30 = 5 pack years Alcohol Use Standard Drinks/Week Comments Yes 0 (1 standard drink = 0.6 oz pur e alcohol) Every few months Alcohol Habits Answer Date Recorded How often do you have a drink containing alcohol ? Monthly or less 08/24/2020 How many drinks containing a lcohol do you have on a typical day when you are drinking? 3 or 4 08/24/2020 How often do you have six or more drinks on one occasion? Never 08/24/2020 Sex Assigned at Date Recorded Not on file Last Filed Vital Signs Vital Sign Reading Time Taken Comments Blood Pressure 100/60 06/04/2023 8:43 AM EDT Pulse 69 06/04/2023 8:43 AM EDT Temperature 36.9 C (98.4 F) 06/04/2023 8:43 AM EDT Respiratory Rate 15 06/04/2023 8:43 AM EDT Oxygen Saturation - - Inhaled Oxygen Concentration - - Weight 109.3 kg (240 lb 14.4 oz) 06/04/2023 8:43 AM EDT Height 168.9 cm (5' 6.5 ) 06/04/2023 8:43 AM EDT Body Mass Index 38.3 06/04/2023 8:43 AM EDT Plan of Treatment Health Maintenance Due Date Last Done Comments BMI CHECK/ADVISE 10/13/2024 06/04/2023, , 03/12/2023 (Completed), Additional history exists DEPRESSION SCREENING/FOLLOWUP 10/13/2024, 03/12/2023, 03/12/2023 (Completed), Additional history exists SOCIAL NEEDS SCREENING 10/13/2024 3, 08/24/2020 (Completed), 08/24/2020 BASELINE HEALTH EXAM 40-64 03/12/202503/12, 03/12/2023, 03/12/2023, Additional history exists Covid-19 Vaccine (4 - 2022-2 4 season) 2025 08/15/2021, 11/02/2020, 10/05/2020 INFLUENZA (#1) 2025 07/13/2020 (Exte rnal Completion of Vaccination per patient) DTAP/TDAP/TD (2 - Td or Tdap) 02/15/2026 02/16/2016 CHOLESTEROL SCREENING 03/12/2028 03/12/2023 , 09/21/2018, 03/19/2018, Additional history exists PNEUMOCOCCAL VACCINE FOR HIG H RISK PATIENTS (#1) 2045 Care Teams Frame Straightener Relationship Specialty Start Date End Date Dheeraj Torres MD [address] [place] [phone] PCP - General Internal Medicine 03/19/18
--- OUTSIDE RECORDS SUMMARY | 2025-08-18 00:58 | XMS_ITS | Encounter Summary ---
Author Organization [facility] Address [address] [place] [address] Care Team Providers Care Die Sizer Name Role Phone Dheeraj Torres MD Primary Care Provider [phone] Encounter Details Date Type Department Care Team Description 12/08/2020 Grinder Set Up Operator Report Medical Records [address] [place] [id number] Kika Gilbert Social History Tobacco Use Types Packs/Day Years Used Date Smoking Tobacco: Former Smokeless Tobacco: Never Comments:<1/2 pack per day, for 10 years, [...] Assigned at Date Recorded Not on file documented as of this encounter Plan of Treatment Not on file documented as of this encounter Visit Diagnoses Not on filedocumented in this encounter Care Teams Die Sizer Relationship Specialty Start Date End Date Dheeraj Torres MD [address] [place] [phone] PCP - General Internal Medicine 03/19/18 documented as of this encounter
--- OUTSIDE RECORDS SUMMARY | 2025-08-18 00:58 | XMS_ITS | Clinical Summary ---
Author Organization [email or web address] Address [address] [place] [address] 7[address] [place] [address] Care Team Providers Care Communication Arts Lecturer Name Role Phone Unavailable Primary Care Provider Unavailabl e Allergies Active Allergy Reactions Criticality Noted Date Comments Pollen Extract Itching,Runny nose 02/18/2023 Medications ARIPiprazole (Abilify) 15 MG tablet 3 Active clonazePAM (KlonoPIN) 1 MG tablet 3 Active cloNIDine (Catapres) 0.1 MG tablet 3 Active DULoxetine (Cymbalta) [address] capsule 3 Active zolpidem (Ambien) 5 MG tablet 3 Active cetirizine (ZyrTEC) 10 MG tablet Take 1 tablet by mouth at bed time. 8 Active clonazePAM (KlonoPIN) 1 MG tablet as needed. 3 Active DULoxetine (Cymbalta) [address] capsule Take 1 capsule by mouth in the morning. 3 Active OLANZapine (ZyPREXA) 10 MG tablet TAKE 1 TABLET BY MOUTH AT BEDTIME DIRECTED FOR MOOD STABILITY AND SLEEP 3 Active tadalafil (Cialis) 10 MG tablet Take 1 tablet 1/2 hour before intercourse 3 Active oxyCODONE (Roxicodone) 5 MG immediate release tabletIndication s:Vertical fracture of root of tooth,Pain, dental Take 1 tablet (5 mg) by mouth every 6 (six) hours if needed for severe pain for up to 5 doses. 5 tablet 3 Active ibuprofen 600 MG tabletIndication s:History of tooth extraction, unspecified edentulism class Take 1 tablet (600 mg) by mouth every 6 (six) hours if needed for mild pain for up to 20 doses. 20 tablet 3 Active Active Problems Problem Noted Date Diagnosed Date Acute pericoronitis 09/23/2023 Dental calculus 02/18/2023 Social History Tobacco Use Types Packs/Day Years Used Date Smoking Tobacco: Every Day Cigarettes Smokeless Tobacco: Former Tobacco Cessation:Ready to Q uit: Yes; Counseling Given: Not Answered Alcohol Use Standard Drinks/Week Comments Yes 0 (1 standard drink = 0.6 oz pur e alcohol) Sex and Gender Information Value Date Recorded Sex Assigned at Male 08/12/2022 10:15 AM EDT Legal Sex Male 10:15 AM EDT Gender Identity Male 08/12/2022 10:15 AM EDT Sexual Orientation Straight 08/12/2022 10 :15 AM EDT Last Filed Vital Signs Vital Sign Reading Time Taken Comments Blood Pressure 118/64 10/09/2023 2:10 PM EST Pulse 70 09/23/2023 12:25 PM EST Temperature - - Respiratory Rate - - Oxygen Saturation - - Inhaled Oxygen Concentration - - Weight - - Height - - Body Mass Index - - Plan of Treatment Health Maintenance Due Date Last Done Comments Anal Pap 1980 CT Colonography 1980 Colonoscopy 1980 Colorectal Cancer Screening 1980 Depression Screening 1980 FIT DNA/Cologuard 1980 FIT 1980 FOBT 1980 HIV Screening 1980 Lipid Panel 1980 SDOH Screening 1980 Sigmoidoscopy 1980 Disability Screening 1980 Alcohol/Substance Use Screening 1992 Family Planning (PISQ) 1995 HPV Vaccines (1 - Male 3-dos e series) 1995 Hepatitis C Screening 1998 Hepatitis A Vaccines (1 of 2 - Risk 2-dose series) 1999 Hepatitis B Vaccines (1 of 3 - 19+ 3-dose series) 1999 Pneumococcal Vaccine: Pediatrics (0 to 5 Years) and At-Risk Patients (6 to 49) Years (1 of 2 - PCV) 1999 Dental Oral Exam 08/22/2023 02/18/2023 Dental Prophylaxis 08/22/2023 02/18/2023 Dental X-Ray: Bitewings 09/09/2024 09/08/20 23, 05/09/2022 Tobacco Screening 10/09/2024 10/09/2023 COVID-19 Vaccine (4 - 2024-2 6 season) 2025 08/15/2021, 11/02/2020, 10/05/2020 Influenza Vaccine (#1) 2025 11/30/2019 DTaP/Tdap/Td Vaccines (2 - T d or Tdap) 02/15/2026 02/16/2016 Dental X-Ray: Full Mouth 10/09/2026 023, 01/16/2022 Zoster Vaccines (1 of 2) 2030 RSV Patients and Patients Aged 60 years or older (1 - 1-dose 75+ series) 2055 HIB Vaccines Aged Out No longer eligi ble based on patient's age to complete this topic IPV Vaccines Aged Out No longer eligi ble based on patient's age to complete this topic Meningococcal B Vaccine Aged Out No l onger eligible based on patient's age to complete this topic Meningococcal Vaccine Aged Out No leydi jacobo eligible based on patient's age to complete this topic RSV under 20 months Aged Out No longe r eligible based on patient's age to complete this topic Rotavirus Vaccines Aged Out No longer eligible based on patient's age to complete this topic Procedures Procedure Name Priority Date/Time Associated Diagnosis Comments PANORAMIC RADIOGRAPHIC IMAGE Routine 10/08/2023 3:30 PM EST Vertical fracture of root of tooth Pain, dental Full PROPHYLAXIS - ADULT Routine 023 9:00 AM EDT Dental calculus PERIODIC ORAL EVALUATION - ESTABLISHED PATIENT Routine 02/18/2023 8:45 AM EDT from Last 3 Months or Most Recently Relevant to Health Maintenance Insurance [facility] MEDICAID STAND ADULT
--- OUTSIDE RECORDS SUMMARY | 2025-08-18 00:58 | XMS_ITS | Encounter Summary ---
Author Organization [facility] Address [address] [place] [address] Care Team Providers Care Subacute Nurse Name Role Phone Dheeraj Torres MD Primary Care Provider [phone] Encounter Details Date Type Department Care Team Description 12/21/2020 [facility] Internship Report Medical Records [address] [place] [address] Taina Miller MD Social History Tobacco Use Types Packs/Day Years [...] on filedocumented in this encounter Care Teams Subacute Nurse Relationship Specialty Start Date End Date Dheeraj Torres MD [address] [place] [address] PCP - General Internal Medicine 03/19/18 documented as of this encounter
--- OUTSIDE RECORDS SUMMARY | 2025-08-18 00:58 | XMS_ITS | Encounter Summary ---
Author Organization [facility] Address [address] [place] [address] Care Team Providers Care Crop Or Grain Farmer Name Role Phone Dheeraj Torres MD Primary Care Provider [phone] Encounter Details Date Type Department Care Team Description 01/04/2022 Small Craft Operator Report Medical Records [address] [place] [address] Os[address] [place] [address] Social History Tobacco Use Types Packs/Day Years [...] on filedocumented in this encounter Care Teams Crop Or Grain Farmer Relationship Specialty Start Date End Date Dheeraj Torres MD [address], [place] [phone] PCP - General Internal Medicine 03/19/18 documented as of this encounter
--- OUTSIDE RECORDS SUMMARY | 2025-08-18 00:58 | XMS_ITS | Encounter Summary ---
Author Organization [facility] Address [address] [place] [address] Care Team Providers Care Cook Candy Name Role Phone Dheeraj Torres MD Primary Care Provider [phone] Encounter Details Date Type Department Care Team Description 12/29/2020 Salvage Clerk Report Medical Records [address] [place] [address] Taina Miller MD Social History Tobacco Use [...] on filedocumented in this encounter Care Teams Cook Candy Relationship Specialty Start Date End Date Dheeraj Torres MD [address] [place] [address] PCP - General Internal Medicine 03/19/18 documented as of this encounter
--- OUTSIDE RECORDS SUMMARY | 2025-08-18 00:58 | XMS_ITS | Encounter Summary ---
Author Organization [facility] Address [address] [place] [address] Care Team Providers Care Video News Editor Name Role Phone Dheeraj Torres MD Primary Care Provider [phone] Reason for Visit * Reason Onset Date Comments TEST RESULTS 07/18/2023 Encounter Details Date Type Department Care Team Description 07/18/2023 Telephone Adult Medicine [facility] [address] [place], [place] [phone] Dheeraj Torres MD [address] [place] [phone] TEST RESULTS Social History Tobacco Use Types Packs/Day Years [...] on file documented as of this encounter Miscellaneous Notes * Telephone Encounter - Marcelle Lozano L.P.N. - 07/21/2023 10:20 AM EDT I spoke with him and he will print the report and drop it off here.... * Telephone Encounter - Marcelle Lozano L.P.N. - 07/21/2023 9:40 AM EDT Carisa, I do not see this report in his chart... would you happen to have it in a file ? Ramandeep * Telephone Encounter - Sridevi Boles - 07/18/2023 12:10 PM EDT Inform patient: ANY URGENT OR ABNORMAL RESULTS WIILL RESULT IN A CALL BACK TO THE PATIENT ADELAIDA. Type of test: :home sleep study Date test was performed: 2 months ago Where was the test performed: home Who ordered this test?: Carisa Martino Is the doctor here today?: YES Can the message wait until the doctor returns?: NO IF PATIENT'S PCP IS NOT IN INSTRUCT PATIENT THAT THEY WILL RECEIVE A CALL BACK WHEN THE PCP IS IN THE OFFICE NEXT. documented in this encounter Plan of Treatment Not on file documented as of this encounter Visit Diagnoses Not on filedocumented in this encounter Care Teams Video News Editor Relationship Specialty Start Date End Date Dheeraj Torres MD [address] [place] [phone] PCP - General Internal Medicine 03/19/18 documented as of this encounter
--- OUTSIDE RECORDS SUMMARY | 2025-08-18 00:58 | XMS_ITS | Encounter Summary ---
Author Organization [facility] Address [address] [place] [address] Care Team Providers Care Hay Sorter Name Role Phone Dheeraj Torres MD Primary Care Provider [phone] Encounter Details Date Type Department Care Team Description 02/15/2021 Disbursement Clerk Report Medical Records [address] [place] [id number] Abstract, Provider Social History Tobacco Use Types Packs/Day Years [...] on filedocumented in this encounter Care Teams Hay Sorter Relationship Specialty Start Date End Date Dheeraj Torres MD [address] [place] [address] PCP - General Internal Medicine 03/19/18 documented as of this encounter
--- OUTSIDE RECORDS SUMMARY | 2025-08-18 00:58 | XMS_ITS | Data Portability ---
Author Organization [place] [facility], Allergy Address [address] [place] [address] Care Team Providers Care Machine Bunch Maker Name Role Phone FARRUKH MCCARTHY Primary Care Provider Assessment Encounter Date Assessment Date Assessment LastModified by Organization Details LastModified Time 11/19/2024 11/19/2024 The patient meet s criteria for tonsillectomy. The surgery will be done under general anesthesia with no cuts through the skin. After the surgery the patient should expect temporary bad breath, ear aches, still neck and the worst sore throat of their life. It will typically last up to 2 weeks. There is a 5% risk of bleeding during the healing process when the scab falls off. If this occurs, they are encouraged to call the office to discuss management. Occasionally it requires a trip to the emergency room and or operating room to control the bleeding. Additional risks of dehydration, hospital readmission, throat pain, voice change, swallowing dysfunction and velopharyngeal insufficiency are also possible. Pain control with alternating doses of Tylenol (acetaminophen) and Motrin (ibuprofen) sotlil-wdt-jebdg every 3 hours are recommended. Use of narcotics and antibiotics are not recommended. Usually 1 week out of school or work is needed to recover, and then they may return with light activities for an additional week before resuming regular routine. They will contact our office to schedule at a mutually convenient time. All questions were answered. [email or web address] Not available 11/19/2024 11:06:33 Plan of Treatment Reminders Order Date Submit Date Provider Last Modified By Organization Details Last Modified Time Details Appointments None recorded. Lab None recorded. Referral None recorded. Procedures None recorded. Surgeries tonsillecto my (SURG) 2024 025 [email or web address] Not available 02/07/202 5 15:06:59 Imaging None recorded. Medication Orders None recorded. Patient TargetsNo targets recorded. Patient InstructionsNo instructions recorded. Reason for Referral None Reported. Results Created Date Observation Date Name Description Value Unit Range Abnormal Flag Note LastModifiedBy Organization Detail LastModifiedTime Result Notes None recorded. Problems Name Problem SNOMED Code Status Onset Date Resolution Date Notes Provider Name and Address Organization Details Recorded Time Obstructi ve sleep apnea syndrome 36975044 Active 2022 Obstructi ve sleep apnea (adult) (pediatri c); Note: Date Diagnosed : 05/06/2023 4:36 PM (G47.33) Not Available [facility] 4 03:29:24 Hypertrop hy of tonsils 09877441 Active 2022 Hypertrop hy of tonsils; Note: Date Diagnosed : 05/06/2023 4:35 PM (J35.1) Not Available [facility] 4 03:29:23 Chronic tonsillit is 58813993 Active 2024 WILDER WHYTE MD [address] [place] [address],[place] [address], [facility] [place], [address] , [facility] - [facility] 5 11:05:58 Continuou s dependenc e on cigarette smoking 13980417766 4108 Active 2024 WILDER WHYTE MD [address] [place] [address],[place] [address], [facility] [place], [address] , [place] - [facility] 5 11:06:13 Problem Notes None recorded. Procedures Surgical History Date Name Laterality Status Provider Name and Address Organization Details Recorded Time 5 Removal of tonsils completed WILDER WHYTE MD [address] [place] [address],[place] [address], [place], [address], [facility] - [facility] 12/31/2024 14:31:42 Imaging Results None recorded. Procedure Notes None recorded. Medical Equipment None Reported. Medications Name Sig Start Date Stop Date Status Note LastModified by Organization Details LastModified Time Prescripti on - New active Rx^Rx_ 87065 Not Available Not Available Not Available amoxicilli n 500 mg capsule TAKE 1 CAPSULE BY MOUTH THREE TIMES DAILY (EVERY 8 HOURS) FOR TEN DAY active Not Available Not Available No t Available prednisone 10 mg tablet TAKE 3 TABLETS BY MOUTH EVERY DAY FOR 3 DAYS active Not Available Not Available No t Available lamotrigin e 200 mg tablet TAKE 1 TABLET BY MOUTH TWICE A DAY active Not Available Not Available No t Available trazodone 50 mg tablet TAKE 1 TABLET BY MOUTH BEDTIME NEEDED FOR INSOMNIA active Not Available Not Available No t Available oxybutynin chloride ER 10 mg tablet,ext ended release 24 hr active Medicatio n ID: [id number] Br and Name: oxybutyni n chloride Send Method: E-Prescri bed Subs Allowed: subs OK [facility] icName: oxybutyni n chloride Not Available Not Available Not Available naltrexone 50 mg tablet TAKE 1 TABLET BY MOUTH EVERY DAY active Not Available Not Available No t Available ondansetro n HCl 4 mg tablet TAKE 1 TABLET (4 MG TOTAL) BY MOUTH EVERY 8 HOURS IF NEEDED FOR NAUSEA OR VOMITING FOR UP TO 7 DAYS. active Not Available Not Available No t Available prednisone 20 mg tablet TAKE 2 TABLETS (40 MG TOTAL) BY MOUTH ONCE DAILY FOR 4 DAYS. active Not Available Not Available No t Available metronidaz ole 250 mg tablet PLEASE SEE ATTACHED FOR DETAILED DIRECTION S active Not Available Not Available No t Available clonazepam 1 mg tablet TAKE 1 TABLET BY MOUTH UP TO 2 TIMES A DAY NEEDED FOR ANXIETY/P ANIC. active Not Available Not Available No t Available clindamyci n HCl 150 mg capsule active Not Available Not Available N ot Available olanzapine 10 mg tablet TAKE 1 TABLET BY MOUTH AT BEDTIME active Not Available Not Available No t Available lamotrigin e 25 mg tablet active Medicatio n ID: [id number] Br and Name: lamotrigi ne Send Method: E-Prescri bed Subs Allowed: subs OK [facility] icName: lamotrigi ne Not Available Not Available Not Available Mapap (acetamino phen) 500 mg capsule TAKE 2 CAPSULES (1000 MG TOTAL) BY MOUTH UP TO 3 TIMES A DAY NEEDED FOR PAIN. active Not Available Not Available No t Available nicotine 21 mg/24 hr daily transderma l patch APPLY ONE (21 MG) PATCH TRANSDERM ALLY DAILY active Not Available Not Available No t Available zolpidem 5 mg tablet active Medicatio n ID: [id number] Br and Name: zolpidem Send Method: E-Prescri bed Subs Allowed: subs OK Medica tionGener icName: zolpidem Not Available Not Available Not Available ibuprofen 600 mg tablet active Not Available Not Available Not Available zolpidem 10 mg tablet TAKE 1 TABLET BY MOUTH AT BEDTIME. active Not Available Not Available No t Available olanzapine 20 mg tablet TAKE 1 TABLET BY MOUTH EVERY NIGHT AT BEDTIME DIRECTED FOR MOOD STABILITY AND SLEEP active Not Available Not Available No t Available lamotrigin e 100 mg tablet TAKE 1 TABLET BY MOUTH TWICE A DAY active Not Available Not Available No t Available amoxicilli n 875 mg-potassi um clavulanat e 125 mg tablet TAKE 1 TABLET BY MOUTH TWICE DAILY FOR 8 DAYS. active Not Available Not Available No t Available Ventolin HFA 90 mcg/actuat ion aerosol inhaler INHALE 2 PUFFS INTO THE LUNGS EVERY 4 HOURS NEEDED FOR SHORTNESS OF BREATH/WH EEZING active Not Available Not Available No t Available aripiprazo le 15 mg tablet active Medicatio n ID: [id number] Br and Name: aripipraz ole Send Method: E-Prescri bed Subs Allowed: subs OK Medica tionGener icName: aripipraz ole Not Available Not Available Not Available aripiprazo le 5 mg tablet active Medicatio n ID: [id number] Br and Name: aripipraz ole Send Method: E-Prescri bed Subs Allowed: subs OK Medica tionGener icName: aripipraz ole Not Available Not Available Not Available duloxetine 30 mg capsule,de layed release TAKE 3 CAPSULES BY MOUTH EVERY DAY active Not Available Not Available No t Available duloxetine 60 mg capsule,de layed release TAKE 1 CAPSULE BY MOUTH EVERY DAY IN THE MORNING active Not Available Not Available No t Available lurasidone 60 mg tablet active Medicatio n ID: [id number] Br and Name: lurasidon e Send Method: E-Prescri bed Subs Allowed: subs OK Medica tionGener icName: lurasidon e Not Available Not Available Not Available Vraylar 3 mg capsule TAKE 1 CAPSULE BY MOUTH EVERY DAY active Not Available Not Available No t Available Caplyta 42 mg capsule TAKE 1 CAPSULE BY MOUTH EVERY NIGHT AT BEDTIME DIRECTED FOR MOOD STABILITY . active Not Available Not Available No t Available Vitals Date Recorded Body height Body mass index (BMI) Body weight Provider Name and Address Organization Details Last Updated DateTime 11/19/2024 170.18 cm 38.4 kg/m2 319187.13 g Ruby [facility] [place] [facility] 11/19/2024 10:51:35 Social History None recorded. Functional Status None recorded. Mental Status None recorded. Family History Nothing Reported. Medical History No medical history recorded. Past Encounters Encounter ID Performer Location Encounter Start Date Encounter Closed Date Diagnosis/Indication Diagnosis SNOMED-CT Code Diagnosis ICD10 Code Diagnosis IMO Codes Diagnosis Note [id number] WILDER WHYTE MD [facility] [address] [address] 11/19/2024 10:51:06 11/19/2024 11:10:36 Chronic tonsillitis 64569403 J35.01 Patient has history of chronic tonsilliti s with significan t swelling requiring intubation in the past. He is recovering from an acute tonsilliti s right now but would like to move forward with removing tonsils Continuous dependence on cigarette smoking [id number] 18082 F17.210 smoking cessation recommende d Obstructiv e sleep apnea syndrome 59727317 G47.33 Health Concerns Section Related Observation LastModified by Organization Detai ls LastModified Time None Recorded Concern Status LastModified by Organization Details LastModified Time None Recorded Advance Directives Directive None Recorded Payers Insurance Date Sequence Insurance Name Policy Number Policy Faye Covered Member ID Faye Member ID Guarantor Name 12/28/2024 2 [place] [facility] Barneyerickson Wei [id number] Barneyerickson Wei Sr 12/28/2024 1 [place] [employer] Barney Graham Eriberto [id number] Barneyerickson Wei Sr Notes Date Note Type Note Provider Name and Address Organization Details Recorded Time 11/19/2024 text/html ROS as noted in the HPI sore throatonset about /04/06 [facility] ER visit tonsil hypertrophyrx clinda, ibuprofentobacco - 4 cig dailydenies refluxCPAP with oxygen supplementation is helpfulfew months ago was intubated at [place] for tonsil swelling - no abscess PV 05/06/23 [facility] - tonsils 2+, JESUS trying to get new CPAP machine. offered tonsil removal declined WILDER WHYTE MD [address] [place] [address], [place], [address], [facility] - [facility] 11/19/2024 11:10:30
--- OUTSIDE RECORDS SUMMARY | 2025-08-18 00:58 | XMS_ITS | Encounter Summary ---
Author Organization [facility] Address [address] [place] [address] Care Team Providers Care Utility Supervisor Boat And Plant Name Role Phone Dheeraj Torres MD Primary Care Provider [phone] Encounter Details Date Type Department Care Team Description 06/28/2021 Estimator And Drafter Report Medical Records [address] [place] [address] Clinic, [place] [address] Social History Tobacco Use Types Packs/Day Years [...] on filedocumented in this encounter Care Teams Utility Supervisor Boat And Plant Relationship Specialty Start Date End Date Dheeraj Torres MD [address] [place], [place] [id number] PCP - General Internal Medicine 03/19/18 documented as of this encounter
--- OUTSIDE RECORDS SUMMARY | 2025-08-18 00:58 | XMS_ITS | Encounter Summary ---
Author Organization [facility] Address [address] [place] [address] Care Team Providers Care Apiculturist Name Role Phone Dheeraj Torres MD Primary Care Provider [phone] Encounter Details Date Type Department Care Team Description 05/08/2023 Telephone Adult Medicine [address] [address] Carisa Martino APRN [address] [place] [address] Social History Tobacco Use Types Packs/Day Years [...] encounter Miscellaneous Notes * Telephone Encounter - Carisa Martino APRN - 05/08/2023 7:37 AM EDT Please inform patient that his sleep study indicates JESUS and I am referring him to pulmonary for CPAP. documented in this encounter Plan of Treatment Not on file documented as of this encounter Visit Diagnoses Not on filedocumented in this encounter Care Teams Apiculturist Relationship Specialty Start Date End Date Dheeraj Torres MD [address] [place] [address] PCP - General Internal Medicine 03/19/18 documented as of this encounter
--- OUTSIDE RECORDS SUMMARY | 2025-08-18 00:58 | XMS_ITS | Encounter Summary ---
Author Organization [facility] Address [address] [place] [address] Care Team Providers Care Oil And Gas Lease Pumper Name Role Phone Dheeraj Torres MD Primary Care Provider [phone] Reason for Visit * Reason Onset Date Comments Letter 12/07/2020 Encounter Details Date Type Department Care Team Description 12/07/2020 Telephone Adult Medicine [address] [phone] Sandie Ku PA-C [address] [place] [phone] Letter Social History Tobacco Use Types Packs/Day Years [...] encounter Miscellaneous Notes * Telephone Encounter - Jazmyn Ramos M.A. - 12/07/2020 4:47 PM EST Pt advised letter and copy of PE are ready for picker packer/Pt picker packer. * Telephone Encounter - Sandie Ku PA-C - 12/07/2020 4:29 PM EST Letter printed. Please print a copy of my last physical exam note on 08/24/2020. Call him to informhim that the letter and physical exam copy is all set. * Telephone Encounter - Sun Blanco - 12/07/2020 12:26 PM EST Letter requested for: the pt is interested in undergoing bariatric surgery, needs a letter of recommendation for the procedure he had pe 08/24/2020 and the procedure was discussed and recommended at the visit by Sandie Ku Reason for letter: needs to state lisxt of comorbitites and a good candidate and would benefit Specific notations needed in body of letter: Will also need a copy of the last pe 08/24/2020 Date needed for completion: gail When completed: Will picker packer-call when completed: documented in this encounter Plan of Treatment Not on file documented as of this encounter Visit Diagnoses Not on filedocumented in this encounter Care Teams Oil And Gas Lease Pumper Relationship Specialty Start Date End Date Dheeraj Torres MD [address] [place] [address] PCP - General Internal Medicine 03/19/18 documented as of this encounter
--- OUTSIDE RECORDS SUMMARY | 2025-08-18 00:58 | XMS_ITS | Encounter Summary ---
Author Organization [employer] [facility] Address [address] [facility] [address] [place] [address] Care Team Providers Care Health Officer Name Role Phone Unavailable Primary Care Provider [...]
--- OUTSIDE RECORDS SUMMARY | 2025-08-18 00:58 | XMS_ITS | Encounter Summary ---
Author Organization [facility] Address [address] [place] [address] Care Team Providers Care Casino Host Name Role Phone Dheeraj Torres MD Primary Care Provider [phone] Encounter Details Date Type Department Care Team Description 10/31/2020 Telephone Sales Representative Report Medical Records [address] [place] [address] Abstract, Provider Social History Tobacco Use Types [...] on filedocumented in this encounter Care Teams Casino Host Relationship Specialty Start Date End Date Dheeraj Torres MD [address] [place] [address] PCP - General Internal Medicine 03/19/18 documented as of this encounter
--- OUTSIDE RECORDS SUMMARY | 2025-08-18 00:58 | XMS_ITS | Encounter Summary ---
Author Organization [facility] Address [address] [place] [address] Care Team Providers Care Drying Machine Operator Name Role Phone Dheeraj Torres MD Primary Care Provider [phone] Encounter Details Date Type Department Care Team Description 06/04/2023 Pt. Non Urgent Medical Question Adult Medicine [facility] [address] [place] [address] Carisa [place], MARTHA [address] [place] [address] Social History Tobacco Use Types Packs/Day Years [...] Assigned at Date Recorded Not on file COVID-19 Exposure Response Date Recorded In the last 10 days, have yo u been in contact with someone who was confirmed or suspected to have Coronavirus/COVID-19? No / Unsure 06/04/2023 8:28 AM EDT documented as of this encounter Miscellaneous Notes * Telephone Encounter - Nany Doherty M.A. - 06/04/2023 4:13 PM EDTFrom: Barney Wei To: Carisa [place] APRN Sent: 06/04/2023 2:07 PM EDT Subject: Pulmonary I called pulmonary they said they did not receive the sleep study or the other information they need to book an appointment for me. documented in this encounter Plan of Treatment Not on file documented as of this encounter Visit Diagnoses Not on filedocumented in this encounter Care Teams Drying Machine Operator Relationship Specialty Start Date End Date Dheeraj Torres MD [address] [place] [address] PCP - General Internal Medicine 03/19/18 documented as of this encounter
--- OUTSIDE RECORDS SUMMARY | 2025-08-18 00:58 | XMS_ITS | Encounter Summary ---
Author Organization [employer] Address [address] [place] [address] [address] [place] [address] Care Team Providers Care Restoration Ecologist Name Role Phone Unavailable Primary Care Provider Unavailabl e Reason for Visit * Reason Onset Date Comments Prior Authorization 03/20/2023 Encounter Details Date Type Department Care Team (Late st Contact Info) Description 03/20/2023 Telephone [facility]ULT [facility] [address] [place], [place] [phone] Dario Duran DDS [address] [place], [place] [phone] Prior Authorization Social History Tobacco Use Types Packs/Day Years Used Date Smoking Tobacco: Every Day Cigarettes Smokeless Tobacco: Never Sex and Gender Information Value Date Recorded Sex Assigned at Male 08/12/2022 10:15 AM EDT Legal Sex Male 10:15 AM EDT Gender Identity Male 08/12/2022 10:15 AM EDT Sexual Orientation Straight 08/12/2022 10 :15 AM EDT COVID-19 Exposure Response Date Recorded In the last 10 days, have yo u been in contact with someone who was confirmed or suspected to have Coronavirus/COVID-19? No / Unsure 02/18/2023 8:51 AM EDT documented as of this encounter Miscellaneous Notes * Telephone Encounter - Myriam Perez - 03/20/2023 2:57 PM EDT Patient called in to verify if Prior Authorization for dentures was approved by insurance. I don't see anything scanned. Do you recall receiving it DR documented in this encounter Plan of Treatment Not on file documented as of this encounter Visit Diagnoses Not on filedocumented in this encounter
--- OUTSIDE RECORDS SUMMARY | 2025-08-18 00:58 | XMS_ITS | Encounter Summary ---
Author Organization [facility] Address [address] [place] [address] Care Team Providers Care Personal Injury Legal Assistant Name Role Phone Dheeraj Torres MD Primary Care Provider [phone] Encounter Details Date Type Department Care Team Description 01/03/2021 Hospital Medical Records [address] [place] [address] Taina Miller MD Social History Tobacco Use [...] on filedocumented in this encounter Care Teams Personal Injury Legal Assistant Relationship Specialty Start Date End Date Dheeraj Torres MD [address] [place] [address] PCP - General Internal Medicine 03/19/18 documented as of this encounter
--- OUTSIDE RECORDS SUMMARY | 2025-08-18 00:58 | XMS_ITS | Encounter Summary ---
Author Organization [employer] [facility] Address [address] [facility] 7[address] [place] [address] Care Team Providers Care Block Mechanic Name Role Phone Unavailable Primary Care Provider Unavailabl e Encounter Details Date Type Department Care Team (Latest Contact Info) Description 02/09/2021 Abstract C CONVERSIONS Dental, Provider, DDS Social History Tobacco [...]
--- NOTE | 2025-08-18 01:49 | ECG_ITS ---
Test Reason : CHECK QTC Blood Pressure : */* mmHG Vent. Rate : 120 BPM Atrial Rate : 120 BPM P-R Int : 140 ms QRS Dur : 94 ms QT Int : 330 ms P-R-T Axes : 52 60 2 degrees QTcB Int : 466 ms Sinus tachycardia Possible Left atrial enlargement T wave abnormality, consider inferolateral ischemia Abnormal ECG When compared with ECG of 07-Mar-2025 20:44, T wave inversion now evident in Inferior leads T wave inversion now evident in Lateral leads Referred By: [place] Electronically Signed By: Jose Carter
[2025-08-18 02:40] LABS: MANUAL DIFF FLAG NO
[2025-08-18 02:41] LABS: Hematocrit 45.2 % (42.0-52.0); Hemoglobin 15.6 g/dl (14.0-18.0); Imm Gran Abs Auto 0.01 X10*3/uL (0.00-0.03); Imm Gran Pct Auto 0.2 % (0.0-0.4); Lymphocytes Absolute Auto 2.9 X10*3/uL (1.2-4.9); Mean Corpuscular HGB Conc 34.5 g/dl (31.0-36.0); Mean Corpuscular Hemoglobin 31.4 pg (27.0-33.0); Mean Corpuscular Volume 90.9 fL (80.0-98.0); NRBC Abs Auto 0.000 X10*3/uL (0.0-0.012); NRBC Pct Auto 0.0 /100WBC (0.0-0.2); Platelet Count 282 X10*3/uL (160-400); Red Blood Count 4.97 X10*6/uL (4.60-5.80); White Blood Count 6.5 X10*3/uL (4.8-10.8)
[2025-08-18 03:00] LABS: Alanine Aminotransferase 73 U/L (0-40); Albumin Level 4.6 g/dL (3.5-5.0); Alkaline Phosphatase 135 U/L (39-117); Anion Gap 18 (12-20); Aspartate Amino Transferase 63 U/L (5-37); Blood Urea Nitrogen 10 mg/dL (9-16); Calcium 8.9 mg/dL (8.4-10.2); Carbon Dioxide 18 mmol/L (22-29); Chloride 106 mmol/L (96-108); Creatinine Clr Calc Pharmacy 130.4; Estimated Glomerular Filt Rate > 60; Potassium 3.4 mmol/L (3.3-5.1); Sodium 139 mmol/L (135-145); Total Protein 8.0 g/dL (6.5-8.0)
[2025-08-18 03:06] LABS: Acetaminophen LAB < 3 mcg/mL (<30); Salicylate < 5.0 mg/dL (15-30)
[2025-08-18 03:09] LABS: Cannabinoid Screen Urine Not Detected (Not Detect)
[2025-08-18 05:12] VITALS: BP 124/68; PULSE 105; RESP 20; TEMP 36.8; O2SAT 97
--- NOTE | 2025-08-18 06:25 | ED.PSYCH ---
HPI - Psych General Chief Complaint: Psychiatric Symptoms Stated Complaint: SI Time Seen by Provider: 08/18/25 05:40 Source: patient Mode of arrival: ambulatory Limitations: no limitations History of Present Illness ED Provider: DR. Hernandez HPI Narrative: 45-year-old male with history of MDD, alcohol and cocaine use disorder, JESUS, bariatric surgery with sleeve who presented today to the ED for increased depression and SI with plan of overdosing on his anti psych medication, patient had a prior inpatient psych admission in the past, no auditory hallucination, no visual hallucination, patient declined any underlying trigger cause of his depression and SI. Related Data Home Medications ?Medication ?Instructions ?Recorded ?Confirmed lumateperone 42 mg capsule 42 mg PO DAILY 08/24/24 08/18/25 (Caplyta) olanzapine 10 mg tablet 20 mg PO BEDTIME 08/24/24 08/18/25 duloxetine 20 mg capsule,delayed 20 mg PO DAILY 08/18/25 08/18/25 release duloxetine 60 mg capsule,delayed 60 mg PO BEDTIME 08/18/25 08/18/25 release lamotrigine 100 mg tablet 200 mg PO BID 08/18/25 08/18/25 olanzapine 5 mg tablet 5 mg PO QAM 08/18/25 08/18/25 trazodone 100 mg tablet 100 - 200 mg PO BEDTIME PRN 08/18/25 08/18/25 insomnia Previous Rx's ?Medication ?Instructions ?Recorded hydroxyzine HCl 25 mg tablet 25 mg PO Q6H PRN Anxiety #0 tabs 08/26/24 Allergies Allergy/AdvReac Type Severity Reaction Status Date / Time Seasonal Allergies Allergy Mild sinus Verified 08/18/25 00:15 Review of Systems Review of Systems: All other systems are reviewed and are negative Constitutional: Reports as per HPI and Reports no additional constitutional complaints Eyes: Reports as per HPI and Reports no additional eye complaints Reports system reviewed and no additional complaints, except as documented Cardiovascular: Reports as per HPI and Reports no additional cardiovascular complaints Respiratory: Reports as per HPI and Reports no additional respiratory complaints Gastrointestinal: Reports as per HPI and Reports no additional gastrointestinal complaints Genitourinary: Reports no additional female genitourinary complaints Musculoskeletal: Reports no additional musculoskeletal complaints Skin/Breast: Reports system reviewed and no additional complaints, except as docu Psychiatric: Reports no additional psychiatric complaints Endocrine: Reports no additional endocrine complaints Hematologic/Lymphatic: Reports no additional hematologic/lymphatic complaints Allergic/Immunologic: Reports no additional allergic/immunologic complaints Reports system reviewed and no additional complaints, except as documented and Reports Abnormal speech present [facility] Past Medical History Medical History Alcohol use disorder, moderate, dependence MDD (major depressive disorder), recurrent episode, moderate Intestinal malabsorption following gastrectomy BMI 33.0-33.9,adult Obesity (BMI 30-39.9) COVID-19 vaccine administered BMI 38.0-38.9,adult Obesity BMI 39.0-39.9,adult Vitamin D deficiency Body mass index (BMI) of 40.1 to 44.9 in adult Helicobacter pylori (H. pylori) infection Hypertriglyceridemia Obstructive sleep apnea treated with continuous positive airway pressure (CPAP) Shortness of breath Preoperative examination Morbid obesity due to excess calories Surgical History History of repair of hiatal hernia S/P laparoscopic sleeve gastrectomy Family History Family History Mother Diabetes Father Prostate cancer Brother Diabetes Sister Asthma Sister Asthma Son No problems noted. Daughter Autism Social History Social History Household Members: Family Household Members Other:: MOTHER Housing: House Are you a primary health care recruiter to a significant other at home: No Do you presently have visiting nurse or other home services: No Alcohol intake: current Alcohol intake frequency: 3 or more drinks per day Alcohol type: hard liquor Comment: 1:1 sitter Patient Tobacco Use Status: Tobacco use Unknown Tobacco use type: Cigarette Cigarette Packs Per Day: 0.5 Cigarettes Per Day: 10.0 e-Cigarette/Vaping Use: Never Used Second Hand Smoke Exposure: Yes Substance Use Type: Crack/Cocaine service: No Current occupational status: employed Sexual orientation: Straight/Heterosexual Physical Exam Vital Signs: Vital Signs: Last Vital Signs Temp 97.9 F 08/19/25 10:47 Pulse 69 08/19/25 10:47 Resp 16 08/19/25 10:47 BP 129/66 08/19/25 10:47 Pulse Ox 99 08/19/25 10:47 O2 Del Method Room Air 08/19/25 10:47 BMI result Body Mass Index 39.2 Vital signs have been reviewed and appear to be correct. Blood pressure elevated. Heart rate normal. Respiratory rate normal. Temperature normal. Oxygen saturation normal. Appearance: Alert. Oriented X3. No acute distress. Head: Normal external exam. Normocephalic. Atraumatic. No Houser signs noted. No raccoon eyes noted Eyes: PERRLA. EOMI. Conjunctiva and sclera normal. Eyelids normal. ENT: TM's Normal. Pharynx normal. Uvula midline. Moist mucous membranes. No trismus noted. No drooling noted. No muffled voice noted. Neck: Normal inspection. Neck supple. FROM. No adenopathy. Thyroid Normal. No meningeal signs. No neck mass noted. CVS: Normal heart rate and rhythm. Heart sound normal. No murmurs noted. Pulses normal throughout. Respiratory: No respiratory distress. Painless inspiration. Breath sounds normal. No wheezes/rales/rhonchi noted. Chest nontender. No accessory muscle usage noted or decreased air movement noted. Abdomen: Soft and nontender. Bowel sounds normal in all 4 quadrants. No distention noted. No organomegaly noted. No visible injury noted. Back: No CVA tenderness. Full range of motion noted. Skin: Skin warm and dry. Normal skin color. Normal skin turgor. No rashes/lesions/lacerations noted. Extremities: No lower extremity edema. Extremities exhibit normal range of motion. Extremities nontender. Neuro: Oriented X 3. Cranial nerve exam: II-XII are grossly intact No motor deficit. No sensory deficit. Reflexes normal. Patient Orientation: Person, Place, Time and Situation, okay hygiene and grooming. Fair eye contact, attentive, no tics or tremors. Level of Consciousness: Awake, Appropriate and Alert Patient Behavior: Appropriate, Guarded, Cooperative and Anxious Mood Description: Constricted, Blunted and Apprehensive Affect Description: Constricted, Blunted and Apprehensive Patient Cognition Impaired: No Ability to Follow Directions: Excellent Speech Pattern: Clear, Appropriate and Spontaneous Speech, nonpressured, spontaneous with regular rate and rhythm, normal volume and prosody. No dysarthria. Memory Description: Intact, Immediate Intact and Short Term Intact Hallucinations: None Delusions: Not Present Thought Process: Intact Thought Content: positive For suicidal ideation with plan of overdosing on his medications Depressive Symptoms: Not present. Judgement and Insight: Limited but adequate. Course Reevaluation(s) Reevaluation #1: patient is medically cleared, await for care team evaluation, start on physician observation. Time: 06:28 Reevaluation #2: 7:57 AM 08/18/2025 (Dr. Abilio Pop): Patient is signed out to me pending crisis evaluation, during my morning rounds patient is sleeping 2:40 PM 08/18/2025 (Dr. Abilio Pop): Referred for a dual diagnosis Reevaluation #3: Time: 05:24 Date: 08/19/25 Provider: Myke Khan MD Patient in physician observation for psychiatric evaluation.? No acute events reported overnight. No current complaints. VS stable.? Patient is accepted at [facility] for today, Friday08/19/25 ETA 10:30AM. Will continue to monitor. Additional Reevaluation(s): Time: 10:54 Date: 08/19/25 Provider: Myke Khan MD Physician observation ended at 10:54 hours. Patient was transferred by ambulance on a section 12 to [facility] for further treatment. Medications Administered Discontinued Medications Generic Name Dose Route Start Last Admin Trade Name Freq PRN Reason Stop Dose Admin Duloxetine HCl 20 mg 08/19/25 09:00 08/19/25 08:13 Duloxetine Hcl 20 Mg Capsule. PO 20 mg DAILY CASSANDRA Administration Duloxetine HCl 60 mg 08/18/25 21:00 08/18/25 20:55 Duloxetine Hcl 60 Mg Capsule. PO 60 mg BEDTIME CASSANDRA Administration Lamotrigine 200 mg 08/18/25 21:00 08/19/25 08:13 Lamotrigine 100 Mg Tablet PO 200 mg BID CASSANDRA Administration Lorazepam 1 mg 08/18/25 01:40 08/18/25 01:45 Lorazepam 1 Mg Tablet PO 08/18/25 01:41 1 mg ONCE ONE Administration Lorazepam 1 mg 08/18/25 16:46 08/18/25 16:49 Lorazepam 1 Mg Tablet PO 08/18/25 16:47 1 mg ONCE ONE Administration Olanzapine 20 mg 08/18/25 21:00 08/18/25 20:55 Olanzapine 10 Mg Tablet PO 20 mg BEDTIME CASSANDRA Administration Olanzapine 5 mg 08/19/25 09:00 08/19/25 08:13 Olanzapine 5 Mg Tablet PO 5 mg DAILY CASSANDRA Administration Trazodone HCl 100 - 200 mg 08/18/25 18:43 08/18/25 20:55 Trazodone Hcl 100 Mg Tablet PO 100 mg BEDTIME PRN Administration Insomnia Medical Decision Making Medical Decision Making [facility] Narrative: 08/18/25 1620 Patient is accepted at [facility]. Differential Diagnosis Differential Diagnoses: The differential diagnosis associated with the presentation includes ( Depression, SI, substance abuse, medical clearance.) Admission/Observation Consideration of admission/observation: Escalation of care including admission/observation considered Lab Data [facility] Lab Attestation statement: I reviewed the patient's lab results. 08/18/25 02:36 08/18/25 02:36 Labs: Lab Results 08/18/25 08/18/25 Range/Units 02:36 02:53 WBC 6.5 (4.8-10.8) X10*3/uL RBC 4.97 (4.60-5.80) X10*6/uL Hgb 15.6 (14.0-18.0) g/dl Hct 45.2 (42.0-52.0) % MCV 90.9 (80.0-98.0) fL MCH 31.4 (27.0-33.0) pg MCHC 34.5 (31.0-36.0) g/dl RDW 12.9 (11.0-16.0) % Plt Count 282 (160-400) X10*3/uL MPV 8.6 L (9.4-12.4) fL Immature Gran % (Auto) 0.2 (0.0-0.4) % Neut % (Auto) 46.9 (45-73) % Lymph % (Auto) 44.3 H (20-40) % [place] % (Auto) 6.0 (2-11) % Eos % (Auto) 0.9 (0-4) % Baso % (Auto) 1.7 (0-2) % Lymph # (Auto) 2.9 (1.2-4.9) X10*3/uL [place] # (Auto) 0.4 (0.1-1.2) X10*3/uL Eos # (Auto) 0.1 (0.0-0.4) X10*3/uL Baso # (Auto) 0.1 (0.0-0.2) X10*3/uL Abs Immat Gran (auto) 0.01 (0.00-0.03) X10*3/uL Absolute Neuts (auto) 3.1 (2.0-8.3) x10*3/uL Absolute Nucleated RBC 0.000 (0.0-0.012) X10*3/uL Nucleated RBC % (auto) 0.0 (0.0-0.2) /100WBC Sodium 139 (135-145) mmol/L Potassium 3.4 (3.3-5.1) mmol/L Chloride 106 (96-108) mmol/L Carbon Dioxide 18 L (22-29) mmol/L Anion Gap 18 (12-20) BUN 10 (9-16) mg/dL Creatinine 0.86 (0.5-1.4) mg/dL Estim Creat Clear Calc 130.4 Estimated GFR > 60 Random Glucose 148 H (60-115) mg/dL Calcium 8.9 (8.4-10.2) mg/dL Total Bilirubin 0.5 (0.0-1.0) mg/dL AST 63 H (5-37) U/L ALT 73 H (0-40) U/L Alkaline Phosphatase 135 H (39-117) U/L Total Protein 8.0 (6.5-8.0) g/dL Albumin 4.6 (3.5-5.0) g/dL Salicylates < 5.0 L (15-30) mg/dL Urine Opiates Screen Not Detected (Not Detect) Ur Buprenorphine Scrn Not Detected (Not Detect) ng/mL Ur Oxycodone Screen Not Detected (Not Detect) ng/mL Urine Methadone Screen Not Detected (Not Detect) ng/mL Urine Fentanyl Screen Not Detected (Not Detect) Acetaminophen < 3 (<30) mcg/mL Ur Barbiturates Screen Not Detected (Not Detect) Ur Phencyclidine Scrn Not Detected (Not Detect) Ur Amphetamines Screen Not Detected (Not Detect) U Benzodiazepines Scrn Not Detected (Not Detect) Urine Cocaine Screen POSITIVE H (Not Detect) U Marijuana (THC) Screen Not Detected (Not Detect) Ethyl Alcohol 211 mg/dL Discharge Plan Discharge Clinical Impression: Depression, Suicidal ideations Patient Disposition: Xfer Psychiatric Hosp Transfer Details: [facility] in [place] Prescriptions: No Action Caplyta 42 mg capsule 42 mg PO DAILY olanzapine 10 mg tablet 20 mg PO BEDTIME hydroxyzine HCl 25 mg Tablet 25 mg PO Q6H PRN (Reason: Anxiety) Qty: 0 0RF lamotrigine 100 mg tablet 200 mg PO BID trazodone 100 mg tablet 100 - 200 mg PO BEDTIME PRN (Reason: insomnia) duloxetine [Cymbalta] 20 mg capsule,delayed release(DR/EC) 20 mg PO DAILY duloxetine [Cymbalta] 60 mg capsule,delayed release(DR/EC) 60 mg PO BEDTIME olanzapine 5 mg tablet 5 mg PO QAM Referrals: Dheeraj Torres III, MD [Primary Care Provider, Medical] Interventions: [place]-Suicide Risk Severity Scale Last Done: 08/19/25 00:16 Acute Care Transfer Worksheet (ED) Last Done: 08/19/25 10:47 Discharge Date/Time: 08/19/25 10:51 Print Language: Wolof
[2025-08-18 10:17] VITALS: BP 135/80; PULSE 97; RESP 18; TEMP 36.4; O2SAT 96
--- NOTE | 2025-08-18 14:38 | MHC.CARE ---
Patient evaluated by the CARE Team, inpatient psychiatric treatment on a dual diagnosis unit. Kellie schwartz
--- NOTE | 2025-08-18 15:50 | MHC.CARE ---
Pt is accepted to [facility] for today. ETA is next available and the address is [facility] [place] [address]. The accepting provider is Dr. Pérez. No nurse to nurse is needed.
[2025-08-18 16:06] VITALS: BP 147/89; PULSE 90; RESP 20; TEMP 36.7; O2SAT 97
--- NOTE | 2025-08-18 17:21 | MHC.CARE ---
Pt [facility] bed placement pushed to tomorrow 08/19/25 due to transportation issues. Per [facility] pt can arrive anytime after 11am. Accepting is Dr. FUENTES
--- NOTE | 2025-08-18 19:18 | PHA.MEDREC ---
Pharmacy Consult ? Medication Reconciliation Pharmacy has reviewed the medication reconciliation completed by
--- NOTE | 2025-08-19 04:02 | PC.NURSE ---
Assumed care at 1845. Patient presents as calm and cooperative with care. Spent evening shift resting quietly in room. Adherent to HS scheduled medications. Utilized PRN Trazodone for sleep with great effect. Mouth checks completed. Endorses passive SI, no plan/intent. Denies HI/AVH. Contracts for safety. Denies current pain/discomfort. Remains in behavioral control. 15 [address] checks in [address]. Plan of care ongoing.
[2025-08-19 06:50] VITALS: BP 114/66; PULSE 84; RESP 18; TEMP 36.6; O2SAT 96
--- NOTE | 2025-08-19 07:13 | PC.NURSE ---
Assumed care of patient at 0645, patient appears to be in no apparent distress at this time, resting in bed, respirations even and unlabored, continue plan of care for transport this am at 1030
[2025-08-19 10:47] VITALS: BP 129/66; PULSE 69; RESP 16; TEMP 36.6; O2SAT 99
== END 2025-08-19 10:51 ==
PROVIDERS: Physician Assistant; Emergency Provider Emergency Medicine; PCP Internal Medicine
DX: R45.851 Suicidal ideations (principal); F32.A Depression, unspecified; Z79.899 Other long term (current) drug therapy
CPT/HCPCS: 36415; 80053; 80143; 80179; 80307; 85025; 93005; 99285; S9485

== ENCOUNTER → 2025-08-18 01:49 | Outpatient (BNV) | payer MEDICARE, SELFPAY | PROVIDERS: Emergency Provider Emergency Medicine; PCP Internal Medicine; Visit Provider Internal Medicine Cardiovascular Disease | DX: R00.0 Tachycardia, unspecified (principal) | CPT/HCPCS: 93010 ==